=== PATIENT | female | born 1970 | race Caucasian/White ===

== ENCOUNTER 2019-10-23 18:51 | Outpatient (CLI) | payer MEDICARE, SELFPAY ==
--- NOTE | ~2019-10-23 | XR_ITS ---
XR knee LT 3V DATE: 10/23/2019 19:32 INDICATION: Generalized right leg pain TECHNIQUE: 3 views of left knee COMPARISON: None FINDINGS: There is moderate distention of the suprapatellar bursa consistent with knee joint effusion . There is periarticular spurring at all 3 compartments and moderately prominent loss of joint space at the medial compartment. No fracture, dislocation, periosteal reaction or bone destruction, radiopaque intra-articular loose b lei or chondrocalcinosis is detected. IMPRESSION: Tricompartment osteoarthritis and joint effusion Reviewed, dictated and finalized at location B.
--- NOTE | ~2019-10-23 | XR_ITS ---
EXAMINATION: XR femur RT min 2V, XR knee RT 3V DATE: 10/23/2019 INDICATION: Disorder of bone. Right leg pain. TECHNIQUE: 1. Anteroposterior, oblique and crosstable lateral views of the right knee were obtained 2. Frontal and lateral views of the right femur were obtained on overlapping proximal and distal imag es. COMPARISON: 05/25/2018 FINDINGS: Alignment is normal. No fracture. Right hip and knee joint spaces appear normal. No right knee joint effusion. No appreciable interval change in sclerotic lesions at the distal right femoral metaphysis measuring approximately 3.3 x 2.8 x 2.1 cm and at the proximal fibular metaphyseal region with less well-defined margins measuring approximately 2.1 x 1.2 x 1.3 cm. Both demonstrate stippled, ring and arc-like pattern of chondroid matrix. No evident overlying periosteal reaction, endosteal scalloping or interval osteolysis of the calcific matrix to suggest malignant transformation. Small focus of lik kamaljit gluteus medius calcific tendinitis at the tip of the greater trochanter. Soft tissues are unremar kable. IMPRESSION: 1. Stable appearance of sclerotic lesions at the distal femur and proximal fibula consistent with enc hondromas. 2. Small focus of likely calcific tendinitis at the greater trochanteric insertion of the distal righ t gluteus medias tendon. Reviewed, dictated and finalized at location A. IMPRESSION: 1. Stable appearance of sclerotic lesions at the distal femur and proximal fibu la consistent with enchondromas. 2. Small focus of likely calcific tendinitis at the greater trochanteric insert ion of the distal right gluteus medias tendon.
--- NOTE | ~2019-10-23 | XR_ITS ---
EXAMINATION: XR shoulder RT min 2V DATE: 10/23/2019 19:32 INDICATION: Right shoulder pain TECHNIQUE: AP internally and externally rotated, AP oblique externally rotated and axillary views of the right shoulder were obtained. COMPARISON: Right shoulder radiographs dated 12/15/2018 and 07/20/2018 chest radiograph dated FINDINGS: Normal alignment. No acute fracture. Again seen are small loose bodies at the axillary recess of the right glenohumeral joint. Chronic irregular contour to the anteroinferior glenoid which appears to man ve been present at the time of chest radiograph dated 07/20/2018 suggesting a chronic sequela of chrome plater maggi osseous Bankart injury. Again seen is right glenohumeral osteoarthritis with moderate nonuniform joint space narrowing and small marginal osteophytes along the inferior humeral head. Minimal acromio clavicular osteoarthritis. Visualized portions of the lungs are clear. Peripherally calcified bilater al breast implants. Moderate to severe cervical spondylosis. IMPRESSION: Moderate right glenohumeral osteoarthritis which is likely secondary to a chronic Bankart injury with depression of a portion of the anteroinferior rim of the glenoid and chronic loose osteochondral bod ies at the axillary recess. Reviewed, dictated and finalized at location A. IMPRESSION: Moderate right glenohumeral osteoarthritis which is likely secondary to a chron ic Bankart injury with depression of a portion of the anteroinferior rim of the glenoid and chronic loose osteochondral bodies at the axillary recess.
== END 2019-10-23 18:52 | disposition home or self-care (01) ==
PROVIDERS: PCP Family Medicine; Visit Provider Family Medicine
DX: M79.604 Pain in right leg (principal); M89.9 Disorder of bone, unspecified; M19.011 Primary osteoarthritis, right shoulder; M17.12 Unilateral primary osteoarthritis, left knee; M25.462 Effusion, left knee
CPT/HCPCS: 73030; 73552; 73562

== ENCOUNTER 2020-02-19 20:51 | Inpatient (IN) | payer MEDICARE, SELFPAY ==
--- NOTE | ~2020-02-19 | XR_ITS ---
EXAMINATION: XR chest 1V portable DATE: 02/25/2020 17:42 INDICATION: COVID-19 pneumonia. TECHNIQUE: A single frontal view of the chest was obtained. COMPARISON: Chest single view 02/22/2020, chest CT 02/20/2020 FINDINGS: There are mild airspace opacities in right lower lung zone and right upper lung zone. No pl eural effusion or pneumothorax. The heart size is normal. Breast implants are noted. IMPRESSION: 1. Mild airspace opacities in right lower lung zone and right upper lung zone, consistent with pneumo kortney. Reviewed, dictated and finalized at location A. IMPRESSION: 1. Mild airspace opacities in right lower lung zone and right upper lung zone, consistent with pneumonia.
--- NOTE | ~2020-02-19 | XR_ITS ---
EXAMINATION: XR chest 2V DATE: 02/19/2020 22:36 INDICATION: Shortness of breath. Cough. Fever. TECHNIQUE: Frontal and lateral views of the chest were obtained. COMPARISON: Chest 2 views 08/22/2019, 06/28/06, CT abdomen and pelvis 07/16/2011 FINDINGS: A calcified right lung nodule is consistent with old granulomatous disease. No pleural effu neda or pneumothorax. The heart size is normal. There are bilateral breast implants. IMPRESSION: 1. No acute cardiopulmonary disease. Reviewed, dictated and finalized at location A.
--- NOTE | ~2020-02-19 | XR_ITS ---
EXAMINATION: XR chest 1V portable DATE: 02/22/2020 06:15 INDICATION: Chest heart failure. Pneumonia. TECHNIQUE: frontal view of the chest was obtained. COMPARISON: Chest radiograph dated 02/19/[address] dated 02/20/2020 FINDINGS: Subtle opacities at the bilateral lower lung zones consistent with pneumonia. No pleural effusion or pneumothorax. The cardiomediastinal silhouette is normal. Lower thoracic levoscoliosis with mild spon dylosis. Peripheral calcification at bilateral breast implants. IMPRESSION: 1. Subtle opacities at the lower lung zones consistent with pneumonia. Reviewed, dictated and finalized at location A.
--- NOTE | ~2020-02-19 | CT_ITS ---
EXAMINATION: CTA chest PE protocol DATE: 02/20/2020 02:00 INDICATION: Shortness of breath. Chest pain. TECHNIQUE: Computed tomography (CT) pulmonary angiogram of the chest was performed with 100 mL Omnipa que-350 intravenous contrast. Additional 3D reconstructions utilizing coronal maximum intensity proje ction (MIP) were performed. Automated exposure control and iterative reconstruction technique were em ployed. The dose-length product was 224.17 mGy-cm. COMPARISON: None FINDINGS: Could contrast opacification of the pulmonary arteries. There is mild streak artifact from dense cont rast in the superior vena cava and right atrium. Minimal scattered respiratory motion artifact which does not limit evaluation. No pulmonary embolism. Patchy airspace opacities scattered throughout both lungs primarily in the right upper and bilateral lower lobes. Consistent with multifocal pneumonia. No pleural effusion or pneumothorax heart size is normal. No pericardial effusion. Mildly prominent m ediastinal and bilateral hilar lymph nodes which are likely reactive. Thoracic aorta is normal in zelda iber with no dissection. Peripheral calcification at bilateral breast implants. There are a few small low-attenuation cyst in the liver. Mild thoracic spondylosis. IMPRESSION: 1. No pulmonary embolism. 2. A few scattered bilateral patchy airspace opacities consistent with multifocal pneumonia. Reviewed, dictated and finalized at location A. IMPRESSION: 1. No pulmonary embolism. 2. A few scattered bilateral patchy airspace opacities consistent with multifoc al pneumonia.
[2020-02-19 21:00] VITALS: BP 120/81; PULSE 91; RESP 22; TEMP 36.6; O2SAT 97
--- NOTE | 2020-02-19 21:22 | ECG_ITS ---
Measurements Intervals [place] Rate: 89 P: 60 VA: 149 QRS: 50 QRSD: 88 T: 43 QT: 346 QTc: 422 Interpretive Statements SINUS RHYTHM POSSIBLE LEFT ATRIAL ENLARGEMENT BORDERLINE ECG Electronically Signed On 02-20-2020 7:01:22 CDT by Lars Hollingsworth D.O.
[2020-02-19 21:33] LABS: Basophils Percent Auto 0.5 % (0.2-1.2); Hematocrit 43.2 % (37.0-47.0); Hemoglobin 14.4 g/dL (12.0-15.0); Immature Granulocyte Absolute 0.03 K/mm3 (0.00-0.031); Immature Granulocyte Percent A 0.7 % (0-0.5); Lymphocytes Absolute Auto 1.82 K/mm3 (0.9-3.2); Lymphocytes Percent Auto 43.2 % (18.3-44.2); Mean Corpuscular HGB Conc 33.3 g/dl (32-36); Mean Corpuscular Hemoglobin 31.8 pg (26-34); Mean Corpuscular Volume 95.4 fl (80-100); Monocytes Absolute Auto 0.7 K/mm3 (0.1-0.6); Monocytes Percent Auto 16.9 % (2.6-8.5); Neutrophils Absolute Auto 1.6 K/mm3 (1.3-6.7); Neutrophils Percent Auto 38.7 % (45.5-73.1); Platelet Count Result 213 k/mm3 (150-375); Red Blood Count 4.53 M/mm3 (4.2-5.4); White Blood Count 4.2 K/mm3 (4.5-10.0)
[2020-02-19 21:43] LABS: Blood Urea Nitrogen 17 mg/dL (7-17); Carbon Dioxide 27 mmol/L (22-30); Chloride 104 mmol/L (98-107); Estimated CRCL calculation 88 ml/min; Estimated Glomerular Filt Rate > 60; Glucose 108 mg/dL (65-105); Potassium 3.8 mmol/L (3.4-5.0); Sodium 139 mmol/L (137-145)
[2020-02-19 23:10] VITALS: BP 129/83; PULSE 87; RESP 17; O2SAT 98
[2020-02-20] VITALS (16 sets, daily range): BP systolic 100–125; BP diastolic 68–86; PULSE 83–102; RESP 15–20; TEMP 36.8–38.8; O2SAT 93–98; BMI 26.5
[2020-02-20] MEDS: ALBUTEROL SULFATE (*SP) AEROSOL 1 PUFF 4 PUFF INHALATION (00:19)
--- NOTE | 2020-02-20 00:25 | ED.SOB ---
HPI - SOB/Dyspnea General Chief Complaint: Shortness of Breath/Dyspnea Stated Complaint: sob/cough possible sick exposure Time Seen by Provider: 02/19/20 23:48 Source: patient Mode of arrival: ambulatory Limitations: no limitations History of Present Illness HPI Narrative: This patient is 49 year old female with history of Rheumatoid arthritis, Melissa Danlos who presents for evaluation of cough and fever. She reports she has been running low grade fever for past 10 days. She states she had a fever before arrival. She also reports cough and shortness of breath. Earlier today she states used her inhaler 10 times because she has having trouble breathing. Her was a DJ at a green party 2 weeks ago and he is having similar symptoms as well. She is concerned that she may need antibiotics since she is on immunosuppression. She also states her cough has become productive with yellow sputum. MD elicited complaint: shortness of breath and cough Onset (ago): day(s) Related Data Home Medications Medication Instructions Recorded Confirmed albuterol sulfate 90 mcg/actuation 1 puff INHALATION Q4H PRN 07/24/19 02/20/20 aerosol inhaler fluticasone propionate 50 2 spray NASAL DAILY 07/24/19 02/20/20 mcg/actuation nasal spray,suspension omeprazole 20 mg capsule,delayed 40 mg PO HS 07/24/19 02/20/20 release ethacrynic acid 25 mg tablet 50 mg PO BID tablet 09/18/19 02/20/20 bupropion HCl [Wellbutrin SR] 150 mg PO QAM 02/20/20 02/20/20 bupropion HCl [Wellbutrin SR] 300 mg PO QAM 02/20/20 02/20/20 cholecalciferol (vitamin D3) 50,000 unit PO WEEKLY 02/20/20 02/20/20 [Dialyvite Vitamin D3 Max] folic acid 0.16 mg PO DAILY 02/20/20 02/20/20 hydromorphone 16 mg PO TID 02/20/20 02/20/20 montelukast [Singulair] 10 mg PO HS 02/20/20 02/20/20 pseudoephedrine HCl [Nasal 120 mg PO Q12H 02/20/20 02/20/20 Decongestant (pseudoeph)] Allergies Allergy/AdvReac Type Severity Reaction Status Date / Time doxycycline Allergy Severe Anaphylaxis Verified 01/23/20 13:17 aspirin Allergy Unknown Unknown Verified 01/23/20 13:17 azithromycin Allergy Unknown Unknown Verified 01/23/20 13:17 codeine Allergy Unknown Unknown Verified 01/23/20 13:17 hydrocodone Allergy Unknown Unknown Verified 01/23/20 13:17 latex Allergy Unknown Unknown Verified 01/23/20 13:17 meloxicam Allergy Unknown gives me Verified 01/23/20 13:17 blisters and my skins fall off meperidine Allergy Unknown Unknown Verified 01/23/20 13:17 methylprednisolone Allergy Unknown Unknown Verified 01/23/20 13:17 morphine Allergy Unknown Unknown Verified 01/23/20 13:17 NSAIDS (Non-Steroidal Allergy Unknown gives me Verified 01/23/20 13:17 Anti-Inflamma blisters and my skin falls off oxycodone Allergy Unknown Unknown Verified 01/23/20 13:17 Penicillins Allergy Unknown Unknown Verified 01/23/20 13:17 Sulfa (Sulfonamide Allergy Unknown Unknown Verified 01/23/20 13:17 Antibiotics) sulfite Allergy Unknown Unknown Verified 01/23/20 13:17 yellow dye Allergy Unknown Unknown Verified 01/23/20 13:17 Review of Systems Review of Systems: All systems reviewed & are unremarkable except as noted in HPI and below ENT: Reports nasal congestion and Reports post nasal drip Cardiovascular: Cardiovascular: Denies chest pain Respiratory: Respiratory: Reports cough, Reports dyspnea and Reports wheezing Gastrointestinal: Gastrointestinal: Denies abdominal pain, Denies diarrhea, Denies nausea and Denies vomiting PMFSH Past Medical History Medical History (Updated 02/20/20 @ 05:58 by Rubi Moreira MD) Bone lesion Chronic pain Depression, psychotic Melissa-Danlos disease Leg pain, bilateral Rheumatoid arthritis Wheezy bronchitis Surgical History Surgical History (Updated 02/20/20 @ 05:54 by Rubi Moreira MD) H/O tubal ligation Family History Family History (Updated 02/20/20 @ 05:37 by Ranya Ye RN) Other Unknown fami
[2020-02-20 04:00] LABS: Lactate Dehydrogenase 478 U/L (313-618)
[2020-02-20 04:05] LABS: CRP 1.9 mg/dL (<1.0)
--- NOTE | 2020-02-20 05:11 | ADMGEN ---
This patient, Mariah Adrianleonard Jonathan, was admitted to 3 Med Surg Room 331-01. Patient/family oriented to hospital policies and general routines including ID bracelet, bed and alarms, visiting hours, pain management, procedures, bathroom and other care routines, personal items, smoking policy, room service/diet, and visiting hours. Valuables list has been completed. Information on how to activate the Rapid Response Team has been discussed. Patient/Family are encouraged to report perceived risks to care and to ask questions if they do not understand what they are told or what they should do.
[2020-02-20] MEDS: ALBUTEROL SULFATE (*SP) AEROSOL 1 PUFF 6 PUFF INHALATION ×4 (09:19→21:36)
--- NOTE | 2020-02-20 13:56 | PM.IMHP ---
H&P: HPI History of Present Illness Chief complaint: Suspected CVA, pneumonia Narrative: Mariah Castillo is a 49 year old female who presented to the hospital with cough with sputum production, fever , diarrhea and body aches. She denies chest pain, reports SOB , no urinary symptoms, denies seeing blood in her diarrhea. Apparently her that is DJ has been exposed to COVID 19 but never tested for it. She has a history of RA and is on prednisone and methotrexate. She also states that she had to use her inhaler several times due to SOB but currently she feels better. Review of Systems Review of Systems: All systems reviewed & are unremarkable except as noted in HPI and below PMFSH Past Medical History Medical History Bone lesion Chronic pain Depression, psychotic Melissa-Danlos disease Leg pain, bilateral Rheumatoid arthritis Wheezy bronchitis Surgical History Surgical History H/O tubal ligation Family History Family History Other Unknown family medical history Social History Social History Smoking status: Former smoker Alcohol intake: former Substance use: never Gender identity (if verbalized by the patient): Female Spiritual care concerns: No Meds Home Medications and Allergies Home Medications Medication Instructions Recorded Confirmed Type albuterol sulfate 90 mcg/actuation 1 puff INHALATION Q4H PRN 07/24/19 02/20/20 History aerosol inhaler fluticasone propionate 50 2 spray NASAL DAILY 07/24/19 02/20/20 History mcg/actuation nasal spray,suspension omeprazole 20 mg capsule,delayed 40 mg PO HS 07/24/19 02/20/20 History release ethacrynic acid 25 mg tablet 50 mg PO BID tablet 09/18/19 02/20/20 History baclofen 20 mg tablet 20 mg PO Q6H PRN #120 tablet 01/11/20 02/20/20 Rx diazepam 10 mg tablet 10 mg PO BID PRN #60 tablet 01/11/20 02/20/20 Rx nystatin-triamcinolone 100,000 1 applic TOPICAL BID #30 gm 01/23/20 02/20/20 Rx unit/gram-0.1 % topical ointment amlodipine 10 mg tablet 10 mg PO DAILY #90 tablet 01/29/20 02/20/20 Rx thyroid (pork) 300 mg tablet 300 mg PO DAILY #90 tablet 01/29/20 02/20/20 Rx fentanyl 75 mcg/hr transdermal 1 patch TRANSDERM Q72H #10 patch 02/07/20 02/20/20 Rx patch atenolol 25 mg tablet 25 mg PO BID #180 tablet 02/13/20 02/20/20 Rx clonidine HCl 0.2 mg tablet 0.2 mg PO BID #60 tablet 02/19/20 02/20/20 Rx bupropion HCl [Wellbutrin SR] 150 mg PO QAM 02/20/20 02/20/20 History bupropion HCl [Wellbutrin SR] 300 mg PO QAM 02/20/20 02/20/20 History cholecalciferol (vitamin D3) 50,000 unit PO WEEKLY 02/20/20 02/20/20 History [Dialyvite Vitamin D3 Max] folic acid 0.16 mg PO DAILY 02/20/20 02/20/20 History hydromorphone 16 mg PO TID 02/20/20 02/20/20 History montelukast [Singulair] 10 mg PO HS 02/20/20 02/20/20 History pseudoephedrine HCl [Nasal 120 mg PO Q12H 02/20/20 02/20/20 History Decongestant (pseudoeph)] Allergies Allergy/AdvReac Type Severity Reaction Status Date / Time doxycycline Allergy Severe Anaphylaxis Verified 01/23/20 13:17 aspirin Allergy Unknown Unknown Verified 01/23/20 13:17 azithromycin Allergy Unknown Unknown Verified 01/23/20 13:17 codeine Allergy Unknown Unknown Verified 01/23/20 13:17 hydrocodone Allergy Unknown Unknown Verified 01/23/20 13:17 latex Allergy Unknown Unknown Verified 01/23/20 13:17 meloxicam Allergy Unknown gives me Verified 01/23/20 13:17 blisters and my skins fall off meperidine Allergy Unknown Unknown Verified 01/23/20 13:17 methylprednisolone Allergy Unknown Unknown Verified 01/23/20 13:17 morphine Allergy Unknown Unknown Verified 01/23/20 13:17 NSAIDS (Non-Steroidal Allergy Unknown gives me Verified 01/23/20 13:17 Anti-Inflamma blisters
[2020-02-20 15:01] LABS: SARS-CoV-2 RNA PCR Positive
[2020-02-20] MEDS: ACETAMINOPHEN 325 MG TABLET 650 MG PO ×2 (16:45→21:45)
--- NOTE | 2020-02-20 17:12 | PC.NURSE ---
When I first assessed pt, she was A/O x 4, but she was very confused. She had slurred speech, commented about wanting clothes on when she already had them on. Pt had her purse in bed with her along with a jug labeled V8 vladimir splash, but it was a clear liquid she stated was water. When I told her we had water for her already in her pitcher, she refused me taking it stating she needed more water than that. When her family brought her bag up here, we verified its contents. All medicines were recorded on the back of the belongings list and put into home meds with the controlled meds being locked in the safe. Given the amount of medications she takes and the weight of her purse, we did pull it out to verify its contents. When I went to pull the purse, she sat up in bed, swaying back and forth, slurring her words and talking about needing to get into bed, even though she was already there. Medicines, including controls, a variety of DLs, IDs, checkbooks, torches, lighters, were found. These items were also put in the safe/med room. Pt aware of this. Pt continues to slur speech, have poor eye control, and be confused, despite A/Ox4.
[2020-02-20] MEDS: cloNIDine HCL 0.2 MG TABLET PO (17:49)
[2020-02-20] MEDS: predniSONE 5 MG TABLET 15 MG PO (17:51)
[2020-02-20] MEDS: atenoloL 25 MG TABLET PO (18:39)
[2020-02-20] MEDS: MONTELUKAST SODIUM 10 MG TABLET PO (21:06)
[2020-02-20] MEDS: ONDANSETRON INJ 4 MG/2 ML VIAL IV PUSH (21:21)
[2020-02-21] VITALS (15 sets, daily range): BP systolic 91–122; BP diastolic 57–79; PULSE 76–95; RESP 16–20; TEMP 36.3–37.4; O2SAT 93–96
[2020-02-21] MEDS: THYROID 60 MG TABLET 300 MG PO (06:10)
[2020-02-21 06:37] LABS: Basophils Percent Auto 0.9 % (0.2-1.2); Eosinophils Percent Auto 0.3 % (0-4.4); Hematocrit 44.1 % (37.0-47.0); Hemoglobin 14.5 g/dL (12.0-15.0); Immature Granulocyte Absolute 0.03 K/mm3 (0.00-0.031); Immature Granulocyte Percent A 0.9 % (0-0.5); Lymphocytes Absolute Auto 2.14 K/mm3 (0.9-3.2); Lymphocytes Percent Auto 60.8 % (18.3-44.2); Mean Corpuscular HGB Conc 32.9 g/dl (32-36); Mean Corpuscular Hemoglobin 31.5 pg (26-34); Mean Corpuscular Volume 95.9 fl (80-100); Mean Platelet Volume 9.8 fl (7.4-10.4); Monocytes Absolute Auto 0.7 K/mm3 (0.1-0.6); Monocytes Percent Auto 18.5 % (2.6-8.5); Neutrophils Absolute Auto 0.7 K/mm3 (1.3-6.7); Neutrophils Percent Auto 18.6 % (45.5-73.1); Platelet Count Result 174 k/mm3 (150-375); Red Cell Distribution Width 14.3 % (11.5-14.5); White Blood Count 3.5 K/mm3 (4.5-10.0)
[2020-02-21 07:06] LABS: Alanine Aminotransferase 26 U/L (4-35); Albumin Level 3.8 g/dL (3.5-5.1); Alkaline Phosphatase 91 U/L (38-126); Aspartate Amino Transferase 38 U/L (14-36); Bilirubin,Total 0.2 mg/dL (0.2-1.3); Blood Urea Nitrogen 9 mg/dL (7-17); Calcium 8.5 mg/dL (8.4-10.2); Carbon Dioxide 26 mmol/L (22-30); Chloride 100 mmol/L (98-107); Estimated CRCL calculation 112 ml/min; Estimated Glomerular Filt Rate > 60; Glucose 88 mg/dL (65-105); Potassium 3.7 mmol/L (3.4-5.0); Sodium 134 mmol/L (137-145)
[2020-02-21 08:41] LABS: Amphetamine Screen Urine Negative (Negative); Barbiturate Screen Urine Negative (Negative); Benzodiazepines Screen Urine Positive (Negative); Cannabinoid Screen Urine Negative (Negative); Cocaine Screen Urine Negative (Negative); Methadone Screen Urine Negative (Negative); Opiate Screen Urine Positive (Negative); Phencyclidine Screen Urine Negative (Negative)
--- NOTE | 2020-02-21 09:16 | PM.IMPN ---
Progress Note: A&P Assessment and Plan (1) Person under investigation for COVID-19: Code(s): Z20.828 - Contact with and (suspected) exposure to other viral communicable diseases Status: Acute Assessment and Plan: She came back positive but remains stable at this time. She is a high risk patient given her comorbidities (RA) and immunosuppression but at this time she looks very stable. Repeat cxr tomorrow morning, if no change in clinical status she might be discharged home to self isolate. She is not requiring supplemental oxygen. (2) Pneumonia: Code(s): J18.9 - Pneumonia, unspecified organism Status: Acute Assessment and Plan: Likely viral due to COVID. No need for additional antibiotic coverage for now. (3) Chronic pain: Qualifiers: Chronic pain type: chronic pain syndrome Qualified Code(s): G89.4 - Chronic pain syndrome Code(s): G89.29 - Other chronic pain Status: Chronic Assessment and Plan: She is on a very high doses of narcotics for chronic pain. I explained to her that given her respiratory condition it might not be a good idea to resume all of her pain meds, she agreed and states she is not in pain right now. Continue with the fentanyl patch she has on. (4) Rheumatoid arthritis: Qualifiers: Rheumatoid arthritis location: multiple sites Rheumatoid factor presence: with rheumatoid factor Qualified Code(s): M05.79 - Rheumatoid arthritis with rheumatoid factor of multiple sites without organ or systems involvement Code(s): M06.9 - Rheumatoid arthritis, unspecified Status: Chronic Assessment and Plan: Resume her prednisone. 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 She remains on room air above 90%. 02/21/20 09:16 Review of Systems Review of Systems: All systems reviewed & are unremarkable except as noted in HPI and below Exam Const: General: no acute distress Neck: Neck: supple and no JVD Resp: Effort & Inspection: normal respiratory effort Auscultation: clear to auscultation bilaterally Cardio: Rate: regular rate Rhythm: regular rhythm GI: Auscultation: normal bowel sounds Other: Soft, non tender, non distended. Skin: General skin exam: normal color and no rashes or lesions noted Neuro: Speech: normal speech Motor exam (neuro): 5/5 motor strength present throughout and Normal motor muscle tone present throughout Extrem: General: normal to inspection Objective Data Vital Signs Vital Signs: Vital Signs - 24 hr 02/20/20 10:00 02/20/20 14:00 02/20/20 16:45 Temperature 99.2 F 101.4 F H 101.4 F H Pulse Rate 94 97 Respiratory Rate 20 18 Blood Pressure 117/72 125/68 Pulse Oximetry 94 98 02/20/20 17:53 02/20/20 18:00 02/20/20 18:39 Temperature 100.3 F H 100.3 F H Pulse Rate 99 88 Respiratory Rate 18 Blood Pressure 105/71 Pulse Oximetry 93 02/20/20 20:45 02/20/20 22:00 02/21/20 00:00 Temperature 98.2 F Pulse Rate 83 83 80 Respiratory Rate 18 18 Blood Pressure 103/68 Pulse Oximetry 98 98 02/21/20 02:00 02/21/20 04:00 02/21/20 06:00 Temperature 97.6 F 98.5 F Pulse Rate 78 76 77 Respiratory Rate 16 16 Blood Pressure 97/60 L 91/57 L Pulse Oximetry 94 94 Intake/Output Intake/Output: Intake & Output 02/18/20 02/19/20 02/20/20 02/21/20 23:59 23:59 23:59 23:59 Intake Total 1470 930 Output Total 900 Balance 1470 30 Meds/Results Medications: Active Medications Generic Name Dose Route Start Last Admin Trade Name Freq PRN Reason Stop Dose Admin Acetaminophen 650 mg 02/20/20 13:53 02/20/20 21:45 Tylenol Tablet PO 650 mg Q6H PRN Administration Moderate Pain (4-6) Al Hydrox/Mg Hydrox/Simethicone 30 ml 02/21/20 07:37 Mylanta PO Q6H PRN
[2020-02-21] MEDS: ALBUTEROL SULFATE (*SP) AEROSOL 1 PUFF 6 PUFF INHALATION ×2 (09:24→13:40)
[2020-02-21] MEDS: FLUTICASONE PROPIONATE 0.05% NA SPR 16 GM BTL (*BKC) 2 SPRAY NASAL (10:36)
[2020-02-21] MEDS: FAMOTIDINE 20 MG/2 ML VIAL IV PUSH ×2 (10:37→20:26)
[2020-02-21] MEDS: MAG HYDROX/AL HYDROX/SIMETH 30 ML UDC PO (10:37)
[2020-02-21] MEDS: ENOXAPARIN 40 MG/0.4 ML SYRINGE SUB-Q (10:37)
[2020-02-21] MEDS: buPROPion HCL XL (24 HR) 150 MG TABCR 300 MG PO (10:37)
[2020-02-21] MEDS: atenoloL 25 MG TABLET PO (10:37)
[2020-02-21] MEDS: cloNIDine HCL 0.2 MG TABLET PO ×2 (10:37→17:42)
[2020-02-21] MEDS: predniSONE 5 MG TABLET 15 MG PO (10:37)
[2020-02-21] MEDS: ACETAMINOPHEN 325 MG TABLET 650 MG PO ×2 (10:38→17:44)
[2020-02-21] MEDS: MONTELUKAST SODIUM 10 MG TABLET PO (20:26)
--- NOTE | 2020-02-21 20:37 | PC.NURSE ---
Pt refused lovenox injection stating she has bleeding tendencies due to her Melissa-danlos. I educated her on clotting tendencies with COVID 19 patients. She said she would rather take her chances not receiving the injection because of her disease. Will continue to monitor.
[2020-02-21] MEDS: diazePAM 10 MG TABLET PO (21:03)
[2020-02-22] VITALS (13 sets, daily range): BP systolic 100–137; BP diastolic 63–92; PULSE 66–91; RESP 18–20; TEMP 36.4–36.7; O2SAT 91–97
[2020-02-22] MEDS: ACETAMINOPHEN 325 MG TABLET 650 MG PO (03:18)
[2020-02-22] MEDS: THYROID 60 MG TABLET 300 MG PO (06:20)
[2020-02-22 07:03] LABS: Basophils Percent Auto 0.4 % (0.2-1.2); Eosinophils Percent Auto 0.6 % (0-4.4); Hematocrit 43.5 % (37.0-47.0); Hemoglobin 14.1 g/dL (12.0-15.0); Immature Granulocyte Absolute 0.03 K/mm3 (0.00-0.031); Immature Granulocyte Percent A 0.6 % (0-0.5); Lymphocytes Absolute Auto 3.36 K/mm3 (0.9-3.2); Lymphocytes Percent Auto 71.9 % (18.3-44.2); Mean Corpuscular HGB Conc 32.4 g/dl (32-36); Mean Corpuscular Hemoglobin 31.2 pg (26-34); Mean Corpuscular Volume 96.2 fl (80-100); Mean Platelet Volume 10.2 fl (7.4-10.4); Monocytes Absolute Auto 0.6 K/mm3 (0.1-0.6); Monocytes Percent Auto 13.7 % (2.6-8.5); Neutrophils Absolute Auto 0.6 K/mm3 (1.3-6.7); Neutrophils Percent Auto 12.8 % (45.5-73.1); Platelet Count Result 204 k/mm3 (150-375); Red Blood Count 4.52 M/mm3 (4.2-5.4); Red Cell Distribution Width 14.3 % (11.5-14.5); White Blood Count 4.7 K/mm3 (4.5-10.0)
[2020-02-22 07:05] LABS: Blood Urea Nitrogen 7 mg/dL (7-17); Calcium 8.8 mg/dL (8.4-10.2); Carbon Dioxide 33 mmol/L (22-30); Chloride 99 mmol/L (98-107); Estimated CRCL calculation 95 ml/min; Estimated Glomerular Filt Rate > 60; Glucose 114 mg/dL (65-105); Sodium 137 mmol/L (137-145)
[2020-02-22 08:33] LABS: Large Platelets Present; Platelet Estimate Adequate (Adequate)
[2020-02-22] MEDS: ALBUTEROL SULFATE (*SP) AEROSOL 1 PUFF 6 PUFF INHALATION ×4 (08:40→21:38)
[2020-02-22] MEDS: predniSONE 5 MG TABLET 15 MG PO (09:09)
[2020-02-22] MEDS: FLUTICASONE PROPIONATE 0.05% NA SPR 16 GM BTL (*BKC) 2 SPRAY NASAL (09:11)
[2020-02-22] MEDS: cloNIDine HCL 0.2 MG TABLET PO ×2 (09:11→17:07)
[2020-02-22] MEDS: ENOXAPARIN 40 MG/0.4 ML SYRINGE SUB-Q (09:11)
[2020-02-22] MEDS: FAMOTIDINE 20 MG/2 ML VIAL IV PUSH ×2 (09:11→22:00)
--- NOTE | 2020-02-22 13:40 | WPDINFPN2 ---
Progress Note: A&P Assessment and Plan (1) Pneumonia due to COVID-19 virus: Code(s): U07.1 - COVID-19; J12.89 - Other viral pneumonia Status: Acute Assessment and Plan: 1. Fever with mild hypoxia due to CoVid 19 infection and viral pneumonia 2. CNSS bacteremia, contaminant 3. Immunosuppressed 4. RA and/or psoriatic arthritis 5. Resolved toxoplasmosis REC Dexamethasone # 1 / 10 days. Use IV as she has tolerated this in past, as opposed to oral which caused prolonged insomnia. Remdesivir # 1 / 5 days. Hold oral prednisone until dexamethasone completed. Hold Humira and Mtx until fully recovered. Stop vancomycin. Subjective Date/time seen: 02/22/20 13:40 Objective Data Vital Signs Vital Signs: Vital Signs - 24 hr 02/21/20 14:00 02/21/20 16:00 02/21/20 18:00 Temperature 37.3 C 37.2 C Pulse Rate 91 95 90 Respiratory Rate 20 20 Blood Pressure 95/61 L 109/62 Pulse Oximetry 96 96 02/21/20 20:00 02/21/20 22:00 02/22/20 00:00 Temperature 36.3 C L Pulse Rate 84 76 80 Respiratory Rate 20 Blood Pressure 122/79 Pulse Oximetry 93 02/22/20 02:00 02/22/20 04:00 02/22/20 06:00 Temperature 36.7 C 36.6 C Pulse Rate 66 72 72 Respiratory Rate 20 18 Blood Pressure 120/73 100/68 Pulse Oximetry 94 93 02/22/20 08:00 Temperature Pulse Rate 90 Respiratory Rate Blood Pressure Pulse Oximetry Intake/Output Intake/Output: Intake & Output 02/19/20 02/20/20 02/21/20 02/22/20 23:59 23:59 23:59 23:59 Intake Total 1470 3440 650 Output Total 1800 600 Balance 1470 1640 50 Meds/Results Medications: Active Medications Generic Name Dose Route Start Last Admin Trade Name Freq PRN Reason Stop Dose Admin Acetaminophen 650 mg 02/20/20 13:53 02/22/20 03:18 Tylenol Tablet PO 650 mg Q6H PRN Administration Moderate Pain (4-6) Al Hydrox/Mg Hydrox/Simethicone 30 ml 02/21/20 07:37 02/21/20 10:37 Mylanta PO 30 ml Q6H PRN Administration Indigestion Albuterol 6 puff 02/20/20 08:00 02/22/20 08:40 Proventil Hfa INHALATION 6 puff QIDRT [facility] Administration Atenolol 25 mg 02/20/20 17:00 02/22/20 09:10 Tenormin PO Not Given BID [facility] Bupropion HCl 150 mg 02/23/20 09:00 Wellbutrin-Sr (12 Hr) PO QAM [facility] Clonidine HCl 0.2 mg 02/20/20 17:00 02/22/20 09:11 Catapres PO 0.2 mg BID [facility] Administration Dexamethasone Sodium Phosphate 6 mg 02/22/20 13:40 Decadron 4 Mg/Ml Inj IV PUSH 03/02/20 23:59 DAILY [facility] Diazepam 10 mg 02/20/20 13:51 02/21/20 21:03 Valium Po PO 10 mg BID PRN Administration muscle spasm Enoxaparin Sodium 40 mg 02/21/20 09:00 02/22/20 09:11 Lovenox SUB-Q 40 mg DAILY [facility] Administration Famotidine 20 mg 02/21/20 09:00 02/22/20 09:11 Pepcid Iv IV PUSH 20 mg Q12HR [facility] Administration Fentanyl 75 mcg 02/21/20 09:00 02/21/20 10:38 Duragesic 75 Mcg Patch TRANSDERM 75 mcg Q72H [facility] Administration Fluticasone Propionate 2 spray 02/21/20 09:00 02/22/20 09:11 Flonase 0.05% Nasal [place] NASAL 2 spray DAILY [facility] Administration Hydromorphone HCl 8 mg 02/22/20 11:50 Dilaudid Tablet PO Q4H PRN Pain Rated 7-10 Remdesivir 200 mg in 250 mls @ 250 mls/hr 02/22/20 13:32 IVPB 02/22/20 14:31 ONCE ONE Remdesivir 100 mg in 250 mls @ 250 mls/hr 02/23/20 13:35 IVPB 02/27/20 13:36 Q24H [facility] Montelukast Sodium 10 mg 02/20/20 21:00 02/21/20 20:26 Singulair PO 10 mg HS [place] Administration Non-Formulary Medication 20 mg 02/22/20 11:34 Baclofen PO Q6H PRN muscle spasm Non-Formulary Medication 120 mg 02/22/20 11:45 Pseudoephedrine Hcl [Nasal Decongestant (Pseudoeph)] PO 03/23/20 11:46 Q12H [facility] Ondansetron HCl 4 mg 02/20/20 03:16 02/20/20 21:21 Zofran Inj IV PUSH 4 mg Q4H PRN Administration Nausea Prednisone 15 mg 02/20/20 13:55 02/22/20 09:09 Prednisone PO 15 mg
--- NOTE | 2020-02-22 14:56 | PHAR ---
PSEUDOEPHEDRINE 120MG EVERY 12 HOURS HOME MED VERIFIED
[2020-02-22] MEDS: REMDESIVIR 200 MG/NS 250 ML 200 MG/250 ML BAG 250 MG IVPB (15:45)
[2020-02-22] MEDS: DEXAMETHASONE SOD PHOS INJ 4 MG/ML VIAL 6 MG IV PUSH (15:46)
[2020-02-22 17:12] LABS: Alanine Aminotransferase 23 U/L (4-35)
--- NOTE | 2020-02-22 17:45 | PM.IMPN ---
Progress Note: A&P Assessment and Plan (1) Pneumonia due to COVID-19 virus: Code(s): U07.1 - COVID-19; J12.89 - Other viral pneumonia Status: Acute Assessment and Plan: Pt seen by ID today, started on remdesivir and steroids, oxygen prn if needed, cough syrup freeman for sinus type headache, recommends transfer to [facility] Pt is COVID positive. 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, unspecified Status: Chronic Assessment and Plan: pt is awaiting transfer to [facility] for RA input (3) Rheumatoid arthritis: Qualifiers: Rheumatoid arthritis location: multiple sites Rheumatoid factor presence: with rheumatoid factor Qualified Code(s): M05.79 - Rheumatoid arthritis with rheumatoid factor of multiple sites without organ or systems involvement Code(s): M06.9 - Rheumatoid arthritis, unspecified Status: Chronic Assessment and Plan: hold humira and methrotrexate injection (4) Chronic pain: Qualifiers: Chronic pain type: chronic pain syndrome Qualified Code(s): G89.4 - Chronic pain syndrome Code(s): G89.29 - Other chronic pain Status: Chronic Assessment and Plan: pt is on fentanyl and hydromorphone prn (5) Hypothyroid: Code(s): E03.9 - Hypothyroidism, unspecified Status: Acute Assessment and Plan: pt is on levothyroxine Subjective Date/time seen: 02/22/20 17:45 Long discussion with patient regarding her RA medications, over the phone, pt feels like she has a bad headache today requesting more pain medications for headache, and mild chest pain, otherwise fever is better, still has a cough, pt is not needing any oxygen , pt seen by ID doctor already who has started pt on steroids and remdesivir. 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 I have called [facility] when bed is available, pt is accepted to medical service DR Kelley for covid with history of RA. Pts bc appeared positive but were not a true positive so vancomycin has been stopped by ID Review of Systems Review of Systems: All systems reviewed & are unremarkable except as noted in HPI and below Respiratory: Respiratory: Reports chest congestion and Reports cough Comments: fever improving, body aches improving, headache ongoing, mild chest pain Exam Narrative: Exam Narrative: Temp Pulse Resp BP Pulse Ox 36.7 C 84 20 123/80 97 02/22/20 08:00 02/22/20 16:00 02/22/20 08:00 02/22/20 08:00 02/22/20 08:00 Objective Data Vital Signs Vital Signs: Vital Signs - 24 hr 02/21/20 18:00 02/21/20 20:00 02/21/20 22:00 Temperature 37.2 C 36.3 C L Pulse Rate 90 84 76 Respiratory Rate 20 20 Blood Pressure 109/62 122/79 Pulse Oximetry 96 93 02/22/20 00:00 02/22/20 02:00 02/22/20 04:00 Temperature 36.7 C Pulse Rate 80 66 72 Respiratory Rate 20 Blood Pressure 120/73 Pulse Oximetry 94 02/22/20 06:00 02/22/20 08:00 02/22/20 12:00 Temperature 36.6 C 36.7 C Pulse Rate 72 71 69 Respiratory Rate 18 20 Blood Pressure 100/68 123/80 Pulse Oximetry 93 97 02/22/20 16:00 Temperature Pulse Rate 84 Respiratory Rate Blood Pressure Pulse Oximetry Intake/Output Intake/Output: Intake & Output 02/19/20 02/20/20 02/21/20 02/22/20 23:59 23:59 23:59 23:59 Intake Total 1470 3440 1800 Output Total 1800 600 Balance 1470 1640 1200 Meds/Results Medications: Active Medications Generic Name Dose Route Start Last Admin Trade Name Freq PRN Reason Stop Dose Admin Acetaminophen 650 mg
[2020-02-22] MEDS: MONTELUKAST SODIUM 10 MG TABLET PO (22:00)
[2020-02-23] VITALS (14 sets, daily range): BP systolic 119–126; BP diastolic 70–79; PULSE 78–88; RESP 16–18; TEMP 36.3–36.8; O2SAT 91–99
[2020-02-23] MEDS: THYROID 60 MG TABLET 300 MG PO (06:21)
[2020-02-23 08:56] LABS: Glucose Point of Care 110 (65-105)
[2020-02-23] MEDS: ALBUTEROL SULFATE (*SP) AEROSOL 1 PUFF 6 PUFF INHALATION ×4 (09:00→20:50)
[2020-02-23] MEDS: cloNIDine HCL 0.2 MG TABLET PO ×2 (09:08→18:31)
[2020-02-23] MEDS: ENOXAPARIN 40 MG/0.4 ML SYRINGE SUB-Q (09:09)
[2020-02-23] MEDS: DEXAMETHASONE SOD PHOS INJ 4 MG/ML VIAL 6 MG IV PUSH (09:09)
[2020-02-23] MEDS: atenoloL 25 MG TABLET PO ×2 (09:09→18:31)
[2020-02-23] MEDS: FAMOTIDINE 20 MG/2 ML VIAL IV PUSH ×2 (09:11→20:31)
[2020-02-23] MEDS: ACETAMINOPHEN 325 MG TABLET 650 MG PO ×2 (09:12→20:49)
[2020-02-23] MEDS: FLUTICASONE PROPIONATE 0.05% NA SPR 16 GM BTL (*BKC) 2 SPRAY NASAL (09:18)
[2020-02-23] MEDS: REMDESIVIR 100 MG/NS 250 ML 100 MG/250 ML BAG 250 MG IVPB (12:26)
[2020-02-23 13:58] LABS: Alanine Aminotransferase 23 U/L (4-35)
--- NOTE | 2020-02-23 14:07 | WPDINFPN2 ---
Progress Note: A&P Assessment and Plan (1) Pneumonia due to COVID-19 virus: Code(s): U07.1 - COVID-19; J12.89 - Other viral pneumonia Status: Acute Assessment and Plan: 1. Fever with mild hypoxia due to CoVid 19 infection and viral pneumonia, at times more hypoxemic than prior day 2. CNSS bacteremia, contaminant 3. Immunosuppressed 4. RA and/or psoriatic arthritis 5. Resolved toxoplasmosis REC Dexamethasone # 2 / 10 days. Use IV as she has tolerated this in past, as opposed to oral which caused prolonged insomnia. Remdesivir # 2 / 5 days, tolerating. Hold oral prednisone until dexamethasone completed. Hold Humira and Mtx until fully recovered. Off vancomycin. Subjective Date/time seen: 02/23/20 14:07 Interval history: slept well + cough + dyspnea at times Exam Narrative: Exam Narrative: afebrile. Sats reviewed, all on RA Const: General: no acute distress Eyes: General: appearance normal, both eyes and all related structures Resp: Effort & Inspection: normal respiratory effort Auscultation: clear to auscultation bilaterally Cardio: Rate: regular rate Rhythm: regular rhythm Heart sounds: no murmurs and no rubs GI: Inspection: non-distended GI Palp: Yes Soft to palpation and No Tenderness to palpation present (GI) Skin: General skin exam: normal color and no rashes or lesions noted Objective Data Vital Signs Vital Signs: Vital Signs - 24 hr 02/22/20 16:00 02/22/20 18:00 02/22/20 20:00 Temperature 36.7 C Pulse Rate 84 91 80 Respiratory Rate 18 Blood Pressure 137/92 H Pulse Oximetry 91 02/22/20 21:38 02/22/20 22:00 02/23/20 00:00 Temperature 36.4 C L Pulse Rate 88 85 Respiratory Rate 20 Blood Pressure 123/78 Pulse Oximetry 91 95 02/23/20 02:00 02/23/20 04:00 02/23/20 06:00 Temperature 36.7 C 36.7 C Pulse Rate 84 85 84 Respiratory Rate 18 18 Blood Pressure 121/78 121/78 Pulse Oximetry 91 91 02/23/20 08:00 02/23/20 09:01 02/23/20 10:05 Temperature 36.8 C Pulse Rate 87 88 Respiratory Rate 18 Blood Pressure 125/75 Pulse Oximetry 94 91 93 Intake/Output Intake/Output: Intake & Output 02/20/20 02/21/20 02/22/20 02/23/20 23:59 23:59 23:59 23:59 Intake Total 1470 3440 2400 780 Output Total 1800 1000 1000 Balance 1470 1640 1400 -220 Meds/Results Medications: Active Medications Generic Name Dose Route Start Last Admin Trade Name Freq PRN Reason Stop Dose Admin Acetaminophen 650 mg 02/20/20 13:53 02/23/20 09:12 Tylenol Tablet PO 650 mg Q6H PRN Administration Moderate Pain (4-6) Al Hydrox/Mg Hydrox/Simethicone 30 ml 02/21/20 07:37 02/21/20 10:37 Mylanta PO 30 ml Q6H PRN Administration Indigestion Albuterol 6 puff 02/20/20 08:00 02/23/20 11:43 Proventil Hfa INHALATION 6 puff QIDRT [facility] Administration Atenolol 25 mg 02/20/20 17:00 02/23/20 09:09 Tenormin PO 25 mg BID [place] Administration Baclofen 20 mg 02/22/20 11:34 Lioresal Po PO Q6H PRN muscle spasm Bupropion HCl 150 mg 02/23/20 09:00 02/23/20 09:11 Wellbutrin-Sr (12 Hr) PO 150 mg QAM [facility] Administration Clonidine HCl 0.2 mg 02/20/20 17:00 02/23/20 09:08 Catapres PO 0.2 mg BID [place] Administration Dexamethasone Sodium Phosphate 6 mg 02/22/20 13:40 02/23/20 09:09 Decadron 4 Mg/Ml Inj IV PUSH 03/02/20 23:59 6 mg DAILY [facility] Administration Diazepam 10 mg 02/20/20 13:51 02/21/20 21:03 Valium Po PO 10 mg BID PRN Administration muscle spasm Enoxaparin Sodium 40 mg 02/21/20 09:00 02/23/20 09:09 Lovenox SUB-Q 40 mg DAILY [facility] Administration Famotidine 20 mg 02/21/20 09:00 02/23/20 09:11 Pepcid Iv IV PUSH 20 mg Q12HR [facility] Administration Fentanyl 75 mcg 02/21/20 09:00 02/21/20 10:38 Duragesic 75 Mcg Patch TRANSDERM 75 mcg Q72H [facility] Administration Fluticasone Propionate 2 spray 02/21/20 09:00 02/23/20 09:18 Flonase 0.05% Nasal
--- NOTE | 2020-02-23 15:42 | PM.IMPN ---
Progress Note: A&P Assessment and Plan (1) Pneumonia due to COVID-19 virus: Code(s): U07.1 - COVID-19; J12.89 - Other viral pneumonia Status: Acute Assessment and Plan: Pt seen by ID doctor, pt already on remdesivir and steroids, oxygen prn if needed, cough syrup freeman for sinus type headache, recommending transfer to [facility] for better pain control management and RA input Pt is COVID positive with mutifocal PNEUMONIA.being treated here actively. 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, unspecified Status: Chronic Assessment and Plan: pt is awaiting transfer to [facility] for RA input (3) Rheumatoid arthritis: Qualifiers: Rheumatoid arthritis location: multiple sites Rheumatoid factor presence: with rheumatoid factor Qualified Code(s): M05.79 - Rheumatoid arthritis with rheumatoid factor of multiple sites without organ or systems involvement Code(s): M06.9 - Rheumatoid arthritis, unspecified Status: Chronic Assessment and Plan: hold humira and methrotrexate injection (4) Chronic pain: Qualifiers: Chronic pain type: chronic pain syndrome Qualified Code(s): G89.4 - Chronic pain syndrome Code(s): G89.29 - Other chronic pain Status: Chronic Assessment and Plan: pt is on fentanyl and hydromorphone prn (5) Hypothyroid: Code(s): E03.9 - Hypothyroidism, unspecified Status: Acute Assessment and Plan: pt is on levothyroxine Subjective Date/time seen: 02/23/20 15:42 Interval history: Long discussion with patient regarding her RA medications, over the phone,pt complains of abdominal pains, today and mild chest pains, not taken any baclofen or hydromorphone since yesterday. Mild cough, fever is better. Pt is not needing any oxygen , pt seen by ID doctor yesterday who has started pt on steroids and remdesivir. 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 I have called [facility] hospital[facility] team when bed is available, pt is accepted to medical service DR Kelley for covid with history of RA. Pts bc appeared positive but were not a true positive so vancomycin has been stopped by ID. Explained to patient pneumonia is likely a viral pneumonia not bacterial. [facility]Waiting bed to [facility]. long discussion about pain medications in the room and pt considering hospice, i told her to think about this later if she wants to not [facility] now Review of Systems Review of Systems: Narrative: cough fever headaches All systems reviewed & are unremarkable except as noted in HPI and below Exam Narrative: Exam Narrative: Vitals stable. not on oxygen Objective Data Vital Signs Vital Signs: Vital Signs - 24 hr 02/22/20 16:00 02/22/20 18:00 02/22/20 20:00 Temperature 36.7 C Pulse Rate 84 91 80 Respiratory Rate 18 Blood Pressure 137/92 H Pulse Oximetry 91 02/22/20 21:38 02/22/20 22:00 02/23/20 00:00 Temperature 36.4 C L Pulse Rate 88 85 Respiratory Rate 20 Blood Pressure 123/78 Pulse Oximetry 91 95 02/23/20 02:00 02/23/20 04:00 02/23/20 06:00 Temperature 36.7 C 36.7 C Pulse Rate 84 85 84 Respiratory Rate 18 18 Blood Pressure 121/78 121/78 Pulse Oximetry 91 91 02/23/20 08:00 02/23/20 09:01 02/23/20 10:05 Temperature 36.8 C Pulse Rate 87 88 Respiratory Rate 18 Blood Pressure 125/75 Pulse Oximetry 94 91 93 Intake/Output Intake/Output: Intake & Output 02/20/20 02/21/20 02/22/20 02/23/20 23:59 23:59 23:59 23:59 Intake Total 1470 3440 2400 1020 Output Total 1800 1000 1000 Balance 1470 1640 1400 20 Meds/Results Medications: Active Medications Generic Name Dose Route Start Last Admin Trade Name Freq PRN Reason Stop Dose Admin Acetaminophen 650 mg 02/20/20 13:53 02/23/20 09:12 Tylenol Tablet PO 650 mg Q6H PRN Adm
[2020-02-23] MEDS: BACLOFEN 10 MG TABLET 20 MG PO (16:18)
[2020-02-23] MEDS: diazePAM 10 MG TABLET PO (16:19)
[2020-02-23] MEDS: MONTELUKAST SODIUM 10 MG TABLET PO (20:31)
[2020-02-24] VITALS (13 sets, daily range): BP systolic 118–149; BP diastolic 74–92; PULSE 57–84; RESP 16–20; TEMP 36.3–36.9; O2SAT 94–99
[2020-02-24] MEDS: THYROID 60 MG TABLET 300 MG PO (05:30)
[2020-02-24] MEDS: atenoloL 25 MG TABLET PO ×2 (08:38→17:23)
[2020-02-24] MEDS: cloNIDine HCL 0.2 MG TABLET PO ×2 (08:38→17:23)
[2020-02-24] MEDS: DEXAMETHASONE SOD PHOS INJ 4 MG/ML VIAL 6 MG IV PUSH (08:38)
[2020-02-24] MEDS: FAMOTIDINE 20 MG/2 ML VIAL IV PUSH ×2 (08:38→20:20)
[2020-02-24] MEDS: ENOXAPARIN 40 MG/0.4 ML SYRINGE SUB-Q (08:38)
[2020-02-24] MEDS: FLUTICASONE PROPIONATE 0.05% NA SPR 16 GM BTL (*BKC) 2 SPRAY NASAL (08:39)
[2020-02-24] MEDS: ALBUTEROL SULFATE (*SP) AEROSOL 1 PUFF 6 PUFF INHALATION ×4 (08:59→22:09)
[2020-02-24] MEDS: ACETAMINOPHEN 325 MG TABLET 650 MG PO (11:40)
[2020-02-24] MEDS: BACLOFEN 10 MG TABLET 20 MG PO (13:24)
[2020-02-24] MEDS: REMDESIVIR 100 MG/NS 250 ML 100 MG/250 ML BAG 250 MG IVPB (13:24)
[2020-02-24] MEDS: diazePAM 10 MG TABLET PO (13:24)
[2020-02-24 14:19] LABS: Alanine Aminotransferase 25 U/L (4-35)
--- NOTE | 2020-02-24 18:06 | PM.IMPN ---
Progress Note: A&P Assessment and Plan (1) Pneumonia due to COVID-19 virus: Code(s): U07.1 - COVID-19; J12.89 - Other viral pneumonia Status: Acute Assessment and Plan: Pt seen, pt already on remdesivir and steroids, oxygen prn if needed, cough syrup freeman for sinus type headache, recommending transfer to [facility] for better pain control management and RA input Pt is COVID positive with mutifocal PNEUMONIA.being treated here actively. 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, unspecified Status: Chronic Assessment and Plan: pt is awaiting transfer to [facility] for RA input (3) Rheumatoid arthritis: Qualifiers: Rheumatoid arthritis location: multiple sites Rheumatoid factor presence: with rheumatoid factor Qualified Code(s): M05.79 - Rheumatoid arthritis with rheumatoid factor of multiple sites without organ or systems involvement Code(s): M06.9 - Rheumatoid arthritis, unspecified Status: Chronic Assessment and Plan: hold humira and methrotrexate injection (4) Chronic pain: Qualifiers: Chronic pain type: chronic pain syndrome Qualified Code(s): G89.4 - Chronic pain syndrome Code(s): G89.29 - Other chronic pain Status: Chronic Assessment and Plan: pt is on fentanyl and hydromorphone prn (5) Hypothyroid: Code(s): E03.9 - Hypothyroidism, unspecified Status: Acute Assessment and Plan: pt is on levothyroxine Subjective Date/time seen: 02/24/20 18:06 Interval history: Long discussion with patient regarding her RA and pain medications. 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 I have called [facility] team when bed is available, pt is accepted to medical service DR Kelley for covid with history of RA. Pts bc appeared positive but were not a true positive so vancomycin has been stopped by ID. Explained to patient pneumonia is likely a viral pneumonia not bacterial. AWaiting bed to [facility]. long discussion about pain medications, pt talks about back pain, weakness, headaches, sweaty sensations stated i could not increase any more pain medications and maybe she is anxious in the covid room. Pt states she has alot of anxiety at home from her and daughter I adviced her to ask for her diazepam as she sounds anxious. Pt stated she was unhappy with the care here, explained to her that I cannot do more for her pain or anxiety control, [facility] and [facility] input. Explained that her alessandra and mtx are on hold maybe that is why she is in pain. Pt talked about hospice yesterday i did not think this was appropriate until her acute illness resolves. Requesting cxr i said we can wait until she completes 5 days of remdesivir and iv steroids Review of Systems Review of Systems: All systems reviewed & are unremarkable except as noted in HPI and below ROS unobtainable: Yes other (back pain, weakness, headaches, sweaty sensations ) Respiratory: Respiratory: Denies chest congestion, Denies cough, Reports dyspnea (mild ) and Denies wheezing Exam Narrative: Exam Narrative: Appears fatigued and frail, chronically ill, thin appearing kyphosis of back, weak on standing Otherwise not in any acute respiratory distress talking alot without cough no fever not needing oxygen Objective Data Vital Signs Vital Signs: Vital Signs - 24 hr 02/23/20 18:15 02/23/20 20:00 02/23/20 20:50 Temperature 36.6 C Pulse Rate 84 78 Respiratory Rate 18 18 Blood Pressure 126/70 Pulse Oximetry 93 92 92 02/23/20 22:00 02/24/20 00:00 02/24/20 04:00 Temperature 36.3 C L 36.9 C 36.3 C L Pulse Rate 82 84 79 Respiratory Rate 16 18 1
[2020-02-24] MEDS: MONTELUKAST SODIUM 10 MG TABLET PO (20:20)
[2020-02-25] VITALS (11 sets, daily range): BP systolic 121–150; BP diastolic 61–96; PULSE 54–101; RESP 16–18; TEMP 36.6–36.9; O2SAT 94–96
[2020-02-25] MEDS: diazePAM 10 MG TABLET PO ×2 (02:42→15:04)
[2020-02-25] MEDS: BACLOFEN 10 MG TABLET 20 MG PO ×2 (02:42→15:04)
[2020-02-25] MEDS: THYROID 60 MG TABLET 300 MG PO (05:34)
[2020-02-25] MEDS: ALBUTEROL SULFATE (*SP) AEROSOL 1 PUFF 6 PUFF INHALATION ×3 (08:50→16:25)
[2020-02-25] MEDS: cloNIDine HCL 0.2 MG TABLET PO ×2 (09:03→17:54)
[2020-02-25] MEDS: ENOXAPARIN 40 MG/0.4 ML SYRINGE SUB-Q (09:03)
[2020-02-25] MEDS: atenoloL 25 MG TABLET PO ×2 (09:03→17:55)
[2020-02-25] MEDS: FAMOTIDINE 20 MG/2 ML VIAL IV PUSH (09:04)
[2020-02-25] MEDS: DEXAMETHASONE SOD PHOS INJ 4 MG/ML VIAL 6 MG IV PUSH (09:04)
[2020-02-25] MEDS: FLUTICASONE PROPIONATE 0.05% NA SPR 16 GM BTL (*BKC) 2 SPRAY NASAL (09:08)
[2020-02-25] MEDS: REMDESIVIR 100 MG/NS 250 ML 100 MG/250 ML BAG 250 MG IVPB (11:30)
[2020-02-25 14:02] LABS: Alanine Aminotransferase 21 U/L (4-35)
--- NOTE | 2020-02-25 16:30 | PM.IMPN ---
Progress Note: A&P Assessment and Plan (1) Pneumonia due to COVID-19 virus: Code(s): U07.1 - COVID-19; J12.89 - Other viral pneumonia Status: Acute Assessment and Plan: Pt seen, pt already on remdesivir and steroids, oxygen prn if needed, cough syrup freeman for sinus type headache, recommending transfer to [facility] for better pain control management and RA input Pt is COVID positive with mutifocal PNEUMONIA.being treated here actively. Not needing oxygen appears stable Can have CXR ater completing 5 days of remdesivir and iv steroids, tomorrow is day 5. 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, unspecified Status: Chronic Assessment and Plan: pt is awaiting transfer to [facility] for RA input (3) Rheumatoid arthritis: Qualifiers: Rheumatoid arthritis location: multiple sites Rheumatoid factor presence: with rheumatoid factor Qualified Code(s): M05.79 - Rheumatoid arthritis with rheumatoid factor of multiple sites without organ or systems involvement Code(s): M06.9 - Rheumatoid arthritis, unspecified Status: Chronic Assessment and Plan: hold humira and methrotrexate injection (4) Chronic pain: Qualifiers: Chronic pain type: chronic pain syndrome Qualified Code(s): G89.4 - Chronic pain syndrome Code(s): G89.29 - Other chronic pain Status: Chronic Assessment and Plan: pt is on fentanyl and hydromorphone prn (5) Hypothyroid: Code(s): E03.9 - Hypothyroidism, unspecified Status: Acute Assessment and Plan: pt is on levothyroxine Subjective Date/time seen: 02/25/20 16:30 Interval history: Long discussion with patient regarding her RA and pain medications. 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 I have called [facility] team when bed is available, pt is accepted to medical service DR Kelley for covid with history of RA. Pts bc appeared positive but were not a true positive so vancomycin has been stopped by ID. Explained to patient pneumonia is likely a viral pneumonia not bacterial. Awaiting bed to [facility]. presently pt is getting little yellow thick mucus, pt wants to try mucinex to help her cough it up Requesting cxr i said we can wait until she completes 5 days of remdesivir and iv steroids. pt to have cxr tomorrow afternoon. 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 More discussion about stress at home with her and daughter Review of Systems Review of Systems: All systems reviewed & are unremarkable except as noted in HPI and below Respiratory: Respiratory: Reports chest congestion, Reports cough and Reports dyspnea Comments: wet cough no fever Exam Narrative: Exam Narrative: Pt having a wet cough no fever not needing oxygen Objective Data Vital Signs Vital Signs: Vital Signs - 24 hr 02/24/20 18:00 02/24/20 20:00 02/24/20 22:00 Temperature 36.9 C 36.9 C Pulse Rate 58 L 71 81 Respiratory Rate 18 18 Blood Pressure 135/77 124/76 Pulse Oximetry 99 95 02/24/20 22:09 02/25/20 00:00 02/25/20 02:00 Temperature 36.8 C Pulse Rate 81 75 60 Respiratory Rate 18 Blood Pressure 150/96 H Pulse Oximetry 97 96 02/25/20 04:00 02/25/20 06:00 02/25/20 08:00 Temperature 36.6 C Pulse Rate 67 65 68 Respiratory Rate 18 Blood Pressure 121/61 Pulse Oximetry 96 94 02/25/20 10:00 02/25/20 12:00 02/25/20 14:00 Temperature 36.9 C 36.7 C Pulse Rate 79 80 72 Respiratory Rate 16 16 Blood Pressure 129/89
--- NOTE | 2020-03-06 11:32 | PM.TDS ---
Transfer Discharge Sum: Prov Provider Date of admission: 02/20/20 12:08 date of service and transfer 02/25/20 Primary care physician: Alok Newell MD Admitting clinician: Ananya Roger DO Consults: 02/21/20 Consult to Physician Routine Comment: 02/20 DR. WILEY NOTIFIED @ [phone] (,) Consulting Provider: Finn Wiley inside channel account manager/MD group to consult: Reason for consultation: Gram positive bacteremia Has provider been notified: Yes DS: Admitting Diagnosis Admitting Diagnosis Admitting Diagnosis: Pneumonia, unspecified organism DS: Discharge Diagnosis Discharge Diagnosis (1) Pneumonia due to COVID-19 virus: Code(s): U07.1 - COVID-19; J12.89 - Other viral pneumonia Status: Acute Assessment and Plan: Pt seen, pt already on remdesivir and steroids, oxygen prn if needed, cough syrup freeman for sinus type headache, recommending transfer to [facility] for better pain control management and RA input Pt is COVID positive with mutifocal PNEUMONIA.being treated here actively. Not needing oxygen appears stable Can have CXR ater completing 5 days of remdesivir and iv steroids, tomorrow is day 5. 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, unspecified Status: Chronic Assessment and Plan: pt is awaiting transfer to [facility] for RA input (3) Rheumatoid arthritis: Qualifiers: Rheumatoid arthritis location: multiple sites Rheumatoid factor presence: with rheumatoid factor Qualified Code(s): M05.79 - Rheumatoid arthritis with rheumatoid factor of multiple sites without organ or systems involvement Code(s): M06.9 - Rheumatoid arthritis, unspecified Status: Chronic Assessment and Plan: hold humira and methrotrexate injection (4) Chronic pain: Qualifiers: Chronic pain type: chronic pain syndrome Qualified Code(s): G89.4 - Chronic pain syndrome Code(s): G89.29 - Other chronic pain Status: Chronic Assessment and Plan: pt is on fentanyl and hydromorphone prn (5) Hypothyroid: Code(s): E03.9 - Hypothyroidism, unspecified Status: Acute Assessment and Plan: pt is on levothyroxine Transfer Discharge Sum: Med Medications Active and Home Medications: Home Medications fluticasone propionate 50 mcg/actuation nasal spray,suspension 2 spray NASAL DAILY 07/24/19 [History Confirmed 02/29/20] omeprazole 20 mg capsule,delayed release 40 mg PO HS 07/24/19 [History Confirmed 02/29/20] ethacrynic acid 25 mg tablet 50 mg PO BID tablet 09/18/19 [History Confirmed 02/29/20] baclofen 20 mg tablet 20 mg PO Q6H PRN #120 tablet 01/11/20 [Rx Confirmed 02/29/20] diazepam 10 mg tablet 10 mg PO BID PRN #60 tablet 01/11/20 [Rx Confirmed 02/29/20] nystatin-triamcinolone 100,000 unit/gram-0.1 % topical ointment 1 applic TOPICAL BID #30 gm 01/23/20 [Rx Confirmed 02/29/20] amlodipine 10 mg tablet 10 mg PO DAILY #90 tablet 01/29/20 [Rx Confirmed 02/29/20] thyroid (pork) 300 mg tablet 300 mg PO DAILY #90 tablet 01/29/20 [Rx Confirmed 02/29/20] fentanyl 75 mcg/hr transdermal patch 1 patch TRANSDERM Q72H #10 patch 02/07/20 [Rx Confirmed 02/29/20] atenolol 25 mg tablet 25 mg PO BID #180 tablet 02/13/20 [Rx Confirmed 02/29/20] clonidine HCl 0.2 mg tablet 0.2 mg PO BID #60 tablet 02/19/20 [Rx Confirmed 02/29/20] bupropion HCl [Wellbutrin SR] 150 mg PO QAM 02/20/20 [History Confirmed 02/29/20] bupropion HCl [Wellbutrin SR] 300 mg PO QAM 02/20/20 [History Confirmed 02/29/20] cholecalciferol (vitamin D3) [Dialyvite Vitamin D3 Max] 50,000 unit PO WEEKLY 02/20/20 [History Confirmed 02/29/20] folic acid 0.16 mg PO DAILY 02/20/20 [History Confirmed 02/29/20] hydromorphone 16 mg PO TID 02/20/20 [History Confirmed 02/29/20] montelukast
== END 2020-02-25 19:10 | disposition short-term general hospital (02) | DRG 177 ==
LOC: ANHED 02-20 03:23 → ANH3MEDSUR 02-20 04:01
PROVIDERS: Internal Medicine Infectious Disease; Admitting Provider Internal Medicine; Emergency Provider General Practice; PCP Family Medicine; Visit Provider Hospitalist
DX: U07.1 COVID-19; J12.89 Other viral pneumonia; Q79.60 Ehlers-Danlos syndrome, unspecified; M05.79 Rheumatoid arthritis with rheumatoid factor of multiple sites without organ or systems involvement; G89.4 Chronic pain syndrome; E03.9 Hypothyroidism, unspecified; Z79.899 Other long term (current) drug therapy; Z87.891 Personal history of nicotine dependence
CPT/HCPCS: 36415; 71045; 71046; 71275; 80048; 80053; 80307; 82728; 83615; 84460; 85025; 86140; 87040; 87077; 87186; 87635; 93005; 94640; 96365; 96375; 99285; A9270; C9803; G0378; J0131; J0696; J1100; J1650; J2405; J3370; J7512; Q9967; U0003

== ENCOUNTER 2020-05-21 17:48 | Outpatient (CLI) | payer MEDICARE, SELFPAY ==
--- NOTE | ~2020-05-21 | XR_ITS ---
EXAMINATION: XR shoulder RT min 2V EXAM DATE: 05/21/2020 18:52 INDICATION: Fell 2 weeks ago, right shoulder pain. TECHNIQUE: The following right shoulder projections obtained: frontal projection with internal rotati on, frontal projection with external rotation, Grashey, and scapular Y view (4+ views). Comparison is made to prior examination from 10/23/2019. FINDINGS: There is moderate right shoulder osteoarthritis, could be primary or secondary to an old glenoid labrum fracture. Probable sizable right shoulder joint bodies, ossifications, glenoid could have been the donor site. There are no acute fractures or dislocations identified. IMPRESSION: 1. Moderate right shoulder osteoarthritis, evidence of old glenoid fracture and resultant joint bodi es. 2. No acute findings. Reviewed, dictated and finalized at location A. IMPRESSION: 1. Moderate right shoulder osteoarthritis, evidence of old glenoid fracture an d resultant joint bodies. 2. No acute findings.
--- NOTE | ~2020-05-21 | XR_ITS ---
EXAMINATION: XR knee RT min 4V EXAM DATE: 05/21/2020 18:54 INDICATION: Right knee pain. TECHNIQUE: Right knee lateral, frontal AP, frontal PA tunnel, sunrise projections. There is no prior study for comparison. FINDINGS: No evidence osteochondral defect or joint body in the right knee joint. There is a lesion in the right femoral distal metaphysis consistent with an enchondroma. Likely smaller enchondroma in the proximal fibular metaphysis. The joint spaces are maintained, no bony productive changes. No join t effusion. There are no acute fractures identified. IMPRESSION: Incidental distal femoral benign bone lesions. Reviewed, dictated and finalized at location A.
--- NOTE | ~2020-05-21 | XR_ITS ---
EXAMINATION: XR knee LT min 4V EXAM DATE: 05/21/2020 18:53 INDICATION: Left knee pain, states injury a week ago. TECHNIQUE: Left knee frontal, crosstable lateral, orthogonal oblique projections for interpretation. Comparison is made to prior examination from 10/23/2019. FINDINGS: There is moderate medial tibiofemoral compartment osteoarthritis. This appears to have pro gressed compared to October. Mild osteoarthritis of the other compartments. There is a moderate-sized j oint effusion. There are no acute fractures identified. IMPRESSION: 1. Moderate left medial tibiofemoral compartment osteoarthritis. 2. Moderate joint effusion. Reviewed, dictated and finalized at location A.
== END 2020-05-21 17:49 | disposition home or self-care (01) ==
PROVIDERS: PCP Family Medicine; Visit Provider Physical Medicine & Rehabilitation Pain Medicine
DX: M23.52 Chronic instability of knee, left knee (principal); M23.51 Chronic instability of knee, right knee; M17.12 Unilateral primary osteoarthritis, left knee; M75.101 Unspecified rotator cuff tear or rupture of right shoulder, not specified as traumatic; M19.011 Primary osteoarthritis, right shoulder
CPT/HCPCS: 73030; 73564

== ENCOUNTER 2020-07-02 18:05 | Outpatient (CLI) | payer MEDICARE, SELFPAY ==
[2020-07-02 18:32] LABS: Basophils Absolute Auto 0.1 K/mm3 (0.0-0.1); Basophils Percent Auto 0.6 % (0.2-1.2); Eosinophils Absolute Auto 0.1 K/mm3 (0-0.3); Eosinophils Percent Auto 1.4 % (0-4.4); Hematocrit 40.6 % (37.0-47.0); Hemoglobin 13.4 g/dL (12.0-15.0); Immature Granulocyte Absolute 0.07 K/mm3 (0.00-0.031); Immature Granulocyte Percent A 0.7 % (0-0.5); Lymphocytes Absolute Auto 1.63 K/mm3 (0.9-3.2); Lymphocytes Percent Auto 16.3 % (18.3-44.2); Mean Corpuscular Hemoglobin 31.6 pg (26-34); Mean Corpuscular Volume 95.8 fl (80-100); Monocytes Absolute Auto 0.4 K/mm3 (0.1-0.6); Monocytes Percent Auto 4.2 % (2.6-8.5); Neutrophils Absolute Auto 7.7 K/mm3 (1.3-6.7); Neutrophils Percent Auto 76.8 % (45.5-73.1); Platelet Count Result 290 k/mm3 (150-375); Red Blood Count 4.24 M/mm3 (4.2-5.4)
[2020-07-02 18:55] LABS: Anion Gap 8 mmol/L (8-16); Blood Urea Nitrogen 29 mg/dL (7-17); Calcium 9.2 mg/dL (8.4-10.2); Carbon Dioxide 31 mmol/L (22-30); Chloride 102 mmol/L (98-107); Estimated Glomerular Filt Rate > 60; Glucose 141 mg/dL (65-105); Potassium 4.4 mmol/L (3.4-5.0); Sodium 141 mmol/L (137-145)
[2020-07-02 19:12] LABS: Free T4 Free Thyroxine 0.63 ng/mL (0.78-2.19)
[2020-07-02 19:26] LABS: Thyroid Stimulating Hormone < 0.015 uIU/mL (0.465-4.680)
[2020-07-07 06:47] LABS: FSH 19.3 mIU/mL (***); LH 2.1 mIU/mL (***); Prolactin 47.5 ng/mL (***)
[2020-07-09 05:44] LABS: Adrenocorticotropic Hormone <5 pg/mL (6-50)
== END 2020-07-02 18:06 | disposition home or self-care (01) ==
LOC: ANHLAB 18:07
PROVIDERS: PCP Family Medicine; Visit Provider Family Medicine
DX: D35.2 Benign neoplasm of pituitary gland (principal); E03.8 Other specified hypothyroidism; E06.3 Autoimmune thyroiditis; M05.79 Rheumatoid arthritis with rheumatoid factor of multiple sites without organ or systems involvement; D72.829 Elevated white blood cell count, unspecified
CPT/HCPCS: 36415; 80048; 82024; 83001; 83002; 84146; 84439; 84443; 85025

== ENCOUNTER 2020-07-02 18:19 | Outpatient (CLI) | payer MEDICARE, SELFPAY ==
--- NOTE | ~2020-07-02 | XR_ITS ---
EXAMINATION: XR chest 2V DATE: 07/02/2020 18:52 INDICATION: Toxoplasmosis TECHNIQUE: PA and lateral views of the chest were obtained. COMPARISON: Chest radiograph dated 02/25/2020 FINDINGS: The lungs are clear with no focal airspace opacities, pulmonary edema, pleural effusion or pneumothor ax. The cardiomediastinal silhouette is normal. Bilateral breast implants with capsular calcification . Thoracic levoscoliosis with moderate spondylosis. IMPRESSION: 1. Clear lungs. No acute cardiopulmonary disease. Reviewed, dictated and finalized at location H. EL GRINDER
== END 2020-07-02 18:20 | disposition home or self-care (01) ==
PROVIDERS: PCP Family Medicine; Visit Provider Internal Medicine Infectious Disease
DX: B58.9 Toxoplasmosis, unspecified (principal)
CPT/HCPCS: 36415; 71046; 80048; 82024; 83001; 83002; 84146; 84439; 84443; 85025

== ENCOUNTER 2020-08-07 10:40 | Outpatient (CLI) | payer MEDICARE, SELFPAY ==
--- NOTE | ~2020-08-07 | MR_ITS ---
EXAMINATION: MR pituitary wo/w con EXAM DATE: 08/07/2020 12:15 INDICATION: D35.2 - Benign neoplasm of pituitary gland. TECHNIQUE: Magnetic resonance imaging (MRI) of the brain/brain stem obtained without contrast. Sagit edwin T1, axial diffusion, gradient echo (T2*), T1, T2, FLAIR sequences obtained. Patient was then inj ected with 14 cc intravenous Multihance contrast. Axial and coronal postcontrast T1 weighted sequence s obtained. A pituitary protocol was utilized including dynamic imaging through the pituitary gland d uring intravenous injection of contrast. Compare Comparison is made to prior examination from 2005. FINDINGS: In 2006 the pituitary gland is confined to the sella turcica. It is similar in size and sha pe on this examination. Suprasellar region normal in appearance. The optic chiasm normal. Infundib ulum is midline. No definite pituitary microadenoma identified. Please note small microadenomas can cause endocrine abnormalities but are not always identified by imaging even using dedicated pituitar y protocol. This does exclude macroadenoma or need for surgical management. There are no areas of restricted diffusion to suggest acute infarction. There is no acute hemorrhage seen on the T2*, a hemosiderin sensitive sequence. No intraparenchymal brain mass. The ventricles a re normal in size. There are no extra-axial collections. Flow voids are seen in the cerebral arteri es on the T2-weighted sequences consistent with their expected patency. The orbits are unremarkable. Soft tissue is unremarkable. There are no areas of abnormal enhancement on the post contrast imag es. IMPRESSION: Unremarkable pituitary, brain MRI exam. Reviewed, dictated and finalized at location B. CH STORE MANAGER
[2020-08-07 11:48] LABS: Estimated Glomerular Filt Rate 52
== END 2020-08-07 10:41 | disposition home or self-care (01) ==
PROVIDERS: PCP Family Medicine; Visit Provider Family Medicine
DX: D35.2 Benign neoplasm of pituitary gland (principal)
CPT/HCPCS: 70553; A9577

== ENCOUNTER → 2020-12-03 08:04 | Outpatient (CLI) | payer MEDICARE, SELFPAY ==
[2020-12-03 20:46] LABS: SARS-CoV-2 RNA PCR Negative
== END ==
PROVIDERS: PCP Family Medicine; Visit Provider Nurse Practitioner Family
DX: Z20.822 Contact with and (suspected) exposure to COVID-19 (principal)
CPT/HCPCS: C9803; U0003; U0005

== ENCOUNTER 2020-12-25 16:32 | Emergency (ER) | payer MEDICARE, SELFPAY ==
--- NOTE | ~2020-12-25 | XR_ITS ---
EXAMINATION: XR chest 2V DATE: 12/25/2020 17:48 INDICATION: Shortness of breath and fever TECHNIQUE: Frontal and lateral views of the chest are obtained COMPARISON: 07/02/2020 FINDINGS: The lungs are free of acute opacities. There is no pleural effusion or pneumothorax. The ca rdiomediastinal silhouette is normal. There is levoscoliosis of the thoracic spine. Bilateral breast implants are noted. IMPRESSION: 1. No acute cardiopulmonary abnormality. Reviewed, dictated and finalized at location A.
[2020-12-25 16:35] VITALS: BP 110/89; PULSE 85; RESP 16; TEMP 36.3; O2SAT 98
--- NOTE | 2020-12-25 17:31 | ED.URI ---
HPI - URI/Sore Throat General Chief Complaint: Upper Respiratory Infection Stated Complaint: fever/cough Time Seen by Provider: 12/25/20 17:35 Source: patient, RN notes reviewed and old records reviewed Mode of arrival: ambulatory Limitations: no limitations History of Present Illness HPI Narrative: 50 year old female ambulatory with complaints of having fever,cough, some shortness of breath presents to express care with symptoms starting she reports on December. She reports that she has had to use her inhaler more frequently, has taken her temperature at home with highest noted of 100F. Patient states that she is immunosuppressed due to history of rheumatoid arthritis and is concerned also that she may have toxoplasmosis again, states treated for this in the past saw Dr Wiley. Patient is on jail steroid use and she has chronic pain for which she takes daily doses of Dilaudid, reports had been on Fentanyl patches in past that helped her more but was weaned off of them. Patient states that she took 2 weeks of Augmentin which she started on the 03 of December but she usually needs 3 weeks of antibiotics to clear up her sinus infections which states are chronic. 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 It is difficult to follow conversation at times with patient rambling on about various history and ailments, states she doesn't think she will be able to stay home much longer will probably have to go to [facility]. Reports she had COVID last year. Reports she can take Cefuroxime though reported allergy to Penicillin. MD elicited complaint: cough and other (reports dyspnea) Pertinent past history: sinusitis and immunosuppression Onset (ago): day(s) (6) Consistency: progressively worsening Able to tolerate fluids by mouth: Yes Exacerbating factors: exertion Treatments prior to arrival: acetaminophen and other (Pao, sudafed, flonase) Related Data Home Medications Medication Instructions Recorded Confirmed ethacrynic acid 25 mg tablet 50 mg PO BID tablet 09/18/19 12/25/20 folic acid 0.16 mg PO DAILY 02/20/20 12/25/20 acetaminophen 650 mg 1,300 mg PO Q8H tablet 02/29/20 12/25/20 tablet,extended release biotin 10,000 mcg capsule 10,000 mcg PO .QD cap 02/29/20 12/25/20 fexofenadine 180 mg tablet 180 mg PO DAILY 02/29/20 12/25/20 melatonin 10 mg capsule 40 mg PO .QHS cap 02/29/20 12/25/20 multivitamin 1 tablet PO DAILY 02/29/20 12/25/20 chlorpheniramine maleate 4 mg 4 mg PO Q6H PRN tablet 04/11/20 12/25/20 tablet methotrexate sodium (PF) 25 mg/mL 50 mg IM WEEKLY ml 04/11/20 12/25/20 injection solution prednisone 5 mg tablet 15 mg PO DAILY tablet 04/11/20 12/25/20 adalimumab 40 mg/0.8 mL See Rx Instructions SUBCUT .COMPLEX 08/12/20 12/25/20 subcutaneous syringe kit bupropion HCl 150 mg PO Q12H 12/25/20 12/25/20 mometasone 1 applic TOPICAL .RX DIRECTIONS 12/25/20 12/25/20 omeprazole 20 mg PO BID 12/25/20 12/25/20 Allergies Allergy/AdvReac Type Severity Reaction Status Date / Time doxycycline Allergy Severe Anaphylaxis Verified 12/25/20 17:13 yellow dye Allergy Severe Unknown Verified 12/25/20 17:13 aspirin Allergy Unknown Unknown Verified 12/25/20 17:13 azithromycin Allergy Unknown Unknown Verified 12/25/20 17:13 clarithromycin Allergy Unknown Unknown Verified 12/25/20 17:13 codeine Allergy Unknown Unknown Verified 12/25/20 17:13 hydrocodone Allergy Unknown Unknown Verified 12/25/20 17:13 ibuprofen Allergy Unknown Unknown Verified 12/25/20 17:13 latex Allergy Unknown Unknown Verified 12/25/20 17:13 leflunomide Allergy Unknown Unknown Verified 12/25/20 17:13 meloxicam Allergy Unknown Unknown Verified 12/25/20 17:13 meperidine Allergy Unknown Unknown Verified 12/25/20 17:13 methylprednisolone Allergy Unknown Unknown Verified 12/25/20 17:13 ravii
== END 2020-12-25 18:26 | disposition home or self-care (01) ==
PROVIDERS: Emergency Provider Registered Nurse
DX: F17.210 Nicotine dependence, cigarettes, uncomplicated (principal); J32.9 Chronic sinusitis, unspecified; M50.30 Other cervical disc degeneration, unspecified cervical region; M51.36 Other intervertebral disc degeneration, lumbar region; F32.9 Major depressive disorder, single episode, unspecified; Q79.60 Ehlers-Danlos syndrome, unspecified; M41.9 Scoliosis, unspecified; M06.9 Rheumatoid arthritis, unspecified
CPT/HCPCS: 71046; 99213; G0463

== ENCOUNTER 2021-01-10 17:57 | Outpatient (CLI) | payer MEDICARE, SELFPAY ==
--- NOTE | ~2021-01-10 | XR_ITS ---
XR chest 2V DATE: 01/10/2021 18:15 INDICATION: Cough, shortness of breath. Hypertension. TECHNIQUE: PA and lateral views COMPARISON: 12/25/2020 2 view chest FINDINGS: Normal heart size. No hilar or mediastinal enlargement. Moderate hyperinflation. No pulmona ry infiltrate or consolidation, pleural effusion or pulmonary vascular congestion or pneumothorax. Bilateral breast implants are incidentally noted. There is prominent levoscoliosis of the thoracic spine. Diffuse osteopenia. IMPRESSION: Moderate hyperinflation. No active cardiopulmonary disease Reviewed, dictated and finalized at location A.
== END 2021-01-10 17:58 | disposition home or self-care (01) ==
PROVIDERS: PCP Nurse Practitioner Family; Visit Provider Nurse Practitioner Family
DX: R05 Cough (principal)
CPT/HCPCS: 71046

== ENCOUNTER → 2021-06-05 13:22 | Outpatient (CLI) | payer MEDICARE, SELFPAY ==
--- NOTE | ~2021-06-05 | XR_ITS ---
EXAMINATION: XR chest 2V DATE: 06/05/2021 13:42 INDICATION: Toxoplasmosis, unspecified. Cough and shortness of breath. TECHNIQUE: Frontal and lateral views of the chest were obtained. COMPARISON: Chest 2 views 01/10/2021, chest CT 02/20/2020 FINDINGS: There is no pneumonia, pleural effusion, or pneumothorax. The heart size is normal. There a re breast implants. IMPRESSION: 1. No acute cardiopulmonary disease. Reviewed, dictated and finalized at location A.
== END ==
PROVIDERS: PCP Family Medicine; Visit Provider Internal Medicine Infectious Disease
DX: B58.9 Toxoplasmosis, unspecified (principal)
CPT/HCPCS: 71046

== ENCOUNTER 2022-04-02 15:17 | Outpatient (CLI) | payer MEDICARE, SELFPAY ==
--- NOTE | ~2022-04-02 | MR_ITS ---
EXAMINATION: MR lumbar spine wo con DATE: 04/02/2022 16:37 INDICATION: Lumbar spondylosis with radiculopathy and scoliosis TECHNIQUE: Magnetic resonance imaging (MRI) of the lumbar spine was performed without intravenous con trast. Sequences included sagittal T2-weighted FSE, sagittal T2-weighted FS FSE, sagittal T1-weighted FSE, and axial T2-weighted FSE. COMPARISON: None FINDINGS: 45 degrees lumbar dextroscoliosis measured between L1 and L4. 2 mm retrolisthesis L2 on L3. There is severe left-sided predominant disc height loss with prominent degenerative endplate remodeling at L2- L3 and L3-L4. This results in approximately one third left-sided vertebral body height loss at L3 and T10-20% left-sided vertebral body height loss at L2 and L4. Additional severe right-sided and mild l eft-sided disc height loss at L4-L5 and L5-S1. There are associated fibrofatty and fibrovascular dege nerative endplate changes at each of these levels. Marrow signal is otherwise unremarkable. Mild disc height loss at L1-L2. The conus medullaris terminates at L1-L2. There is normal signal in the caudal spinal cord. Paravertebral soft tissues are unremarkable. The following disc levels are specifically discussed: T12-L1: Minimal right foraminal zone disc protrusion. There is moderate bilateral facet joint osteoar thritis. There is mild left neural foraminal stenosis. There is no central canal stenosis. L1-L2: Disc is mildly bulging. There is mild left and mild to moderate right facet joint osteoarthrit is. There is mild right and mild to moderate left neural foraminal stenosis. There is mild central ca nal stenosis. L2-L3: Disc is mildly bulging, eccentric to the left. There is mild right and moderate left facet anjel nt osteoarthritis. There is mild right and moderate left neural foraminal stenosis. There is mild geraldine tral canal stenosis. L3-L4: Disc is mildly bulging. There is moderate right and severe left facet joint osteoarthritis. Th ere is mild right and moderate to severe left neural foraminal stenosis. There is moderate central ca nal stenosis. L4-L5: Disc is moderately bulging. There is severe bilateral facet joint osteoarthritis. There is mil d left and moderate right neural foraminal stenosis. There is mild central canal stenosis with more p rominent narrowing of the right lateral recess. L5-S1: Disc is bulging. There is moderate left and severe right facet joint osteoarthritis. There is moderate right and mild left neural foraminal stenosis. There is no central canal stenosis. IMPRESSION: 1. 45 degrees lumbar dextroscoliosis with severe spondylosis. Reviewed, dictated and finalized at location A.
--- NOTE | ~2022-04-02 | XR_ITS ---
EXAMINATION: XR chest 2V 04/02/2022 15:56 INDICATION: Dyspnea PROCEDURE: 2 view chest COMPARISON: Comparison to multiple prior studies sequentially, with oldest reviewed study dated 06/10. FINDINGS: The lungs are clear. The cardiomediastinal silhouette is within normal limits. There are no pleural effusions. There is no pneumothorax suspected. There are breast implants. There is levos coliosis of the thoracic spine. There are degenerative changes of the right shoulder. IMPRESSION: 1: NO ACUTE CARDIOPULMONARY DISEASE. Reviewed, dictated and finalized at location A.
--- NOTE | ~2022-04-02 | MR_ITS ---
EXAMINATION: MR thoracic spine wo con DATE: 04/02/2022 16:33 INDICATION: Back pain TECHNIQUE: Magnetic resonance imaging (MRI) of the thoracic spine was performed without intravenous c ontrast. Sagittal localizer T1-weighted FSE of the cervicothoracic spine was obtained. Thoracic spine sequences included sagittal T2-weighted FSE, sagittal T1-weighted SE, Sagittal T2-weighted FS FSE, a nd axial T2-weighted FSE. COMPARISON: None FINDINGS: 32 degree levoscoliosis measured between T5 and L1.Sagittal alignment is normal. Vertebral body heigh ts are normal. Diffuse moderate to severe disc height loss with fibrovascular degenerative endplate c hanges at T3-T4. Additional right-sided predominant moderate to severe disc height loss at T7-T8 thro ugh T9-T10 with mild fibrovascular degenerative endplate changes on the right at T7-T8. Mild to moder ate right-sided predominant disc height loss at T4-T5, T5-T6 and T10-T11. Mild disc height loss at T2 -T3 and T11-T12. Marrow signal is otherwise unremarkable. There is normal spinal cord signal. Paraver tebral soft tissues are unremarkable. The following disc levels are specifically discussed: T1-T2: Disc is minimally bulging. There is mild bilateral facet osteoarthritis. There is no neural fo raminal stenosis. There is no central canal stenosis. T2-T3: Disc does not extend beyond the endplate margins. There is mild bilateral facet osteoarthritis . There is no neural foraminal stenosis. There is no central canal stenosis. T3-T4: Moderate diffuse disc bulge. There is mild bilateral facet osteoarthritis. There is mild bilat eral, left greater than right neural foraminal stenosis. There is mild central canal stenosis. T4-T5: Small left paracentral disc protrusion. There is mild bilateral facet osteoarthritis. There is no neural foraminal stenosis. There is minimal central canal stenosis. T5-T6: Disc does not extend beyond the endplate margin There is mild left and moderate right facet os teoarthritis. There is no neural foraminal stenosis. There is no central canal stenosis. T6-T7: Disc does not extend beyond the endplate margin. There is mild bilateral facet osteoarthritis. There is mild right neural foraminal stenosis. There is no central canal stenosis. T7-T8: Moderate diffuse disc bulge. There is mild bilateral facet osteoarthritis. There is moderate r ight neural foraminal stenosis. There is mild central canal stenosis. T8-T9: Disc does not extend beyond the endplate margins. There is mild right and minimal left facet o steoarthritis. There is mild left and moderate right neural foraminal stenosis. There is no central c anal stenosis. T9-T10: Small right foraminal zone disc protrusion. There is mild left and moderate right facet osteo arthritis. There is mild left and moderate right neural foraminal stenosis. There is no central canal stenosis. T10-T11: Small right paracentral to foraminal zone disc protrusion. There is moderate bilateral facet osteoarthritis. There is mild left and moderate right neural foraminal stenosis. There is mild centr al canal stenosis. T11-T12: Annular fissure and small right paracentral disc extrusion with disc material extending a co uple millimeters cephalad and caudal to the level of the endplates. There is mild left and moderate r ight facet osteoarthritis. There is mild bilateral neural foraminal stenosis. There is mild central c anal stenosis. IMPRESSION: 1. 32 degrees thoracic levoscoliosis with moderate spondylosis. Reviewed, dictated and finalized at location A.
== END 2022-04-02 15:18 | disposition home or self-care (01) ==
PROVIDERS: PCP Family Medicine; Visit Provider Family Medicine
DX: M47.24 Other spondylosis with radiculopathy, thoracic region (principal); R09.89 Other specified symptoms and signs involving the circulatory and respiratory systems; M47.816 Spondylosis without myelopathy or radiculopathy, lumbar region; M41.86 Other forms of scoliosis, lumbar region; M47.814 Spondylosis without myelopathy or radiculopathy, thoracic region; M41.84 Other forms of scoliosis, thoracic region
CPT/HCPCS: 71046; 72146; 72148

== ENCOUNTER 2022-05-04 11:51 | Outpatient (CLI) | payer MEDICARE, SELFPAY ==
--- NOTE | ~2022-05-04 | MM_ITS ---
EXAMINATION: MM diag carmen implant BI w js HISTORY: Right implant encapsulation, left implant deflation TECHNIQUE: Bilateral implant ML, MLO and CC views.. ML, MLO and CC implant displaced 3-D tomosynthesi s images of the left breast were performed and synthetic 2-D images were generated. CAD analysis was submitted and interpreted. COMPARISON: None BREAST PARENCHYMAL COMPOSITION: There are scattered areas of fibroglandular density. FINDINGS: There is extensive calcification in the right breast implant. As result, implant displaced views were not possible. There is a collapsed left breast implant with calcifications. No suspicious mass, architectural distortion, malignant calcification, skin thickening or retraction of either breast is evident. IMPRESSION: 1. Benign findings; no mammographic evidence of malignancy 2. Very prominently calcified right breast implant and deflated calcified left breast implant 3. Routine mammographic screening is recommended BI-RADS Category 2: Benign finding(s). Reviewed, dictated and finalized at location A.
== END 2022-05-04 11:52 | disposition home or self-care (01) ==
LOC: ANHIMG 11:56
PROVIDERS: PCP Family Medicine
DX: R92.8 Other abnormal and inconclusive findings on diagnostic imaging of breast (principal); T85.49XA Other mechanical complication of breast prosthesis and implant, initial encounter; R92.1 Mammographic calcification found on diagnostic imaging of breast
CPT/HCPCS: 77062; 77066; G0279

== ENCOUNTER 2022-07-07 17:19 | Outpatient (CLI) | payer MEDICARE, SELFPAY ==
--- NOTE | ~2022-07-07 | XR_ITS ---
XR cervical spine 4-5V 07/07/2022 18:12 Indication: Cervical spondylosis with myelopathy Procedure: 7 views of the cervical spine Comparison: CT cervical spine dated 12/15/2018 Findings: Stable degenerative anterolisthesis at C2-3 measuring 2.3 mm. Stable degenerative anterolis thesis at C3-4 measuring 2.4 mm. There is disc narrowing at all cervical spine levels most severe at C5-6. No acute fracture or traumatic malalignment. Odontoid process within normal limits. There is ad vanced multilevel uncinate and facet hypertrophy. Lung apices are normal. Odontoid process is normal. Impression: 1: Severe cervical spondylosis. Reviewed, dictated and finalized at location A. UCTION LINE TECHNICIAN Impression: 1: Severe cervical spondylosis.
--- NOTE | ~2022-07-07 | XR_ITS ---
EXAM: XR lumbar spine 6V w bending DATE: 07/07/2022 18:13 HISTORY: M47.812 - Spondylosis without myelopathy or radiculopathy... . COMPARISON: MR lumbar spine 04/02/2022, CT lumbar spine 12/15/2018. FINDINGS: Exam limited by distortion of normal anatomy and overlying bowel gas. 5 nonrib-bearing lum bar-type vertebral bodies. Severe lumbar scoliosis. Reversed cervical lordosis centered at L2-3. Mult ilevel severe disc space narrowing including vacuum disc phenomenon at L2-3. Multilevel facet hypertr ophy and sclerosis. No definite dynamic listhesis. No definite pars defect. IMPRESSION: Limited exam as detailed above. Severe lumbar scoliosis. Severe multilevel degenerative d isc disease and facet arthropathy. Reviewed, dictated and finalized at location K. ET LINER IMPRESSION: Limited exam as detailed above. Severe lumbar scoliosis. Severe mul tilevel degenerative disc disease and facet arthropathy.
== END 2022-07-07 17:20 | disposition home or self-care (01) ==
PROVIDERS: PCP Family Medicine; Visit Provider Neurological Surgery
DX: M47.816 Spondylosis without myelopathy or radiculopathy, lumbar region (principal); M47.812 Spondylosis without myelopathy or radiculopathy, cervical region; M41.86 Other forms of scoliosis, lumbar region; M51.36 Other intervertebral disc degeneration, lumbar region
CPT/HCPCS: 72050; 72114

== ENCOUNTER 2023-08-26 16:56 | Outpatient (RCR) | payer MEDICARE, SELFPAY ==
[2023-07-28 17:00] LABS: INR 2.5; Prothrombin Time 28.5 Seconds (11.1-14.7)
[2023-08-26 17:29] LABS: INR 3.2
== END 2023-10-26 23:59 | disposition home or self-care (01) ==
LOC: ANHLAB 16:56
PROVIDERS: PCP Family Medicine
DX: I48.0 Paroxysmal atrial fibrillation (principal)
CPT/HCPCS: 36415; 85610

== ENCOUNTER 2023-09-03 18:51 | Inpatient (IN) | payer MEDICARE, SELFPAY ==
--- NOTE | ~2023-09-03 | CT_ITS ---
EXAMINATION: CT abdomen pelvis w con DATE: 09/03/2023 22:48 INDICATION: Right upper quadrant abdominal pain. Left lower quadrant abdominal pain. Blood in stool. TECHNIQUE: Computed tomography (CT) of the abdomen and pelvis was performed with 100 mL Omnipaque 350 intravenous contrast. Automated exposure control and iterative reconstruction technique were employe d. The dose-length product was 466.69 mGy-cm. COMPARISON: CT abdomen and pelvis 07/16/2011, chest CT 02/20/2020 FINDINGS: The visualized portions of the lung bases demonstrate mild atelectasis. No pleural effusion . The heart size is normal. No pericardial effusion. Partially visualized are ruptured breast implant s. There are cysts in the liver measuring up to 7 mm. Periportal edema is noted. The gallbladder is n ormal in size. The common duct is dilated to 10 mm. The spleen, pancreas, adrenal glands, and kidneys are normal. There are no dilated loops of bowel. The appendix is normal. Aortic atherosclerosis is n oted. There are no pathologically enlarged lymph nodes. There is no free intraperitoneal fluid. There is lumbar dextroscoliosis and severe spondylosis. IMPRESSION: 1. Mildly dilated common duct. Reviewed, dictated and finalized at location E. R TREATMENT PLANT REPAIRER
--- NOTE | ~2023-09-03 | MR_ITS ---
MRI of the abdomen: Clinical indication: Abdominal pain. Technique: Coronal SSFSE ARC, WATER:coronal LAVA-FLEX, Coronal 2D FIESTA FatSat, Axial SSFSE BH ARC, Axial 3D DualEcho BH, Axial SSFSE-IR, Axial DWI b=500, Axial 2D FIESTA FatSat, pre and dynamic postco ntrast Axial LAVA ARC, postcontrast Coronal In and Opposed phase LAVA FLEX . Following intravenous ad ministration of 14 cc MultiHance gadolinium, T1-weighted fat-sat imaging was performed in the axial a nd coronal planes. Findings: Gallbladder unremarkable. The common bile duct is diffusely dilated to 11-12 mm. No filling defects are seen within the CBD. No evidence of intrahepatic biliary ductal dilatation. The pancreat ic duct is normal in size. Liver, spleen, pancreas, adrenals, kidneys appear normal. The aorta and the paraaortic regions appear normal. No abnormal postcontrast enhancement evident. Incidental note is made of bilateral breast implant rupture, with deflated left breast implant, and i ntracapsular rupture of the right breast implant. Impression: Dilated common bile duct, uncertain clinical significance/etiology. No evidence for cholelithiasis, c holedocholithiasis, or intrahepatic biliary dilatation. No pancreatic ductal dilatation. Reviewed, dictated and finalized at location M. ICAL ABSTRACTOR Impression: Dilated common bile duct, uncertain clinical significance/etiology. No evidence for cholelithiasis, choledocholithiasis, or intrahepatic biliary dilatation. N o pancreatic ductal dilatation.
--- NOTE | ~2023-09-03 | XR_ITS ---
EXAMINATION: XR chest 1V portable DATE: 09/07/2023 14:41 INDICATION: Shortness of breath. TECHNIQUE: A single frontal view of the chest was obtained. COMPARISON: Chest 2 views 04/02/2022, chest CT 09/04/2023 FINDINGS: There is no pneumonia, pleural effusion, or pneumothorax. Cardiomegaly is noted. Breast imp lants are noted. IMPRESSION: 1. Cardiomegaly. Reviewed, dictated and finalized at location A. ET SEWER IMPRESSION: 1. Cardiomegaly.
--- NOTE | ~2023-09-03 | CT_ITS ---
EXAMINATION: CT chest abdomen pelvis w con DATE: 09/04/2023 13:45 INDICATION: abd pain . TECHNIQUE: Computed tomography (CT) of the chest, abdomen, and pelvis was performed with 100 mL Omnip aque-350 intravenous contrast. Automated exposure control and iterative reconstruction technique were employed. The dose-length product was 1067.07 mGy-cm. COMPARISON: CT abdomen pelvis 09/03/2023. CTPA 02/20/2020. FINDINGS: CHEST: Thoracic aorta: No significant dilation or calcification. Lung parenchyma and airways: Mild atelectasis and edema. Thoracic inlet, axillae and chest wall: No thyroid or soft tissue mass. No axillary lymphadenopathy. Bilateral breast implant ruptures. Mediastinum: No mass or lymphadenopathy. Central and segmental pulmonary arteries are well opacified, without embolus. Heart and pericardium: Mild cardiomegaly. No pericardial effusion. Coronary artery calcifications: Mild. Pleura: No effusion or mass. Thoracic bones: No acute osseous finding in the chest. Moderate right shoulder arthritis with loose b odies. ABDOMEN/PELVIS: Liver: Left lobe simple cyst. Scattered subcentimeter hypodensities likely represent simple cysts or hemangiomas. Heterogeneous enhancement. Mild periportal edema. Biliary/Gallbladder: Spurious contrast excretion, otherwise normal. Stable extrahepatic duct dilation to 12 mm in the danielito hepatis. Pancreas: No mass or duct dilation. Spleen: Normal. Adrenals:No mass. Kidneys: No suspicious mass, obstructing stone, or hydronephrosis. GI tract: Mild distal esophageal and gastric wall edema. No small or large bowel dilation. Normal courtney endix. Diverticulosis without diverticulitis. Mesentery/Peritoneum: No ascites, mass, or free air. Retroperitoneum: No mass.Atherosclerotic abdominal aortic and/or arterial calcifications. Pelvis: Absent uterus. Pelvic organs are otherwise within normal limits. Soft Tissues: Soft tissues and body wall unremarkable. Abdominopelvic bones: No acute osseous finding in the abdomen/pelvis. Severe lumbar scoliosis and mu ltilevel lumbar degenerative disc disease. IMPRESSION: Bilateral breast implant ruptures. Cardiomegaly with mild interstitial edema. Hepatic findings may reflect hepatitis or cirrhosis, correlate with hepatic labs. Stable extrahepatic bile duct dilation. Mild esophagitis/gastritis. Reviewed, dictated and finalized at location K. P PROJECT MANAGER IMPRESSION: Bilateral breast implant ruptures. Cardiomegaly with mild interstitial edema. Hepatic findings may reflect hepatitis or cirrhosis, correlate with hepatic lab s. Stable extrahepatic bile duct dilation. Mild esophagitis/gastritis.
--- NOTE | ~2023-09-03 | US_ITS ---
US abdomen limited INDICATION: Elevated liver function tests PROCEDURE: Realtime right upper abdominal ultrasound. COMPARISON: No prior studies for comparison. FINDINGS: The pancreas is normal without focal mass or pancreatic ductal dilation. Liver echotexture is normal without focal mass or intrahepatic biliary dilatation. There is normal directional flow i n the portal vein. The gallbladder is normal without stones, gallbladder wall thickening or pericholecystic fluid. Comm on bile duct measures 4.5 mm. No sonographic Alfred's sign. Right renal echotexture is normal. No hy dronephrosis. IMPRESSION: 1: Normal limited abdominal ultrasound. Reviewed, dictated and finalized at location A. ITY ASSURANCE SUPERVISOR
[2023-09-03 19:32] VITALS: BP 142/112; PULSE 90; RESP 16; O2SAT 94
[2023-09-03 21:24] VITALS: BP 146/99; PULSE 80; RESP 16; TEMP 36.4; O2SAT 99
[2023-09-03 21:52] LABS: Appearance Urine Clear (Clear); Bacteria Urine None Seen /hpf; Bilirubin Urine Negative (Negative); Blood Urine Negative (Negative); Color Urine Yellow (Yellow); Glucose Urine UA Trace mg/dL (Negative); Ketones Urine Negative (Negative); Leukocyte Esterase Ur Negative LEU/UL (Negative); Nitrate Urine Negative (Negative); Non Pathogenic Casts 0-2; Protein Urine Trace mg/dL (Negative); RBC Urine 0-2 /hpf (0-2); Specific Grav Ur 1.012 (1.001-1.035); Squamous Epithelial Cell Urine None seen /hpf (Few); Urobilinogen Urine 0.2 mg/dL (<2.0); WBC Urine 0-5 /hpf; pH Urine >=9.0 (5.0-9.0)
[2023-09-03 21:53] LABS: Add Urine Microscopic? YES
[2023-09-03 22:05] LABS: Basophils Absolute Auto 0.1 K/mm3 (0.0-0.1); Basophils Percent Auto 0.7 % (0.2-1.2); Eosinophils Absolute Auto 0.4 K/mm3 (0-0.3); Eosinophils Percent Auto 2.4 % (0-4.4); Hematocrit 49.2 % (37.0-47.0); Hemoglobin 15.6 g/dL (12.0-15.0); Immature Granulocyte Absolute 0.31 K/mm3 (0.00-0.031); Immature Granulocyte Percent A 2.1 % (0-0.5); Lymphocytes Absolute Auto 2.25 K/mm3 (0.9-3.2); Mean Corpuscular HGB Conc 31.7 g/dl (32-36); Mean Corpuscular Hemoglobin 30.5 pg (26-34); Mean Corpuscular Volume 96.3 fl (80-100); Mean Platelet Volume 9.4 fl (7.4-10.4); Monocytes Absolute Auto 1.7 K/mm3 (0.1-0.6); Neutrophils Absolute Auto 10.3 K/mm3 (1.3-6.7); Neutrophils Percent Auto 68.8 % (45.5-73.1); Platelet Count Result 201 k/mm3 (150-375); Red Blood Count 5.11 M/mm3 (4.2-5.4); Red Cell Distribution Width 13.6 % (11.5-14.5)
[2023-09-03 22:16] LABS: Partial Thromboplastin Time 27.1 SECONDS (22.3-36.8)
[2023-09-03 22:17] LABS: INR 2.1; Prothrombin Time 24.9 Seconds (11.1-14.7)
[2023-09-03 22:18] LABS: Alanine Aminotransferase 151 U/L (6-35); Albumin Level 4.6 g/dL (3.5-5.1); Alkaline Phosphatase 87 U/L (38-126); Anion Gap 4 mmol/L (8-16); Aspartate Amino Transferase 147 U/L (14-36); Bilirubin,Total 0.9 mg/dL (0.2-1.3); Blood Urea Nitrogen 10 mg/dL (7-17); Calcium 8.3 mg/dL (8.4-10.2); Carbon Dioxide 35 mmol/L (22-30); Chloride 93 mmol/L (98-107); Estimated CRCL calculation 107 ml/min; Estimated Glomerular Filt Rate > 60; Glucose 96 mg/dL (65-110); Potassium 3.5 mmol/L (3.4-5.0); Sodium 132 mmol/L (137-145)
[2023-09-03 22:19] LABS: Lipase 245 U/L (23-300)
[2023-09-03] MEDS: HYDROmorphone HCL INJ (*CRX) 1 MG/ML SYR IV PUSH (22:37)
[2023-09-03] MEDS: ONDANSETRON INJ 4 MG/2 ML VIAL IV PUSH (22:37)
--- NOTE | 2023-09-03 23:07 | ED.GENADULT ---
HPI - General Adult General Chief complaint: GI Bleed Stated complaint: blood in stool Time Seen by Provider: 09/03/23 21:16 Source: patient Mode of arrival: ambulatory Limitations: no limitations History of Present Illness HPI narrative: this is a 53-year-old female who presents to the ED with chief complaint of right upper quadrant pain beginning yesterday evening and worsening today. Reports that the pain stays in the right upper quadrant and epigastrium area. she feels nauseous but has not vomited. Denies abdominal surgical history. Denies fevers, chills, diarrhea, chest pain shortness of breath, cough. Triage note mentions GI bleeding. patient reports that she has history of hemorrhoids and had some bleeding a couple weeks ago but that has since resolved. Related Data Home Medications Medication Instructions Recorded Confirmed acetaminophen 650 mg 1,300 mg PO Q12H 06/18/22 09/04/23 tablet,extended release (Tylenol 8 Hour) quetiapine 50 mg tablet (Seroquel) 100 mg PO QHS 08/18/22 09/04/23 hydroxychloroquine 200 mg tablet 400 mg PO QHS 04/26/23 09/04/23 (Plaquenil) metoprolol tartrate 25 mg tablet 12.5 mg PO BID 04/26/23 09/04/23 warfarin 5 mg tablet 5 mg PO DAILY 06/21/23 09/04/23 omeprazole 20 mg capsule,delayed 20 mg PO BID 09/04/23 09/04/23 release thyroid (pork) 240 mg tablet 240 mg PO DAILY 09/04/23 09/04/23 ([place] Thyroid) Allergies Allergy/AdvReac Type Severity Reaction Status Date / Time doxycycline Allergy Severe Anaphylaxis Verified 06/21/23 15:09 yellow dye Allergy Severe Unknown Verified 06/21/23 15:09 apixaban [From Eliquis] Allergy Mild Hives Verified 06/21/23 15:09 rivaroxaban [From Xarelto] Allergy Mild Rash Verified 06/21/23 15:09 aspirin Allergy Unknown Unknown Verified 06/21/23 15:09 azithromycin Allergy Unknown Unknown Verified 06/21/23 15:09 clarithromycin Allergy Unknown Unknown Verified 06/21/23 15:09 codeine Allergy Unknown Unknown Verified 06/21/23 15:09 hydrocodone Allergy Unknown Unknown Verified 06/21/23 15:09 ibuprofen Allergy Unknown Unknown Verified 06/21/23 15:09 latex Allergy Unknown Unknown Verified 06/21/23 15:09 leflunomide Allergy Unknown Unknown Verified 06/21/23 15:09 meloxicam Allergy Unknown Unknown Verified 06/21/23 15:09 meperidine Allergy Unknown Unknown Verified 06/21/23 15:09 methylprednisolone Allergy Unknown Unknown Verified 06/21/23 15:09 morphine Allergy Unknown Unknown Verified 06/21/23 15:09 nitrofurantoin Allergy Unknown Unknown Verified 06/21/23 15:09 NSAIDS (Non-Steroidal Allergy Unknown gives me Verified 06/21/23 15:09 Anti-Inflamma blisters and my skin falls off oxycodone Allergy Unknown Unknown Verified 06/21/23 15:09 Penicillins Allergy Unknown Unknown Verified 06/21/23 15:09 spironolactone Allergy Unknown Unknown Verified 06/21/23 15:09 Sulfa (Sulfonamide Allergy Unknown Unknown Verified 06/21/23 15:09 Antibiotics) sulfanilamide Allergy Unknown Unknown Verified 06/21/23 15:09 sulfite Allergy Unknown Unknown Verified 06/21/23 15:09 topiramate Allergy Unknown Unknown Verified 06/21/23 15:09 vortioxetine Allergy Unknown Unknown Verified 06/21/23 15:09 Review of Systems Review of Systems: All systems as dictated in [facility] Past Medical History Medical History (Updated 09/04/23 @ 01:34 by Becca Sheppard MD) Abnormal lung sounds Ataxia Bilateral knee pain Bilateral leg numbness Bilateral shoulder pain Bipolar 1 disorder BMI 24.0-24.9, adult BMI 26.0-26.9,adult Body mass index (BMI) 21 to less than 23 Bone lesion Bronchitis Cataract Chronic pain Chronic pain disorder Chronic steroid use Chronic, continuous use of opioids CVA (cerebral vascular accident) Degenerative joint disease of cervical and lumbar spine Depression, psychotic Dermatitis Diarrhea DVT (deep venous thrombosis) Melissa-Danlos disease Enchondroma Essential (primary) hypertension Hypothyroid Leg pain, bilateral MCFP
[2023-09-03 23:14] VITALS: BP 142/101; PULSE 81; RESP 19; O2SAT 95
[2023-09-04] VITALS (23 sets, daily range): BP systolic 119–161; BP diastolic 86–122; PULSE 50–157; RESP 13–20; TEMP 36.6–38.7; O2SAT 91–99; BMI 23.9
[2023-09-04] MEDS: SODIUM CHLORIDE 0.9% IV 1,000 ML 999 ML IV CONT (00:17)
[2023-09-04] MEDS: HYDROmorphone HCL INJ (*CRX) 1 MG/ML SYR IV PUSH ×4 (00:18→11:29)
[2023-09-04] MEDS: fentaNYL CITRATE INJ (*CRX) 100 MCG/2 ML VIAL 50 MCG IV PUSH (00:53)
[2023-09-04] MEDS: metroNIDAZOLE 500 MG/ISO 100ML 500 MG/100 ML BAG 100 MG IVPB ×3 (00:59→16:44)
[2023-09-04] MEDS: SODIUM CHLORIDE 0.9% IV 1,000 ML 125 ML IV CONT (00:59)
--- NOTE | 2023-09-04 01:20 | PM.IMHP ---
H&P: HPI History of Present Illness Date/Time: 09/04/23 01:20 Chief Complaint: Abdominal pain Narrative: Patient presents to the ED for evaluation of abdominal pain while on the upper abdomen, involving the right upper epigastric and left upper quadrant, she stated pain started yesterday, has persisted, sharp continuous radiates to her back rated about 8 to 9/10 in severity, associated nausea, no fever chills, no diarrhea. Evaluation in the ER where the patient has dilated CBD with mildly elevated liver enzymes but normal bilirubin. General surgeon was consulted and he is okay with admitting patient to medical floor here and get an ultrasound of the right upper quadrant in the morning. Patient has been provided with pain control and IV fluid. She still complains of pain requesting for something stronger, denied nausea. Review of Systems Review of Systems: All systems reviewed & are unremarkable except as noted in HPI and below PMFSH Past Medical History Medical History (Updated 09/04/23 @ 01:34 by Becca Sheppard MD) Abnormal lung sounds Ataxia Bilateral knee pain Bilateral leg numbness Bilateral shoulder pain Bipolar 1 disorder BMI 24.0-24.9, adult BMI 26.0-26.9,adult Body mass index (BMI) 21 to less than 23 Bone lesion Bronchitis Cataract Chronic pain Chronic pain disorder Chronic steroid use Chronic, continuous use of opioids CVA (cerebral vascular accident) Degenerative joint disease of cervical and lumbar spine Depression, psychotic Dermatitis Diarrhea DVT (deep venous thrombosis) Melissa-Danlos disease Enchondroma Essential (primary) hypertension Hypothyroid Leg pain, bilateral ferry terminal supervisor systemic steroid user Lumbar spine scoliosis MDD (major depressive disorder) Migraine Neck pain Osteoarthritis of left knee Osteoporosis Pituitary adenoma Rheumatoid arthritis Right bicipital tenosynovitis Rupture of implant of left breast Scoliosis Severe scoliosis Spondylosis of cervical spine Spondylosis of lumbar spine Urticaria Visual loss Wheezy bronchitis Surgical History Surgical History H/O tubal ligation Family History Family History Grandparent Family history of premature coronary heart disease Hypertension Cerebrovascular accident Family history of malignant neoplasm of breast Family history of coronary artery disease Diabetes mellitus Mother Family history of malignant neoplasm of uterus AAA (abdominal aortic aneurysm) COPD (chronic obstructive pulmonary disease) A-fib Diabetes mellitus Hypertension Father Cerebrovascular accident Sibling , basal cell sarcoma Cancer Other Acute myocardial infarction Depression Family history of arthritis Family history of heart disease in male family member before age 55 Unknown family medical history Social History Social History Smoking status: Former smoker Tobacco type: cigarettes Second hand tobacco smoke exposure: No Alcohol intake: former Substance use: current Substance use type: opiates Other substance usage details: chronic pain presently on Dilaudid daily Lack of Transportation: No Lack of Food: Never True Current Housing: I Have Housing Concerned About Future Housing: No Difficulty Paying Gas/Electric Bills: No Difficulty Paying for Meds: No Currently Unemployed: No Education: Bachelor's Degree Difficulty w/ Childcare or Family Care: No Living arrangements: with family Additional living arrangements comments: and kids Occupation/Education: unemployed 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
--- NOTE | 2023-09-04 01:30 | ADMGEN ---
This patient, Mariah Castillo, was admitted to 2 Medical Room 244-01. Patient/family oriented to hospital policies and general routines including ID bracelet, bed and alarms, visiting hours, pain management, procedures, bathroom and other care routines, personal items, smoking policy, room service/diet, and visiting hours. Information on how to activate the Rapid Response Team has been discussed. Patient/Family are encouraged to report perceived risks to care and to ask questions if they do not understand what they are told or what they should do.
[2023-09-04] MEDS: ONDANSETRON INJ 4 MG/2 ML VIAL IV PUSH (02:03)
[2023-09-04 05:16] LABS: Basophils Percent Auto 0.2 % (0.2-1.2); Eosinophils Absolute Auto 0.1 K/mm3 (0-0.3); Hematocrit 54.9 % (37.0-47.0); Hemoglobin 16.7 g/dL (12.0-15.0); Immature Granulocyte Absolute 0.31 K/mm3 (0.00-0.031); Immature Granulocyte Percent A 2.1 % (0-0.5); Lymphocytes Absolute Auto 2.32 K/mm3 (0.9-3.2); Lymphocytes Percent Auto 15.8 % (18.3-44.2); Mean Corpuscular HGB Conc 30.4 g/dl (32-36); Mean Corpuscular Hemoglobin 29.9 pg (26-34); Mean Corpuscular Volume 98.4 fl (80-100); Mean Platelet Volume 9.3 fl (7.4-10.4); Monocytes Absolute Auto 1.7 K/mm3 (0.1-0.6); Monocytes Percent Auto 11.4 % (2.6-8.5); Neutrophils Absolute Auto 10.2 K/mm3 (1.3-6.7); Neutrophils Percent Auto 69.5 % (45.5-73.1); Platelet Count Result 150 k/mm3 (150-375); Red Blood Count 5.58 M/mm3 (4.2-5.4); Red Cell Distribution Width 13.8 % (11.5-14.5); White Blood Count 14.7 K/mm3 (4.5-10.0)
[2023-09-04 05:30] LABS: Anion Gap 6 mmol/L (8-16); Blood Urea Nitrogen 8 mg/dL (7-17); Calcium 7.4 mg/dL (8.4-10.2); Carbon Dioxide 26 mmol/L (22-30); Chloride 95 mmol/L (98-107); Estimated CRCL calculation 107 ml/min; Estimated Glomerular Filt Rate > 60; Glucose 54 mg/dL (65-110); Potassium 4.4 mmol/L (3.4-5.0); Sodium 127 mmol/L (137-145)
[2023-09-04 05:35] LABS: Glucose Point of Care 61 mg/dl (65-105)
[2023-09-04] MEDS: DEXTROSE 50% 25 GM/50 ML SYRINGE IV PUSH (05:46)
[2023-09-04 06:17] LABS: Glucose Point of Care 137 mg/dl (65-105)
[2023-09-04 10:36] LABS: Glucose Point of Care 76 mg/dl (65-105)
[2023-09-04] MEDS: ACETAMINOPHEN 325 MG TABLET 650 MG PO (10:37)
--- NOTE | 2023-09-04 10:48 | ECG_ITS ---
Measurements Intervals [place] Rate: 163 P: HI: 0 QRS: 43 QRSD: 85 T: -7 QT: 272 QTc: 448 Interpretive Statements ATRIAL FIBRILLATION WITH RAPID VENTRICULAR RESPONSE NONSPECIFIC ST & T-WAVE ABNORMALITY- DIFFUSE LEADS BASELINE ARTIFACT- II, III, AVL, AVF ABNORMAL ECG COMPARED TO ECG 02/19/2020 20:56:23 ATRIAL FIBRILLATION NOW PRESENT ST-T WAVE ABNORMALITY NOW PRESENT Electronically Signed On 09-04-2023 11:11:38 RESIDENTIAL INSTALLER by Lars Hollingsworth D.O.
--- NOTE | 2023-09-04 11:05 | PM.CNGS ---
Assessment and Plan Assessment and plan (1) Abdominal pain: Code(s): R10.9 - Unspecified abdominal pain Status: Acute Assessment and Plan: patient continues to complain of severe pain in the upper abdomen, will get ultrasound and MRCP for further evaluation, also GI consultation (2) Elevated transaminase level: Code(s): R74.01 - Elevation of levels of liver transaminase levels Status: Acute Assessment and Plan: unknown etiology, will get MRCP and GI consultation (3) DVT (deep venous thrombosis): Code(s): I82.409 - Acute embolism and thrombosis of unspecified deep veins of unspecified lower extremity Status: Acute Assessment and Plan: hold anticoagulation for now History of Present Illness Consult details Consult date: 09/04/23 Reason for consult: abdominal pain Requesting physician: Becca Sheppard MD Narrative: The patient is a 53-year-old female with multiple medical issues presenting to the emergency department complaining of severe upper abdominal pain. Patient reports the pain is mainly in the left upper quadrant and radiates to her epigastrium. The patient reports associated nausea and anorexia, however no episodes of emesis. The patient denies previous similar symptomatology. Of note, the patient with multiple medical problems including Melissa-Danlos, rheumatoid arthritis and does have issues with chronic pain. Workup in the emergency department, including imaging, was significant for mildly elevated transaminases and dilated common bile duct on CT. Review of Systems Review of Systems: All systems reviewed & are unremarkable except as noted in HPI and below PMFSH Past Medical History Medical History Abnormal lung sounds Ataxia Bilateral knee pain Bilateral leg numbness Bilateral shoulder pain Bipolar 1 disorder BMI 24.0-24.9, adult BMI 26.0-26.9,adult Body mass index (BMI) 21 to less than 23 Bone lesion Bronchitis Cataract Chronic pain Chronic pain disorder Chronic steroid use Chronic, continuous use of opioids CVA (cerebral vascular accident) Degenerative joint disease of cervical and lumbar spine Depression, psychotic Dermatitis Diarrhea DVT (deep venous thrombosis) Melissa-Danlos disease Enchondroma Essential (primary) hypertension Hypothyroid Leg pain, bilateral 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 Lumbar spine scoliosis MDD (major depressive disorder) Migraine Neck pain Osteoarthritis of left knee Osteoporosis Pituitary adenoma Rheumatoid arthritis Right bicipital tenosynovitis Rupture of implant of left breast Scoliosis Severe scoliosis Spondylosis of cervical spine Spondylosis of lumbar spine Urticaria Visual loss Wheezy bronchitis Surgical History Surgical History H/O tubal ligation Family History Family History Grandparent Family history of premature coronary heart disease Hypertension Cerebrovascular accident Family history of malignant neoplasm of breast Family history of coronary artery disease Diabetes mellitus Mother Family history of malignant neoplasm of uterus AAA (abdominal aortic aneurysm) COPD (chronic obstructive pulmonary disease) A-fib Diabetes mellitus Hypertension Father Cerebrovascular accident Sibling , basal cell sarcoma Cancer Other Acute myocardial infarction Depression Family history of arthritis Family history of heart disease in male family member before age 55 Unknown family medical history Social History Social History Smoking packs per day: 0 Smoking cigarettes per day: 0.0 Years smoked: 30 Smoking pack-years: 0.00 Smoking status: Current some day smoker Tobacco type: cigarettes Second hand tobacco smoke exposure: No [place]
[2023-09-04 11:09] LABS: Lactic Acid Reflex 1.6 mmol/L (0.7-2.0)
[2023-09-04] MEDS: DEXTROSE 5%/0.9% SOD CHL 1,000 ML 125 ML IV CONT ×2 (11:17→22:47)
--- NOTE | 2023-09-04 11:31 | PC.NURSE ---
Rapid Response, provider would like another dose of 1 mg dilaudid given now IVP
[2023-09-04] MEDS: AMIODARONE 150 MG/D5W 100 ML 150 MG/100 ML BAG 600 MG IV CONT (11:34)
[2023-09-04 11:39] LABS: Glucose Point of Care 76 mg/dl (65-105)
--- NOTE | 2023-09-04 12:00 | PC.NURSE ---
Addendum entered by Dahlia Mabry RN 09/04/23 14:40: Did notify nurse receiving report that patient has fentanyl patch on back from home. Unsure of when it was placed, had not had a chance to ask patient. Original Note: This patient, Mariah Castillo, was transferred to ICU-1 as an IMU overflow patient on 09/04/23 at 1433. Personal belongings sent with patient. Report given to GIFTY Membreno. Appropriate documentation sent with patient.
[2023-09-04 12:14] LABS: Glucose Point of Care 78 mg/dl (65-105)
[2023-09-04 12:19] LABS: Troponin I 0.099 ng/mL (0.000-0.034)
[2023-09-04] MEDS: AMIODARONE 360 MG/D5W 200 ML 360 MG/200 ML BAG 33.33 MG IV CONT (12:36)
[2023-09-04] MEDS: LABETALOL HCL INJ 100 MG/20 ML VIAL 20 MG IV PUSH (12:44)
--- NOTE | 2023-09-04 13:59 | PM.IMPN ---
Progress Note: A&P Assessment and Plan (1) Dilated cbd, acquired: Code(s): K83.8 - Other specified diseases of biliary tract Status: Acute (2) Abdominal pain: Code(s): R10.9 - Unspecified abdominal pain Status: Acute (3) Elevated transaminase level: Code(s): R74.01 - Elevation of levels of liver transaminase levels Status: Acute (4) Leukocytosis: Code(s): D72.829 - Elevated white blood cell count, unspecified Status: Acute Subjective Date/time seen: 09/04/23 13:59 Interval history: This is a 53 year old female who presented Review of Systems Review of Systems: All systems reviewed & are unremarkable except as noted in HPI and below Objective Data Vital Signs Vital Signs: Vital Signs - 24 hr 09/03/23 19:32 09/03/23 21:24 09/03/23 23:14 Temperature 97.6 F Pulse Rate 90 80 81 Respiratory Rate 16 16 19 Blood Pressure 142/112 H 146/99 H 142/101 H Pulse Oximetry 94 99 95 Oxygen Delivery 09/04/23 00:05 09/04/23 00:05 09/04/23 00:07 Temperature Pulse Rate 83 97 95 Respiratory Rate Blood Pressure 156/102 H 156/109 H 144/122 H Pulse Oximetry Oxygen Delivery 09/04/23 00:22 09/04/23 01:41 09/04/23 01:50 Temperature 98.4 F Pulse Rate 123 H 51 L Respiratory Rate 18 18 Blood Pressure 161/116 H 156/91 H Pulse Oximetry 91 97 Oxygen Delivery Room Air 09/04/23 06:00 09/04/23 10:16 09/04/23 10:37 Temperature 97.8 F 101.6 F H 101.6 F H Pulse Rate 64 50 L Respiratory Rate 18 16 Blood Pressure 140/90 Pulse Oximetry 97 99 Oxygen Delivery 09/04/23 10:35 09/04/23 11:24 09/04/23 11:29 Temperature 99.1 F 99.1 F Pulse Rate Respiratory Rate 20 Blood Pressure 150/110 H 143/93 H Pulse Oximetry 96 Oxygen Delivery 09/04/23 11:02 09/04/23 11:58 09/04/23 12:14 Temperature 99.1 F 101 F H Pulse Rate 157 H 147 H Respiratory Rate 20 Blood Pressure 142/93 H Pulse Oximetry 96 Oxygen Delivery Room Air 09/04/23 11:34 09/04/23 12:36 09/04/23 12:44 Temperature Pulse Rate 147 H 147 H 139 H Respiratory Rate Blood Pressure Pulse Oximetry Oxygen Delivery 09/04/23 12:45 09/04/23 11:02 Temperature 101.2 F H Pulse Rate 140 H 157 H Respiratory Rate 18 Blood Pressure 141/90 H Pulse Oximetry 94 Oxygen Delivery Intake/Output Intake/Output: Intake & Output 09/01/23 09/02/23 09/03/23 09/04/23 23:59 23:59 23:59 23:59 Intake Total 1150 Output Total 1900 Balance -750 Meds/Results Medications: Active Medications Generic Name Dose Route Start Last Admin Trade Name Freq PRN Reason Stop Dose Admin Acetaminophen 650 mg 09/04/23 10:23 09/04/23 10:37 Acetaminophen 325 Mg Tablet PO 650 mg Q6H PRN Administration Mild Pain (1-3) or Fever Albuterol 2 puff 09/04/23 10:33 Albuterol Sulfate (*Sp) Aerosol 1 Puff INHALATION Q4H PRN wheezing Baclofen 20 mg 09/04/23 10:33 Baclofen 10 Mg Tablet PO Q6H PRN muscle spasm Bupropion HCl 300 mg 09/04/23 12:00 09/04/23 12:39 Bupropion Hcl Sr (12 Hr) 150 Mg Tab PO Not Given DAILY SYDNEY Bupropion HCl 150 mg 09/04/23 21:00 Bupropion Hcl Sr (12 Hr) 150 Mg Tab PO HS SYDNEY Dextrose 12.5 gm 09/04/23 05:33 09/04/23 05:46 Dextrose 50% 25 Gm/50 Ml Syringe IV PUSH 12.5 gm PRN PRN Administration Hypoglycemia Protocol Glucagon 1 mg 09/04/23 05:33 Glucagon For Inj 1 Mg Vial IM PRN PRN Hypoglycemia Protocol Glucose 15 gm 09/04/23 05:33 Glucose Oral Gel 15 Gm Of Glucse In 37.5 Gm Tube PO PRN PRN Hypoglycemia Protocol Hydromorphone HCl 8 mg 09/04/23 13:00 Hydromorphone Hcl (*Crx) 4 Mg Tablet PO TID PRN pain Hydroxychloroquine Sulfate 400 mg 09/04/23 21:00 Hydroxychloroquine Sulfate 200 Mg Tablet PO QHS SYDNEY Ceftriaxone Sodium 1 gm in 50 mls @ 100 mls/hr 09/04/23 22:00 Roce
[2023-09-04 14:18] LABS: Hepatitis B Surface Antigen Negative (Negative)
[2023-09-04 14:23] LABS: HAV RESULT Negative (Negative); Hepatitis B Core IgM Result Negative (Negative)
--- NOTE | 2023-09-04 14:30 | ADMIMU ---
This patient, Mariah Castillo, was admitted to IMU status, and placed in Intensive Care Unit-1. Patient/family oriented to hospital policies and general routines including ID bracelet, bed and alarms, visiting hours, pain management, procedures, bathroom and other care routines, personal items, smoking policy, room service/diet, and visiting hours. Valuables list has been completed. Information on how to activate the Rapid Response Team has been discussed. Patient/Family are encouraged to report perceived risks to care and to ask questions if they do not understand what they are told or what they should do.
[2023-09-04] MEDS: HYDROmorphone HCL INJ (*CRX) 1 MG/ML SYR 2 MG IV PUSH ×4 (14:32→21:43)
[2023-09-04 14:35] LABS: Hepatitis C Virus Antibody Negative (Negative)
[2023-09-04 15:52] LABS: Troponin I 0.101 ng/mL (0.000-0.034)
--- NOTE | 2023-09-04 15:52 | PC.NURSE ---
Per Bess Sierra- mike to hold PO meds due to patients MRCP test
--- NOTE | 2023-09-04 16:31 | PM.EVENT ---
Event Note Event Note Event Note: Was called by bedside nurse around 1030 this morning and was told that patient is in excruciating pain, temperature was elevated to 101.2, hypoglycemic with a blood glucose of 54 on morning labs-now 76, and diaphoretic. I put in an order for blood cultures as she is now meeting sepsis criteria with WBC 13.5, temp 101.2, and tachycardia . Her blood pressure is hypertensive and she does not look like she needs fluid resuscitation at this time as she already received IVF bolus in the ER. She is currently on flagyl and Rocephin for antibiotic coverage. She had a CT scan which was done yesterday showing mildly dilated common duct which is dilated to 10 mm, there were also cyst in the liver measuring up to 7 mm. She is awaiting MRCP. I went to patient's room and assessed her. She is ill-appearing and diaphoretic. Her shirt was soaked. She denied any vomiting, diarrhea, chest pain, or shortness of breath. She endorsed abdominal pain mainly on the left upper quadrant, nausea, fever, and chills. When auscultating heart sounds I found her to be irregular and rapid. I had the nurse put continuous telemetry on her, get a STAT EKG, troponin, hepatic panel, and lactic acid. She was found to be in A-fib RVR with a rate of 140-180. She was given Tylenol for her fever, a bolus of amiodarone, and started on amiodarone infusion. She was sent to the IMU for closer monitoring. Patient does have a history of A-fib and is currently on anticoagulation with coumadin. She normally is on Metoprolol for rate control as well, however this has been on hold. Lactic acid 1.6, troponin 0.099>0.101- likely demand ischemia, and hepatitis panel is negative. We also sent her for another CT scan of chest, abdomen, pelvis considering her septic picture which shown bilateral breast implant ruptures, cardiomegaly with mild interstitial edema, hepatic findings reflecting hepatitis or cirrhosis, stable extrahepatic bile duct dilatation, mild esophagitis/gastritis. General surgery is following and GI was consulted today. Will repeat a set of labs this afternoon and continue to monitor her closely.
[2023-09-04 16:39] LABS: Hematocrit 53.9 % (37.0-47.0); Hemoglobin 16.9 g/dL (12.0-15.0); Mean Corpuscular HGB Conc 31.4 g/dl (32-36); Mean Corpuscular Hemoglobin 30.5 pg (26-34); Mean Corpuscular Volume 97.3 fl (80-100); Mean Platelet Volume 9.5 fl (7.4-10.4); Platelet Count Result 147 k/mm3 (150-375); Red Blood Count 5.54 M/mm3 (4.2-5.4); Red Cell Distribution Width 13.9 % (11.5-14.5); White Blood Count 13.5 K/mm3 (4.5-10.0)
--- NOTE | 2023-09-04 16:40 | PC.NURSE ---
RN noticed patient looking through her bag. RN witnessed patient opening a pill bottle. RN to bedside and asked what patient was doing, patient responded that she was just getting a piece of gum. RN noticed the pill bottle was open and asked patient what kind of pills she was trying to take. Patient stated she was hurting so bad. RN place a bottle of hydromorphone (19 whole tablets/ 4 Partials) in the safe along with 2 bottles of Baclofen.
[2023-09-04] MEDS: AMIODARONE 360 MG/D5W 200 ML 360 MG/200 ML BAG 16.67 MG IV CONT (17:42)
[2023-09-04 17:51] LABS: INR 1.3; Prothrombin Time 16.8 Seconds (11.1-14.7)
[2023-09-04 17:53] LABS: Alanine Aminotransferase 138 U/L (6-35); Albumin Level 3.8 g/dL (3.5-5.1); Alkaline Phosphatase 95 U/L (38-126); Anion Gap 7 mmol/L (8-16); Aspartate Amino Transferase 100 U/L (14-36); Bilirubin,Total 0.8 mg/dL (0.2-1.3); Blood Urea Nitrogen 10 mg/dL (7-17); Calcium 7.8 mg/dL (8.4-10.2); Carbon Dioxide 28 mmol/L (22-30); Chloride 95 mmol/L (98-107); Estimated CRCL calculation 107 ml/min; Estimated Glomerular Filt Rate > 60; Glucose 119 mg/dL (65-110); Potassium 3.2 mmol/L (3.4-5.0); Sodium 130 mmol/L (137-145)
[2023-09-04 18:10] LABS: Procalcitonin 0.4 ng/mL
[2023-09-04 19:04] LABS: Glucose Point of Care 138 mg/dl (65-105)
--- NOTE | 2023-09-04 19:19 | PC.NURSE ---
Per Bess Sierra ok to hold all PO meds except Dilaudid for MRCP prodcedure.
[2023-09-04] MEDS: METOPROLOL TARTRATE INJ 5 MG/5 ML VIAL IV PUSH (19:32)
[2023-09-05] VITALS (14 sets, daily range): BP systolic 112–143; BP diastolic 84–115; PULSE 71–116; RESP 11–19; TEMP 36.9–37.5; O2SAT 96–99
[2023-09-05] MEDS: buPROPion HCL SR (12 HR) 150 MG TAB PO ×2 (01:20→19:47)
[2023-09-05] MEDS: MONTELUKAST SODIUM 10 MG TABLET PO ×2 (01:20→19:47)
[2023-09-05] MEDS: HYDROXYCHLOROQUINE SULFATE 200 MG TABLET 400 MG PO ×2 (01:20→19:47)
[2023-09-05] MEDS: QUEtiapine FUMARATE 100 MG TABLET PO ×2 (01:21→19:47)
[2023-09-05] MEDS: metroNIDAZOLE 500 MG/ISO 100ML 500 MG/100 ML BAG 100 MG IVPB ×3 (01:28→16:34)
[2023-09-05] MEDS: HYDROmorphone HCL INJ (*CRX) 1 MG/ML SYR 2 MG IV PUSH (01:35)
[2023-09-05] MEDS: METOPROLOL TARTRATE 12.5 MG TABLET PO ×3 (01:47→16:33)
[2023-09-05 05:32] LABS: INR 1.2; Prothrombin Time 16.1 Seconds (11.1-14.7)
[2023-09-05 06:21] LABS: Glucose Point of Care 149 mg/dl (65-105)
[2023-09-05] MEDS: AMIODARONE 360 MG/D5W 200 ML 360 MG/200 ML BAG 16.67 MG IV CONT (06:23)
[2023-09-05] MEDS: DEXTROSE 5%/0.9% SOD CHL 1,000 ML 125 ML IV CONT ×2 (07:23→16:33)
[2023-09-05 08:08] LABS: Basophils Absolute Auto 0.1 K/mm3 (0.0-0.1); Basophils Percent Auto 0.8 % (0.2-1.2); Eosinophils Absolute Auto 0.2 K/mm3 (0-0.3); Eosinophils Percent Auto 1.7 % (0-4.4); Hematocrit 47.4 % (37.0-47.0); Hemoglobin 15.3 g/dL (12.0-15.0); Immature Granulocyte Absolute 0.14 K/mm3 (0.00-0.031); Immature Granulocyte Percent A 1.4 % (0-0.5); Lymphocytes Percent Auto 24.1 % (18.3-44.2); Mean Corpuscular HGB Conc 32.3 g/dl (32-36); Mean Corpuscular Hemoglobin 30.3 pg (26-34); Mean Corpuscular Volume 93.9 fl (80-100); Mean Platelet Volume 9.8 fl (7.4-10.4); Monocytes Absolute Auto 0.9 K/mm3 (0.1-0.6); Neutrophils Absolute Auto 6.3 K/mm3 (1.3-6.7); Platelet Count Result 152 k/mm3 (150-375); Red Blood Count 5.05 M/mm3 (4.2-5.4); Red Cell Distribution Width 13.9 % (11.5-14.5)
[2023-09-05 08:34] LABS: Alanine Aminotransferase 110 U/L (6-35); Alkaline Phosphatase 72 U/L (38-126); Anion Gap 3 mmol/L (8-16); Aspartate Amino Transferase 117 U/L (14-36); Bilirubin,Total 0.6 mg/dL (0.2-1.3); Blood Urea Nitrogen 10 mg/dL (7-17); Calcium 6.8 mg/dL (8.4-10.2); Carbon Dioxide 26 mmol/L (22-30); Chloride 98 mmol/L (98-107); Estimated CRCL calculation 130 ml/min; Estimated Glomerular Filt Rate > 60; Glucose 127 mg/dL (65-110); Magnesium 2.2 mg/dL (1.6-2.3); Sodium 127 mmol/L (137-145)
[2023-09-05] MEDS: buPROPion HCL SR (12 HR) 150 MG TAB 300 MG PO ×2 (08:35→19:46)
[2023-09-05] MEDS: HYDROmorphone HCL (*CRX) 2 MG TABLET 8 MG PO (08:36)
--- NOTE | 2023-09-05 09:13 | PC.NURSE ---
Patient to MRI via
--- NOTE | 2023-09-05 11:12 | PM.PNGS ---
Progress Note: A&P Assessment and Plan (1) Abdominal pain: Code(s): R10.9 - Unspecified abdominal pain Status: Acute Assessment and Plan: unknown etiology, CT x 2 reviewed and largely unremarkable, await MRCP and U/S results, cont serial exams and abx for now Subjective Subjective Date/Time Seen: 09/05/23 11:12 Interval history: still c/o upper abd pain L>R, getting bedside U/S this am, events yesterday noted Review of Systems Review of Systems: All systems reviewed & are unremarkable except as noted in HPI and below Exam Const: General: cooperative, acute distress mild, ill appearing and uncomfortable Resp: Auscultation: clear to auscultation bilaterally Cardio: Rate: regular rate Rhythm: regular rhythm GI: Inspection: normal to inspection and distended GI Palp: Yes abdominal tenderness, Yes Soft to palpation, Yes Tenderness to palpation present (GI), No Guarding due to palpation present (GI) and No Rigid due to palpation Objective Data Vital Signs Vital Signs: Vital Signs - 24 hr 09/04/23 11:24 09/04/23 11:29 09/04/23 11:58 Temperature 37.3 C 37.3 C 37.3 C Pulse Rate 147 H Respiratory Rate 20 20 Blood Pressure 143/93 H 142/93 H Pulse Oximetry 96 96 Oxygen Delivery Room Air 09/04/23 12:14 09/04/23 11:34 09/04/23 12:36 Temperature 38.3 C H Pulse Rate 147 H 147 H Respiratory Rate Blood Pressure Pulse Oximetry Oxygen Delivery 09/04/23 12:44 09/04/23 12:45 09/04/23 14:00 Temperature 38.4 C H 37.7 C H Pulse Rate 139 H 140 H 92 Respiratory Rate 18 20 Blood Pressure 141/90 H 122/86 Pulse Oximetry 94 92 Oxygen Delivery 09/04/23 16:00 09/04/23 12:00 09/04/23 16:00 Temperature 37.0 C Pulse Rate 108 H 124 H 104 H Respiratory Rate 20 Blood Pressure 125/87 Pulse Oximetry 99 Oxygen Delivery 09/04/23 17:42 09/04/23 19:32 09/04/23 20:00 Temperature 37.2 C Pulse Rate 96 107 H 96 Respiratory Rate 13 Blood Pressure 119/91 H 127/99 H Pulse Oximetry 96 Oxygen Delivery 09/04/23 20:00 09/05/23 01:47 09/04/23 20:00 Temperature Pulse Rate 110 H 116 H Respiratory Rate Blood Pressure Pulse Oximetry Oxygen Delivery Room Air 09/05/23 00:00 09/05/23 00:00 09/05/23 00:00 Temperature 36.9 C Pulse Rate 115 H 111 H Respiratory Rate 11 L Blood Pressure 143/101 H Pulse Oximetry 99 Oxygen Delivery Room Air 09/05/23 04:00 09/05/23 04:00 09/05/23 05:42 Temperature 37.3 C Pulse Rate 113 H 111 H 106 H Respiratory Rate 11 L Blood Pressure 112/95 H 132/97 H Pulse Oximetry 97 Oxygen Delivery 09/05/23 06:23 09/05/23 04:00 09/05/23 08:00 Temperature Pulse Rate 106 H 111 H Respiratory Rate Blood Pressure 132/97 H Pulse Oximetry Oxygen Delivery Room Air 09/05/23 08:00 09/05/23 08:00 09/05/23 08:36 Temperature 37.5 C Pulse Rate 111 H 111 H 103 H Respiratory Rate 16 16 Blood Pressure 130/115 H Pulse Oximetry 97 97 Oxygen Delivery Room Air 09/05/23 10:00 Temperature Pulse Rate 71 Respiratory Rate Blood Pressure Pulse Oximetry Oxygen Delivery Intake/Output Intake/Output: Intake & Output 09/02/23 09/03/23 09/04/23 09/05/23 23:59 23:59 23:59 23:59 Intake Total 2300 1300 Output Total 1900 1400 Balance 400 -100 Meds/Results Medications: Active Medications Generic Name Dose Route Start Last Admin Trade Name Freq PRN Reason Stop Dose Admin Acetaminophen 650 mg 09/04/23 10:23 09/04/23 10:37 Acetaminophen 325 Mg Tablet PO 650 mg Q6H PRN Administration Mild Pain (1-3) or Fever Albuterol 2 puff 09/04/23 10:33 Albuterol Sulfate (*Sp) Aerosol 1 Puff INHALATION Q4H PRN wheezing Baclofen 20 mg 09/04/23 10:33 Baclofen 10 Mg Tablet PO Q6H PRN muscle spasm Bupropion HCl 300 mg 09/04/23 12:00 09/05/23 08:35 Bupropion Hcl Sr (12 Hr) 150 Mg Tab PO 300 mg DAILY SYDNEY Ad
--- NOTE | 2023-09-05 11:20 | PM.IMPN ---
Progress Note: A&P Assessment and Plan (1) Dilated cbd, acquired: Code(s): K83.8 - Other specified diseases of biliary tract Status: Acute Assessment and Plan: CT abdomen/pelvis showing mildly dilated common duct GI consulted MRCP completed today, awaiting results US of abdomen today showing common bile duct measuring 4.5mm, was a normal read General surgery following as well. Can advance diet as tolerated to a regular diet for today considering GI won't be able to see her officially until tomorrow. (2) Abdominal pain: Code(s): R10.9 - Unspecified abdominal pain Status: Acute Assessment and Plan: Pain well controlled today. She was placed back on her home dose of medications. IV pain medication discontinued (3) Elevated transaminase level: Code(s): R74.01 - Elevation of levels of liver transaminase levels Status: Acute Assessment and Plan: Liver enzymes today show AST 117, ALT 110, total bilirubin 0.6, alk phos 72 Continue to trend labs (4) Leukocytosis: Code(s): D72.829 - Elevated white blood cell count, unspecified Status: Acute Assessment and Plan: WBC today 10.0 from 13.5 likely due to inflammatory response and meeting SIRS criteria yesterday (5) Atrial fibrillation with rapid ventricular response: Code(s): I48.91 - Unspecified atrial fibrillation Status: Acute Assessment and Plan: Patient has history of A fib Went into A fib RVR yesterday requiring Amiodarone infusion. Now back in NSR in the 70's now that her pain is well controlled. She was placed back on home medications Metoprolol and Coumadin. She is stable to move out of IMU today. Time Spent With Patient Time with patient: Greater than 35 minutes Subjective Date/time seen: 09/05/23 11:20 Interval history: 09/04/23: This is a 53 year old female who came to the hospital with upper abdominal pain with associated nausea. Was called by bedside nurse around 1030 this morning and was told that patient is in excruciating pain, temperature was elevated to 101.2, hypoglycemic with a blood glucose of 54 on morning labs-now 76, and? diaphoretic. I put in an order for blood cultures as she is now meeting sepsis criteria with WBC 13.5, temp 101.2, and tachycardia . Her blood pressure is hypertensive and she does not look like she needs fluid resuscitation at this time as she already received IVF bolus in the ER. She is currently on flagyl and Rocephin for antibiotic coverage.? She had a CT scan which was done yesterday showing mildly dilated common duct which is dilated to 10 mm, there were also cyst in the liver measuring up to 7 mm. She is awaiting MRCP. ?I went to patient's room and assessed her. She is ill-appearing and diaphoretic. Her shirt was soaked. She denied any vomiting, diarrhea, chest pain, or shortness of breath. She endorsed abdominal pain mainly on the left upper quadrant, nausea, fever, and chills. When auscultating heart sounds I found her to be irregular and rapid. I had the nurse put continuous telemetry on her, get a STAT EKG, troponin, hepatic panel, and lactic acid. She was found to be in A-fib RVR with a rate of 140-180. She was given Tylenol for her fever, a bolus of amiodarone, and started on amiodarone infusion. She was sent to the IMU for closer monitoring. Patient does have a history of A-fib and is currently on anticoagulation with coumadin. She normally is on Metoprolol for rate control as well, however this has been on hold. Lactic acid 1.6, troponin 0.099>0.101- likely demand ischemia, and hepatitis panel is negative. We also sent her for another CT scan of chest, abdomen, pelvis considering her septic picture which shown bilateral breast implant ruptures, cardiomegaly with mild interstitial edema, hepatic findings reflecting hepatitis or cirrhosis, stable extrahepatic bile duct dilatation, mild esophagitis/gastritis.? General surgery is following
[2023-09-05 11:42] LABS: Glucose Point of Care 113 mg/dl (65-105)
[2023-09-05] MEDS: POTASSIUM CHLORIDE 20 MEQ ER TABLET 40 MEQ PO (15:20)
[2023-09-05] MEDS: fentaNYL (*CRX) 75 MCG PATCH TRANSDERM (15:50)
[2023-09-05] MEDS: predniSONE 5 MG TABLET 15 MG PO (16:33)
[2023-09-05] MEDS: WARFARIN (*PBKC) 5 MG TABLET PO (16:37)
[2023-09-05] MEDS: BACLOFEN 10 MG TABLET 20 MG PO (17:38)
[2023-09-05 18:13] LABS: Glucose Point of Care 122 mg/dl (65-105)
--- NOTE | 2023-09-05 20:00 | PC.NURSE ---
pt transfered to [facility] in floor bed report given to Stacey. Pt calm and verb no complaints
[2023-09-06] VITALS: BP 104/68; PULSE 78; RESP 18; TEMP 36.8; O2SAT 99
[2023-09-06 01:10] LABS: Glucose Point of Care 146 mg/dl (65-105)
[2023-09-06] MEDS: metroNIDAZOLE 500 MG/ISO 100ML 500 MG/100 ML BAG 100 MG IVPB ×2 (01:39→09:50)
[2023-09-06] MEDS: DEXTROSE 5%/0.9% SOD CHL 1,000 ML 125 ML IV CONT (01:45)
[2023-09-06 04:00] VITALS: BP 105/75; PULSE 72; RESP 17; TEMP 36.6; O2SAT 99
[2023-09-06] MEDS: predniSONE 5 MG TABLET 15 MG PO ×2 (05:54→17:41)
[2023-09-06 06:06] LABS: Basophils Absolute Auto 0.1 K/mm3 (0.0-0.1); Eosinophils Absolute Auto 0.1 K/mm3 (0-0.3); Eosinophils Percent Auto 1.6 % (0-4.4); Hematocrit 47.8 % (37.0-47.0); Hemoglobin 14.5 g/dL (12.0-15.0); Immature Granulocyte Absolute 0.14 K/mm3 (0.00-0.031); Lymphocytes Absolute Auto 2.02 K/mm3 (0.9-3.2); Lymphocytes Percent Auto 28.5 % (18.3-44.2); Mean Corpuscular HGB Conc 30.3 g/dl (32-36); Mean Corpuscular Hemoglobin 30.1 pg (26-34); Mean Corpuscular Volume 99.4 fl (80-100); Mean Platelet Volume 9.5 fl (7.4-10.4); Monocytes Absolute Auto 0.7 K/mm3 (0.1-0.6); Neutrophils Percent Auto 56.9 % (45.5-73.1); Platelet Count Result 154 k/mm3 (150-375); Red Blood Count 4.81 M/mm3 (4.2-5.4); White Blood Count 7.1 K/mm3 (4.5-10.0)
[2023-09-06 06:14] LABS: INR 1.2; Prothrombin Time 15.6 Seconds (11.1-14.7)
[2023-09-06 06:27] LABS: Alanine Aminotransferase 76 U/L (6-35); Albumin Level 2.7 g/dL (3.5-5.1); Alkaline Phosphatase 62 U/L (38-126); Anion Gap 1 mmol/L (8-16); Aspartate Amino Transferase 45 U/L (14-36); Bilirubin,Total 0.4 mg/dL (0.2-1.3); Blood Urea Nitrogen 9 mg/dL (7-17); Calcium 7.2 mg/dL (8.4-10.2); Carbon Dioxide 25 mmol/L (22-30); Chloride 109 mmol/L (98-107); Estimated CRCL calculation 107 ml/min; Estimated Glomerular Filt Rate > 60; Glucose 108 mg/dL (65-110); Sodium 135 mmol/L (137-145)
[2023-09-06 08:51] LABS: Glucose Point of Care 120 mg/dl (65-105)
[2023-09-06 09:53] VITALS: BP 109/68; PULSE 79; RESP 16; O2SAT 97
[2023-09-06 10:06] VITALS: PULSE 79
[2023-09-06] MEDS: METOPROLOL TARTRATE 12.5 MG TABLET PO (10:06)
[2023-09-06 12:37] LABS: Glucose Point of Care 140 mg/dl (65-105)
--- NOTE | 2023-09-06 14:20 | PM.PNGS ---
Progress Note: A&P Assessment and Plan (1) Abdominal pain: Code(s): R10.9 - Unspecified abdominal pain Status: Acute Assessment and Plan: ? etiology, now largely resolved, imaging all unremarkable, no acute surgical issues, will s/o, call c?s, issues (2) Dilated cbd, acquired: Code(s): K83.8 - Other specified diseases of biliary tract Status: Acute Assessment and Plan: see above, LFTs largely normal, imaging unremarkable Subjective Subjective Date/Time Seen: 09/06/23 14:20 Interval history: feels much better, abd pain nearly resolved Review of Systems Review of Systems: All systems reviewed & are unremarkable except as noted in HPI and below Exam Const: General: cooperative, comfortable and no acute distress Resp: Auscultation: clear to auscultation bilaterally Cardio: Rate: regular rate Rhythm: regular rhythm GI: Inspection: normal to inspection and non-distended GI Palp: Yes abdominal tenderness, Yes Soft to palpation, Yes Tenderness to palpation present (GI), No Guarding due to palpation present (GI) and No Rigid due to palpation Objective Data Vital Signs Vital Signs: Vital Signs - 24 hr 09/05/23 16:33 09/05/23 16:00 09/05/23 20:03 Temperature Pulse Rate 74 73 Respiratory Rate 19 Blood Pressure 120/84 122/84 Pulse Oximetry 96 Oxygen Delivery 09/05/23 20:00 09/06/23 00:35 09/06/23 00:00 Temperature 36.8 C Pulse Rate 74 78 Respiratory Rate 19 18 Blood Pressure 104/68 Pulse Oximetry 96 99 Oxygen Delivery Room Air Room Air 09/06/23 04:00 09/06/23 09:53 09/06/23 10:06 Temperature 36.6 C Pulse Rate 72 79 79 Respiratory Rate 17 16 Blood Pressure 105/75 109/68 Pulse Oximetry 99 97 Oxygen Delivery 09/06/23 10:06 Temperature Pulse Rate Respiratory Rate Blood Pressure Pulse Oximetry Oxygen Delivery Room Air Intake/Output Intake/Output: Intake & Output 09/03/23 09/04/23 09/05/23 09/06/23 23:59 23:59 23:59 23:59 Intake Total 2300 3055 2680 Output Total 1900 3450 Balance 400 -395 2680 Meds/Results Medications: Active Medications Generic Name Dose Route Start Last Admin Trade Name Freq PRN Reason Stop Dose Admin Acetaminophen 650 mg 09/04/23 10:23 09/04/23 10:37 Acetaminophen 325 Mg Tablet PO 650 mg Q6H PRN Administration Mild Pain (1-3) or Fever Albuterol 2 puff 09/04/23 10:33 Albuterol Sulfate (*Sp) Aerosol 1 Puff INHALATION Q4H PRN wheezing Baclofen 20 mg 09/04/23 10:33 09/05/23 17:38 Baclofen 10 Mg Tablet PO 20 mg Q6H PRN Administration muscle spasm Bupropion HCl 300 mg 09/04/23 12:00 09/05/23 19:46 Bupropion Hcl Sr (12 Hr) 150 Mg Tab PO 300 mg DAILY SYDNEY Administration Bupropion HCl 150 mg 09/04/23 21:00 09/05/23 19:47 Bupropion Hcl Sr (12 Hr) 150 Mg Tab PO 150 mg HS SYDNEY Administration Dextrose 12.5 gm 09/04/23 05:33 09/04/23 05:46 Dextrose 50% 25 Gm/50 Ml Syringe IV PUSH 12.5 gm PRN PRN Administration Hypoglycemia Protocol Fentanyl 75 mcg 09/05/23 15:14 09/05/23 15:50 Fentanyl (*Crx) 75 Mcg Patch TRANSDERM 75 mcg Q72HR SYDNEY Administration Glucagon 1 mg 09/04/23 05:33 Glucagon For Inj 1 Mg Vial IM PRN PRN Hypoglycemia Protocol Glucose 15 gm 09/04/23 05:33 Glucose Oral Gel 15 Gm Of Glucse In 37.5 Gm Tube PO PRN PRN Hypoglycemia Protocol Hydromorphone HCl 8 mg 09/04/23 20:18 09/05/23 08:36 Hydromorphone Hcl (*Crx) 2 Mg Tablet PO 8 mg TID PRN Administration PAIN RATED 7-10 Hydroxychloroquine Sulfate 400 mg 09/04/23 21:00 09/05/23 19:47 Hydroxychloroquine Sulfate 200 Mg Tablet PO 400 mg QHS SYDNEY Administration Dextrose 1,000 mls @ 100 mls/hr 09/04/23 05:33 Dextrose 5% 1,000 Ml IVPB PRN PRN Hypoglycemia Protocol Metoprolol Tartrate 12.5 mg 09/04/23 17:00 09/06/23 10:06 Metoprolol Tartra
--- NOTE | 2023-09-06 14:21 | PM.IMPN ---
Progress Note: A&P Assessment and Plan (1) Dilated cbd, acquired: Code(s): K83.8 - Other specified diseases of biliary tract Status: Acute Assessment and Plan: 09/05/23: CT abdomen/pelvis showing mildly dilated common duct GI consulted MRCP completed today, awaiting results US of abdomen today showing common bile duct measuring 4.5mm, was a normal read General surgery following as well. Can advance diet as tolerated to a regular diet for today considering GI won't be able to see her officially until tomorrow. 09/06/23: MRCP noted with a dilated common bile duct otherwise was negative Last ultrasound was normal General surgery signed off GI consulted and will do EGD and colonoscopy tomorrow. Patient can advance diet as tolerated to regular diet Continue with pain control Discontinued Flagyl and Rocephin today (2) Abdominal pain: Code(s): R10.9 - Unspecified abdominal pain Status: Acute Assessment and Plan: 09/05/23: Pain well controlled today. She was placed back on her home dose of medications. IV pain medication discontinued 09/06/23: No change to current treatment plan (3) Elevated transaminase level: Code(s): R74.01 - Elevation of levels of liver transaminase levels Status: Acute Assessment and Plan: 09/05/23: Liver enzymes today show AST 117, ALT 110, total bilirubin 0.6, alk phos 72 Continue to trend labs 09/06/23: AST 45, ALT 76, total bili 0.4, alk-phos 62 Continue to trend labs (4) Leukocytosis: Code(s): D72.829 - Elevated white blood cell count, unspecified Status: Acute Assessment and Plan: 09/05/23: WBC today 10.0 from 13.5 likely due to inflammatory response and meeting SIRS criteria yesterday 09/06/23: White blood cell count 7.1 (5) Atrial fibrillation with rapid ventricular response: Code(s): I48.91 - Unspecified atrial fibrillation Status: Acute Assessment and Plan: 09/05/23: Patient has history of A fib Went into A fib RVR yesterday requiring Amiodarone infusion. Now back in NSR in the 70's now that her pain is well controlled. She was placed back on home medications Metoprolol and Coumadin. She is stable to move out of IMU today. 09/06/23: Patient currently in normal sinus rhythm with a rate in the 70s No change to current treatment plan Time Spent With Patient Time with patient: 25 - 35 minutes Subjective Date/time seen: 09/06/23 14:21 Interval history: 09/04/23: This is a 53 year old female who came to the hospital with upper abdominal pain with associated nausea. Was called by bedside nurse around 1030 this morning and was told that patient is in excruciating pain, temperature was elevated to 101.2, hypoglycemic with a blood glucose of 54 on morning labs-now 76, and? diaphoretic. I put in an order for blood cultures as she is now meeting sepsis criteria with WBC 13.5, temp 101.2, and tachycardia . Her blood pressure is hypertensive and she does not look like she needs fluid resuscitation at this time as she already received IVF bolus in the ER. She is currently on Flagyl and Rocephin for antibiotic coverage.? She had a CT scan which was done yesterday showing mildly dilated common duct which is dilated to 10 mm, there were also cyst in the liver measuring up to 7 mm. She is awaiting MRCP. ?I went to patient's room and assessed her. She is ill-appearing and diaphoretic. Her shirt was soaked. She denied any vomiting, diarrhea, chest pain, or shortness of breath. She endorsed abdominal pain mainly on the left upper quadrant, nausea, fever, and chills. When auscultating heart sounds I found her to be irregular and rapid. I had the nurse put continuous telemetry on her, get a STAT EKG, troponin, hepatic panel, and lactic acid. She was found to be in A-fib RVR with a rate of 140-180. She was given Tylenol for her fever, a bolus of amiodarone, and started on amiodarone infusion. She wa
--- NOTE | 2023-09-06 14:21 | P.PNIM_ITS ---
Progress Note: A&P Assessment and Plan (1) Dilated cbd, acquired: Code(s): K83.8 - Other specified diseases of biliary tract Status: Acute Assessment and Plan: 09/05/23: * CT abdomen/pelvis showing mildly dilated common duct * GI consulted * MRCP completed today, awaiting results * US of abdomen today showing common bile duct measuring 4.5mm, was a normal read * General surgery following as well. * Can advance diet as tolerated to a regular diet for today considering GI won't be able to see her officially until tomorrow. 09/06/23: * MRCP noted with a dilated common bile duct otherwise was negative * Last ultrasound was normal * General surgery signed off * GI consulted and will do EGD and colonoscopy tomorrow. * Patient can advance diet as tolerated to regular diet * Continue with pain control * Discontinued Flagyl and Rocephin today (2) Abdominal pain: Code(s): R10.9 - Unspecified abdominal pain Status: Acute Assessment and Plan: 09/05/23: * Pain well controlled today. She was placed back on her home dose of medications. * IV pain medication discontinued 09/06/23: * No change to current treatment plan (3) Elevated transaminase level: Code(s): R74.01 - Elevation of levels of liver transaminase levels Status: Acute Assessment and Plan: 09/05/23: * Liver enzymes today show AST 117, ALT 110, total bilirubin 0.6, alk phos 72 * Continue to trend labs 09/06/23: * AST 45, ALT 76, total bili 0.4, alk-phos 62 * Continue to trend labs (4) Leukocytosis: Code(s): D72.829 - Elevated white blood cell count, unspecified Status: Acute Assessment and Plan: 09/05/23: * WBC today 10.0 from 13.5 likely due to inflammatory response and meeting SIRS criteria yesterday 09/06/23: * White blood cell count 7.1 (5) Atrial fibrillation with rapid ventricular response: Code(s): I48.91 - Unspecified atrial fibrillation Status: Acute Assessment and Plan: 09/05/23: * Patient has history of A fib * Went into A fib RVR yesterday requiring Amiodarone infusion. * Now back in NSR in the 's now that her pain is well controlled. * She was placed back on home medications Metoprolol and Coumadin. * She is stable to move out of IMU today. 09/06/23: * Patient currently in normal sinus rhythm with a rate in the 70s * No change to current treatment plan Time Spent With Patient Time with patient: 25 - 35 minutes Subjective Date/time seen: 09/06/23 14:21 Interval history: 09/04/23: This is a 53 year old female who came to the hospital with upper abdominal pain with associated nausea. Was called by bedside nurse around 1030 this morning and was told that patient is in excruciating pain, temperature was elevated to 101.2, hypoglycemic with a blood glucose of 54 on morning labs-now 76, and? diaphoretic. I put in an order for blood cultures as she is now meeting sepsis criteria with WBC 13.5, temp 101.2, and tachycardia . Her blood pressure is hypertensive and she does not look like she needs fluid resuscitation at this time as she already received IVF bolus in the ER. She is currently on Flagyl and Rocephin for antibiotic coverage.? She had a CT scan which was done yesterday showing mildly dilated common duct which is dilated to 10 mm, there were also cyst in the liver measur ing up to 7 mm. She is awaiting MRCP. ?I went to patient's room and assessed her. She is ill-appearing and diaphoretic. Her shirt was soaked. She denied any vomiting, diarrhea, chest pain, or shortness of breath.
--- NOTE | 2023-09-06 14:34 | WPDGICN ---
Assessment and Plan Assessment and plan (1) Dilated cbd, acquired: Code(s): K83.8 - Other specified diseases of biliary tract Status: Acute Assessment and Plan: mrcp reviewed, mild dilation transaminases coming down and she overall is feeling better ? SOD but clinically better will do EGD in am (also with more gerd symptoms) (2) Elevated transaminase level: Code(s): R74.01 - Elevation of levels of liver transaminase levels Status: Acute Assessment and Plan: trending down hepatitis negative (3) Chronic, continuous use of opioids: Code(s): F11.90 - Opioid use, unspecified, uncomplicated Status: Acute (4) Abdominal pain: Code(s): R10.9 - Unspecified abdominal pain Status: Acute Assessment and Plan: improved also chronic intermittent rectal bleeding she says that is due for colonoscopy, will do tomorrow (5) Psoriatic arthritis: Code(s): L40.50 - Arthropathic psoriasis, unspecified Status: Acute Assessment and Plan: on infliximab infusions at home (6) Rectal bleeding: Code(s): K62.5 - Hemorrhage of anus and rectum Status: Resolved GI Consult Note Consult date/time: 09/06/23 14:34 Reason for consult: abdominal pain, rectal bleeding HPI: Mariah Adrianleonard Jonathan is a 53 year old female with history of psoriasis on infliximab infusion every 4 weeks, use of steroids, chronic use of narcotics. She came here with new onset of severe pain in luq, CT scan showed possible esophagitis, also consideration of hepatitis and mild dilated bile duct. Abdominal ultrasound was normal, MRCP reviewed that showed gallbladder unremarkable. The common bile duct is diffusely dilated to 11-12 mm. No filling defects are seen within the CBD. No evidence of intrahepatic biliary ductal dilatation. The pancreatic duct is normal in size. On admission had transaminases 120-140's now down to 40-60, normal bili, hepatitis negative. She had EGD but years ago, she says that lately more GERD symptoms since using higher dose of prednisone for her psoriatic arthritis, also intermittent rectal bleeding probably from hemorrhoids, she is due to have colonoscopy.. Review of Systems Constitutional: Constitutional: Denies lethargy Eyes: Eyes: Denies blurry vision ENT: Reports Normal hearing present Cardiovascular: Cardiovascular: Denies pedal edema Respiratory: Respiratory: Denies cough Gastrointestinal: Gastrointestinal: Reports abdominal pain and Denies vomiting Genitourinary: Genitourinary: Denies urinary urgency Musculoskeletal: Musculoskeletal: Reports arthralgias Integumentary/Breasts: Skin/Breast: Denies rash Neurologic: Denies Abnormal speech present Psychiatric: Psychiatric: Denies behavioral changes [facility] Past Medical History Medical History Abnormal lung sounds Ataxia Bilateral knee pain Bilateral leg numbness Bilateral shoulder pain Bipolar 1 disorder BMI 24.0-24.9, adult BMI 26.0-26.9,adult Body mass index (BMI) 21 to less than 23 Bone lesion Bronchitis Cataract Chronic pain Chronic pain disorder Chronic steroid use Chronic, continuous use of opioids CVA (cerebral vascular accident) Degenerative joint disease of cervical and lumbar spine Depression, psychotic Dermatitis Diarrhea DVT (deep venous thrombosis) Melissa-Danlos disease Enchondroma Essential (primary) hypertension Hypothyroid Leg pain, 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
[2023-09-06 14:56] VITALS: BP 107/51; PULSE 85; RESP 16; TEMP 36.1; O2SAT 98
[2023-09-06] MEDS: HYDROmorphone HCL (*CRX) 2 MG TABLET 8 MG PO (16:36)
[2023-09-06] MEDS: WARFARIN (*PBKC) 5 MG TABLET PO (17:41)
[2023-09-06] MEDS: BISACODYL 5 MG TABLET EC 20 MG PO (17:41)
[2023-09-06] MEDS: polyethylene glycoL 3350 238 GM BOTTLE PO (18:00)
[2023-09-06] MEDS: MONTELUKAST SODIUM 10 MG TABLET PO (20:38)
[2023-09-06] MEDS: buPROPion HCL SR (12 HR) 150 MG TAB PO (20:38)
[2023-09-06] MEDS: HYDROXYCHLOROQUINE SULFATE 200 MG TABLET 400 MG PO (20:38)
[2023-09-06] MEDS: QUEtiapine FUMARATE 100 MG TABLET PO (20:38)
[2023-09-06 21:29] VITALS: BP 124/89; PULSE 90; RESP 18; TEMP 37.7; O2SAT 97
[2023-09-07] VITALS (15 sets, daily range): BP systolic 111–142; BP diastolic 65–100; PULSE 77–147; RESP 16–30; TEMP 36.1–37.2; O2SAT 98–100
[2023-09-07] MEDS: THYROID 30 MG TABLET 240 MG PO (05:06)
[2023-09-07] MEDS: predniSONE 5 MG TABLET 15 MG PO ×2 (05:06→17:12)
[2023-09-07] MEDS: ACETAMINOPHEN 325 MG TABLET 650 MG PO (05:38)
[2023-09-07 06:20] LABS: Basophils Percent Auto 0.4 % (0.2-1.2); Eosinophils Absolute Auto 0.1 K/mm3 (0-0.3); Hematocrit 43.4 % (37.0-47.0); Hemoglobin 13.8 g/dL (12.0-15.0); Immature Granulocyte Absolute 0.06 K/mm3 (0.00-0.031); Immature Granulocyte Percent A 0.7 % (0-0.5); Lymphocytes Percent Auto 29.7 % (18.3-44.2); Mean Corpuscular HGB Conc 31.8 g/dl (32-36); Mean Corpuscular Hemoglobin 30.1 pg (26-34); Mean Corpuscular Volume 94.6 fl (80-100); Mean Platelet Volume 9.6 fl (7.4-10.4); Monocytes Absolute Auto 0.7 K/mm3 (0.1-0.6); Monocytes Percent Auto 8.9 % (2.6-8.5); Neutrophils Absolute Auto 4.8 K/mm3 (1.3-6.7); Neutrophils Percent Auto 59.3 % (45.5-73.1); Platelet Count Result 173 k/mm3 (150-375); Red Blood Count 4.59 M/mm3 (4.2-5.4); Red Cell Distribution Width 13.7 % (11.5-14.5); White Blood Count 8.1 K/mm3 (4.5-10.0)
[2023-09-07 06:32] LABS: Alanine Aminotransferase 73 U/L (6-35); Albumin Level 3.2 g/dL (3.5-5.1); Alkaline Phosphatase 65 U/L (38-126); Anion Gap 4 mmol/L (8-16); Aspartate Amino Transferase 45 U/L (14-36); Bilirubin,Total 0.7 mg/dL (0.2-1.3); Blood Urea Nitrogen 8 mg/dL (7-17); Carbon Dioxide 26 mmol/L (22-30); Chloride 105 mmol/L (98-107); Estimated CRCL calculation 107 ml/min; Estimated Glomerular Filt Rate > 60; Glucose 76 mg/dL (65-110); Potassium 3.6 mmol/L (3.4-5.0); Sodium 135 mmol/L (137-145)
[2023-09-07 06:37] LABS: INR 1.4; Prothrombin Time 17.5 Seconds (11.1-14.7)
--- NOTE | 2023-09-07 07:44 | PC.NURSE ---
Patient off of unit at GI lab
--- NOTE | 2023-09-07 08:06 | WPDANESEPPF ---
Anes - Initial Pre Proc Eval Procedure: Operation Date: 09/07/23 16:00 Proposed Procedures p Esophagogastroduodenoscopy & Colonoscopy - Winston Duarte MD Date/Time: 09/07/23 08:06 Surgeon: Becca Sheppard MD Pre Op Diagnosis: dilated common bile duct, elevated lfts Patient Data Age: 53 Gender: F Height: 1.73 m Weight: 71.4 kg Last Vital Signs Temp 98.1 F 09/07/23 04:38 Pulse 86 09/07/23 04:38 Resp 16 09/07/23 04:38 BP 142/76 H 09/07/23 04:38 Pulse Ox 98 09/07/23 04:38 O2 Del Method Room Air 09/06/23 20:00 Allergies Allergy/AdvReac Type Severity Reaction Status Date / Time doxycycline Allergy Severe Anaphylaxis Verified 06/21/23 15:09 yellow dye Allergy Severe Unknown Verified 06/21/23 15:09 apixaban [From Eliquis] Allergy Mild Hives Verified 06/21/23 15:09 rivaroxaban [From Xarelto] Allergy Mild Rash Verified 06/21/23 15:09 aspirin Allergy Unknown Unknown Verified 06/21/23 15:09 azithromycin Allergy Unknown Unknown Verified 06/21/23 15:09 clarithromycin Allergy Unknown Unknown Verified 06/21/23 15:09 codeine Allergy Unknown Unknown Verified 06/21/23 15:09 hydrocodone Allergy Unknown Unknown Verified 06/21/23 15:09 ibuprofen Allergy Unknown Unknown Verified 06/21/23 15:09 latex Allergy Unknown Unknown Verified 06/21/23 15:09 leflunomide Allergy Unknown Unknown Verified 06/21/23 15:09 meloxicam Allergy Unknown Unknown Verified 06/21/23 15:09 meperidine Allergy Unknown Unknown Verified 06/21/23 15:09 methylprednisolone Allergy Unknown Unknown Verified 06/21/23 15:09 morphine Allergy Unknown Unknown Verified 06/21/23 15:09 nitrofurantoin Allergy Unknown Unknown Verified 06/21/23 15:09 NSAIDS (Non-Steroidal Allergy Unknown gives me Verified 06/21/23 15:09 Anti-Inflamma blisters and my skin falls off oxycodone Allergy Unknown Unknown Verified 06/21/23 15:09 Penicillins Allergy Unknown Unknown Verified 09/06/23 13:30 spironolactone Allergy Unknown Unknown Verified 06/21/23 15:09 Sulfa (Sulfonamide Allergy Unknown Unknown Verified 06/21/23 15:09 Antibiotics) sulfanilamide Allergy Unknown Unknown Verified 06/21/23 15:09 sulfite Allergy Unknown Unknown Verified 06/21/23 15:09 topiramate Allergy Unknown Unknown Verified 06/21/23 15:09 vortioxetine Allergy Unknown Unknown Verified 06/21/23 15:09 Home Medications Medication Instructions Recorded Confirmed Type acetaminophen 650 mg 1,300 mg PO Q12H 06/18/22 09/04/23 History tablet,extended release (Tylenol 8 Hour) quetiapine 50 mg tablet (Seroquel) 100 mg PO QHS 08/18/22 09/04/23 History baclofen 20 mg tablet 20 mg PO Q6H PRN muscle spasm #360 03/19/23 09/04/23 Rx tabs hydroxychloroquine 200 mg tablet 400 mg PO QHS 04/26/23 09/04/23 History (Plaquenil) metoprolol tartrate 25 mg tablet 12.5 mg PO BID 04/26/23 09/04/23 History naloxone 4 mg/actuation nasal 4 mg intranasal Q2M PRN opioid 06/21/23 09/04/23 Rx spray (Narcan) overdose #2 ea warfarin 5 mg tablet 5 mg PO DAILY 06/21/23 09/04/23 History bupropion HCl 150 mg tablet,12 hr 150 mg PO TID #270 tabs 07/23/23 09/04/23 Rx sustained-release montelukast 10 mg tablet 10 mg PO HS #90 tabs 07/25/23 09/04/23 Rx (Singulair) dicyclomine 20 mg tablet 20 mg PO TID PRN abdominal 08/10/23 09/04/23 Rx discomfort #270 tabs albuterol sulfate 90 mcg/actuation 2 puff inhalation Q4H PRN wheezing 08/16/23 09/04/23 Rx aerosol inhaler (ProAir HFA) #18 grams fentanyl 75 mcg/hr transdermal 1 patch transdermal Q72H #10 ea 08/23/23 09/04/23 Rx patch hydromorphone 8 mg tablet 8 mg PO TID PRN pain #90 tabs 08/23/23 09/04/23 Rx omeprazole 20 mg capsule,delayed 20 mg PO BID 09/04/23 09/04/23 History release thyroid (pork) 240 mg tablet 240 mg PO DAILY 09/04/23 09/04/23 History ([place] Thyroid) prednisone 10 mg tablet 15 mg PO Q12H 09/05/23 09/05/23 History Laboratory Tests 09/06/23 09/06/23 09/07/23 08:42 12:28 06:04 WBC 8.1
[2023-09-07] MEDS: LACTATED RINGERS 1,000 ML 150 ML IV CONT (08:14)
--- NOTE | 2023-09-07 08:37 | SUR.OPER ---
egd ended at 08 and colon started at 0837.
--- NOTE | 2023-09-07 09:03 | ECG_ITS ---
Measurements Intervals [place] Rate: 74 P: 32 AK: 149 QRS: 47 QRSD: 88 T: 31 QT: 404 QTc: 449 Interpretive Statements SINUS RHYTHM CONSIDER ANTEROSEPTAL INFARCT, AGE INDETERMINATE BASELINE ARTIFACT- I, II, III, AVR, AVL, AVF, V1-V6 ABNORMAL ECG COMPARED TO ECG 09/04/2023 10:56:05 SINUS RHYTHM NOW PRESENT Electronically Signed On 09-07-2023 9:22:49 [employer] by Lars Hollingsworth D.O.
[2023-09-07] MEDS: buPROPion HCL SR (12 HR) 150 MG TAB 300 MG PO (12:13)
--- NOTE | 2023-09-07 13:14 | P.PNIM_ITS ---
Progress Note: A&P Assessment and Plan (1) Dilated cbd, acquired: Code(s): K83.8 - Other specified diseases of biliary tract Status: Acute Assessment and Plan: 09/05/23: * CT abdomen/pelvis showing mildly dilated common duct * GI consulted * MRCP completed today, awaiting results * US of abdomen today showing common bile duct measuring 4.5mm, was a normal read * General surgery following as well. * Can advance diet as tolerated to a regular diet for today considering GI won't be able to see her officially until tomorrow. 09/06/23: * MRCP noted with a dilated common bile duct otherwise was negative * Last ultrasound was normal * General surgery signed off * GI consulted and will do EGD and colonoscopy tomorrow. * Patient can advance diet as tolerated to regular diet * Continue with pain control * Discontinued Flagyl and Rocephin today 09/07/23: * Colonoscopy and EGD normal. Polyps removed and sent to cytology * GI recommending follow up in 2 years * Continue pain control. * Ordered simethicone for gas pain (2) Abdominal pain: Code(s): R10.9 - Unspecified abdominal pain Status: Acute Assessment and Plan: 09/05/23: * Pain well controlled today. She was placed back on her home dose of medications. * IV pain medication discontinued 09/06/23: * No change to current treatment plan (3) Elevated transaminase level: Code(s): R74.01 - Elevation of levels of liver transaminase levels Status: Acute Assessment and Plan: 09/05/23: * Liver enzymes today show AST 117, ALT 110, total bilirubin 0.6, alk phos 72 * Continue to trend labs 09/06/23: * AST 45, ALT 76, total bili 0.4, alk-phos 62 * Continue to trend labs 09/07/23: * AST 45, ALT 73 * Continue to trend (4) Leukocytosis: Code(s): D72.829 - Elevated white blood cell count, unspecified Status: Acute Assessment and Plan: 09/05/23: * WBC today 10.0 from 13.5 likely due to inflammatory response and meeting SIRS criteria yesterday 09/06/23: * White blood cell count 7.1 09/07/23: * WBC 8.1 (5) Atrial fibrillation with rapid ventricular response: Code(s): I48.91 - Unspecified atrial fibrillation Status: Acute Assessment and Plan: 09/05/23: * Patient has history of A fib * Went into A fib RVR yesterday requiring Amiodarone infusion. * Now back in NSR in the 70's now that her pain is well controlled. * She was placed back on home medications Metoprolol and Coumadin. * She is stable to move out of IMU today. 09/06/23: * Patient currently in normal sinus rhythm with a rate in the 70s * No change to current treatment plan 09/07/23: * No change to current treatment plan Time Spent With Patient Time with patient: 25 - 35 minutes Subjective Date/time seen: 09/07/23 13:14 Interval history: 09/04/23: This is a 53 year old female who came to the hospital with upper abdominal pain with associated nausea. Was called by bedside nurse around 1030 this morning and was told that patient is in excruciating pain, temperature was elevated to 101.2, hypoglycemic with a blood glucose of 54 on morning labs-now 76, and? diaphoretic. I put in an order for blood cultures as she is now meeting sepsis criteria with WBC 13.5, temp 101.2, and tachycardia . Her blood pressure is hypertensive and she does not look like she needs fluid resuscitation at this time as she already received IVF bolus in the ER. She is currently on Flagyl and Rocephin for antibiotic coverage.? She had a CT
--- NOTE | 2023-09-07 13:14 | PM.IMPN ---
Progress Note: A&P Assessment and Plan (1) Dilated cbd, acquired: Code(s): K83.8 - Other specified diseases of biliary tract Status: Acute Assessment and Plan: 09/05/23: CT abdomen/pelvis showing mildly dilated common duct GI consulted MRCP completed today, awaiting results US of abdomen today showing common bile duct measuring 4.5mm, was a normal read General surgery following as well. Can advance diet as tolerated to a regular diet for today considering GI won't be able to see her officially until tomorrow. 09/06/23: MRCP noted with a dilated common bile duct otherwise was negative Last ultrasound was normal General surgery signed off GI consulted and will do EGD and colonoscopy tomorrow. Patient can advance diet as tolerated to regular diet Continue with pain control Discontinued Flagyl and Rocephin today 09/07/23: Colonoscopy and EGD normal. Polyps removed and sent to cytology GI recommending follow up in 2 years Continue pain control. Ordered simethicone for gas pain (2) Abdominal pain: Code(s): R10.9 - Unspecified abdominal pain Status: Acute Assessment and Plan: 09/05/23: Pain well controlled today. She was placed back on her home dose of medications. IV pain medication discontinued 09/06/23: No change to current treatment plan (3) Elevated transaminase level: Code(s): R74.01 - Elevation of levels of liver transaminase levels Status: Acute Assessment and Plan: 09/05/23: Liver enzymes today show AST 117, ALT 110, total bilirubin 0.6, alk phos 72 Continue to trend labs 09/06/23: AST 45, ALT 76, total bili 0.4, alk-phos 62 Continue to trend labs 09/07/23: AST 45, ALT 73 Continue to trend (4) Leukocytosis: Code(s): D72.829 - Elevated white blood cell count, unspecified Status: Acute Assessment and Plan: 09/05/23: WBC today 10.0 from 13.5 likely due to inflammatory response and meeting SIRS criteria yesterday 09/06/23: White blood cell count 7.1 09/07/23: WBC 8.1 (5) Atrial fibrillation with rapid ventricular response: Code(s): I48.91 - Unspecified atrial fibrillation Status: Acute Assessment and Plan: 09/05/23: Patient has history of A fib Went into A fib RVR yesterday requiring Amiodarone infusion. Now back in NSR in the 70's now that her pain is well controlled. She was placed back on home medications Metoprolol and Coumadin. She is stable to move out of IMU today. 09/06/23: Patient currently in normal sinus rhythm with a rate in the 70s No change to current treatment plan 09/07/23: No change to current treatment plan Time Spent With Patient Time with patient: 25 - 35 minutes Subjective Date/time seen: 09/07/23 13:14 Interval history: 09/04/23: This is a 53 year old female who came to the hospital with upper abdominal pain with associated nausea. Was called by bedside nurse around 1030 this morning and was told that patient is in excruciating pain, temperature was elevated to 101.2, hypoglycemic with a blood glucose of 54 on morning labs-now 76, and? diaphoretic. I put in an order for blood cultures as she is now meeting sepsis criteria with WBC 13.5, temp 101.2, and tachycardia . Her blood pressure is hypertensive and she does not look like she needs fluid resuscitation at this time as she already received IVF bolus in the ER. She is currently on Flagyl and Rocephin for antibiotic coverage.? She had a CT scan which was done yesterday showing mildly dilated common duct which is dilated to 10 mm, there were also cyst in the liver measuring up to 7 mm. She is awaiting MRCP. ?I went to patient's room and assessed her. She is ill-appearing and diaphoretic. Her shirt was soaked. She denied any vomiting, diarrhea, chest pain, or shortness of breath. She endorsed abdominal pain mainly on the left upper quadrant, nausea, fever, and chills. When auscultating heart sounds I found
[2023-09-07 13:31] LABS: Magnesium 1.8 mg/dL (1.6-2.3)
[2023-09-07] MEDS: METOPROLOL TARTRATE INJ 5 MG/5 ML VIAL IV PUSH ×2 (14:22→18:36)
[2023-09-07] MEDS: SIMETHICONE 80 MG TAB.CHEW PO ×2 (14:22→20:12)
[2023-09-07] MEDS: HYDROmorphone HCL (*CRX) 2 MG TABLET 8 MG PO (14:31)
[2023-09-07] MEDS: METOPROLOL TARTRATE 12.5 MG TABLET PO ×2 (17:13→20:12)
[2023-09-07] MEDS: buPROPion HCL SR (12 HR) 150 MG TAB PO (20:10)
[2023-09-07] MEDS: HYDROXYCHLOROQUINE SULFATE 200 MG TABLET 400 MG PO (20:10)
[2023-09-07] MEDS: MONTELUKAST SODIUM 10 MG TABLET PO (20:10)
[2023-09-07] MEDS: QUEtiapine FUMARATE 100 MG TABLET PO (20:10)
[2023-09-08] VITALS (7 sets, daily range): BP systolic 120–142; BP diastolic 77–83; PULSE 56–91; RESP 18; TEMP 36.6–37.2; O2SAT 97
[2023-09-08] MEDS: predniSONE 5 MG TABLET 15 MG PO (05:33)
[2023-09-08] MEDS: THYROID 30 MG TABLET 240 MG PO (05:33)
[2023-09-08] MEDS: HYDROmorphone HCL (*CRX) 2 MG TABLET 8 MG PO (05:43)
[2023-09-08 05:59] LABS: Basophils Percent Auto 0.4 % (0.2-1.2); Eosinophils Absolute Auto 0.1 K/mm3 (0-0.3); Eosinophils Percent Auto 1.5 % (0-4.4); Hematocrit 46.1 % (37.0-47.0); Hemoglobin 14.4 g/dL (12.0-15.0); Immature Granulocyte Absolute 0.07 K/mm3 (0.00-0.031); Immature Granulocyte Percent A 0.9 % (0-0.5); Lymphocytes Absolute Auto 2.42 K/mm3 (0.9-3.2); Lymphocytes Percent Auto 29.5 % (18.3-44.2); Mean Corpuscular HGB Conc 31.2 g/dl (32-36); Mean Corpuscular Hemoglobin 30.3 pg (26-34); Mean Corpuscular Volume 96.8 fl (80-100); Monocytes Absolute Auto 0.9 K/mm3 (0.1-0.6); Monocytes Percent Auto 10.6 % (2.6-8.5); Neutrophils Absolute Auto 4.7 K/mm3 (1.3-6.7); Neutrophils Percent Auto 57.1 % (45.5-73.1); Platelet Count Result 197 k/mm3 (150-375); Red Blood Count 4.76 M/mm3 (4.2-5.4); Red Cell Distribution Width 13.7 % (11.5-14.5); White Blood Count 8.2 K/mm3 (4.5-10.0)
[2023-09-08 06:11] LABS: INR 1.4; Prothrombin Time 17.9 Seconds (11.1-14.7)
[2023-09-08 06:22] LABS: Alanine Aminotransferase 104 U/L (6-35); Albumin Level 3.3 g/dL (3.5-5.1); Alkaline Phosphatase 68 U/L (38-126); Anion Gap 4 mmol/L (8-16); Aspartate Amino Transferase 89 U/L (14-36); Bilirubin,Total 0.6 mg/dL (0.2-1.3); Blood Urea Nitrogen 10 mg/dL (7-17); Calcium 8.3 mg/dL (8.4-10.2); Carbon Dioxide 28 mmol/L (22-30); Chloride 103 mmol/L (98-107); Estimated CRCL calculation 91 ml/min; Estimated Glomerular Filt Rate > 60; Glucose 82 mg/dL (65-110); Potassium 3.8 mmol/L (3.4-5.0); Sodium 135 mmol/L (137-145)
[2023-09-08] MEDS: METOPROLOL TARTRATE 12.5 MG TABLET PO (09:42)
[2023-09-08] MEDS: fentaNYL (*CRX) 75 MCG PATCH TRANSDERM (09:42)
[2023-09-08] MEDS: SIMETHICONE 80 MG TAB.CHEW PO ×2 (09:42→13:04)
[2023-09-08] MEDS: buPROPion HCL SR (12 HR) 150 MG TAB 300 MG PO (09:42)
--- NOTE | 2023-09-08 12:52 | PM.DS ---
DS: Admitting Diagnosis Discharge Date 09/08/23 Admitting Diagnosis Acute abdominal pain DS: Discharge Diagnosis Discharge Diagnosis (1) Dilated cbd, acquired: Code(s): K83.8 - Other specified diseases of biliary tract Status: Acute (2) Abdominal pain: Code(s): R10.9 - Unspecified abdominal pain Status: Acute (3) Elevated transaminase level: Code(s): R74.01 - Elevation of levels of liver transaminase levels Status: Acute (4) Leukocytosis: Code(s): D72.829 - Elevated white blood cell count, unspecified Status: Acute (5) Atrial fibrillation with rapid ventricular response: Code(s): I48.91 - Unspecified atrial fibrillation Status: Acute DS: Summary Hospital Course Hospital Course: This is a 53-year-old female with a past medical history of AFib, bipolar 1, Melissa-Danlos disease, RA, psoriatic arthritis, scoliosis, hypothyroidism, osteoporosis, history of CVA, DVT, pituitary adenoma and long-term systemic steroid use that presents to the ED on 09/04/2023 due to abdominal pain that radiates to her back. On a side note patient states that she has had rectal bleeding for approximately 1 year. She has not yet had colonoscopy performed. She was found to have a dilated common bile duct and mildly elevated LFTs with a normal bilirubin. General surgery was consulted. MRCP performed that noted 8 elevated common bile duct but was otherwise negative. General surgery did not believe patient needed surgery at this time. LFTs trended down. GI was consulted and patient underwent an EGD and colonoscopy. Colonoscopy revealed multiple colon polyps which were biopsied. Patient's pain well managed and symptoms are improved. Advised patient to follow-up with GI for biopsy results. Her labs and vital signs are stable and she is medically for discharge at this time. Time Spent with Patient Time attestation: Total time spent providing and/or coordinating discharge services: Exam Narrative: GENERAL: Comfortable, no acute distress HENMT: moist mucous membranes EYES: EOM intact b/l NECK: no lymphadenopathy RESPIRATORY: clear to auscultation CARDIO: RRR GI: soft, mild tenderness in left lower quadrant, bowel sounds present SKIN: no rashes EXTREMITIES: no edema, redness or tenderness DS: Data Data Completed and Pending Completed studies during hospitalization: Pending at discharge 09/07/23 08:31 Surgical [PTH] Routine Surgical [PTH] Routine Labs on day of discharge: Labs from last 24 hours 09/08/23 09/07/23 05:39 06:01 WBC 8.2 RBC 4.76 Hgb 14.4 Hct 46.1 MCV 96.8 MCH 30.3 MCHC 31.2 L RDW 13.7 Plt Count 197 MPV 10.0 Immature Gran % (Auto) 0.9 H Neut % (Auto) 57.1 Lymph % (Auto) 29.5 [place] % (Auto) 10.6 H Eos % (Auto) 1.5 Baso % (Auto) 0.4 Lymph # (Auto) 2.42 [place] # (Auto) 0.9 H Eos # (Auto) 0.1 Baso # (Auto) 0.0 Abs Immat Gran (auto) 0.07 H Absolute Neuts (auto) 4.7 Absolute Nucleated RBC 0.0 Nucleated RBC % 0.0 PT 17.9 H INR 1.4 Sodium 135 L Potassium 3.8 Chloride 103 Carbon Dioxide 28 Anion Gap 4 L BUN 10 Creatinine 0.60 L Estim Creat Clear Calc 91 Estimated GFR > 60 Glucose 82 Calcium 8.3 L Magnesium 1.8 Total Bilirubin 0.6 AST 89 H ALT 104 H Alkaline Phosphatase 68 Total Protein 6.0 L Albumin 3.3 L Preliminary micro results at discharge 09/04/23 15:13 Blood Culture - Preliminary Blood 09/04/23 10:53 Blood Culture - Preliminary Blood Discharge Plan Discharge Attending physician on discharge: Sammy Berg Consulting providers: Anil Quinn; Flaca Álvarez; Winston Duarte Discharging Clinician: Lu Boothe Patient Disposition: Home, Self-Care Activity: as tolerated Diet: regular Discharge Instructions: Follow-up with GI as an outpatient. They will call you with biopsy results. D
--- NOTE | 2023-09-08 13:44 | P.PNAN_ITS ---
Anes - Prog Note Post-Op Date/Time: 09/08/23 13:44 Cardiovascular status: normal Respiratory status: normal Airway patency: baseline Mental status: baseline Post-Op hydration status: normal Vital Signs: Last Vital Signs Temp 97.8 F 09/08/23 04:18 Pulse 91 09/08/23 09:42 Resp 18 09/08/23 04:18 BP 142/77 H 09/08/23 04:18 Pulse Ox 97 09/08/23 04:18 O2 Del Method Room Air 09/07/23 20:00 Pain Score (VAS): 0/10 I/O: Intake & Output 09/07/23 09/08/23 09/08/23 23:59 07:59 15:59 Intake Total 855 200 480 Balance 855 200 480 Laboratory Tests 09/08/23 05:39 09/08/23 05:39 09/08/23 05:39 WBC 8.2 RBC 4.76 Hgb 14.4 Hct 46.1 MCV 96.8 MCH 30.3 MCHC 31.2 L RDW 13.7 Plt Count 197 MPV 10.0 Immature Gran % (Auto) 0.9 H Neut % (Auto) 57.1 Lymph % (Auto) 29.5 [place] % (Auto) 10.6 H Eos % (Auto) 1.5 Baso % (Auto) 0.4 Lymph # (Auto) 2.42 [place] # (Auto) 0.9 H Eos # (Auto) 0.1 Baso # (Auto) 0.0 Abs Immat Gran (auto) 0.07 H Absolute Neuts (auto) 4.7 Absolute Nucleated RBC 0.0 Nucleated RBC % 0.0 PT 17.9 H INR 1.4 Sodium 135 L Potassium 3.8 Chloride 103 Carbon Dioxide 28 Anion Gap 4 L BUN 10 Creatinine 0.60 L Estim Creat Clear Calc 91 Estimated GFR > 60 Glucose 82 Calcium 8.3 L Total Bilirubin 0.6 AST 89 H ALT 104 H Alkaline Phosphatase 68 Total Protein 6.0 L Albumin 3.3 L Post-procedural complaints: none Patient Feedback: Patient satisfied with anesthetic care.
--- NOTE | 2023-10-01 15:36 | WPDANESEPPF ---
Anes - Initial Pre Proc Eval Procedure: Operation Date: 09/07/23 16:00 Proposed Procedures p Esophagogastroduodenoscopy & Colonoscopy - Winston Duarte MD Date/Time: 10/01/23 15:36 Surgeon: Lu Boothe PA-C Pre Op Diagnosis: dilated common bile duct, elevated lfts Patient Data Age: 53 Gender: F Height: 1.73 m Weight: 71.4 kg Last Vital Signs Temp 98.9 F 09/08/23 14:00 Pulse 86 09/08/23 14:00 Resp 18 09/08/23 14:00 BP 120/83 09/08/23 14:00 Pulse Ox 97 09/08/23 14:00 O2 Del Method Room Air 09/07/23 20:00 Allergies Allergy/AdvReac Type Severity Reaction Status Date / Time doxycycline Allergy Severe Anaphylaxis Verified 09/23/23 13:38 yellow dye Allergy Severe Unknown Verified 09/23/23 13:38 apixaban [From Eliquis] Allergy Mild Hives Verified 09/23/23 13:38 rivaroxaban [From Xarelto] Allergy Mild Rash Verified 09/23/23 13:38 aspirin Allergy Unknown Unknown Verified 09/23/23 13:38 azithromycin Allergy Unknown Unknown Verified 09/23/23 13:38 clarithromycin Allergy Unknown Unknown Verified 09/23/23 13:38 codeine Allergy Unknown Unknown Verified 09/23/23 13:38 hydrocodone Allergy Unknown Unknown Verified 09/23/23 13:38 ibuprofen Allergy Unknown Unknown Verified 09/23/23 13:38 latex Allergy Unknown Unknown Verified 09/23/23 13:38 leflunomide Allergy Unknown Unknown Verified 09/23/23 13:38 meloxicam Allergy Unknown Unknown Verified 09/23/23 13:38 meperidine Allergy Unknown Unknown Verified 09/23/23 13:38 methylprednisolone Allergy Unknown Unknown Verified 09/23/23 13:38 morphine Allergy Unknown Unknown Verified 09/23/23 13:38 nitrofurantoin Allergy Unknown Unknown Verified 09/23/23 13:38 NSAIDS (Non-Steroidal Allergy Unknown gives me Verified 09/23/23 13:38 Anti-Inflamma blisters and my skin falls off oxycodone Allergy Unknown Unknown Verified 09/23/23 13:38 Penicillins Allergy Unknown Unknown Verified 09/23/23 13:38 spironolactone Allergy Unknown Unknown Verified 09/23/23 13:38 Sulfa (Sulfonamide Allergy Unknown Unknown Verified 09/23/23 13:38 Antibiotics) sulfanilamide Allergy Unknown Unknown Verified 09/23/23 13:38 sulfite Allergy Unknown Unknown Verified 09/23/23 13:38 topiramate Allergy Unknown Unknown Verified 09/23/23 13:38 vortioxetine Allergy Unknown Unknown Verified 09/23/23 13:38 Home Medications Medication Instructions Recorded Confirmed Type acetaminophen 650 mg 1,300 mg PO Q12H 06/18/22 09/23/23 History tablet,extended release (Tylenol 8 Hour) quetiapine 50 mg tablet (Seroquel) 100 mg PO QHS 08/18/22 09/23/23 History baclofen 20 mg tablet 20 mg PO Q6H PRN muscle spasm #360 03/19/23 09/23/23 Rx tabs hydroxychloroquine 200 mg tablet 400 mg PO QHS 04/26/23 09/23/23 History (Plaquenil) metoprolol tartrate 25 mg tablet 12.5 mg PO BID 04/26/23 09/23/23 History naloxone 4 mg/actuation nasal 4 mg intranasal Q2M PRN opioid 06/21/23 09/23/23 Rx spray (Narcan) overdose #2 ea warfarin 5 mg tablet 5 mg PO DAILY 06/21/23 09/23/23 History bupropion HCl 150 mg tablet,12 hr 150 mg PO TID #270 tabs 07/23/23 09/23/23 Rx sustained-release montelukast 10 mg tablet 10 mg PO HS #90 tabs 07/25/23 09/23/23 Rx (Singulair) dicyclomine 20 mg tablet 20 mg PO TID PRN abdominal 08/10/23 09/23/23 Rx discomfort #270 tabs albuterol sulfate 90 mcg/actuation 2 puff inhalation Q4H PRN wheezing 08/16/23 09/23/23 Rx aerosol inhaler (ProAir HFA) #18 grams omeprazole 20 mg capsule,delayed 20 mg PO BID 09/04/23 09/23/23 History release thyroid (pork) 240 mg tablet 240 mg PO DAILY 09/04/23 09/23/23 History ([place] Thyroid) prednisone 10 mg tablet 15 mg PO Q12H 09/05/23 09/23/23 History fentanyl 75 mcg/hr transdermal 1 patch transdermal Q72H #10 ea 09/20/23 09/23/23 Rx patch hydromorphone 8 mg tablet 8 mg PO TID PRN pain #90 tabs 09/20/23 09/23/23 Rx levofloxacin 750 mg tablet 750 mg PO DAILY #7 tabs 09/22/23 09/23/23 Rx Patient hx a
== END 2023-09-08 15:00 | disposition home or self-care (01) | DRG 445 ==
LOC: ANHED 09-04 00:35 → ANH2MED 09-04 01:06 → ANHICU 09-04 12:12 → ANH3MED 09-05 20:21
PROVIDERS: Emergency Medicine; Internal Medicine Gastroenterology; Nurse Practitioner Acute Care; Admitting Provider Student in an Organized Health Care Education/Training Program; Emergency Provider Physician Assistant; PCP Family Medicine; Visit Provider Internal Medicine Critical Care Medicine
PROC: 0DJ08ZZ Inspection of Upper Intestinal Tract, Via Natural or Artificial Opening Endoscopic (ICD-10-PCS; CPT 43235; principal; 2023-09-07 16:00)
DX: K83.8 Other specified diseases of biliary tract (principal); K92.1 Melena; K63.5 Polyp of colon; K62.1 Rectal polyp; K29.70 Gastritis, unspecified, without bleeding; K76.89 Other specified diseases of liver; K21.9 Gastro-esophageal reflux disease without esophagitis; K63.89 Other specified diseases of intestine; D72.829 Elevated white blood cell count, unspecified; E03.9 Hypothyroidism, unspecified; F31.9 Bipolar disorder, unspecified; F17.210 Nicotine dependence, cigarettes, uncomplicated; I48.91 Unspecified atrial fibrillation; I10 Essential (primary) hypertension; L40.50 Arthropathic psoriasis, unspecified; M06.9 Rheumatoid arthritis, unspecified; M41.9 Scoliosis, unspecified; M81.0 Age-related osteoporosis without current pathological fracture; R74.01 Elevation of levels of liver transaminase levels; Z86.73 Personal history of transient ischemic attack (TIA), and cerebral infarction without residual deficits; Z86.718 Personal history of other venous thrombosis and embolism; Z79.52 Long term (current) use of systemic steroids; Z79.01 Long term (current) use of anticoagulants
CPT/HCPCS: 36415; 71045; 71260; 74177; 74183; 76376; 76705; 80048; 80053; 80074; 81001; 81025; 82948; 83605; 83690; 83735; 84145; 84484; 85025; 85027; 85610; 85730; 86850; 86900; 86901; 87040; 88305; 93005; 96365; 96366; 96367; 96375; 96376; 99285; A9270; A9577; G0378; J0282; J0696; J1170; J1836; J2371; J2405; J2704; J3010; J7030; J7042; J7120; J7512; Q9967

== ENCOUNTER 2023-10-01 10:13 | Emergency (ER) | payer MEDICARE, SELFPAY ==
--- NOTE | ~2023-10-01 | CT_ITS ---
EXAMINATION: CT abdomen pelvis w con INDICATION: GI bleeding and abdominal pain TECHNIQUE: Computed tomographic images of the abdomen and pelvis were obtained after the administrati on of 100 cc of Omnipaque 350 intravenous contrast. The dose-length product (DLP) was 384.69 mGy-cm. Automated exposure control and iterative reconstruction technique were employed. COMPARISON: 09/04/2023 FINDINGS: There is a collapsed left breast implant. Minimal dependent atelectasis is present in the l irwin bases. The heart size is normal. Cysts of the liver measure up to 7 mm in the left hepatic lobe. The spleen, pancreas, gallbladder, and adrenal glands are normal. There is stable enlargement of the common bile duct, recently evaluated by MRCP. No pathologically enlarged abdominal or pelvic lymph no alejandra are identified. No free intraperitoneal gas or evidence of bowel obstruction. There is calcified atherosclerosis of the aorta and many of the other arteries. There is lumbar dextroscoliosis and janel re spondylosis. IMPRESSION: 1. No CT correlate for the patient's symptoms. Reviewed, dictated and finalized at location B. TS SIFTER
[2023-10-01 10:45] VITALS: BP 117/84; PULSE 116; RESP 18; TEMP 36.3; O2SAT 100
[2023-10-01 11:05] LABS: Basophils Absolute Auto 0.1 K/mm3 (0.0-0.1); Basophils Percent Auto 0.5 % (0.2-1.2); Hematocrit 38.2 % (37.0-47.0); Hemoglobin 12.3 g/dL (12.0-15.0); Immature Granulocyte Absolute 0.18 K/mm3 (0.00-0.031); Immature Granulocyte Percent A 1.9 % (0-0.5); Lymphocytes Absolute Auto 1.06 K/mm3 (0.9-3.2); Lymphocytes Percent Auto 11.3 % (18.3-44.2); Mean Corpuscular HGB Conc 32.2 g/dl (32-36); Mean Corpuscular Volume 93.2 fl (80-100); Mean Platelet Volume 9.6 fl (7.4-10.4); Monocytes Absolute Auto 0.5 K/mm3 (0.1-0.6); Monocytes Percent Auto 5.6 % (2.6-8.5); Neutrophils Absolute Auto 7.5 K/mm3 (1.3-6.7); Neutrophils Percent Auto 80.7 % (45.5-73.1); Platelet Count Result 289 k/mm3 (150-375); Red Cell Distribution Width 13.5 % (11.5-14.5); White Blood Count 9.3 K/mm3 (4.5-10.0)
[2023-10-01 11:20] LABS: Alanine Aminotransferase 31 U/L (6-35); Albumin Level 3.8 g/dL (3.5-5.1); Alkaline Phosphatase 60 U/L (38-126); Anion Gap 7 mmol/L (8-16); Aspartate Amino Transferase 41 U/L (14-36); Bilirubin,Total 0.5 mg/dL (0.2-1.3); Blood Urea Nitrogen 22 mg/dL (7-17); Calcium 8.6 mg/dL (8.4-10.2); Carbon Dioxide 24 mmol/L (22-30); Chloride 100 mmol/L (98-107); Estimated CRCL calculation 63 ml/min; Estimated Glomerular Filt Rate > 60; Glucose 134 mg/dL (65-110); Potassium 4.7 mmol/L (3.4-5.0); Sodium 131 mmol/L (137-145)
[2023-10-01 11:22] LABS: INR 1.2; Partial Thromboplastin Time 23.9 SECONDS (22.3-36.8); Prothrombin Time 15.8 Seconds (11.1-14.7)
--- NOTE | 2023-10-01 14:18 | ED.GIBLEED ---
HPI - GI Bleed General Chief complaint: GI Bleed <Chris Melendez APRN - Last Filed: 10/01/23 16:55> Stated complaint: RECTAL BLEEDING X3D <Chris Melendez APRN - Last Filed: 10/01/23 16:55> Time Seen by Provider: 10/01/23 14:11 <Chris Melendez APRN - Last Filed: 10/01/23 16:55> Source: patient <Chris Melendez APRN - Last Filed: 10/01/23 16:55> Mode of arrival: ambulatory <Chris Melendez APRN - Last Filed: 10/01/23 16:55> Limitations: no limitations <Chris Melendez APRN - Last Filed: 10/01/23 16:55> History of Present Illness HPI Narrative: Mariah is a 53-year-old female patient presenting to the clinic today with complaints of rectal bleeding for the past 3 days. She reports that the blood is bright and jorge luis appearing times. States she is noticing blood when she is wiping and passing stool. Was just seen by her GI specialist back at the end of August and had a endoscopy and colonoscopy done at that time. Colonoscopy shows polyps that were removed but no colitis. Endoscopy was done and shows some gastritis. Patient was placed on omeprazole. Reports the past 3 days she has had some bloody stools and some abdominal discomfort in the left upper and left lower quadrant of the abdomen. She denies any fever or chills. Did have an episode of feeling dizzy. <Chris Melendez APRN - Last Filed: 10/01/23 16:55> Related Data Home medications: Home Medications Medication Instructions Recorded Confirmed acetaminophen 650 mg 1,300 mg PO Q12H 06/18/22 09/23/23 tablet,extended release (Tylenol 8 Hour) quetiapine 50 mg tablet (Seroquel) 100 mg PO QHS 08/18/22 09/23/23 hydroxychloroquine 200 mg tablet 400 mg PO QHS 04/26/23 09/23/23 (Plaquenil) metoprolol tartrate 25 mg tablet 12.5 mg PO BID 04/26/23 09/23/23 warfarin 5 mg tablet 5 mg PO DAILY 06/21/23 09/23/23 omeprazole 20 mg capsule,delayed 20 mg PO BID 09/04/23 09/23/23 release thyroid (pork) 240 mg tablet 240 mg PO DAILY 09/04/23 09/23/23 ([place] Thyroid) prednisone 10 mg tablet 15 mg PO Q12H 09/05/23 09/23/23 <Chris Melendez, STATISTICS MANAGER - Last Filed: 10/01/23 16:55> Allergies/Adverse reactions: Allergies Allergy/AdvReac Type Severity Reaction Status Date / Time doxycycline Allergy Severe Anaphylaxis Verified 09/23/23 13:38 yellow dye Allergy Severe Unknown Verified 09/23/23 13:38 apixaban [From Eliquis] Allergy Mild Hives Verified 09/23/23 13:38 rivaroxaban [From Xarelto] Allergy Mild Rash Verified 09/23/23 13:38 aspirin Allergy Unknown Unknown Verified 09/23/23 13:38 azithromycin Allergy Unknown Unknown Verified 09/23/23 13:38 clarithromycin Allergy Unknown Unknown Verified 09/23/23 13:38 codeine Allergy Unknown Unknown Verified 09/23/23 13:38 hydrocodone Allergy Unknown Unknown Verified 09/23/23 13:38 ibuprofen Allergy Unknown Unknown Verified 09/23/23 13:38 latex Allergy Unknown Unknown Verified 09/23/23 13:38 leflunomide Allergy Unknown Unknown Verified 09/23/23 13:38 meloxicam Allergy Unknown Unknown Verified 09/23/23 13:38 meperidine Allergy Unknown Unknown Verified 09/23/23 13:38 methylprednisolone Allergy Unknown Unknown Verified 09/23/23 13:38 morphine Allergy Unknown Unknown Verified 09/23/23 13:38 nitrofurantoin Allergy Unknown Unknown Verified 09/23/23 13:38 NSAIDS (Non-Steroidal Allergy Unknown gives me Verified 09/23/23 13:38 Anti-Inflamma blisters and my skin falls off oxycodone Allergy Unknown Unknown Verified 09/23/23 13:38 Penicillins Allergy Unknown Unknown Verified 09/23/23 13:38 spironolactone Allergy Unknown Unknown Verified 09/23/23 13:38 Sulfa (Sulfonamide Allergy Unknown Unknown Verified 09/23/23 13:38 Antibiotics) sulfanilamide Allergy Unknown Unknown Verified 09/23/23 13:38 sulfite Allergy Unknown Unknown Verified 09/23/23 13:38 topiramate Allergy Unknown Unknown Verified 09/23/23 13:38 vortioxetine Allergy Unknown Unknown Verified
[2023-10-01 15:30] VITALS: BP 137/85; PULSE 91; RESP 16; O2SAT 100
[2023-10-01] MEDS: SODIUM CHLORIDE 0.9% IV 1,000 ML 999 ML IV CONT (15:34)
[2023-10-01] MEDS: PANTOPRAZOLE SODIUM IV 40 MG VIAL IV PUSH (15:35)
[2023-10-01 15:41] VITALS: BP 128/95; PULSE 102
== END 2023-10-01 16:50 | disposition home or self-care (01) ==
PROVIDERS: Emergency Medicine; Emergency Provider Nurse Practitioner Family; PCP Family Medicine
DX: K92.2 Gastrointestinal hemorrhage, unspecified (principal); I10 Essential (primary) hypertension; E03.9 Hypothyroidism, unspecified; G89.4 Chronic pain syndrome; M06.9 Rheumatoid arthritis, unspecified; M47.812 Spondylosis without myelopathy or radiculopathy, cervical region; M47.816 Spondylosis without myelopathy or radiculopathy, lumbar region; M17.9 Osteoarthritis of knee, unspecified; M81.0 Age-related osteoporosis without current pathological fracture; Q79.60 Ehlers-Danlos syndrome, unspecified; F31.9 Bipolar disorder, unspecified; F17.210 Nicotine dependence, cigarettes, uncomplicated; Z86.718 Personal history of other venous thrombosis and embolism; Z86.73 Personal history of transient ischemic attack (TIA), and cerebral infarction without residual deficits; Z86.010 Personal history of colon polyps; Z79.01 Long term (current) use of anticoagulants
CPT/HCPCS: 36415; 74177; 80053; 85025; 85610; 85730; 86850; 86900; 86901; 96361; 96374; 99284; C9113; J7030; Q9967

== ENCOUNTER 2023-12-13 15:41 | Outpatient (CLI) | payer MEDICARE, SELFPAY ==
[2023-12-13 17:13] LABS: Alanine Aminotransferase 26 U/L (6-35); Albumin Level 4.3 g/dL (3.5-5.1); Alkaline Phosphatase 58 U/L (38-126); Aspartate Amino Transferase 36 U/L (14-36); Bilirubin,Total 0.3 mg/dL (0.2-1.3)
[2023-12-13 18:16] LABS: Iron 32 ug/dL (37-170)
[2023-12-13 18:27] LABS: Percent Iron Saturation 8 % (20-50)
[2023-12-14 10:03] LABS: Alpha-1-Antitrypsin, QN 168 mg/dL (83-199); Ceruloplasmin 27 mg/dL (18-53)
[2023-12-16 13:12] LABS: LKM 1 Antibody <=20.0 U (<=20.0)
[2023-12-17 11:33] LABS: Actin Antibody (IgG) <20 U (<20)
[2023-12-27 18:48] LABS: Mitochondrial (M2) Ab (IgG) <20.0 U
== END 2023-12-13 15:42 | disposition home or self-care (01) ==
PROVIDERS: PCP Family Medicine; Visit Provider Nurse Practitioner
DX: R74.01 Elevation of levels of liver transaminase levels (principal)
CPT/HCPCS: 36415; 80076; 82103; 82390; 82728; 83520; 83540; 83550; 85610; 86038; 86364; 86376

== ENCOUNTER 2024-01-27 16:51 | Outpatient (RCR) | payer MEDICARE, SELFPAY ==
[2023-12-13 17:12] LABS: Prothrombin Time 23.8 Seconds (11.1-14.7)
[2024-01-27 17:29] LABS: INR 4.8; Prothrombin Time 45.8 Seconds (11.1-14.7)
== END 2024-03-12 23:59 | disposition home or self-care (01) ==
LOC: ANHLAB 16:51
PROVIDERS: PCP Family Medicine
DX: I48.91 Unspecified atrial fibrillation (principal)
CPT/HCPCS: 36415; 85610

== ENCOUNTER 2024-09-21 18:57 | Emergency (ER) | payer MEDICARE, SELFPAY ==
--- NOTE | ~2024-09-21 | XR_ITS ---
HISTORY: large lac 2 days ago, pain COMPARISON: None TECHNIQUE: 2 views of the right tibia and fibula FINDINGS: No acute or subacute fracture. Joint spaces are preserved and alignment is maintained. Soft tissues are unremarkable without foreign body or significant calcification. Focal lucency with an irregular serpentine sclerotic border is identified within the proximal fibula and the visualized portion of the distal femur, consistent with bony infarcts. Otherwise, age appropriate mineralization. IMPRESSION: No acute fracture or dislocation. Reviewed, dictated and finalized at location A. IFIED REGISTERED DENTAL ASSISTANT
--- OUTSIDE RECORDS SUMMARY | 2024-09-21 19:00 | XMS_ITS | Encounter Summary ---
Author Organization [facility] Address [address] [place] [address] Care Team Providers Care Dba Manager Name Role Phone Unavailable Primary Care Provider Unavailabl e Encounter Details Date Type Department Care Team (Late st Contact Info) Description 06/29/[address] 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
--- OUTSIDE RECORDS SUMMARY | 2024-09-21 19:00 | XMS_ITS | Encounter Summary ---
Author Organization [facility] Address [address] [place] [address] Phone Care Team Providers Care Loop Machine Operator Name Role Phone Taylor Scott Primary Care Provider [phone] Alok Newell MD Primary Care Provider [phone] Encounter Details Date Type Department Care Team (Late st Contact Info) Description 05/31/2018 Ophth Exam [facility] [address] [place] [address] [address] [place] [address] Lakisha Apple MD PhD [address] [facility] [address] [place] [address] Social History Tobacco Use Types Packs/Day Years Used Date Smoking Tobacco: Former Comments Unknown Sex and Gender Information Value Date Recorded Sex Assigned at Not on file 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 Gender Identity Not on file Sexual Orientation Not on file documented as of this encounter Plan of Treatment Not on file documented as of this encounter Visit Diagnoses Not on filedocumented in this encounter Eye Exam Visual Acuity (Near card) Right eye Left eye Near sc 20/20 20/30 -> 20/20 P H Tonometry (Tonopen, 10:39 PM) Right eye Left eye Pressure 11 12 Pupils Pupils Dark Light Shape React APD Right eye PERRL 3 2 Round Brisk None Left eye PERRL 3 2 Round Brisk None Visual Lerma Right eye Left eye Full Full Extraocular Movement Right eye Left eye Full, Ortho Full, Ortho Neuro/Psych Oriented x3: Yes Mood/Affect: Normal Dilation Both eyes: 1.0% Mydriacyl, 2 .5% Phenylephrine @ 10:49 PM Color Right eye Left eye Ishihara External Exam Right eye Left eye External Normal. no proptosis Normal. no proptosis Slit Lamp Exam Right eye Left eye Lids/Lashes Normal Normal Conjunctiva/Sclera White and quiet. No follicles or papillae White and quiet. No follicles or papillae Cornea Pinpoint corneal epi defects stained with fluorescein in central area Pinpoint corneal epi defects stained with fluorescein in inferior area Anterior Chamber Deep and quiet Deep and quiet Iris Round and reactive Round and chay ctive Lens Clear Clear Vitreous Normal Normal Fundus Exam Right eye Left eye Disc Normal Normal C/D Ratio 0.4 0.4 Macula Normal Normal Vessels Normal Normal Periphery Normal Normal Care Teams Loop Machine Operator Relationship Specialty Start Date End Date Taylor Scott [address] [place] [address] PCP - General 03/24/17 05/31/18 Alok Newell MD [address] [place] [address] PCP - General 06/01/18 documented as of this encounter
--- OUTSIDE RECORDS SUMMARY | 2024-09-21 19:00 | XMS_ITS | Patient Health Record ---
Author Organization [facility] Address [address] [facility] [address] [place], [place] [id number] Care Team Providers Care House Calls Nurse Name Role Phone Stewart Bazzi Unavailable [phone] ALLERGIES Allergen (clinical drug ingredient) Drug/Non Drug Allergy documented on EMR Reaction Allergy Type Onset Date Status morphine morphine Unknown Drug Allergy Active codeine codeine Unknown Drug Allergy Active hydrocodone (uncoded) Unknown Allergy Active NSAIDS (uncoded) Unknown Allergy Act candy tramadol tramadol Unknown Drug Allergy Active REASON FOR REFERRAL No Information MEDICATIONS Medication SIG (Take, Route, Fr equency, Duration) Notes Start Date End Date Status atenolol 25 mg 1 tab(s) orally once a day for 30 day(s) Active torsemide 20 mg 1 tab(s) orally once a day for 30 day(s) Active cloNIDine 0.2 mg 1 tab(s) orally 2 ti mes a day for 30 day(s) Active fentaNYL 75 mcg/hr 1 PATCH applied topi rosalio every 72 hours for 30 day(s) Active predniSONE 20 mg 1 tab(s) orally once a day for 7 day(s) Active SOCIAL HISTORY Sex Assigned At : Social History Observation Description Sex Assigned At Unknown PROBLEMS Problem Type ICD Code Onset Dates Problem Status W/U Status Risk SNOMED Code Notes Problem Myalgia (729.1) Active confirmed Myalgi a (86018399) Problem Polyarthralgia (719.49) Active confirmed Polyarthralgia (29262114) PLAN OF TREATMENT Pending Test Test Name Order Date CBC (IH) 04/11/2014 Insurance Providers Payer Name Payer Address Payer Phone Subscriber Number Group Number Insured Name Patient Relationship to Insured Coverage Start Date Coverage End Date [facility] [address] [address] [place] [address] [phone] [id number] Jean-Paul avitiaHaresha Self - patient is the insured 3 MEDICAL (GENERAL) HISTORY Medical History History ICD Code bruises easily change in moles migraine headache tension headaches loss of hearing sinus problems swollen glands in neck lumps thyroid disease high blood pressure swelling of ankles/feet varicose veins asthma bronchitis bloating constipation gas irritable bowel syndrome indigestion stomach pain/cramps weight gain Hot Flashes anxiety depression chicken pox pneumonia
--- OUTSIDE RECORDS SUMMARY | 2024-09-21 19:00 | XMS_ITS | Clinical Summary ---
Author Organization [facility] Address [address] [place] [address] Care Team Providers Care Trading Analyst Name Role Phone Alok Newell MD Primary Care Provider [phone] Source Comments [facility],non-owned Affiliates and Associated Physician Practices is amultiple site organization consisting of ambulatory clinics and hospital sitesin [place], [place], [place] and [place]. This disclosure is being madepursuant to the Care Everywhere program and may not contain all information available regarding this patient. Last updated 18.[facility] Allergies Active Allergy Reactions Criticality Noted Date Comments Aspirin Other 02/26/2020 unknown Hydroxyzine Other 02/26/2020 unknown Azithromycin Other 02/26/2020 Unknown/ER Clarithromycin Other 02/26/2020 unknown Codeine Other 02/26/2020 unknown Doxycycline Anaphylaxis High 02/26/2020 Hydrocodone Other 02/26/2020 Unknown/ER Ibuprofen Other 02/26/2020 unknown Latex Anaphylaxis High 02/26/2020 Leflunomide Other 02/26/2020 unknown Meloxicam Other 02/26/2020 unknown Methylprednisolone Other 02/26/2020 unknown Morphine Other 02/26/2020 Unknown/ER Nitrofurantoin Other 02/26/2020 Macrobid/unknown Nsaids Other 02/26/2020 Skin blisters and falls off Oxycodone Other 02/26/2020 unknown Penicillins Other 02/26/2020 unknown Spironolactone Other 02/26/2020 unknown Sulfa Drugs Other 02/26/2020 unknown Sulfanilamide Other 02/26/2020 unknown Sulfites Other 02/26/2020 unknown Topiramate Other 02/26/2020 topamax/unknown Vortioxetine Other 02/26/2020 unknown 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 Alwaysverify current medications with the patient. Medication Sig Dispensed Refills Start Date End Date Status thyroid (ARMOUR THYROID) 300 MG tablet Take 300 mg by mouth once daily Active atenolol (TENORMIN) 25 MG tablet Take 25 mg by mouth 2 times daily Active amLODIPine (NORVASC) 10 MG tablet Take 10 mg by mouth once daily Active pseudoephedrine CR 12hr (SUDAFED) 120 MG tablet Take 120 mg by mouth every 12 hours Active cloNIDine (CATAPRES) 0.2 MG tablet Take 0.2 mg by mouth 2 times daily Active diazePAM (VALIUM) 10 MG tablet Take 10 mg by mouth 2 times daily as needed Active buPROPion SR 12hr (ZYBAN) 150 MG tablet Take 150 mg by mouth 2 times daily Active baclofen (LIORESAL) 20 MG tablet Take 20 mg by mouth every 6 hours as needed Active HYDROmorphone (DILAUDID) 8 MG tablet Take 8 mg by mouth Active montelukast (SINGULAIR) 10 MG tablet Take 10 mg by mouth once daily Active fexofenadine (GUILLE) 180 MG tablet Take 180 mg by mouth once daily Active Methotrexate Sodium 250 MG/10ML SOLN Active adalimumab (HUMIRA) 40 MG/0.8ML injection Act candy predniSONE (DELTASONE) 10 MG tablet Take 10 mg by mouth once 05/04/2019 Active predniSONE (DELTASONE) 5 MG tablet Take by mouth once Active clindamycin (CLEOCIN) 1 % gel Active lidocaine (XYLOCAINE) 5 % ointment Active folic acid (FOLVITE) 1 MG tablet Take 1 mg by mouth once daily Active dicyclomine (BENTYL) 20 MG tablet Take 20 mg by mouth 3 times daily 06/06/2020 Active omeprazole (PRILOSEC) 20 MG capsule Take 20 mg by mouth daily before breakfast Active vitamin D, ergocalciferol, (DRISDOL) 1.25 MG (72710 UT) capsule Take 50,000 Units by mouth every 7 days 12/07/2019 Active Active Problems Problem Noted Date Diagnosed Date COVID-19 02/22/2020 Social History Tobacco Use Types Packs/Day Years Used Date Smoking Tobacco: Former Smokeless Tobacco: Current Comments:pt does chew nicoti ne gum Alcohol Use Standard Drinks/Week Comments Yes 0 (1 standard drink = 0.6 oz pur e alcohol) AUDIT-C Answer Date Recorded Q1: How often do you have a drink containing alc ohol? Monthly or less 02/25/2020 Q2: How many drinks containi ng alcohol do you have on a typical day when you are drinking? 1 or 2 02/25/2020 Q3: How often do you have si x or more drinks on one occasion? Never 02/25/2020 Sex and Gender Information Value Date Recorded Sex Assigned at Not on file Gender Identity Not on file Sexual Orientation Not on file Last Filed Vital Signs Vital Sign Reading Time Taken Comments Blood Pressure 96/66 11/25/2020 2:28 PM CDT Pulse 87 02/26/2020 3:24 PM CDT Temperature 36.2 C (97.2 F) 11/25/2020 2:28 PM CDT Respiratory Rate 16 02/27/2020 1:20 AM CDT Oxygen Saturation 100% 02/27/2020 1:20 AM CDT Inhaled Oxygen Concentration - - Weight 70.3 kg (155 lb) 11/25/2020 2:28 PM CDT Height 167.6 cm (5' 6 ) 11/25/2020 2:28 PM CDT Body Mass Index 25.02 11/25/2020 2:28 PM CDT Plan of Treatment Health Maintenance Due Date Last Done Comments COLOGUARD (AGES 45-75) - COL ON CA SCREENING 1968 COLON MONITORING 1968 COLONOSCOPY - COLON CA SCREENING 1968 CT COLONOGRAPHY - COLON CA SCREENING 1968 Colorectal Cancer Screening 1968 FIT - COLON CA SCREENING 1968 FLEX SIG - COLON CA SCREENING 1968 LIPID TESTING 1968 MAMMOGRAM 1968 MEDICARE AWV 12 MONTHS 1968 PAP SMEAR 1968 HIV SCREENING 1983 HEPATITIS C SCREENING 03/28/1986 DTAP/TDAP/TD VACCINES (1 - Tdap) 1987 HEPATITIS B VACCINE (1 of 3 - 19+ 3-dose series) 1987 PNEUMOCOCCAL VACCINE 50+ (1 of 1 - PCV) 2018 ZOSTER VACCINE (1 of 2) 2018 COVID-19 VACCINE (2023-2 5 season) 2024 INFLUENZA VACCINE (#1) 2024 08/26/2018 DEPRESSION SCREENING 08/09/2024 HIB VACCINE Aged Out No longer eligi ble based on patient's age to complete this topic HPV VACCINE Aged Out No longer eligi ble based on patient's age to complete this topic MENINGOCOCCAL (Group B) VACCINE Aged Out No longer eligible based on patient's age to complete this topic MENINGOCOCCAL VACCINE Aged Out No ranjith lizette eligible based on patient's age to complete this topic PNEUMOCOCCAL VACCINE Aged Out No long er eligible based on patient's age to complete this topic Advance Directives * Full Code (Latest Code Status on File) Date Activated Date Inactivated Comments 02/25/2020 9:10 PM 02/27/2020 6:12 AM Care Teams Trading Analyst Relationship Specialty Start Date End Date Alok Newell MD PCP - General Family Medicine 10/29/15
--- OUTSIDE RECORDS SUMMARY | 2024-09-21 19:00 | XMS_ITS | Patient Health Summary ---
Author Organization [facility] Address [address] [place] [address] Care Team Providers Care Substation Mechanic Name Role Phone Alok Newell MD Primary Care Provider [phone] Note from [facility],non-owned Affiliates and Associated Physician Practices is amultiple site organization consisting of ambulatory clinics and hospital sitesin [place], [place], [place] and [place]. This disclosure is being madepursuant to the Care Everywhere program and may not contain all information available regarding this patient. Last updated 18.[facility] Allergies * Aspirin(Other) * Hydroxyzine(Other) * Azithromycin(Other) * Clarithromycin(Other) * Codeine(Other) * Doxycycline(Anaphylaxis) -High Criticality * Hydrocodone(Other) * Ibuprofen(Other) * Latex(Anaphylaxis) -High Criticality * Leflunomide(Other) * Meloxicam(Other) * Methylprednisolone(Other) * Morphine(Other) * Nitrofurantoin(Other) * Nsaids(Other) * Oxycodone(Other) * Penicillins(Other) * Spironolactone(Other) * Sulfa Drugs(Other) * Sulfanilamide(Other) * Sulfites(Other) * Topiramate(Other) * Vortioxetine(Other) * Yellow Dye(Padilla Neo Syndrome (SJS)) -High Criticality * Caffeine(Other),Inactive Medications * Be aware that medications may not be up to date on this document. Alwaysverify current medications with the patient. * thyroid (ARMOUR THYROID) 300 MG tablet Take 300 mg by mouth once daily * atenolol (TENORMIN) 25 MG tablet Take 25 mg by mouth 2 times daily * amLODIPine (NORVASC) 10 MG tablet Take 10 mg by mouth once daily * pseudoephedrine CR 12hr (SUDAFED) 120 MG tablet Take 120 mg by mouth every 12 hours * cloNIDine (CATAPRES) 0.2 MG tablet Take 0.2 mg by mouth 2 times daily * diazePAM (VALIUM) 10 MG tablet Take 10 mg by mouth 2 times daily as needed * buPROPion SR 12hr (ZYBAN) 150 MG tablet Take 150 mg by mouth 2 times daily * baclofen (LIORESAL) 20 MG tablet Take 20 mg by mouth every 6 hours as needed * HYDROmorphone (DILAUDID) 8 MG tablet Take 8 mg by mouth * montelukast (SINGULAIR) 10 MG tablet Take 10 mg by mouth once daily * fexofenadine (GUILLE) 180 MG tablet Take 180 mg by mouth once daily * Methotrexate Sodium 250 MG/10ML SOLN * adalimumab (HUMIRA) 40 MG/0.8ML injection * predniSONE (DELTASONE) 10 MG tablet(Started 05/04/2019) Take 10 mg by mouth once * predniSONE (DELTASONE) 5 MG tablet Take by mouth once * clindamycin (CLEOCIN) 1 % gel * lidocaine (XYLOCAINE) 5 % ointment * folic acid (FOLVITE) 1 MG tablet Take 1 mg by mouth once daily * dicyclomine (BENTYL) 20 MG tablet(Started 06/06/2020) Take 20 mg by mouth 3 times daily * omeprazole (PRILOSEC) 20 MG capsule Take 20 mg by mouth daily before breakfast * vitamin D, ergocalciferol, (DRISDOL) 1.25 MG (12012 UT) capsule(Started 12/07/2019) Take 50,000 Units by mouth every 7 days Active Problems Problem Noted Date Diagnosed Date [...] Mass Index 25.02 11/25/2020 2:28 PM CDT Procedures * DEXA BONE DENSITY AXIAL SKELETON(Performed 01/20/2024) Performed for Senile osteoporosis * XR FOOT RIGHT 3VW OR MORE(Performed 07/11/2020) Performed for Psoriatic arthritis ([facility]), Therapeutic drug monitoring * XR FOOT LEFT 3VW OR MORE(Performed 07/11/2020) Performed for Psoriatic arthritis ([facility]), Therapeutic drug monitoring * XR HAND RIGHT 3VW OR MORE(Performed 07/11/2020) Performed for Psoriatic arthritis ([facility]), Therapeutic drug monitoring * XR HAND LEFT 3VW OR MORE(Performed 07/11/2020) Performed for Psoriatic arthritis ([facility]), Therapeutic drug monitoring * URINALYSIS W/MICROSCOPIC NO CULTURE(Performed 07/11/2020) Performed for Psoriatic arthritis ([facility]), Therapeutic drug monitoring * QUANTIFERON-TB GOLD PLUS 4-TUBE(Performed 07/11/2020) Performed for Psoriatic arthritis ([facility]), Therapeutic drug monitoring * ERYTHROCYTE SEDIMENTATION RATE(Performed 07/11/2020) Performed for Psoriatic arthritis ([facility]), Therapeutic drug monitoring * C-REACTIVE PROTEIN(Performed 07/11/2020) Performed for Psoriatic arthritis ([facility]), Therapeutic drug monitoring * COMPREHENSIVE METABOLIC PANEL(Performed 07/11/2020) Performed for Psoriatic arthritis ([facility]), Therapeutic drug monitoring * CBC W AUTO DIFFERENTIAL(Performed 07/11/2020) Performed for Psoriatic arthritis ([facility]), Therapeutic drug monitoring * GLUCOSE - POINT OF CARE(Performed 02/26/2020) * GLUCOSE - POINT OF CARE(Performed 02/26/2020) * GLUCOSE - POINT OF CARE(Performed 02/26/2020) * GLUCOSE - POINT OF CARE(Performed 02/26/2020) * XR CHEST 1VW PORTABLE(Performed 02/26/2020) Performed for COVID-19 * RESPIRATORY PATHOGEN PANEL BY PCR(Performed 02/25/2020) * SARS-COV-2 (COVID-19) IN HOUSE(Performed 02/25/2020) * FERRITIN(Performed 02/25/2020) * D-DIMER(Performed 02/25/2020) * TROPONIN I(Performed 02/25/2020) * PROCALCITONIN LEVEL(Performed 02/25/2020) * LDH BLOOD(Performed 02/25/2020) * CK BLOOD(Performed 02/25/2020) * C-REACTIVE PROTEIN(Performed 02/25/2020) * PTT [facility](Performed 02/25/2020) * PT-INR [facility](Performed 02/25/2020) * PHOSPHORUS BLOOD(Performed 02/25/2020) * MAGNESIUM BLOOD(Performed 02/25/2020) * LACTIC ACID BLOOD(Performed 02/25/2020) * COMPREHENSIVE METABOLIC PANEL(Performed 02/25/2020) * CBC W AUTO DIFFERENTIAL(Performed 02/25/2020) * XR KNEE LEFT 3VW(Performed 08/07/2016) * XR KNEE RIGHT 3VW(Performed 08/07/2016) * DEXA BONE DENSITY AXIAL SKELETON(Performed 08/07/2016) * URINALYSIS MICROSCOPIC ONLY REFLEXED(Performed 09/23/2015) * URINALYSIS W/MICROSCOPIC REFLEX TO CULTURE(Performed 09/23/2015) * ERYTHROCYTE SEDIMENTATION RATE(Performed 09/23/2015) * C-REACTIVE PROTEIN(Performed 09/23/2015) * COMPREHENSIVE METABOLIC PANEL(Performed 09/23/2015) * CBC W AUTO DIFFERENTIAL(Performed 09/23/2015) * LAB HISTORICAL RESULTS-ONBASE(Performed 09/23/2015) * ERYTHROCYTE SEDIMENTATION RATE(Performed 08/30/2015) * CBC W AUTO DIFFERENTIAL(Performed 08/30/2015) * DIFFERENTIAL MANUAL(Performed 08/30/2015) * C-REACTIVE PROTEIN(Performed 08/30/2015) * PHOSPHORUS BLOOD(Performed 08/30/2015) * BASIC METABOLIC PANEL (CALCIUM TOTAL)(Performed 08/30/2015) * MAGNESIUM BLOOD(Performed 08/30/2015) * CBC W AUTO DIFFERENTIAL(Performed 08/30/2015) * CBC W AUTO DIFFERENTIAL(Performed 08/29/2015) * DIFFERENTIAL MANUAL(Performed 08/29/2015) * BASIC METABOLIC PANEL (CALCIUM TOTAL)(Performed 08/29/2015) * PHOSPHORUS BLOOD(Performed 08/29/2015) * MAGNESIUM BLOOD(Performed 08/29/2015) * CBC W AUTO DIFFERENTIAL(Performed 08/29/2015) * XR HAND RIGHT 3VW OR MORE(Performed 08/28/2015) * XR HAND LEFT 3VW OR MORE(Performed 08/28/2015) * XR ELBOW LEFT 3VW OR MORE(Performed 08/28/2015) * VANCOMYCIN LEVEL TROUGH(Performed 08/28/2015) * BASIC METABOLIC PANEL (CALCIUM TOTAL)(Performed 08/28/2015) * MAGNESIUM BLOOD(Performed 08/28/2015) * PHOSPHORUS BLOOD(Performed 08/28/2015) * CBC W AUTO DIFFERENTIAL(Performed 08/28/2015) * CBC W AUTO DIFFERENTIAL(Performed 08/28/2015) * ERYTHROCYTE SEDIMENTATION RATE(Performed 08/27/2015) * C-REACTIVE PROTEIN(Performed 08/27/2015) * CULTURE BLOOD(Performed 08/27/2015) * CULTURE BLOOD(Performed 08/27/2015) * LACTIC ACID BLOOD(Performed 08/26/2015) * BLOOD GASES TIFFANI(Performed 08/26/2015) * COMPREHENSIVE METABOLIC PANEL(Performed 08/26/2015) * CBC W AUTO DIFFERENTIAL(Performed 08/26/2015) * CBC W AUTO DIFFERENTIAL(Performed 08/26/2015) * QUANTIFERON TB-GOLD(Performed 05/30/2015) * URINALYSIS MICROSCOPIC ONLY REFLEXED(Performed 05/30/2015) * JOSEPH COMPREHENSIVE PLUS PROFILE(Performed 05/30/2015) * MPO + PR3 W/ REFLEX ANCA(Performed 05/30/2015) * URINALYSIS W/MICROSCOPIC REFLEX TO CULTURE(Performed 05/30/2015) * QUANTIFERON TB-GOLD(Performed 05/30/2015) * ERYTHROCYTE SEDIMENTATION RATE(Performed 05/30/2015) * CK BLOOD(Performed 05/30/2015) * C-REACTIVE PROTEIN(Performed 05/30/2015) * COMPREHENSIVE METABOLIC PANEL(Performed 05/30/2015) * CBC W AUTO DIFFERENTIAL(Performed 05/30/2015) * ALDOLASE(Performed 05/30/2015) * XR HAND RIGHT 2VW(Performed 08/21/2013) * XR HAND LEFT 2VW(Performed 08/21/2013) * XR FOOT LEFT 2VW(Performed 08/21/2013) * XR FOOT RIGHT 2VW(Performed 08/21/2013) * XR SI JOINTS 2VW OR LESS(Performed 08/21/2013) * ECHO COMPLETE(Performed 05/26/2013) * RHEUMATOID ARTHRITIS PANEL(Performed 05/04/2013) * ERYTHROCYTE SEDIMENTATION RATE(Performed 05/04/2013) * CBC W AUTO DIFFERENTIAL(Performed 05/04/2013) * LDH BLOOD(Performed 05/04/2013) * CK BLOOD(Performed 05/04/2013) * COMPREHENSIVE METABOLIC PANEL(Performed 05/04/2013) * C-REACTIVE PROTEIN(Performed 05/04/2013) * ALDOLASE(Performed 05/04/2013) * GROSS + MICRO EXAM(Performed 07/14/2007) Results * DEXA BONE DENSITY AXIAL SKELETON (01/20/2024 4:15 PM CDT) Only the most recent of2 resultswithin the time period is included. Anatomical Region Laterality Modality Mammography 01/20/2024 4:37 PM CDT Narrative 01/20/2024 4:49 PM CDT Bone density study (DEXA): HISTORY: ovarian failure COMPARISON: No available comparison LUMBAR SPINE (L1-L4): Bone mineral density (g/cm2): 1.137 Current T-score: -0.5 HIPS: Bone mineral density (g/cm2): 0.652 Current T-score: -2.8 FRAX 10-YEAR PROBABILITY OF FRACTURE: Major Osteoporotic: 13.7% Hip: 4.3% FRAX Adjusted for TBS: Major Osteoporotic: 20.3% Hip: 2.5% ASSESSMENT: Osteoporosis Please see the PACS images for additional details. World Health Organization definitions of standard deviations relative to the mean T-score: Normal bone density = -1.0 and above Mild osteopenia = -1.0 to -1.5 Moderate osteopenia = -1.5 to -2.0 Severe osteopenia = -2.0 to -2.5 Osteoporosis = -2.5 and below > Interpreting Provider: Eduar Michelle JR, MD on 01/20/2024 4:49 PM Procedure Note Eduar Michelle MD - 01/20/2024 Bone density study (DEXA): HISTORY: ovarian failure COMPARISON: No available comparison LUMBAR SPINE (L1-L4): Bone mineral density (g/cm2): 1.137 Current T-score: -0.5 HIPS: Bone mineral density (g/cm2): 0.652 Current T-score: -2.8 FRAX 10-YEAR PROBABILITY OF FRACTURE: Major Osteoporotic: 13.7% Hip: 4.3% FRAX Adjusted for TBS: Major Osteoporotic: 20.3% Hip: 2.5% ASSESSMENT: Osteoporosis Please see the PACS images for additional details. World Health Organization definitions of standard deviations relative to the mean T-score: Normal bone density = -1.0 and above Mild osteopenia = -1.0 to -1.5 Moderate osteopenia = -1.5 to -2.0 Severe osteopenia = -2.0 to -2.5 Osteoporosis = -2.5 and below > Interpreting Provider: Eduar Michelle JR, MD on 01/20/2024 4:49 PM Zoey Flores SHUTTLE FIXER-MASON APPRENTICE DEXA OR DERABLES * XR FOOT RIGHT 3VW OR MORE (07/11/2020 12:39 PM BLIND LACER) Anatomical Region Laterality Modality Ankle / Foot Radiographic Letty ging 07/11/2020 1:27 PM BLIND LACER Impressions 07/11/2020 1:47 PM BLIND LACER IMPRESSION: 1. Right hand: Moderate to severe mixed productive-erosive arthritis at the second through fifth digit proximal interphalangeal joints, intervally progressed, consistent with the provided diagnosis of psoriatic arthritis. 2. Left hand: Severe mixed productive-erosive arthritis at the second digit proximal interphalangeal joint, progressed. Moderate arthritis at the first carpometacarpal and metacarpophalangeal joints, progressed. More mild involvement at additional interphalangeal joints, also progressed. 3. Right foot: No arthritis. Soft tissue swelling is suggested in the forefoot. 4. Left foot: No arthritis. This report was electronically signed by JOSEPH PARTIDA MD on 07/11/2020 1:47 PM . Narrative 07/11/2020 1:47 PM BLIND LACER Exam: XR HAND RIGHT 3VW XR FOOT RIGHT 3VW XR FOOT LEFT 3VW XR HAND LEFT 3VW History: L40.50: Psoriatic arthritis Z51.81: Therapeutic drug monitoring Comparison: Right and left hand radiographs dated 08/28/2015 and 08/21/2013. Right and left foot radiographs dated 08/21/2013. Findings: Right hand: No acute fracture or dislocation is present. There is moderate to severe arthritis at the second through fifth digit proximal interphalangeal joints with productive and erosive features including joint space narrowing, erosions, subchondral sclerosis, and osteophytes. The joint space narrowing is severe at the second, fourth, and fifth digit proximal interphalangeal joints where there is essentially [id number] contact. There is surrounding soft tissue swelling. There are several calcifications/ossicles adjacent to the second PIP joint measuring up to 6 mm, intervally increased. One is seen adjacent to the third PIP joint, and a smaller one is seen adjacent to the fourth PIP joint. There is mild subluxation at the fourth PIP joint. Elsewhere, there is mild arthritis consistent with osteoarthritis affecting a few joints including the second and third digit distal interphalangeal joints. The metacarpophalangeal joint spaces are normal. Bone density is normal. There is soft tissue swelling around some of the arthritic joints, greatest at the second digit PIP. There is a 0.7 cm ossicle adjacent to the first carpometacarpal joint, intervally increased. Left hand: No acute fracture or dislocation is present. There is severe arthritis at the second digit proximal interphalangeal joint, mild arthritis at the third and fourth PIP joints, and moderate arthritis at the fifth PIP joint characterized by joint space narrowing with subchondral sclerosis, osteophytes, and cysts/erosions at the second PIP. There is subluxation at the second digit PIP joint. There is moderate arthritis at the first carpometacarpal and metacarpophalangeal joints with joint space narrowing, sclerosis, and osteophytes, and there is mild involvement at the second digit distal interphalangeal joint. The other metacarpophalangeal joint spaces are normal. Bone density is normal. There is soft tissue swelling around the arthritic joints, greatest around the second digit PIP joint. Right foot: No fracture or dislocation is present. The joint spaces are normal. No erosions are seen. Bone density is normal. Mild soft tissue swelling is suggested in the toes. Left foot: No fracture or dislocation is present. The joint spaces are normal. No erosions are seen. Bone density is normal. The soft tissues are normal. A bone island in the fourth metatarsal head is unchanged. Procedure Note Joseph Partida MD - 07/11/2020 Exam: XR HAND RIGHT 3VW XR FOOT RIGHT 3VW XR FOOT LEFT 3VW XR HAND LEFT 3VW History: L40.50: Psoriatic arthritis Z51.81: Therapeutic drug monitoring Comparison: Right and left hand radiographs dated 08/28/2015 and08/21/2013. Right and left foot radiographs dated 08/21/2013. Findings: Right hand: No acute fracture or dislocation is present. There is moderate to severe arthritis at the second through fifth digit proximal interphalangeal joints with productive and erosive features including joint space narrowing, erosions, subchondral sclerosis, and osteophytes. The joint space narrowing is severe at the second, fourth, and fifth digitproximal interphalangeal joints where there is essentially aclz-[id number] contact. There is surrounding soft tissue swelling. There are several calcifications/ossicles adjacent to the second PIP joint measuring up to6 mm, intervally increased. One is seen adjacent to the third PIP joint,and a smaller one is seen adjacent to the fourth PIP joint. There is mild subluxation at the fourth PIP joint. Elsewhere, there is mild arthritis consistent with osteoarthritis affecting a few joints including thesecond and third digit distal interphalangeal joints. The metacarpophalangeal joint spaces are normal. Bone density is normal. There is soft tissue swelling around some of the arthritic joints, greatest at the seconddigit PIP. There is a 0.7 cm ossicle adjacent to the first carpometacarpal joint, intervally increased. Left hand: No acute fracture or dislocation is present. There is severe arthritisat the second digit proximal interphalangeal joint, mild arthritis at the third and fourth PIP joints, and moderate arthritis at the fifth PIPjoint characterized by joint space narrowing with subchondral sclerosis, osteophytes, and cysts/erosions at the second PIP. There is subluxationat the second digit PIP joint. There is moderate arthritis at the first carpometacarpal and metacarpophalangeal joints with joint spacenarrowing, sclerosis, and osteophytes, and there is mild involvement at the second digit distal interphalangeal joint. The other metacarpophalangeal joint spaces are normal. Bone density is normal. There is soft tissue swelling around the arthritic joints, greatest around the second digit PIP joint. Right foot: No fracture or dislocation is present. The joint spaces are normal. No erosions are seen. Bone density is normal. Mild soft tissue swelling is suggested in the toes. Left foot: No fracture or dislocation is present. The joint spaces are normal. No erosions are seen. Bone density is normal. The soft tissues arenormal. A bone island in the fourth metatarsal head is unchanged. IMPRESSION: 1. Right hand: Moderate to severe mixed productive-erosive arthritis at the second through fifth digit proximal interphalangeal joints,intervally progressed, consistent with the provided diagnosis of psoriaticarthritis. 2. Left hand: Severe mixed productive-erosive arthritis at the second digit proximal interphalangeal joint, progressed. Moderate arthritis at the first carpometacarpal and metacarpophalangeal joints, progressed.More mild involvement at additional interphalangeal joints, also progressed. 3. Right foot: No arthritis. Soft tissue swelling is suggested in the forefoot. 4. Left foot: No arthritis. This report was electronically signed by JOSEPH PARTIDA MD on07/11/2020 1:47 PM . Magi Girard MD DIAGNOSTIC IMAGING O RDERABLES * XR FOOT LEFT 3VW OR MORE (07/11/2020 12:39 PM BLIND LACER) Anatomical Region Laterality Modality Ankle / Foot Radiographic Letty ging 07/11/2020 1:27 PM BLIND LACER Impressions 07/11/2020 1:47 PM BLIND LACER IMPRESSION: 1. Right hand: Moderate to severe mixed productive-erosive arthritis at the second through fifth digit proximal interphalangeal joints, intervally progressed, consistent with the provided diagnosis of psoriatic arthritis. 2. Left hand: Severe mixed productive-erosive arthritis at the second digit proximal interphalangeal joint, progressed. Moderate arthritis at the first carpometacarpal and metacarpophalangeal joints, progressed. More mild involvement at additional interphalangeal joints, also progressed. 3. Right foot: No arthritis. Soft tissue swelling is suggested in the forefoot. 4. Left foot: No arthritis. This report was electronically signed by JOSEPH PARTIDA MD on 07/11/2020 1:47 PM . Narrative 07/11/2020 1:47 PM BLIND LACER Exam: XR HAND RIGHT 3VW XR FOOT RIGHT 3VW XR FOOT LEFT 3VW XR HAND LEFT 3VW History: L40.50: Psoriatic arthritis Z51.81: Therapeutic drug monitoring Comparison: Right and left hand radiographs dated 08/28/2015 and 08/21/2013. Right and left foot radiographs dated 08/21/2013. Findings: Right hand: No acute fracture or dislocation is present. There is moderate to severe arthritis at the second through fifth digit proximal interphalangeal joints with productive and erosive features including joint space narrowing, erosions, subchondral sclerosis, and osteophytes. The joint space narrowing is severe at the second, fourth, and fifth digit proximal interphalangeal joints where there is essentially mjnh-[id number]-[id number] contact. There is surrounding soft tissue swelling. There are several calcifications/ossicles adjacent to the second PIP joint measuring up to 6 mm, intervally increased. One is seen adjacent to the third PIP joint, and a smaller one is seen adjacent to the fourth PIP joint. There is mild subluxation at the fourth PIP joint. Elsewhere, there is mild arthritis consistent with osteoarthritis affecting a few joints including the second and third digit distal interphalangeal joints. The metacarpophalangeal joint spaces are normal. Bone density is normal. There is soft tissue swelling around some of the arthritic joints, greatest at the second digit PIP. There is a 0.7 cm ossicle adjacent to the first carpometacarpal joint, intervally increased. Left hand: No acute fracture or dislocation is present. There is severe arthritis at the second digit proximal interphalangeal joint, mild arthritis at the third and fourth PIP joints, and moderate arthritis at the fifth PIP joint characterized by joint space narrowing with subchondral sclerosis, osteophytes, and cysts/erosions at the second PIP. There is subluxation at the second digit PIP joint. There is moderate arthritis at the first carpometacarpal and metacarpophalangeal joints with joint space narrowing, sclerosis, and osteophytes, and there is mild involvement at the second digit distal interphalangeal joint. The other metacarpophalangeal joint spaces are normal. Bone density is normal. There is soft tissue swelling around the arthritic joints, greatest around the second digit PIP joint. Right foot: No fracture or dislocation is present. The joint spaces are normal. No erosions are seen. Bone density is normal. Mild soft tissue swelling is suggested in the toes. Left foot: No fracture or dislocation is present. The joint spaces are normal. No erosions are seen. Bone density is normal. The soft tissues are normal. A bone island in the fourth metatarsal head is unchanged. Procedure Note Joseph Partida MD - 07/11/2020 Exam: XR HAND RIGHT 3VW XR FOOT RIGHT 3VW XR FOOT LEFT 3VW XR HAND LEFT 3VW History: L40.50: Psoriatic arthritis Z51.81: Therapeutic drug monitoring Comparison: Right and left hand radiographs dated 08/28/2015 and08/21/2013. Right and left foot radiographs dated 08/21/2013. Findings: Right hand: No acute fracture or dislocation is present. There is moderate to severe arthritis at the second through fifth digit proximal interphalangeal joints with productive and erosive features including joint space narrowing, erosions, subchondral sclerosis, and osteophytes. The joint space narrowing is severe at the second, fourth, and fifth digitproximal interphalangeal joints where there is essentially [id number]-[id number] contact. There is surrounding soft tissue swelling. There are several calcifications/ossicles adjacent to the second PIP joint measuring up to6 mm, intervally increased. One is seen adjacent to the third PIP joint,and a smaller one is seen adjacent to the fourth PIP joint. There is mild subluxation at the fourth PIP joint. Elsewhere, there is mild arthritis consistent with osteoarthritis affecting a few joints including thesecond and third digit distal interphalangeal joints. The metacarpophalangeal joint spaces are normal. Bone density is normal. There is soft tissue swelling around some of the arthritic joints, greatest at the seconddigit PIP. There is a 0.7 cm ossicle adjacent to the first carpometacarpal joint, intervally increased. Left hand: No acute fracture or dislocation is present. There is severe arthritisat the second digit proximal interphalangeal joint, mild arthritis at the third and fourth PIP joints, and moderate arthritis at the fifth PIPjoint characterized by joint space narrowing with subchondral sclerosis, osteophytes, and cysts/erosions at the second PIP. There is subluxationat the second digit PIP joint. There is moderate arthritis at the first carpometacarpal and metacarpophalangeal joints with joint spacenarrowing, sclerosis, and osteophytes, and there is mild involvement at the second digit distal interphalangeal joint. The other metacarpophalangeal joint spaces are normal. Bone density is normal. There is soft tissue swelling around the arthritic joints, greatest around the second digit PIP joint. Right foot: No fracture or dislocation is present. The joint spaces are normal. No erosions are seen. Bone density is normal. Mild soft tissue swelling is suggested in the toes. Left foot: No fracture or dislocation is present. The joint spaces are normal. No erosions are seen. Bone density is normal. The soft tissues arenormal. A bone island in the fourth metatarsal head is unchanged. IMPRESSION: 1. Right hand: Moderate to severe mixed productive-erosive arthritis at the second through fifth digit proximal interphalangeal joints,intervally progressed, consistent with the provided diagnosis of psoriaticarthritis. 2. Left hand: Severe mixed productive-erosive arthritis at the second digit proximal interphalangeal joint, progressed. Moderate arthritis at the first carpometacarpal and metacarpophalangeal joints, progressed.More mild involvement at additional interphalangeal joints, also progressed. 3. Right foot: No arthritis. Soft tissue swelling is suggested in the forefoot. 4. Left foot: No arthritis. This report was electronically signed by JOSEPH PARTIDA MD on07/11/2020 1:47 PM . Magi Girard MD DIAGNOSTIC IMAGING O RDERABLES * XR HAND RIGHT 3VW OR MORE (07/11/2020 12:39 PM [facility]) Only the most recent of2 resultswithin the time period is included. Anatomical Region Laterality Modality Wrist / Hand Radiographic Letty ging 07/11/2020 1:27 PM [facility] Impressions 07/11/2020 1:47 PM [facility] IMPRESSION: 1. Right hand: Moderate to severe mixed productive-erosive arthritis at the second through fifth digit proximal interphalangeal joints, intervally progressed, consistent with the provided diagnosis of psoriatic arthritis. 2. Left hand: Severe mixed productive-erosive arthritis at the second digit proximal interphalangeal joint, progressed. Moderate arthritis at the first carpometacarpal and metacarpophalangeal joints, progressed. More mild involvement at additional interphalangeal joints, also progressed. 3. Right foot: No arthritis. Soft tissue swelling is suggested in the forefoot. 4. Left foot: No arthritis. This report was electronically signed by JOSEPH PARTIDA MD on 07/11/2020 1:47 PM . Narrative 07/11/2020 1:47 PM [facility] Exam: XR HAND RIGHT 3VW XR FOOT RIGHT 3VW XR FOOT LEFT 3VW XR HAND LEFT 3VW History: L40.50: Psoriatic arthritis Z51.81: Therapeutic drug monitoring Comparison: Right and left hand radiographs dated 08/28/2015 and 08/21/2013. Right and left foot radiographs dated 08/21/2013. Findings: Right hand: No acute fracture or dislocation is present. There is moderate to severe arthritis at the second through fifth digit proximal interphalangeal joints with productive and erosive features including joint space narrowing, erosions, subchondral sclerosis, and osteophytes. The joint space narrowing is severe at the second, fourth, and fifth digit proximal interphalangeal joints where there is essentially jkbc-[id number] contact. There is surrounding soft tissue swelling. There are several calcifications/ossicles adjacent to the second PIP joint measuring up to 6 mm, intervally increased. One is seen adjacent to the third PIP joint, and a smaller one is seen adjacent to the fourth PIP joint. There is mild subluxation at the fourth PIP joint. Elsewhere, there is mild arthritis consistent with osteoarthritis affecting a few joints including the second and third digit distal interphalangeal joints. The metacarpophalangeal joint spaces are normal. Bone density is normal. There is soft tissue swelling around some of the arthritic joints, greatest at the second digit PIP. There is a 0.7 cm ossicle adjacent to the first carpometacarpal joint, intervally increased. Left hand: No acute fracture or dislocation is present. There is severe arthritis at the second digit proximal interphalangeal joint, mild arthritis at the third and fourth PIP joints, and moderate arthritis at the fifth PIP joint characterized by joint space narrowing with subchondral sclerosis, osteophytes, and cysts/erosions at the second PIP. There is subluxation at the second digit PIP joint. There is moderate arthritis at the first carpometacarpal and metacarpophalangeal joints with joint space narrowing, sclerosis, and osteophytes, and there is mild involvement at the second digit distal interphalangeal joint. The other metacarpophalangeal joint spaces are normal. Bone density is normal. There is soft tissue swelling around the arthritic joints, greatest around the second digit PIP joint. Right foot: No fracture or dislocation is present. The joint spaces are normal. No erosions are seen. Bone density is normal. Mild soft tissue swelling is suggested in the toes. Left foot: No fracture or dislocation is present. The joint spaces are normal. No erosions are seen. Bone density is normal. The soft tissues are normal. A bone island in the fourth metatarsal head is unchanged. Procedure Note Joseph Partida MD - 07/11/2020 Exam: XR HAND RIGHT 3VW XR FOOT RIGHT 3VW XR FOOT LEFT 3VW XR HAND LEFT 3VW History: L40.50: Psoriatic arthritis Z51.81: Therapeutic drug monitoring Comparison: Right and left hand radiographs dated 08/28/2015 and08/21/2013. Right and left foot radiographs dated 08/21/2013. Findings: Right hand: No acute fracture or dislocation is present. There is moderate to severe arthritis at the second through fifth digit proximal interphalangeal joints with productive and erosive features including joint space narrowing, erosions, subchondral sclerosis, and osteophytes. The joint space narrowing is severe at the second, fourth, and fifth digitproximal interphalangeal joints where there is essentially [id number]-wf-[id number] contact. There is surrounding soft tissue swelling. There are several calcifications/ossicles adjacent to the second PIP joint measuring up to6 mm, intervally increased. One is seen adjacent to the third PIP joint,and a smaller one is seen adjacent to the fourth PIP joint. There is mild subluxation at the fourth PIP joint. Elsewhere, there is mild arthritis consistent with osteoarthritis affecting a few joints including thesecond and third digit distal interphalangeal joints. The metacarpophalangeal joint spaces are normal. Bone density is normal. There is soft tissue swelling around some of the arthritic joints, greatest at the seconddigit PIP. There is a 0.7 cm ossicle adjacent to the first carpometacarpal joint, intervally increased. Left hand: No acute fracture or dislocation is present. There is severe arthritisat the second digit proximal interphalangeal joint, mild arthritis at the third and fourth PIP joints, and moderate arthritis at the fifth PIPjoint characterized by joint space narrowing with subchondral sclerosis, osteophytes, and cysts/erosions at the second PIP. There is subluxationat the second digit PIP joint. There is moderate arthritis at the first carpometacarpal and metacarpophalangeal joints with joint spacenarrowing, sclerosis, and osteophytes, and there is mild involvement at the second digit distal interphalangeal joint. The other metacarpophalangeal joint spaces are normal. Bone density is normal. There is soft tissue swelling around the arthritic joints, greatest around the second digit PIP joint. Right foot: No fracture or dislocation is present. The joint spaces are normal. No erosions are seen. Bone density is normal. Mild soft tissue swelling is suggested in the toes. Left foot: No fracture or dislocation is present. The joint spaces are normal. No erosions are seen. Bone density is normal. The soft tissues arenormal. A bone island in the fourth metatarsal head is unchanged. IMPRESSION: 1. Right hand: Moderate to severe mixed productive-erosive arthritis at the second through fifth digit proximal interphalangeal joints,intervally progressed, consistent with the provided diagnosis of psoriaticarthritis. 2. Left hand: Severe mixed productive-erosive arthritis at the second digit proximal interphalangeal joint, progressed. Moderate arthritis at the first carpometacarpal and metacarpophalangeal joints, progressed.More mild involvement at additional interphalangeal joints, also progressed. 3. Right foot: No arthritis. Soft tissue swelling is suggested in the forefoot. 4. Left foot: No arthritis. This report was electronically signed by JOSEPH PARTIDA MD on07/11/2020 1:47 PM . Magi Girard MD DIAGNOSTIC IMAGING O RDERABLES * XR HAND LEFT 3VW OR MORE (07/11/2020 12:39 PM [facility]) Only the most recent of2 resultswithin the time period is included. Anatomical Region Laterality Modality Wrist / Hand Radiographic Letty ging 07/11/2020 1:27 PM [facility] Impressions 07/11/2020 1:47 PM [facility] IMPRESSION: 1. Right hand: Moderate to severe mixed productive-erosive arthritis at the second through fifth digit proximal interphalangeal joints, intervally progressed, consistent with the provided diagnosis of psoriatic arthritis. 2. Left hand: Severe mixed productive-erosive arthritis at the second digit proximal interphalangeal joint, progressed. Moderate arthritis at the first carpometacarpal and metacarpophalangeal joints, progressed. More mild involvement at additional interphalangeal joints, also progressed. 3. Right foot: No arthritis. Soft tissue swelling is suggested in the forefoot. 4. Left foot: No arthritis. This report was electronically signed by JOSEPH PARTIDA MD on 07/11/2020 1:47 PM . Narrative 07/11/2020 1:47 PM [facility] Exam: XR HAND RIGHT 3VW XR FOOT RIGHT 3VW XR FOOT LEFT 3VW XR HAND LEFT 3VW History: L40.50: Psoriatic arthritis Z51.81: Therapeutic drug monitoring Comparison: Right and left hand radiographs dated 08/28/2015 and 08/21/2013. Right and left foot radiographs dated 08/21/2013. Findings: Right hand: No acute fracture or dislocation is present. There is moderate to severe arthritis at the second through fifth digit proximal interphalangeal joints with productive and erosive features including joint space narrowing, erosions, subchondral sclerosis, and osteophytes. The joint space narrowing is severe at the second, fourth, and fifth digit proximal interphalangeal joints where there is essentially auks-ho-oqrd contact. There is surrounding soft tissue swelling. There are several calcifications/ossicles adjacent to the second PIP joint measuring up to 6 mm, intervally increased. One is seen adjacent to the third PIP joint, and a smaller one is seen adjacent to the fourth PIP joint. There is mild subluxation at the fourth PIP joint. Elsewhere, there is mild arthritis consistent with osteoarthritis affecting a few joints including the second and third digit distal interphalangeal joints. The metacarpophalangeal joint spaces are normal. Bone density is normal. There is soft tissue swelling around some of the arthritic joints, greatest at the second digit PIP. There is a 0.7 cm ossicle adjacent to the first carpometacarpal joint, intervally increased. Left hand: No acute fracture or dislocation is present. There is severe arthritis at the second digit proximal interphalangeal joint, mild arthritis at the third and fourth PIP joints, and moderate arthritis at the fifth PIP joint characterized by joint space narrowing with subchondral sclerosis, osteophytes, and cysts/erosions at the second PIP. There is subluxation at the second digit PIP joint. There is moderate arthritis at the first carpometacarpal and metacarpophalangeal joints with joint space narrowing, sclerosis, and osteophytes, and there is mild involvement at the second digit distal interphalangeal joint. The other metacarpophalangeal joint spaces are normal. Bone density is normal. There is soft tissue swelling around the arthritic joints, greatest around the second digit PIP joint. Right foot: No fracture or dislocation is present. The joint spaces are normal. No erosions are seen. Bone density is normal. Mild soft tissue swelling is suggested in the toes. Left foot: No fracture or dislocation is present. The joint spaces are normal. No erosions are seen. Bone density is normal. The soft tissues are normal. A bone island in the fourth metatarsal head is unchanged. Procedure Note Joseph Partida MD - 07/11/2020 Exam: XR HAND RIGHT 3VW XR FOOT RIGHT 3VW XR FOOT LEFT 3VW XR HAND LEFT 3VW History: L40.50: Psoriatic arthritis Z51.81: Therapeutic drug monitoring Comparison: Right and left hand radiographs dated 08/28/2015 and08/21/2013. Right and left foot radiographs dated 08/21/2013. Findings: Right hand: No acute fracture or dislocation is present. There is moderate to severe arthritis at the second through fifth digit proximal interphalangeal joints with productive and erosive features including joint space narrowing, erosions, subchondral sclerosis, and osteophytes. The joint space narrowing is severe at the second, fourth, and fifth digitproximal interphalangeal joints where there is essentially jupb-vo-xbdj contact. There is surrounding soft tissue swelling. There are several calcifications/ossicles adjacent to the second PIP joint measuring up to6 mm, intervally increased. One is seen adjacent to the third PIP joint,and a smaller one is seen adjacent to the fourth PIP joint. There is mild subluxation at the fourth PIP joint. Elsewhere, there is mild arthritis consistent with osteoarthritis affecting a few joints including thesecond and third digit distal interphalangeal joints. The metacarpophalangeal joint spaces are normal. Bone density is normal. There is soft tissue swelling around some of the arthritic joints, greatest at the seconddigit PIP. There is a 0.7 cm ossicle adjacent to the first carpometacarpal joint, intervally increased. Left hand: No acute fracture or dislocation is present. There is severe arthritisat the second digit proximal interphalangeal joint, mild arthritis at the third and fourth PIP joints, and moderate arthritis at the fifth PIPjoint characterized by joint space narrowing with subchondral sclerosis, osteophytes, and cysts/erosions at the second PIP. There is subluxationat the second digit PIP joint. There is moderate arthritis at the first carpometacarpal and metacarpophalangeal joints with joint spacenarrowing, sclerosis, and osteophytes, and there is mild involvement at the second digit distal interphalangeal joint. The other metacarpophalangeal joint spaces are normal. Bone density is normal. There is soft tissue swelling around the arthritic joints, greatest around the second digit PIP joint. Right foot: No fracture or dislocation is present. The joint spaces are normal. No erosions are seen. Bone density is normal. Mild soft tissue swelling is suggested in the toes. Left foot: No fracture or dislocation is present. The joint spaces are normal. No erosions are seen. Bone density is normal. The soft tissues arenormal. A bone island in the fourth metatarsal head is unchanged. IMPRESSION: 1. Right hand: Moderate to severe mixed productive-erosive arthritis at the second through fifth digit proximal interphalangeal joints,intervally progressed, consistent with the provided diagnosis of psoriaticarthritis. 2. Left hand: Severe mixed productive-erosive arthritis at the second digit proximal interphalangeal joint, progressed. Moderate arthritis at the first carpometacarpal and metacarpophalangeal joints, progressed.More mild involvement at additional interphalangeal joints, also progressed. 3. Right foot: No arthritis. Soft tissue swelling is suggested in the forefoot. 4. Left foot: No arthritis. This report was electronically signed by JOSEPH PARTIDA MD on07/11/2020 1:47 PM . Magi Girard MD DIAGNOSTIC IMAGING O RDERABLES * (ABNORMAL) URINALYSIS W/MICROSCOPIC NO CULTURE (07/11/2020 12:08 PM [facility]) Color UA Straw Straw, Yellow, Colorless 07/11/2020 12:44 PM [facility] Clarity UA Clear Clear, Slt Cloudy 07/11/2020 12:44 PM [facility] Specific Leupp UA 1.006 1.005 - 1.030 07/11/2020 12:44 PM [facility] pH UA 6.0 5.0 - 8.0 pH 07/11/2020 12:44 PM [facility] Protein UA Negative Negative mg/dL 07/11/2020 12:44 PM [facility] Glucose UA Negative Negative mg/dL 07/11/2020 12:44 PM [facility] Ketone UA Negative Negative mg/dL 07/11/2020 12:44 PM [facility] Bilirubin UA Negative Negative mg/dL 07/11/2020 12:44 PM [facility] Blood UA Negative Negative 07/11/2020 12:44 PM [facility] Nitrite UA Negative Negative 07/11/2020 12:44 PM [facility] Leukocyte Esterase Trace(A) Negative 07/11/2020 12:44 PM [facility] Urobilinogen UA Negative Negative mg/dL 07/11/2020 12:44 PM [facility] RBC UA 6-10(A) None Seen, 0-2, 3-5 /HPF 07/11/2020 12:44 PM [facility] WBC UA 0-5 None Seen, 0-5 /HPF 07/11/2020 12:44 PM [facility] Squamous Epithelial Cells UA 0-2 None Seen, 0-2 /HPF 07/11/2020 12:44 PM [facility] Mucus UA 1+ None, 1+ /LPF 07/11/2020 12:44 PM [facility] Urine URINE SPECIMEN OBTAINED BY CLEAN CATCH PROCEDURE / Unknown Collection / Unknown 07/11/2020 12:08 PM [facility] 07/11/2020 12:32 PM [facility] Narrative [facility] - 07/11/2020 12:44 PM [facility] Magi Girard MD LAB - URINALYSIS ORD ERABLES [address] [address], [facility] [phone] * QUANTIFERON-TB GOLD PLUS 4-TUBE (07/11/2020 12:02 PM [facility]) QuantiFERON NIL 0.05 IU/mL 0 7:47 PM [facility] [employer] ([facility]) Comment: Performed By: [employer] [address] [place] [id number] Vice President Client Services: Anastacia Mckay MD QuantiFERON TB Gold Plus Negative Negative 07/14/2020 7:47 PM [facility] [employer] ([facility]) Comment: Interpretive Data: Quantiferon TB Gold Plus Interferon gamma release is measured for specimens from each of the four collection tubes. A qualitative result (Negative, Positive, or Indeterminate) is based on interpretation of the four values, NIL, MITOGEN minus NIL (MITOGEN-NIL), TB1 minus NIL (TB1-NIL), and TB2 minus NIL (TB2-NIL). The NIL value represents nonspecific reactivity produced by the patient specimen. The MITOGEN-NIL value serves as the positive control for the patient specimen, demonstrating successful lymphocyte activity. The TB1-NIL tube specifically detects CD4+ lymphocyte reactivity, specifically stimulated by the TB1 antigens. The TB2-NIL tube detects both CD4+ and CD8+ lymphocyte reactivity, stimulated by TB2 antigens. An overall Negative result does not completely rule out TB infection. A false-positive result in the absence of other clinical evidence of TB infection is not uncommon. Refer to: Updated Guidelines for Using Interferon Gamma Release Assays to Detect Mycobacterium tuberculosis Infection --- [place], 2010 (http://www.cdc.gov/mmwr/preview/mmwrhtml/hs0179i2.htm), for more information concerning test performance in low-prevalence populations and use in occupational screening. QuantiFERON Plus TB1 Minus NIL 0.00 0.00 - 0.34 IU/mL 07/14/2020 7:47 PM [facility] ([facility]) QuantiFERON Plus TB2 Minus NIL 0.00 0.00 - 0.34 IU/mL 07/14/2020 7:47 PM [facility] ([facility]) QuantiFERON Mitogen Minus NIL >10.00 IU/mL 07/14/2020 7:47 PM [facility]) Blood BLOOD SPECIMEN / Unknown Lab Venipuncture / Unknown 07/11/2020 12:02 PM [facility] 07/11/2020 1:02 PM [facility] Magi Girard MD LAB - CHEMISTRY DEISI TALLEY [facility]) [address] * C-REACTIVE PROTEIN (07/11/2020 12:02 PM [facility]) Only the most recent of7 resultswithin the time period is included. Pathologist [facility] [place] C-Reactive Protein <0.5 <=0.5 mg/dL 07/11/2020 1:01 PM [facility] Blood BLOOD SPECIMEN / Unknown Lab Venipuncture / Unknown 07/11/2020 12:02 PM [facility] 07/11/2020 12:49 PM [facility] Magi Girard MD LAB - CHEMISTRY DEISI TALLEY [facility] [address] [place] [address], [facility] [phone] * ERYTHROCYTE SEDIMENTATION RATE (07/11/2020 12:02 PM [facility]) Only the most recent of6 resultswithin the time period is included. Pathologist [facility] [place] Erythrocyte Sedimentation Rate Westergren 5 0 - 30 MM/HR 07/11/2020 12:49 PM [facility] Blood BLOOD SPECIMEN / Unknown Lab Venipuncture / Unknown 07/11/2020 12:02 PM [facility] 07/11/2020 12:32 PM [facility] Magi Girard MD LAB - HEMATOLOGY ORD ERABLES [facility] [address] [place] [id number], [facility] [phone] * (ABNORMAL) CBC WITH DIFFERENTIAL (07/11/2020 12:02 PM [facility]) Only the most recent of13 resultswithin the time period is included. WBC 7.5 3.5 - 10.5 10 3/uL 07/11/2020 12:39 PM [facility] RBC 4.06 3.90 - 5.00 10 6/uL 07/11/2020 12:39 PM [facility] Hemoglobin 12.5 12.0 - 15.5 g/dL 07/11/2020 12:39 PM [facility] Hematocrit 39.9 35.0 - 45.0 % 07/11/2020 12:39 PM [facility] MCV 98.3(H) 81.0 - 97.0 fL 07/11/2020 12:39 PM [facility] MCH 30.8 28.0 - 34.0 pg 07/11/2020 12:39 PM [facility] MCHC 31.3(L) 32.0 - 36.0 g/dL 07/11/2020 12:39 PM [facility] Platelet Count 298 150 - 400 10 3/uL 07/11/2020 12:39 PM [facility] RDW-SD 51.1(H) 36.0 - 50.0 fL 07/11/2020 12:39 PM [facility] RDW-CV 14.3 11.2 - 14.8 % 07/11/2020 12:39 PM [facility] MPV 9.1(L) 9.3 - 12.8 fL 07/11/2020 12:39 PM [facility] nRBC Absolute 0.00 0 10 3/uL 07/11/2020 12:39 PM [facility] nRBC Auto 0.0 0 /100 WBC 07/11/2020 12:39 PM [facility] Neutrophils % 73.6(H) 35.0 - 70.0 % 07/11/2020 12:39 PM [facility] Lymphocytes % 18.3(L) 19.7 - 55.1 % 07/11/2020 12:39 PM [facility] Monocytes % 5.8 3.0 - 15.0 % 07/11/2020 12:39 PM [facility] Eosinophils % 0.5 0.0 - 6.0 % 07/11/2020 12:39 PM [facility] Basophil % 0.5 0.0 - 1.5 % 07/11/2020 12:39 PM [facility] Neutrophils Absolute 5.5 1.6 - 7.0 10 3/uL 07/11/2020 12:39 PM [facility] Lymphocyte Absolute 1.4 0.8 - 2.9 10 3/uL 07/11/2020 12:39 PM [facility] Monocytes Absolute 0.43 0.14 - 0.66 10 3/uL 07/11/2020 12:39 PM [facility] Eosinophils Absolute 0.04 0.00 - 0.45 10 3/uL 07/11/2020 12:39 PM [facility] Basophils Absolute 0.04 0.00 - 0.06 10 3/uL 07/11/2020 12:39 PM [facility] Immature Granulocytes % 1.3(H) 0.0 - 1.0 % 07/11/2020 12:39 PM [facility] Blood BLOOD SPECIMEN / Unknown Lab Venipuncture / Unknown 07/11/2020 12:02 PM [facility] 07/11/2020 12:32 PM [facility] Magi Girard MD LAB - HEMATOLOGY ORD ERABLES [address] [address], [facility] [phone] * (ABNORMAL) COMPREHENSIVE METABOLIC PANEL (07/11/2020 12:02 PM [facility]) Only the most recent of6 resultswithin the time period is included. BUN 19 7 - 26 mg/dL 07/11/2020 1:05 PM [facility] Creatinine 0.7 0.6 - 1.2 mg/dL 07/11/2020 1:05 PM [facility] Sodium 135(L) 136 - 145 mmol/L 07/11/2020 1:05 PM [facility] Potassium 3.6 3.5 - 4.5 mmol/L 07/11/2020 1:05 PM [facility] Chloride 101 98 - 107 mmol/L 07/11/2020 1:05 PM [facility] CO2 25 22 - 29 mmol/L 07/11/2020 1:05 PM [facility] Glucose 106 70 - 115 mg/dL 07/11/2020 1:05 PM [facility] Calcium 8.8 8.4 - 10.2 mg/dL 07/11/2020 1:05 PM [facility] Protein Total 6.6 6.0 - 8.3 g/dL 07/11/2020 1:05 PM [facility] Albumin 4.1 3.4 - 5.0 g/dL 07/11/2020 1:05 PM [facility] Bilirubin Total 0.4 0.2 - 1.2 mg/dL 07/11/2020 1:05 PM [facility] Alkaline Phosphatase 68 40 - 150 Units/L 07/11/2020 1:05 PM [facility] ALT 26 0 - 55 Units/L 07/11/2020 1:05 PM [facility] AST 25 5 - 34 Units/L 07/11/2020 1:05 PM [facility] Anion Gap 13 8 - 18 07/11/2020 1:05 PM [facility] BUN/Creatinine Ratio 27(H) 7 - 23 07/11/2020 1:05 PM [facility] Osmolality Calculated 283 270 - 300 mOsm/kg 07/11/2020 1:05 PM [facility] Albumin/Globulin Ratio 1.6 1.1 - 2.3 07/11/2020 1:05 PM [facility] eGFR >60 >60 mL/min/1.7 3 m2 07/11/2020 1:05 PM [facility] Blood BLOOD SPECIMEN / Unknown Lab Venipuncture / Unknown 07/11/2020 12:02 PM [facility] 07/11/2020 12:32 PM [facility] Magi Girard MD LAB - CHEMISTRY DEISI TALLEY Performing Organization Address [facility]/ZIP Co de Phone Number [address] [address], [facility] [phone] * GLUCOSE - POINT OF CARE (02/26/2020 9:20 PM CDT) Only the most recent of4 resultswithin the time period is included. Glucose WB/POC 88 70 - 115 mg/dL 02/26/2020 9:24 PM CDT [facility] Specimen Type Arterial/C apillary 02/26/2020 9:24 PM CDT [facility] Blood BLOOD SPECIMEN / Unknown 02/26/2020 9:20 PM CDT 02/26/2020 9:24 PM CDT Taras Kelley MD LAB - POINT OF CARE ORDERABLES Performing Organization Address [facility] Co de Phone Number [address] [phone], [facility] [phone] * XR CHEST 1VW PORTABLE (02/26/2020 7:37 AM CDT) Anatomical Region Laterality Modality Chest Radiographic Letty ging 02/26/2020 1:24 PM CDT Impressions 02/26/2020 2:47 PM CDT FINDINGS/IMPRESSION: Bilateral breast implants are noted. Minimal interstitial opacities are seen in the periphery of the right midlung field. Minimal bibasilar opacities may represent atelectasis and/or airspace disease, right greater than left. There is no pleural effusion or pneumothorax. The cardiomediastinal silhouette is normal. Scoliotic curvature of the spine is noted. Dictated by Shaggy Davies MD (chief radiology). I, Dr. REINA LAWTON M.D. have personally reviewed and interpreted this examination/study. This report was electronically signed by REINA LAWTNO M.D. on 02/26/2020 2:47 PM . Narrative 02/26/2020 2:47 PM CDT EXAMINATION: XR CHEST 1VW PORTABLE HISTORY: U07.1: COVID-19 COMPARISON: No prior study is available for comparison. Procedure Note Reina Lawton MD - 02/26/2020 EXAMINATION: XR CHEST 1VW PORTABLE HISTORY: U07.1: COVID-19 COMPARISON: No prior study is available for comparison. FINDINGS/IMPRESSION: Bilateral breast implants are noted. Minimal interstitial opacities are seen in the periphery of the right midlung field. Minimal bibasilar opacities may represent atelectasis and/or airspace disease, right greater than left. There is no pleural effusion or pneumothorax. The cardiomediastinal silhouette is normal. Scoliotic curvature of the spine is noted. Dictated by Shaggy Davies MD (chief radiology). I, Dr. REINA LAWTON M.D. have personally reviewed and interpreted this examination/study. This report was electronically signed by REINA LAWTON M.D. on 02/26/2020 2:47 PM . Stan Alberto MD DIAGNOSTIC IMAGING O RDERABLES * (ABNORMAL) SARS-COV-2 (COVID-19) IN HOUSE (02/25/2020 10:54 PM CDT) COVID-19 PCR Detected( AA) Not detected, Invalid 02/26/2020 2:08 PM CDT [facility] Microbiology SPECIMEN FROM NASOPHARYNGEAL STRUCTURE / Unknown Collection / Unknown 02/25/2020 10:54 PM CDT 02/26/2020 2:30 AM CDT Narrative [facility] - 02/26/2020 2:08 PM CDT This nucleic acid amplification assay performance was validated by [facility]. This test has been authorized by the Food and Drug administration (FDA)under an Emergency Use Authorization (EUA). This test has been validated in accordance with the FDA's guidance document Policy for Diagnostic Testing in Laboratories Certified to perform High Complexity Testing under CLIA prior to Emergency Use Authorization for Coronavirus Disease-2019 during the Public Health Emergency issued on October 07, 2019. FDA independent review of this validation is pending. This test is only authorized for the duration of time the declaration that circumstances exist justifying the authorization of emergency use of in vitro diagnostic tests for detection of SARS-CoV-2 virus and/or diagnosis of COVID-19 infection under section 564(b)(1) of the Act, 21 U.S.C 360bbb-3 (b)(1), unless the authorization is terminated or revoked sooner. Caron Miller DO LAB - MICROBIOLOGY O RDERABLES [facility] [address] [place] [address], [facility] [phone] * RESPIRATORY PATHOGEN PANEL BY PCR (02/25/2020 10:54 PM CDT) Adenovirus PCR Not detected Not detected, Invalid, Indeterminate 02/26/2020 7:53 AM CDT [facility] Coronavirus PCR Not detected Not detected, Invalid, Indeterminate 02/26/2020 7:53 AM CDT [facility] Human Metapneumovirus PCR Not detected Not detected, Invalid, Indeterminate 02/26/2020 7:53 AM CDT [facility] Human Rhinovirus/Entero virus PCR Not detected Not detected, Invalid, Indeterminate 02/26/2020 7:53 AM CDT [facility] Influenza A PCR Not detected Not detected, Equivocal, Invalid, Indeterminate 02/26/2020 7:53 AM CDT [facility] Influenza B PCR Not detected Not detected, Invalid, Indeterminate 02/26/2020 7:53 AM CDT [facility] Parainfluenza Virus 1 PCR Not detected Not detected, Invalid, Indeterminate 02/26/2020 7:53 AM CDT [facility] Parainfluenza Virus 2 PCR Not detected Not detected, Invalid, Indeterminate 02/26/2020 7:53 AM CDT [facility] Parainfluenza Virus 3 PCR Not detected Not detected, Invalid, Indeterminate 02/26/2020 7:53 AM CDT [facility] Parainfluenza Virus 4 PCR Not detected Not detected, Invalid, Indeterminate 02/26/2020 7:53 AM CDT [facility] Respiratory Syncytial Virus PCR Not detected Not detected, Invalid, Indeterminate 02/26/2020 7:53 AM CDT [facility] Bordetella pertussis PCR Not detected Not detected, Invalid 02/26/2020 7:53 AM CDT [facility] Chlamydia pneumoniae PCR Not detected Not detected, Invalid, Indeterminate 02/26/2020 7:53 AM CDT [facility] Mycoplasma pneumoniae PCR Not detected Not detected, Invalid, Indeterminate 02/26/2020 7:53 AM CDT [facility] Microbiology SPECIMEN FROM NASOPHARYNGEAL STRUCTURE / Unknown Collection / Unknown 02/25/2020 10:54 PM CDT 02/26/2020 2:30 AM CDT Narrative [facility] - 02/26/2020 7:53 AM CDT This test is able to detect the following human coronaviruses: HKU1, NL63, 229E, and OC43. It will NOT detect 2019 Novel Coronavirus (2019-nCoV). If 2019-nCoV is suspected contact Infection Prevention for isolation and testing guidance. Caron Miller DO LAB - MICROBIOLOGY O RDERABLES Performing Organization Address City/[facility]/ZIP Co de Phone Number [facility] [address] [place] [address], [facility] [phone] * PTT [facility] (02/25/2020 9:40 PM CDT) APTT 23.7 23.0 - 38.4 Seconds 02/25/2020 9:51 PM CDT [facility] Comment:Suggested therapeuti c range for full dose I.V. unfractionated heparin therapy for venous thromboembolism is 71 to 109 seconds. Blood BLOOD SPECIMEN / Unknown Lab Venipuncture / Unknown 02/25/2020 9:40 PM CDT 02/25/2020 9:40 PM CDT Stan Alberto MD LAB - COAGULATION OR DERABLES Performing Organization Address City/[facility]/ZIP Co de Phone Number [facility] [address] [place] [phone], [facility] [phone] * PT-INR [facility] (02/25/2020 9:40 PM CDT) PT 13.9 12.1 - 14.8 Seconds 02/25/2020 9:51 PM CDT [facility] INR 1.1 See Comment 02/25/2020 9:51 PM CDT [facility] Comment:The suggested therap eutic range for standard coumadin (warfarin) therapy is an INR of 2.0-3.0. For high-risk patients (Mechanical Mitral Valve Prosthesis, etc.), the suggested prophylactic therapeutic range is an INR of 2.5-3.5. Blood BLOOD SPECIMEN / Unknown Lab Venipuncture / Unknown 02/25/2020 9:40 PM CDT 02/25/2020 9:40 PM CDT Stan Alberto MD LAB - COAGULATION OR DERABLES [address] [address], [facility] [phone] * PROCALCITONIN LEVEL (02/25/2020 9:40 PM CDT) PROCALCITONIN <0.02 <=0.10 ng/mL 02/25/2020 10:23 PM CDT [facility] Blood BLOOD SPECIMEN / Unknown Lab Venipuncture / Unknown 02/25/2020 9:40 PM CDT 02/25/2020 9:40 PM CDT Narrative [facility] - 02/25/2020 10:23 PM CDT The change in procalcitonin (PCT) concentration over time provides support in decision making on antibiotic discontinuation for suspected or confirmed septic patients. Follow-up samples should be tested once every 1-2 days based upon physician discretion taking into account the patient s evolution and progress. Consider discontinuation of antibiotic therapy if the PCT current is <= 0.5 ng/mL or if the delta PCT is > 80%. Duration of antibiotics should not be determined solely on PCT; established guidelines for the indication should be followed. PCT peak: Highest observed PCT concentration PCT current: Most recent PCT concentration Calculate delta PCT using the following equation: Delta PCT = PCT Peak PCT current X 100% PCT Peak The Change in Procalcitonin Calculator is available at [email or web address] If clinical picture has not improved and PCT remains high, reevaluate and consider treatment failure or other causes. Stan Alberto MD LAB - CHEMISTRY ORDE RABLES [address] [address], [facility] [phone] * TROPONIN I (02/25/2020 9:40 PM CDT) [facility] Troponin I <0.010 <0.032 ng/mL 02/25/2020 10:04 PM CDT [facility] Blood BLOOD SPECIMEN / Unknown Lab Venipuncture / Unknown 02/25/2020 9:40 PM CDT 02/25/2020 9:40 PM CDT Stan Alberto MD LAB - CHEMISTRY DEISI TALLEY Performing Organization Address [facility]/ZIP Co de Phone Number [address] [phone], [facility] [phone] * D-DIMER (02/25/2020 9:40 PM CDT) [facility] D-Dimer Quantitative 0.38 <=0.50 mcg/mL FEU 02/25/2020 9:53 PM CDT [facility] Comment: In the absence of clinical symptoms, a value less than or equal to 0.5 mcg/mL FEU significantly decreases the probability of PE/DVT (negative predictive value >95%). 1 mcg/mL FEU = 1 Fibrinogen Equivalent Unit (approximates 0.5 mcg/ml of D- Dimer). ISTH DIAGNOSTIC SCORING SYSTEM FOR DIC Score 0 1 2 3 Platelet Count(x10^3/uL) > 100 < 100 < 50 N/A PT Prolongation above upper limit of normal 0-3 3-6 > 6 N/A range (seconds) Fibrinogen (mg/dL) > 100 < 100 N/A N/A D-Dimer (mcg/mL FEU) < 0.50 N/A 0.50-5.0 > 5 Calculate Cumulative Score: > or = 5 :compatible with overt DIC < 5 :suggestive for non-overt DIC N/A = Non applicable Reference: Br. J. Haematol. 145:24-33,2009. Blood BLOOD SPECIMEN / Unknown Lab Venipuncture / Unknown 02/25/2020 9:40 PM CDT 02/25/2020 9:40 PM CDT Stan Alberto MD LAB - COAGULATION OR DERABLES [address] [address], [facility] [phone] * (ABNORMAL) PHOSPHORUS BLOOD (02/25/2020 9:40 PM CDT) Only the most recent of4 resultswithin the time period is included. Phosphorus 5.0(H) 2.3 - 4.7 mg/dL 02/25/2020 10:03 PM CDT [facility] Blood BLOOD SPECIMEN / Unknown Lab Venipuncture / Unknown 02/25/2020 9:40 PM CDT 02/25/2020 9:40 PM CDT Stan Alberto MD LAB - CHEMISTRY DEISI TALLEY [address] [address], [facility] [phone] * MAGNESIUM BLOOD (02/25/2020 9:40 PM CDT) Only the most recent of4 resultswithin the time period is included. [facility] Magnesium 2.1 1.6 - 2.6 mg/dL 02/25/2020 10:03 PM CDT [facility] Blood BLOOD SPECIMEN / Unknown Lab Venipuncture / Unknown 02/25/2020 9:40 PM CDT 02/25/2020 9:40 PM CDT Stan Alberto MD LAB - CHEMISTRY DEISI TALLEY Performing Organization Address [facility]/ZIP Co de Phone Number [address] [address], [facility] [phone] * LDH BLOOD (02/25/2020 9:40 PM CDT) Only the most recent of2 resultswithin the time period is included. [facility] LDH Total 170 125 - 243 Units/L 02/25/2020 10:03 PM CDT [facility] Blood BLOOD SPECIMEN / Unknown Lab Venipuncture / Unknown 02/25/2020 9:40 PM CDT 02/25/2020 9:40 PM CDT Stan Alberto MD LAB - CHEMISTRY DEISI TALLEY [address] [address], [facility] [phone] * LACTIC ACID BLOOD (02/25/2020 9:40 PM CDT) Only the most recent of2 resultswithin the time period is included. [facility] Lactic Acid-Stat 1.3 0.5 - 2.2 mmol/L 02/25/2020 9:57 PM CDT [facility] Blood BLOOD SPECIMEN / Unknown Lab Venipuncture / Unknown 02/25/2020 9:40 PM CDT 02/25/2020 9:40 PM CDT Stan Alberto MD LAB - CHEMISTRY DEISI TALLEY [address] [address], [facility] [phone] * (ABNORMAL) CK BLOOD (02/25/2020 9:40 PM CDT) Only the most recent of3 resultswithin the time period is included. [facility] CK Total 25(L) 30 - 200 Units/L 02/25/2020 10:03 PM CDT [facility] Blood BLOOD SPECIMEN / Unknown Lab Venipuncture / Unknown 02/25/2020 9:40 PM CDT 02/25/2020 9:40 PM CDT Stan Alberto MD LAB - CHEMISTRY DEISI TALLEY Performing Organization Address [facility]/ZIP Co de Phone Number [address] [address], [facility] [phone] * FERRITIN (02/25/2020 9:40 PM CDT) [facility] Ferritin 112 13 - 204 ng/mL 02/25/2020 10:19 PM CDT [facility] Blood BLOOD SPECIMEN / Unknown Lab Venipuncture / Unknown 02/25/2020 9:40 PM CDT 02/25/2020 9:40 PM CDT Stan Alberto MD LAB - CHEMISTRY DEISI TALLEY [address] [address], [facility] [phone] * XR KNEE LEFT 3VW (08/07/2016 8:40 AM BLIND LACER) Anatomical Region Laterality Modality Lower Extremity Other Impressions 08/07/2016 10:47 AM BLIND LACER Impression: 1. No evidence of right knee osteoarthritis on this nonweightbearing examination. 2. 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 Continued follow-up is recommended. 3. Minimal left knee osteoarthritis on this nonweightbearing examination. This report has been dictated by Sandra Meyer M.D. (Resident). I, Dr. LUIS RODRIGUEZ M.D. have personally reviewed and interpreted this examination/study. This report was electronically signed by LUIS RODRIGUEZ M.D. on 08/07/2016 10:47 AM . Narrative 08/07/2016 10:47 AM BLIND LACER Exam: 1. Right knee, 4 views 2. Left knee, 4 views Date: 08/07/2016 History: 46-year-old female with knee osteoarthritis. Comparison: No prior studies are available for comparison. Findings: Right knee: There is no acute fracture or dislocation. The joint spaces are preserved on this nonweightbearing examination. There is no focal soft tissue swelling or knee joint effusion. A 3.2 x 2.2 x 1.9 cm sclerotic lesion in the distal femoral diaphysis and a slightly less well-defined 1.4 x 0.8 x 0.9 cm lesion in the fibular neck demonstrate chondroid matrix. There is no cortical destruction, periosteal reaction, or soft tissue mass associated with the lesions. Left knee: There is no acute fracture or dislocation. The medial joint space is narrowed on this nonweightbearing examination with minimal associated osteophyte formation. Tiny osteophytes are visible in the patellofemoral compartment on the lateral view radiograph. There is no focal soft tissue swelling . There is a small knee joint effusion. Procedure Note Luis Rodriguez MD - 11/05/2017 Exam: 1. Right knee, 4 views 2. Left knee, 4 views Date: 08/07/2016 History: 46-year-old female with knee osteoarthritis. Comparison: No prior studies are available for comparison. Findings: Right knee: There is no acute fracture or dislocation. The joint spaces are preservedon this nonweightbearing examination. There is no focal soft tissueswelling or knee joint effusion. A 3.2 x 2.2 x 1.9 cm sclerotic lesion in the distal femoral diaphysis finesse slightly less well-defined 1.4 x 0.8 x 0.9 cm lesion in the fibular neckdemonstrate chondroid matrix. There is no cortical destruction, periostealreaction, or soft tissue mass associated with the lesions. Left knee: There is no acute fracture or dislocation. The medial joint space isnarrowed on this nonweightbearing examination with minimal associatedosteophyte formation. Tiny osteophytes are visible in the patellofemoralcompartment on the lateral view radiograph. There is no focal soft tissue swelling . There is a smallknee joint effusion. IMPRESSION Impression: 1. No evidence of right knee osteoarthritis on this nonweightbearingexamination. 2. 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 Continued follow-up is recommended. 3. Minimal left knee osteoarthritis on this nonweightbearingexamination. This report has been dictated by Sandra Meyer M.D. (Resident). I, Dr. LUIS RODRIGUEZ M.D. have personally reviewed and interpreted thisexamination/study. This report was electronically signed by LUIS RODRIGUEZ M.D. on08/07/2016 10:47 AM . Chris Serrano MD DIAGNOSTIC IMAGING O RDERABLES * XR KNEE RIGHT 3VW (08/07/2016 8:39 AM BLIND LACER) Anatomical Region Laterality Modality Lower Extremity Other Impressions 08/07/2016 10:47 AM BLIND LACER Impression: 1. No evidence of right knee osteoarthritis on this nonweightbearing examination. 2. 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 Continued follow-up is recommended. 3. Minimal left knee osteoarthritis on this nonweightbearing examination. This report has been dictated by Sandra Meyer M.D. (Resident). I, Dr. LUIS RODRIGUEZ M.D. have personally reviewed and interpreted this examination/study. This report was electronically signed by LUIS RODRIGUEZ M.D. on 08/07/2016 10:47 AM . Narrative 08/07/2016 10:47 AM BLIND LACER Exam: 1. Right knee, 4 views 2. Left knee, 4 views Date: 08/07/2016 History: 46-year-old female with knee osteoarthritis. Comparison: No prior studies are available for comparison. Findings: Right knee: There is no acute fracture or dislocation. The joint spaces are preserved on this nonweightbearing examination. There is no focal soft tissue swelling or knee joint effusion. A 3.2 x 2.2 x 1.9 cm sclerotic lesion in the distal femoral diaphysis and a slightly less well-defined 1.4 x 0.8 x 0.9 cm lesion in the fibular neck demonstrate chondroid matrix. There is no cortical destruction, periosteal reaction, or soft tissue mass associated with the lesions. Left knee: There is no acute fracture or dislocation. The medial joint space is narrowed on this nonweightbearing examination with minimal associated osteophyte formation. Tiny osteophytes are visible in the patellofemoral compartment on the lateral view radiograph. There is no focal soft tissue swelling . There is a small knee joint effusion. Procedure Note Lusi Rodriguez MD - 11/05/2017 Exam: 1. Right knee, 4 views 2. Left knee, 4 views Date: 08/07/2016 History: 46-year-old female with knee osteoarthritis. Comparison: No prior studies are available for comparison. Findings: Right knee: There is no acute fracture or dislocation. The joint spaces are preservedon this nonweightbearing examination. There is no focal soft tissueswelling or knee joint effusion. A 3.2 x 2.2 x 1.9 cm sclerotic lesion in the distal femoral diaphysis finesse slightly less well-defined 1.4 x 0.8 x 0.9 cm lesion in the fibular neckdemonstrate chondroid matrix. There is no cortical destruction, periostealreaction, or soft tissue mass associated with the lesions. Left knee: There is no acute fracture or dislocation. The medial joint space isnarrowed on this nonweightbearing examination with minimal associatedosteophyte formation. Tiny osteophytes are visible in the patellofemoralcompartment on the lateral view radiograph. There is no focal soft tissue swelling . There is a smallknee joint effusion. IMPRESSION Impression: 1. No evidence of right knee osteoarthritis on this nonweightbearingexamination. 2. 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 Continued follow-up is recommended. 3. Minimal left knee osteoarthritis on this nonweightbearingexamination. This report has been dictated by Sandra Meyer M.D. (Resident). I, Dr. LUIS RODRIGUEZ M.D. have personally reviewed and interpreted thisexamination/study. This report was electronically signed by LUIS RODRIGUEZ M.D. on08/07/2016 10:47 AM . Chris Serrano MD DIAGNOSTIC IMAGING O RDERABLES * URINALYSIS MICROSCOPIC ONLY REFLEXED (09/23/2015 3:30 PM BLIND LACER) Only the most recent of2 resultswithin the time period is included. WBC, UA 0-5 0 - 5 /hpf [facility] (BEAKER) RBC UA None seen 0 - 2 /hpf [facility] (BEAKER) Epithelial Cells (non renal) 0-10 0 - 10 /hpf [facility] (BEAKER) Mucus UA Present Not Estab. [facility] (BEAKER) Bacteria UA None seen None seen/Few [facility] (BEAKER) 09/23/2015 3:30 PM BLIND LACER 09/23/2015 5:52 PM BLIND LACER Narrative [facility] (BEAKER) - 09/24/2015 7:13 AM BLIND LACER Performed at: [address] [place] [id number] Casing Mixer: Gonzalez Jones PhD, Phone: [phone] Specimen Comment: A courtesy copy of this report has been sent to Specimen Comment: [facility]. Jonathan Flores MD LAB - URINALYSIS ORD ERABLES Performing Organization Address [facility]/ZIP Co de Phone Number [facility] (BEAKER) * URINALYSIS W/MICROSCOPIC REFLEX TO CULTURE (09/23/2015 3:30 PM BLIND LACER) Only the most recent of2 resultswithin the time period is included. Specific Leupp 1.014 1.005 - 1.030 [facility] (BEAKER) pH Urine 6.0 5.0 - 7.5 [facility] ([facility]) Color UA Yellow Yellow [facility] (BE[facility]) Appearance Clear Clear [facility] (BEAKER) Leukocyte Esterase Negative Negative [facility] (BEAKER) Protein UA Negative Negative/Tra ce [facility] (BEAKER) Glucose UA Negative Negative [facility] (BEAKER) Ketone UA Negative Negative [facility] (BEAKER) Occult Blood Negative Negative [facility] (BEAKER) Bilirubin Negative Negative [facility] (BEAKER) Urobilinogen Semi-Qn 0.2 0.2 - 1.0 mg/dL [facility] (BEAKER) Nitrite UA Negative Negative [facility] (BEAKER) Microscopic Examination [facility] (BEAKER) Comment:Microscopic follows if indicated. Microscopic Examination See below: [facility] (BEAKER) Comment:Microscopic was yamilet cated and was performed. Urinalysis Reflex [facility] (BEAKER) Comment:This specimen will n ot reflex to a Urine Culture. Urine specimen (specimen) 09/23/2015 3:30 PM BLIND LACER 09/23/2015 5:52 PM BLIND LACER Narrative [facility] (BEAKER) - 09/24/2015 7:13 AM BLIND LACER Specimen Type->Urine Performed at: - [facility] [address] [id number] Casing Mixer: Gonzalez Jones PhD, Phone: [phone] Specimen Comment: A courtesy copy of this report has been sent to Specimen Comment: [facility]. Jonathan Flores MD LAB - URINALYSIS ORD ERABLES [facility] ([place]) * LAB HISTORICAL RESULTS-ONBASE (09/23/2015) 09/23/2015 Narrative [facility] - 09/24/2015 8:47 AM BLIND LACER Historical Provider LAB - CHEMISTRY O RDERABLES Performing Organization Address [facility]/ZIP Co de Phone Number [facility] [address] * (ABNORMAL) DIFFERENTIAL MANUAL (08/30/2015 5:45 AM BLIND LACER) Only the most recent of2 resultswithin the time period is included. WBC (corrected for NRBC) 9.3 10 3/uL [facility] Total Cell Count 100 [facility] Neutrophils Absolute Manual 4.84 1.60 - 7.00 10 3/uL [facility] Comment:(BANDS+SEGS) x WBC = NEUT # (ANC) Lymphocyte Absolute Manual 3.16(H) 0.80 - 2.90 10 3/uL [facility] Monocytes Absolute Manual 0.56 0.14 - 0.66 10 3/uL [facility] Eosinophils Absolute Manual 0.19 0.00 - 0.22 10 3/uL [facility] Basophil Absolute Manual 0.09(H) 0.00 - 0.06 10 3/uL [facility] Band % Manual 12(H) 0 - 10 % [facility] Neutrophil % Manual 40 30 - 60 % [facility] Lymphocyte % Manual 34 20 - 45 % [facility] Monocytes % Manual 6 2 - 10 % [facility] Eosinophils % Manual 2 1 - 6 % [facility] Basophils % Manual 1 0 - 3 % [facility] Atypical Lymphocyte % Manual 2(H) 0 % [facility] Metamyelocyte % Manual 1(H) 0 % [facility] Myelocytes % Manual 2(H) 0 % [facility] Platelet Estimate Adequate Adequate [facility] RBC Morphology Normal [facility] Blood specimen (specimen) BLOOD SPECIMEN / Unknown 08/30/2015 5:45 AM BLIND LACER 08/30/2015 6:39 AM BLIND LACER Rosibel Fall MD LAB - HEMATOLOGY ORD ERABLES Performing Organization Address City/[facility]/ZIP Co de Phone Number [facility] [address] [place] [address] * BASIC METABOLIC PANEL (CALCIUM TOTAL) (08/30/2015 5:45 AM BLIND LACER) Only the most recent of3 resultswithin the time period is included. BUN 7 7 - 26 mg/dL [facility] Creatinine 0.6 0.6 - 1.2 mg/dL [facility] Sodium 141 136 - 145 mmol/L [facility] Potassium 3.5 3.5 - 4.5 mmol/L [facility] Chloride 105 98 - 107 mmol/L [facility] CO2 27 22 - 29 mmol/L [facility] Glucose 86 70 - 115 mg/dL [facility] Calcium 9.4 8.4 - 10.2 mg/dL [facility] Anion Gap 13 8 - 18 [facility] BUN/Creatinine Ratio 12 7 - 23 [facility] Osmolality Calculated 275 270 - 300 mOsm/kg [facility] eGFR >60 >60 mL/min/1.7 3 m2 [facility] Blood specimen (specimen) BLOOD SPECIMEN / Unknown 08/30/2015 5:45 AM BLIND LACER 08/30/2015 6:17 AM BLIND LACER Rosibel Fall MD LAB - CHEMISTRY DEISI TALLEY Performing Organization Address [facility]/ZIP Co de Phone Number [address] [phone] * XR ELBOW LEFT 3VW OR MORE (08/28/2015 3:01 PM BLIND LACER) Anatomical Region Laterality Modality Upper Extremity Other Impressions 08/29/2015 5:09 PM BLIND LACER IMPRESSION: No bony destruction or acute fracture. Dictated by Faraz Harris MD (chief radiology). This report was approved by Faraz Harris on 08/29/2015 3:49 PM . I, Dr. KRISH NIÑO M.D. have personally reviewed and interpreted this examination/study. This report was electronically signed by KRISH NIÑO M.D. on 08/29/2015 5:09 PM . Narrative 08/29/2015 5:09 PM BLIND LACER EXAMINATION: XR ELBOW LEFT 3+ VW, XR HAND LEFT 3+ VW, XR HAND RIGHT 3+ VW HISTORY: infection COMPARISON: Comparison is made with left and right hand radiographs dated 08/21/2013. FINDINGS: Left elbow: The osseous structures are intact and well aligned without acute fracture or dislocation. The joint spaces are preserved. No joint effusion is seen. Bone density and texture are normal. No soft tissue swelling is present. Left hand: A ring superimposes the proximal fourth digit. The osseous structures are intact and well aligned without acute fracture or dislocation. The joint spaces are preserved. Bone density and texture are normal. There is focal soft tissue swelling at the second through fifth proximal interphalangeal joints, unchanged. Right hand: The osseous structures are intact and well aligned without acute fracture or dislocation. The fourth and fifth proximal interphalangeal joints demonstrate joint space narrowing and mild periarticular irregularity reflecting mild osseous productive change, perhaps with superimposed chronic erosive change. Bone density and texture are normal. Mild focal soft tissue swelling is seen at the second through fifth proximal interphalangeal joints, unchanged. Procedure Note Reina Lawton MD - 11/06/2017 EXAMINATION: XR ELBOW LEFT 3+ VW, XR HAND LEFT 3+ VW, XR HAND RIGHT 3+VW HISTORY: infection COMPARISON: Comparison is made with left and right hand radiographs date08/21/2013. FINDINGS: Left elbow: The osseous structures are intact and well aligned without acute fractureor dislocation. The joint spaces are preserved. No joint effusion is seen.Bone density and texture are normal. No soft tissue swelling is present. Left hand: A ring superimposes the proximal fourth digit. The osseous structures areintact and well aligned without acute fracture or dislocation. The jointspaces are preserved. Bone density and texture are normal. There is focalsoft tissue swelling at the second through fifth proximal interphalangeal joints, unchanged. Right hand: The osseous structures are intact and well aligned without acute fractureor dislocation. The fourth and fifth proximal interphalangeal jointsdemonstrate joint space narrowing and mild periarticular irregularityreflecting mild osseous productive change, perhaps with superimposed chronic erosive change. Bone density andtexture are normal. Mild focal soft tissue swelling is seen at the secondthrough fifth proximal interphalangeal joints, unchanged. IMPRESSION IMPRESSION: No bony destruction or acute fracture. Dictated by Faraz Harris MD (chief radiology). This report was approved by Faraz Harris on 08/29/2015 3:49 PM . I, Dr. KRISH NIÑO M.D. have personally reviewed and interpreted thisexamination/study. This report was electronically signed by KRISH NIÑO M.D. on08/29/2015 5:09 PM . Rosibel Fall MD DIAGNOSTIC IMAGING [place] * (ABNORMAL) VANCOMYCIN LEVEL TROUGH (08/28/2015 12:16 PM BLIND LACER) Pathologist [facility] Vancomycin Trough 5.5(L) 10.0 - 20.0 mcg/mL [facility] Blood specimen (specimen) BLOOD SPECIMEN / Unknown 08/28/2015 12:16 PM BLIND LACER 08/28/2015 2:00 PM BLIND LACER Narrative [facility] - 08/28/2015 2:24 PM BLIND LACER Please draw 30 min-1hour before fourth vancomycin dose Rosibel Fall MD LAB - CHEMISTRY DEISI TALLEY Performing Organization Address City/[facility]/ZIP Co de Phone Number [address] [phone] * CULTURE BLOOD (08/27/2015 9:34 AM BLIND LACER) Only the most recent of2 resultswithin the time period is included. Pathologist [facility] Culture Blood No Growth at 5 days [facility] Blood specimen (specimen) 08/27/2015 9:34 AM BLIND LACER 08/27/2015 10:04 AM BLIND LACER Narrative [facility] - 09/01/2015 10:15 AM BLIND LACER Draw 15 minutes after Culture 1 from a different site Fran Solano MD LAB - [place] [address], [facility] [phone] * (ABNORMAL) BLOOD GASES TIFFANI (08/26/2015 11:41 PM BLIND LACER) pH Mixed Venous 7.44(H) 7.30 - 7.40 [facility] pCO2 Mixed Venous 39(L) 40 - 46 mmHg [facility] pO2 Mixed Venous 60(H) 35 - 42 mmHg [facility] HCO3 Mixed Venous 26.3(H) 22.0 - 26.0 mmol/L [facility] TCO2 Mixed Venous 27.5 25.0 - 29.0 mmol/L [facility] Base Excess Venous 2.1(H) -2.0 - 2.0 mmol/L [facility] Hemoglobin Mixed Venous 15.5 12.0 - 15.5 g/dL [facility] Oxyhemoglobin Mixed Venous 91.0(H) 66.0 - 77.0 % [facility] Carboxyhemoglobin Venous 0.9 0.0 - 3.0 % [facility] Methemoglobin 0.1 0.0 - 2.0 % [facility] FI O2 Mixed Venous 21.0 % S [facility] Blood specimen (specimen) BLOOD SPECIMEN / Unknown 08/26/2015 11:41 PM BLIND LACER 08/26/2015 11:45 PM BLIND LACER Narrative [facility] - 08/26/2015 11:49 PM BLIND LACER FI02->21 Fran Solano MD LAB - BLOOD GASES OR DERABLES Performing Organization Address City/State/[facility] Co de Phone Number [address] [phone] * ANCA SCREEN W/ REFLX MPO+PR3+TITER (05/30/2015 8:33 AM CDT) Myeloperoxidase Antibody <9.0 0.0 - 9.0 U/mL [facility] (BEAKER) Proteinase 3 <3.5 0.0 - 3.5 U/mL [facility] (BEAKER) C-ANCA Titer <1:20 Neg:<1:20 titer [facility] (BEAKER) p-ANCA <1:20 Neg:<1:20 titer [facility] (BEAKER) Comment: The presence of positive fluorescence exhibiting P-ANCA or C-ANCA patterns alone is not specific for the diagnosis of Mahamed's Granulomatosis (WG) or microscopic polyangiitis. Decisions about treatment should not be based solely on ANCA IFA results. The International ANCA Group Consensus recommends follow up testing of positive sera with both OK-3 and MPO-ANCA enzyme immunoassays. As many as 5% serum samples are positive only by EIA. Ref. AM J Clin Pathol 1999;111:507-513. Atypical p-ANCA <1:20 Neg:<1:20 titer [facility] Comment: The atypical pANCA pattern has been observed in a significant percentage of patients with ulcerative colitis, primary sclerosing cholangitis and autoimmune hepatitis. 05/30/2015 8:33 AM CDT 05/30/2015 12:02 PM CDT Narrative [facility] ([facility] - 06/03/2015 3:18 PM CDT Performed at: [address] [id number] Casing Mixer: Zackery Johnson MD, Phone: [phone] Performed at: [address] [id number] Casing Mixer: Gonzalez Jones PhD, Phone: [phone] Specimen Comment: A courtesy copy of this report has been sent to Specimen Comment: [phone]. Jonathan Flores MD LAB - CHEMISTRY DEISI TALLEY [facility]) * JOSEPH COMPREHENSIVE PLUS PROFILE (05/30/2015 8:33 AM CDT) dsDNA Antibody 1 0 - 9 IU/mL [facility] Comment: Negative <5 Equivocal 5 - 9 Positive >9 GEOTHERMAL OPERATIONS ENGINEER Antibody <0.2 0.0 - 0.9 AI [facility] Prajapati Antibody <0.2 0.0 - 0.9 AI [facility] ([facility] Prajapati/GEOTHERMAL OPERATIONS ENGINEER Antibodies <0.2 0.0 - 0.9 AI [facility] ([facility] Antiscleroderma-70 Antibody <0.2 0.0 - 0.9 AI [facility] ([facility] Sjogren's Antibodies (SSA) <0.2 0.0 - 0.9 AI H [facility] (BEAKER) Sjogren's Antibodies (SSB) <0.2 0.0 - 0.9 AI [facility] (BEAKER) Antichromatin Antibody IgG <0.2 0.0 - 0.9 AI [facility] (BEAKER) Anti-Ribosomal P Antibody <0.2 0.0 - 0.9 AI [facility] (BEAKER) Anti-Nadege-1 <0.2 0.0 - 0.9 AI [facility] (BEAKER) Anti-Centromere B Antibody <0.2 0.0 - 0.9 AI [facility] (BEAKER) See below [facility] (BEAKER) Comment: Autoantibody Disease Association Condition Frequency Antinuclear Antibody, SLE, mixed connective Direct (JOSEPH-D) tissue diseases dsDNA SLE 40 - 60% Chromatin Drug induced SLE 90% SLE 48 - 97% SSA (Ro) SLE 25 - 35% Sjogren's Syndrome 40 - 70% Lupus 100% SSB (La) SLE 10% Sjogren's Syndrome 30% Sm (anti-Prajapati) SLE 15 - 30% GEOTHERMAL OPERATIONS ENGINEER Mixed Connective Tissue Disease 95% (U1 nRNP, SLE 30 - 50% anti-ribonucleoprotein) Polymyositis and/or Dermatomyositis 20% Scl-70 (antiDNA Scleroderma (diffuse) 20 - 35% topoisomerase) Crest 13% Nadege-1 Polymyositis and/or Dermatomyositis 20 - 40% Centromere B Scleroderma - Crest variant 80% Ribosomal P SLE 10 - 20% 05/30/2015 8:33 AM CDT 05/30/2015 12:02 PM CDT Narrative [facility] ([facility] - 06/03/2015 3:18 PM CDT Performed at: [address] [place] [id number] Casing Mixer: Gonzalez Jones PhD, Phone: [phone] Specimen Comment: A courtesy copy of this report has been sent to Specimen Comment: [phone]. Jonathan Flores MD LAB - CHEMISTRY DEISI TALLEY Performing Organization Address [facility] de Phone Number [facility] ([facility] * ALDOLASE (05/30/2015 8:33 AM CDT) Only the most recent of2 resultswithin the time period is included. Pathologist [facility] Aldolase 4.7 3.3 - 10.3 U/L [facility]) Blood specimen (specimen) BLOOD SPECIMEN / Unknown 05/30/2015 8:33 AM CDT 05/30/2015 12:02 PM CDT Narrative [facility] ([facility] - 06/03/2015 3:18 PM CDT Performed at: [address] [place] [id number] Casing Mixer: Gonzalez Jones PhD, Phone: [phone] Specimen Comment: A courtesy copy of this report has been sent to Specimen Comment: [phone]. Jonathan Flores MD LAB - CHEMISTRY DEISI TALLEY Performing Organization Address [facility] de Phone Number [facility] ([facility] * QUANTIFERON TB-GOLD (05/30/2015 8:33 AM CDT) Only the most recent of2 resultswithin the time period is included. Pathologist [facility] QuantiFERON TB Gold Negative Negative [facility] ([facility] QuantiFERON Positive Criteria [facility] ([facility] Comment: To be considered positive a specimen should have a TB Ag minus Nil value greater than or equal to 0.35 IU/mL and in addition the TB Ag minus Nil value must be greater than or equal to 25% of the Nil value. There may be insufficient information in these values to differentiate between some negative and some indeterminate test values. QuantiFERON TB Antigen 0.05 IU/mL [facility] (BEAKER) QuantiFERON Nil Value 0.01 IU/mL [facility] ([facility]) QuantiFERON Mitogen Value >10.00 IU/mL [facility] (BEAKER) QuantiFERON TB Antigen minus Nil value 0.04 IU/mL [facility] (BEAKER) Interpretations [facility] (BE[facility]ER) Comment: The QuantiFERON TB Gold (in Tube) assay is intended for use as an aid in the diagnosis of TB infection. Negative results suggest that there is no TB infection. In patients with high suspicion of exposure, a negative test should be repeated. A positive test indicates infection with Mycobacterium tuberculosis. Among individuals without tuberculosis infection, a positive test may be due to exposure to M. kansasii, M. szulgai or M. marinum. On the Internet, go to cdc.gov/tb for further details. 05/30/2015 8:33 AM CDT 05/30/2015 12:02 PM CDT Narrative [facility] - 06/03/2015 3:18 PM CDT Performed at: [address] [place] [id number] Casing Mixer: Gonzalez Jones PhD, Phone: [phone] Specimen Comment: A courtesy copy of this report has been sent to Specimen Comment: [phone]. Jonathan Flores MD LAB - CHEMISTRY DEISI TALLEY [facility]) * XR FOOT RIGHT 2VW (08/21/2013 4:51 PM BLIND LACER) Anatomical Region Laterality Modality Ankle / Foot Other Impressions 08/22/2013 12:28 PM BLIND LACER IMPRESSION: 1. Joint space narrowing with focal soft tissue swelling at the right hand fourth and fifth PIP joints, and mild associated periarticular bony irregularity. 2. Focal soft tissue swelling at second through fifth PIP joints of the left hand. 3. No abnormalities of the bilateral feet or sacroiliac joints. Report dictated by Antoni Carrillo MD (resident). This report was approved by Antoni Carrillo M.D. on 08/22/2013 11:40 AM . I, Dr. JOSEPH PARTIDA MD have personally reviewed and interpreted this examination/study. This report was electronically signed by JOSEPH PARTIDA MD on 08/22/2013 12:28 PM . Narrative 08/22/2013 12:28 PM BLIND LACER EXAM: 1. LEFT HAND 3 VIEWS 2. RIGHT HAND 3 VIEWS 3. LEFT FOOT 2 VIEWS 4. RIGHT FOOT 2 VIEWS 5. SACROILIAC JOINTS 3 VIEWS HISTORY: Swelling and pain COMPARISON: None available FINDINGS: 5 examinations are submitted for interpretation. Left hand: The osseous structures are intact and well aligned. There is no cortical disruption. The joint spaces are normal. The second through fifth proximal interphalangeal joints demonstrate focal soft tissue swelling. Right hand: The osseous structures are intact and well aligned. There is no cortical disruption. The fourth and fifth proximal interphalangeal joints demonstrate joint space narrowing and mild periarticular irregularity reflecting mild osseous productive changes perhaps with superimposed chronic erosive change. Left foot: The osseous structures are intact and well aligned. There is no cortical disruption, erosion, joint space narrowing, or focal soft tissue swelling. Right foot: The osseous structures are intact and well aligned. There is no cortical disruption, erosion, joint space narrowing, or focal soft tissue swelling. Sacroiliac joints: The osseous structures are intact and well aligned. There is no fusion or widening of the sacroiliac joints. Minimal sclerotic changes are seen at the sacroiliac joints bilaterally. Procedure Note Joseph Partida MD - 11/06/2017 EXAM: 1. LEFT HAND 3 VIEWS 2. RIGHT HAND 3 VIEWS 3. LEFT FOOT 2 VIEWS 4. RIGHT FOOT 2 VIEWS 5. SACROILIAC JOINTS 3 VIEWS HISTORY: Swelling and pain COMPARISON: None available FINDINGS: 5 examinations are submitted for interpretation. Left hand: The osseous structures are intact and well aligned. There is nocortical disruption. The joint spaces are normal. The second through fifthproximal interphalangeal joints demonstrate focal soft tissue swelling. Right hand: The osseous structures are intact and well aligned. There isno cortical disruption. The fourth and fifth proximal interphalangealjoints demonstrate joint space narrowing and mild periarticularirregularity reflecting mild osseous productive changes perhaps with superimposed chronic erosive change. Left foot: The osseous structures are intact and well aligned. There is nocortical disruption, erosion, joint space narrowing, or focal soft tissueswelling. Right foot: The osseous structures are intact and well aligned. There isno cortical disruption, erosion, joint space narrowing, or focal softtissue swelling. Sacroiliac joints: The osseous structures are intact and well aligned.There is no fusion or widening of the sacroiliac joints. Minimal scleroticchanges are seen at the sacroiliac joints bilaterally. IMPRESSION IMPRESSION: 1. Joint space narrowing with focal soft tissue swelling at the right handfourth and fifth PIP joints, and mild associated periarticular bonyirregularity. 2. Focal soft tissue swelling at second through fifth PIP joints of theleft hand. 3. No abnormalities of the bilateral feet or sacroiliac joints. Report dictated by Antoni Carrillo MD (resident). This report was approved by Antoni Carrillo M.D. on 08/22/2013 11:[address] JOSEPH Holland MD have personally reviewed and interpreted thisexamination/study. This report was electronically signed by JOSEPH PARTIDA MD on 08/22/201312:28 PM . Jonathan Flores MD DIAGNOSTIC IMAGING O RDERABLES * XR FOOT LEFT 2VW (08/21/2013 4:51 PM BLIND LACER) Anatomical Region Laterality Modality Ankle / Foot Other Impressions 08/22/2013 12:28 PM BLIND LACER IMPRESSION: 1. Joint space narrowing with focal soft tissue swelling at the right hand fourth and fifth PIP joints, and mild associated periarticular bony irregularity. 2. Focal soft tissue swelling at second through fifth PIP joints of the left hand. 3. No abnormalities of the bilateral feet or sacroiliac joints. Report dictated by Antoni Carrillo MD (resident). This report was approved by Antoni Carrillo M.D. on 08/22/2013 11:[address] JOSEPH Holland MD have personally reviewed and interpreted this examination/study. This report was electronically signed by JOSEPH PARTIDA MD on 08/22/2013 12:28 PM . Narrative 08/22/2013 12:28 PM BLIND LACER EXAM: 1. LEFT HAND 3 VIEWS 2. RIGHT HAND 3 VIEWS 3. LEFT FOOT 2 VIEWS 4. RIGHT FOOT 2 VIEWS 5. SACROILIAC JOINTS 3 VIEWS HISTORY: Swelling and pain COMPARISON: None available FINDINGS: 5 examinations are submitted for interpretation. Left hand: The osseous structures are intact and well aligned. There is no cortical disruption. The joint spaces are normal. The second through fifth proximal interphalangeal joints demonstrate focal soft tissue swelling. Right hand: The osseous structures are intact and well aligned. There is no cortical disruption. The fourth and fifth proximal interphalangeal joints demonstrate joint space narrowing and mild periarticular irregularity reflecting mild osseous productive changes perhaps with superimposed chronic erosive change. Left foot: The osseous structures are intact and well aligned. There is no cortical disruption, erosion, joint space narrowing, or focal soft tissue swelling. Right foot: The osseous structures are intact and well aligned. There is no cortical disruption, erosion, joint space narrowing, or focal soft tissue swelling. Sacroiliac joints: The osseous structures are intact and well aligned. There is no fusion or widening of the sacroiliac joints. Minimal sclerotic changes are seen at the sacroiliac joints bilaterally. Procedure Note Joseph Partida MD - 11/06/2017 EXAM: 1. LEFT HAND 3 VIEWS 2. RIGHT HAND 3 VIEWS 3. LEFT FOOT 2 VIEWS 4. RIGHT FOOT 2 VIEWS 5. SACROILIAC JOINTS 3 VIEWS HISTORY: Swelling and pain COMPARISON: None available FINDINGS: 5 examinations are submitted for interpretation. Left hand: The osseous structures are intact and well aligned. There is nocortical disruption. The joint spaces are normal. The second through fifthproximal interphalangeal joints demonstrate focal soft tissue swelling. Right hand: The osseous structures are intact and well aligned. There isno cortical disruption. The fourth and fifth proximal interphalangealjoints demonstrate joint space narrowing and mild periarticularirregularity reflecting mild osseous productive changes perhaps with superimposed chronic erosive change. Left foot: The osseous structures are intact and well aligned. There is nocortical disruption, erosion, joint space narrowing, or focal soft tissueswelling. Right foot: The osseous structures are intact and well aligned. There isno cortical disruption, erosion, joint space narrowing, or focal softtissue swelling. Sacroiliac joints: The osseous structures are intact and well aligned.There is no fusion or widening of the sacroiliac joints. Minimal scleroticchanges are seen at the sacroiliac joints bilaterally. IMPRESSION IMPRESSION: 1. Joint space narrowing with focal soft tissue swelling at the right handfourth and fifth PIP joints, and mild associated periarticular bonyirregularity. 2. Focal soft tissue swelling at second through fifth PIP joints of theleft hand. 3. No abnormalities of the bilateral feet or sacroiliac joints. Report dictated by Antoni Carrillo MD (resident). This report was approved by Antoni Carrillo M.D. on 08/22/2013 11:[address] JOSEPH Holland MD have personally reviewed and interpreted thisexamination/study. This report was electronically signed by JOSEPH PARTIDA MD on 08/22/201312:28 PM . Jonathan Flores MD DIAGNOSTIC IMAGING O RDERABLES * XR HAND RIGHT 2VW (08/21/2013 4:51 PM BLIND LACER) Anatomical Region Laterality Modality Wrist / Hand Other Impressions 08/22/2013 12:28 PM BLIND LACER IMPRESSION: 1. Joint space narrowing with focal soft tissue swelling at the right hand fourth and fifth PIP joints, and mild associated periarticular bony irregularity. 2. Focal soft tissue swelling at second through fifth PIP joints of the left hand. 3. No abnormalities of the bilateral feet or sacroiliac joints. Report dictated by Antoni Carrillo MD (resident). This report was approved by Antoni Carrillo M.D. on 08/22/2013 11:[address] JOSEPH Holland MD have personally reviewed and interpreted this examination/study. This report was electronically signed by JOSEPH PARTIDA MD on 08/22/2013 12:28 PM . Narrative 08/22/2013 12:28 PM BLIND LACER EXAM: 1. LEFT HAND 3 VIEWS 2. RIGHT HAND 3 VIEWS 3. LEFT FOOT 2 VIEWS 4. RIGHT FOOT 2 VIEWS 5. SACROILIAC JOINTS 3 VIEWS HISTORY: Swelling and pain COMPARISON: None available FINDINGS: 5 examinations are submitted for interpretation. Left hand: The osseous structures are intact and well aligned. There is no cortical disruption. The joint spaces are normal. The second through fifth proximal interphalangeal joints demonstrate focal soft tissue swelling. Right hand: The osseous structures are intact and well aligned. There is no cortical disruption. The fourth and fifth proximal interphalangeal joints demonstrate joint space narrowing and mild periarticular irregularity reflecting mild osseous productive changes perhaps with superimposed chronic erosive change. Left foot: The osseous structures are intact and well aligned. There is no cortical disruption, erosion, joint space narrowing, or focal soft tissue swelling. Right foot: The osseous structures are intact and well aligned. There is no cortical disruption, erosion, joint space narrowing, or focal soft tissue swelling. Sacroiliac joints: The osseous structures are intact and well aligned. There is no fusion or widening of the sacroiliac joints. Minimal sclerotic changes are seen at the sacroiliac joints bilaterally. Procedure Note Joseph Partida MD - 11/06/2017 EXAM: 1. LEFT HAND 3 VIEWS 2. RIGHT HAND 3 VIEWS 3. LEFT FOOT 2 VIEWS 4. RIGHT FOOT 2 VIEWS 5. SACROILIAC JOINTS 3 VIEWS HISTORY: Swelling and pain COMPARISON: None available FINDINGS: 5 examinations are submitted for interpretation. Left hand: The osseous structures are intact and well aligned. There is nocortical disruption. The joint spaces are normal. The second through fifthproximal interphalangeal joints demonstrate focal soft tissue swelling. Right hand: The osseous structures are intact and well aligned. There isno cortical disruption. The fourth and fifth proximal interphalangealjoints demonstrate joint space narrowing and mild periarticularirregularity reflecting mild osseous productive changes perhaps with superimposed chronic erosive change. Left foot: The osseous structures are intact and well aligned. There is nocortical disruption, erosion, joint space narrowing, or focal soft tissueswelling. Right foot: The osseous structures are intact and well aligned. There isno cortical disruption, erosion, joint space narrowing, or focal softtissue swelling. Sacroiliac joints: The osseous structures are intact and well aligned.There is no fusion or widening of the sacroiliac joints. Minimal scleroticchanges are seen at the sacroiliac joints bilaterally. IMPRESSION IMPRESSION: 1. Joint space narrowing with focal soft tissue swelling at the right handfourth and fifth PIP joints, and mild associated periarticular bonyirregularity. 2. Focal soft tissue swelling at second through fifth PIP joints of theleft hand. 3. No abnormalities of the bilateral feet or sacroiliac joints. Report dictated by Antoni Carrillo MD (resident). This report was approved by Antoni Carrillo M.D. on 08/22/2013 11:[address] JOSEPH Holland MD have personally reviewed and interpreted thisexamination/study. This report was electronically signed by JOSEPH PARTIDA MD on 08/22/201312:28 PM . Jonathan Flores MD DIAGNOSTIC IMAGING O RDERABLES * XR HAND LEFT 2VW (08/21/2013 4:51 PM BLIND LACER) Anatomical Region Laterality Modality Wrist / Hand Other Impressions 08/22/2013 12:28 PM BLIND LACER IMPRESSION: 1. Joint space narrowing with focal soft tissue swelling at the right hand fourth and fifth PIP joints, and mild associated periarticular bony irregularity. 2. Focal soft tissue swelling at second through fifth PIP joints of the left hand. 3. No abnormalities of the bilateral feet or sacroiliac joints. Report dictated by Antoni Carrillo MD (resident). This report was approved by Antoni Carrillo M.D. on 08/22/2013 11:[address] JOSEPH Holland MD have personally reviewed and interpreted this examination/study. This report was electronically signed by JOSEPH PARTIDA MD on 08/22/2013 12:28 PM . Narrative 08/22/2013 12:28 PM BLIND LACER EXAM: 1. LEFT HAND 3 VIEWS 2. RIGHT HAND 3 VIEWS 3. LEFT FOOT 2 VIEWS 4. RIGHT FOOT 2 VIEWS 5. SACROILIAC JOINTS 3 VIEWS HISTORY: Swelling and pain COMPARISON: None available FINDINGS: 5 examinations are submitted for interpretation. Left hand: The osseous structures are intact and well aligned. There is no cortical disruption. The joint spaces are normal. The second through fifth proximal interphalangeal joints demonstrate focal soft tissue swelling. Right hand: The osseous structures are intact and well aligned. There is no cortical disruption. The fourth and fifth proximal interphalangeal joints demonstrate joint space narrowing and mild periarticular irregularity reflecting mild osseous productive changes perhaps with superimposed chronic erosive change. Left foot: The osseous structures are intact and well aligned. There is no cortical disruption, erosion, joint space narrowing, or focal soft tissue swelling. Right foot: The osseous structures are intact and well aligned. There is no cortical disruption, erosion, joint space narrowing, or focal soft tissue swelling. Sacroiliac joints: The osseous structures are intact and well aligned. There is no fusion or widening of the sacroiliac joints. Minimal sclerotic changes are seen at the sacroiliac joints bilaterally. Procedure Note Joseph Partida MD - 11/06/2017 EXAM: 1. LEFT HAND 3 VIEWS 2. RIGHT HAND 3 VIEWS 3. LEFT FOOT 2 VIEWS 4. RIGHT FOOT 2 VIEWS 5. SACROILIAC JOINTS 3 VIEWS HISTORY: Swelling and pain COMPARISON: None available FINDINGS: 5 examinations are submitted for interpretation. Left hand: The osseous structures are intact and well aligned. There is nocortical disruption. The joint spaces are normal. The second through fifthproximal interphalangeal joints demonstrate focal soft tissue swelling. Right hand: The osseous structures are intact and well aligned. There isno cortical disruption. The fourth and fifth proximal interphalangealjoints demonstrate joint space narrowing and mild periarticularirregularity reflecting mild osseous productive changes perhaps with superimposed chronic erosive change. Left foot: The osseous structures are intact and well aligned. There is nocortical disruption, erosion, joint space narrowing, or focal soft tissueswelling. Right foot: The osseous structures are intact and well aligned. There isno cortical disruption, erosion, joint space narrowing, or focal softtissue swelling. Sacroiliac joints: The osseous structures are intact and well aligned.There is no fusion or widening of the sacroiliac joints. Minimal scleroticchanges are seen at the sacroiliac joints bilaterally. IMPRESSION IMPRESSION: 1. Joint space narrowing with focal soft tissue swelling at the right handfourth and fifth PIP joints, and mild associated periarticular bonyirregularity. 2. Focal soft tissue swelling at second through fifth PIP joints of theleft hand. 3. No abnormalities of the bilateral feet or sacroiliac joints. Report dictated by Antoni Carrillo MD (resident). This report was approved by Antoni Carrillo M.D. on 08/22/2013 11:[address] JOSEPH Holland MD have personally reviewed and interpreted thisexamination/study. This report was electronically signed by JOSEPH PARTIDA MD on 08/22/201312:28 PM . Jonathan Flores MD DIAGNOSTIC IMAGING O RDERABLES * XR SI JOINTS 2VW OR LESS (08/21/2013 4:51 PM BLIND LACER) Anatomical Region Laterality Modality Pelvis, Lower Extremity Other Impressions 08/22/2013 12:28 PM BLIND LACER IMPRESSION: 1. Joint space narrowing with focal soft tissue swelling at the right hand fourth and fifth PIP joints, and mild associated periarticular bony irregularity. 2. Focal soft tissue swelling at second through fifth PIP joints of the left hand. 3. No abnormalities of the bilateral feet or sacroiliac joints. Report dictated by Antoni Carrillo MD (resident). This report was approved by Antoni Carrillo M.D. on 08/22/2013 11:[address] JOSEPH Holland MD have personally reviewed and interpreted this examination/study. This report was electronically signed by JOSEPH PARTIDA MD on 08/22/2013 12:28 PM . Narrative 08/22/2013 12:28 PM BLIND LACER EXAM: 1. LEFT HAND 3 VIEWS 2. RIGHT HAND 3 VIEWS 3. LEFT FOOT 2 VIEWS 4. RIGHT FOOT 2 VIEWS 5. SACROILIAC JOINTS 3 VIEWS HISTORY: Swelling and pain COMPARISON: None available FINDINGS: 5 examinations are submitted for interpretation. Left hand: The osseous structures are intact and well aligned. There is no cortical disruption. The joint spaces are normal. The second through fifth proximal interphalangeal joints demonstrate focal soft tissue swelling. Right hand: The osseous structures are intact and well aligned. There is no cortical disruption. The fourth and fifth proximal interphalangeal joints demonstrate joint space narrowing and mild periarticular irregularity reflecting mild osseous productive changes perhaps with superimposed chronic erosive change. Left foot: The osseous structures are intact and well aligned. There is no cortical disruption, erosion, joint space narrowing, or focal soft tissue swelling. Right foot: The osseous structures are intact and well aligned. There is no cortical disruption, erosion, joint space narrowing, or focal soft tissue swelling. Sacroiliac joints: The osseous structures are intact and well aligned. There is no fusion or widening of the sacroiliac joints. Minimal sclerotic changes are seen at the sacroiliac joints bilaterally. Procedure Note Joseph Partida MD - 11/06/2017 EXAM: 1. LEFT HAND 3 VIEWS 2. RIGHT HAND 3 VIEWS 3. LEFT FOOT 2 VIEWS 4. RIGHT FOOT 2 VIEWS 5. SACROILIAC JOINTS 3 VIEWS HISTORY: Swelling and pain COMPARISON: None available FINDINGS: 5 examinations are submitted for interpretation. Left hand: The osseous structures are intact and well aligned. There is nocortical disruption. The joint spaces are normal. The second through fifthproximal interphalangeal joints demonstrate focal soft tissue swelling. Right hand: The osseous structures are intact and well aligned. There isno cortical disruption. The fourth and fifth proximal interphalangealjoints demonstrate joint space narrowing and mild periarticularirregularity reflecting mild osseous productive changes perhaps with superimposed chronic erosive change. Left foot: The osseous structures are intact and well aligned. There is nocortical disruption, erosion, joint space narrowing, or focal soft tissueswelling. Right foot: The osseous structures are intact and well aligned. There isno cortical disruption, erosion, joint space narrowing, or focal softtissue swelling. Sacroiliac joints: The osseous structures are intact and well aligned.There is no fusion or widening of the sacroiliac joints. Minimal scleroticchanges are seen at the sacroiliac joints bilaterally. IMPRESSION IMPRESSION: 1. Joint space narrowing with focal soft tissue swelling at the right handfourth and fifth PIP joints, and mild associated periarticular bonyirregularity. 2. Focal soft tissue swelling at second through fifth PIP joints of theleft hand. 3. No abnormalities of the bilateral feet or sacroiliac joints. Report dictated by Antoni Carrillo MD (resident). This report was approved by Antoni Carrillo M.D. on 08/22/2013 11:40 AM . I, Dr. JOSEPH PARTIDA MD have personally reviewed and interpreted thisexamination/study. This report was electronically signed by JOSEPH PARTIDA MD on 08/22/201312:28 PM . Jonathan Flores MD DIAGNOSTIC IMAGING O RDERABLES * ECHO W DOPPLER AND COLOR FLOW (05/26/2013 12:00 AM CDT) Anatomical Region Laterality Modality Other 05/26/2013 Jonathan Flores MD ECHOCARDIOGRAPHY RAD IANT * RHEUMATOID ARTHRITIS PANEL (05/04/2013 1:15 PM CDT) RA latex Turbidimetry 10.7 0.0 - 13.9 IU/mL [facility] ([facility] Cyclic Citrullinated Peptide Antibody 1 0 - 19 units [facility] ([facility] Comment: Negative <20 Weak positive 20 - 39 Moderate positive 40 - 59 Strong positive >59 05/04/2013 1:15 PM CDT 05/04/2013 6:07 PM CDT Narrative [facility] ([facility]) - 05/06/2013 7:29 AM CDT Performed at: 01 - [address] [id number] Casing Mixer: Chase James PhD, Phone: [phone] Performed at: 02 - [address] [id number] Casing Mixer: Zackery Johnson MD, Phone: [phone] Jonathan Flores MD LAB - SEROLOGY ORDER [facility] ([facility] * GROSS + MICRO EXAM (07/14/2007 2:17 PM BLIND LACER) Result CASE NUMBER [id number] Comment: ORDERING PHYSICIAN ALEJANDRA TALAMANTES SPECIMEN TYPE Esophageal Biopsy-distal Date 07/14/2007 Physician Mariana Talamantes Gross Description The specimen is received in Formalin labeled with the patient's name, Mariah Carson, and distal esophagus. It consists of four irregular fragments of white and solorzano soft tissue measuring 0.2 x 0.2 x 0.2 cm in aggregate. The specimen is submitted in total in a single cassette. MK mendoza Microscopic Exam Sections of the distal esophagus reveal fragments of gastroesophageal junction with basal cell hyperplasia, and infiltration of lymphocytes into the surface epithelium. No H.Pyloric like micro-organisms are present. There is no evidence of intestinal metaplasia, dysplasia or malignancy. MM/bk Diagnosis I. Distal esophagus, biopsy -- Chronic esophagitis -- No evidence of Samaniego's esophagus MM/bk Cut Off Saw Tender Metal bk Pathologist Lucie Hansen M.D. [place]. 07/15/2007 1411 <1> CPT code 34357 MISCELLANEOUS SAMPLES / Unknown 07/14/2007 2:17 PM BLIND LACER 07/14/2007 2:17 PM BLIND LACER Historical Provider LAB - PATHOLOGY/C YTOLOGY ORDERABLES Care Teams Substation Mechanic Relationship Specialty Start Date End Date Alok Newell MD PCP - General Family Medicine 10/29/15
--- OUTSIDE RECORDS SUMMARY | 2024-09-21 19:00 | XMS_ITS | Clinical Summary ---
Author Organization [facility] Address [address] [place] [address] Dr. 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
--- OUTSIDE RECORDS SUMMARY | 2024-09-21 19:00 | XMS_ITS | Referral Summary ---
Author Organization [facility] Address [address] [place] [address] Care Team Providers Care Floor Scrubber Name Role Phone Alok Newell MD Primary Care Provider [phone] Source Comments [facility],non-owned Affiliates and Associated Physician Practices is amultiple site organization consisting of ambulatory clinics and hospital sitesin [place], [place], [place] and [place]. This disclosure is being madepursuant to the Care Everywhere program and may not contain all information available regarding this patient. Last updated 18.[facility] Allergies Active Allergy Reactions Criticality Noted Date [...] Active vitamin D, ergocalciferol, (DRISDOL) 1.25 MG (12159 UT) capsule Take 50,000 Units by mouth [...] Mass Index 25.02 11/25/2020 2:28 PM CDT Functional Status Functional Status Response Date of Assess ment Is person deaf or have serious hearing difficult y? No 02/25/2020 Is person blind or have serious difficulty seein g? Yes-night 02/25/2020 Does person have serious dif ficulty walking/climbing stairs? Yes 02/25/2020 Does person have difficulty dressing/bathing? Ye s 02/25/2020 Does person have difficulty doing errands alone? Yes 02/25/2020 Cognitive Status Response Date of Assessm ent Does person have difficulty concentrating/remembering/making decisions? Yes 02/25/2020 Plan of Treatment Not on file Advance Directives * Full Code (Latest Code Status on File) Date Activated Date Inactivated Comments 02/25/2020 9:10 PM 02/27/2020 6:12 AM Care Teams Floor Scrubber Relationship Specialty Start Date End Date Alok Newell MD PCP - General Family Medicine 10/29/15
--- OUTSIDE RECORDS SUMMARY | 2024-09-21 19:00 | XMS_ITS | Encounter Summary ---
Author Organization [facility] Address [address] [place] [address] Care Team Providers Care Insole Channeler Name Role Phone Unavailable Primary Care Provider Unavailabl e Encounter Details Date Type Department Care Team (Late st Contact Info) Description 10/30/[address] 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
--- OUTSIDE RECORDS SUMMARY | 2024-09-21 19:01 | XMS_ITS ---
Author Organization [facility] Address [address] [place] [address] [address] Care Team Providers Care Urban Forester Name Role Phone Osirsi APARICIO, Alok Primary Care Provider Paras Diaz Unavailable [phone] REASON FOR VISIT Strattera Medications Medication SIG (Take, Route, Fr equency, Duration) Notes Start Date End Date Status Atomoxetine HCl 80 MG 1 capsule in the morning Orally Once a day for 90 days stop Atomoxetine 40 mg daily 09/18/2024 12/17/2024 Act candy Social History Sex Assigned At : Social History Observation Description Sex Assigned At Female Encounters Encounter Location Date Provider Diagnosis [facility] [employer] [address] [address] 09/14/2024 Paras Guevara Plan Of Treatment Medication Medication Name Sig Start Date Stop Date Notes Atomoxetine HCl 80 MG 1 capsule in the m orning Orally Once a day for 90 days 09/18/2024 12/17/2024 Next Appt Details Provider Name:Paras Guevara , 01/15/2025 03:30:00 PM, [address] [place] [address], [facility] [address], [place], [address], Progress Notes * ALEXYS RODRIGUEZDO B:1970 (54 yo F)Acc No.[id number]:09/14/2024 Patient: Melida MORALES ALEXYS SMITH :1970 A ge:54 Y S ex:Female [address] [place] [place], [address] * Refills Start Atomoxetine HCl Capsule, 80 MG, Orally, 90 Capsule, 1 capsule in the morning, Once a day, 90 days, Refills=0 * true * Date: Generated for Kavitha pantoja/Denny/Praveenitting on: 0 09/21/2024 07:00 PM SPEECH AND HEARING DIRECTOR
--- OUTSIDE RECORDS SUMMARY | 2024-09-21 19:01 | XMS_ITS | Clinical Summary ---
Author Organization [facility] al Address [address] [place] [address] Care Team Providers Care Dishwashing Machine Operator Name Role Phone Alok Newell MD Primary Care Provider [phone] Allergies Active Allergy Reactions Criticality Noted Date Comments Abatacept Hives Medium 07/28/2022 Aspirin Unknown,Rash Medium 03/24/2017 unknown Azithromycin Rash Medium 02/26/2020 ER Celecoxib Rash Medium 07/28/2022 Clarithromycin Rash,Other (See comments) Medium 03/24/2017 Rash Codeine Rash Medium 03/24/2017 Dabigatran Etexilate Mesylate Rash,Hives High 04/28/2023 Doxycycline Anaphylaxis High 02/26/2020 Apixaban Hives,Rash Medium 04/23/2023 Ergotamine Tartrate Rash Medium 05/31/2018 Furosemide Rash Medium 07/28/2022 Hydrocodone Rash Medium 03/21/2013 Hydroxyzine Rash Medium 02/26/2020 Ibuprofen Rash Medium 05/31/2018 Latex Unknown,Anaphylaxis High 05/31/2018 Leflunomide Rash Medium 05/31/2018 Meloxicam Rash Medium 03/24/2017 Meprobamate Rash Medium 03/24/2017 Methotrexate Rash Medium 07/28/2022 Methylprednisolone Rash Medium 02/26/2020 Allergie to the sulfite in it Morphine Rash Medium 03/21/2013 Nitrofurantoin Rash Medium 03/24/2017 Macrobid Norepinephrine Bitartrate Rash Medium 07/28/2022 Nsaids (Non-Steroidal Anti-Inflammatory Drug) Rash Medium 03/21/2013 Other Unknown 03/24/2017 Oxycodone Rash Medium 02/26/2020 Penicillins Unknown 03/24/2017 unknown Dabigatran Etexilate Hives,Blisters High 04/28/2023 Spironolactone Unknown 03/24/2017 unknown Sulfa (Sulfonamide Antibiotics) Rash Medium 05/31/2018 Fever, skin peels Sulfanilamide Rash Medium 02/26/2020 Sulfasalazine Rash Medium 07/28/2022 Sulfites Rash Medium 02/26/2020 Sumatriptan Rash Medium 07/28/2022 Topiramate Unknown 03/24/2017 topamax/unknown Torsemide Unknown 03/24/2017 Tramadol Rash Medium 03/21/2013 Vortioxetine Unknown 05/31/2018 unknown Rivaroxaban Hives,Blisters High 04/28/2023 Yellow Dye Unknown High 05/31/2018 #5, #6 Blisters also Medications fexofenadine (GUILLE) 180 mg tabletIndication s:Seasonal Allergic Rhinitis Take 1 tablet (180 mg total) by mouth every morning Active mometasone (ELOCON) 0.1 % creamIndications :Skin Inflammation,ski n rash Apply 1 Application topically daily as needed Active folic acid (FOLVITE) 1 mg tabletIndication s:supplement Take 1 tablet (1 mg total) by mouth every morning Active dicyclomine (BENTYL) 20 mg tabletIndication s:Abdominal Pain with Cramps Take 1 tablet (20 mg total) by mouth every 6 (six) hours as needed Active baclofen (LIORESAL) 20 mg tablet Take 1 tablet (20 mg total) by mouth 4 (four) times a day Active montelukast (SINGULAIR) 10 mg tabletIndication s:Maintenance Therapy for Asthma,Seasonal Allergic Rhinitis Take 1 tablet (10 mg total) by mouth nightly Active chlorpheniramine (CHLOR-TRIMETON) 4 mg tabletIndication s:Rhinitis Take 1 tablet (4 mg total) by mouth every 6 (six) hours as needed for allergies or rhinitis Takes 2 at pm Active albuterol HFA (PROVENTIL HFA,VENTOLIN HFA,PROAIR HFA) 90 mcg/actuation inhalerIndicatio ns:Bronchospasm Prevention Inhale 2 puffs every 6 (six) hours as needed for wheezing or shortness of breath Active HYDROmorphone (DILAUDID) 8 mg tabletIndication s:Pain Take 1 tablet (8 mg total) by mouth every 4 (four) hours as needed for moderate pain (pain scale 5-7) Active omeprazole (PriLOSEC) 20 mg capsuleIndicatio ns:gerd Take 3 capsules (60 mg total) by mouth daily 2 in AM, 1 in PM Active albuterol (PROVENTIL,NUZHAT SULEMAN) 5 mg/mL nebulizer solution Take 0.5 mL (2.5 mg total) by nebulization every 6 (six) hours as needed for wheezing or shortness of breath Active predniSONE (DELTASONE) 10 mg tabletIndication s:Anti-inflammat ory Take 3 tablets (30 mg) by mouth daily 20 AM 10 PM Active biotin 1 mg tabletIndication s:supplement Take 1 tablet (1,000 mcg total) by mouth every morning Active cholecalciferol (VITAMIN D-3) 50,000 unit capsuleIndicatio ns:Vitamin D Deficiency Take 1 capsule (50,000 Units total) by mouth once a week Take on Wednesday Active fentaNYL (DURAGESIC) 75 mcg/hrIndication s:severe chronic pain with opioid tolerance Place 1 patch on the skin every third day Active calcium carbonate-mag hydroxid 1,000-200 mg tablet,chewableI ndications:suppl ement Take 1 tablet by mouth every morning Active herbal drugs (Colon Herbal Cleanser) capsuleIndicatio ns:constipation Take 2 tablets by mouth daily as needed (constipation) Active lysine 1,000 mg tabletIndication s:supplement Take 1 tablet by mouth every morning Active QUEtiapine (SEROquel) 50 mg tabletIndication s:ADD Take 2 tablets (100 mg total) by mouth nightly 07/22/20 22 Active buPROPion SR (WELLBUTRIN SR) 150 mg 12 hr tabletIndication s:Anxiety with Depression Take 1 tablet (150 mg total) by mouth 2 (two) times a day And 300mg at bedtime 05/21/20 22 Active inFLIXimab (REMICADE) 100 mg injectionIndicat ions:RA Infuse into a venous catheter every 6 (six) weeks Active fluticasone propionate (FLONASE) 50 mcg/actuation nasal spray Administer 2 sprays into each nostril daily Active [place] Thyroid 240 mg tabletIndication s:hypothyroidism Take 0.5 tablets (120 mg total) by mouth 2 (two) times a day Pt states she takes half tab in am and half in pm 01/20/20 23 Active hydrOXYchloroQUI NE (PLAQUENIL) 200 mg tabletIndication s:Rheumatoid Arthritis Take 2 tablets (400 mg total) by mouth nightly 03/19/20 23 Active hydrocortisone 2.5 % cream as needed 03/30/20 24 Active ketoconazole (NIZORAL) 2 % shampoo as needed 03/03/20 24 Active pseudoephedrine ER (SUDAFED) 120 mg 12 hr tablet as needed 0 04/18/20 24 Active triamcinolone (KENALOG) 0.025 % cream as needed 01/27/20 24 Active amLODIPine (NORVASC) 10 mg tablet Take 1 tablet (10 mg total) by mouth daily 90 tablet 3 06/01/20 24 025 Active metoprolol tartrate (LOPRESSOR) 50 mg immediate release tablet Take 1 tablet (50 mg total) by mouth 2 (two) times a day 180 tablet 3 06/30/20 24 025 Active warfarin (COUMADIN) 10 mg tabletIndication s:atrial fibrillation Take 0.5 tablets (5 mg total) by mouth daily 45 tablet 1 09/08/19 25 Active warfarin (COUMADIN) 10 mg tabletIndication s:atrial fibrillation 10mg daily or as directed 90 tablet 3 03/16/20 24 025 Discontin ued(Reord er) Active Problems Problem Noted Date Diagnosed Date Atrial fibrillation with RVR (CMS/HCC) 3 Assessment & Plan (04/27/2024 3:47 PM CDT): P. Afib with RVR likely driven by her thyroid disease. She was previolsy not interested in referral to endocrine and worries if we decrease her armour thyroid she will be come symptomatic (fatigue and hair loss). Unable to tolerate NOACs in the past. Continue metoprolol to 12.5 mg BID, for rate control and BP management-she did not tolerate increased dose of metoprolol positional LH. I have cautioned her on taking sudafed and extra doses of prednisone. ECHO in follow up same day as Dr Chowdary. BP and HR log in a week or two. Assessment & Plan (10/22/2023 11:33 AM CDT): P. Afib with RVR likely driven by her thyroid disease. She is not interested in referral to endocrine and worries if we decrease her armour thyroid she will be come symptomatic (fatigue and hair loss). Unable to tolerate NOACs in the past. Increase metoprolol to 25 mg BID, for rate control and BP management. Assessment & Plan (04/15/2023 11:11 AM CDT): - Hx palpitations for 1 year. Afib with RVR to 150 in PACU, improved with metoprolol. TSH high, free T4 WNL. No EtOH. Drinks 2-3 cups coffee and takes sudafed daily which may contribute. Lytes OK - Titrate metoprolol for rate control, target < 110 - Monitor on tele - TTE showed normal systolic and diastolic function, normal LA chamber size - [id number] at least 2, true risk likely higher given inflammatory conditions. Plan DOAC for AC at discharge - Outpatient Cards referral - F Chronic pain syndrome 04/14/2023 Assessment & Plan (04/14/2023 6:13 PM CDT): - Continue home fentanyl 75 mcg/hr patch, baclofen, hydromorphone PO TID PRN Psoriatic arthritis 04/14/2023 Assessment & Plan (04/14/2023 6:13 PM CDT): - Continue home HCQ and pred 20mg Hypothyroidism, unspecified 04/14/2023 Assessment & Plan (04/14/2023 6:17 PM CDT): - Takes armour thyroid, reports prior reaction to levothyroxine though not listed. Reports symptoms of hypothyroidism during prior attempts to titrate down - TSH low at 0.03 but free T4 WNL at 1.01. Would likely benefit from deescalation of thyroid supp given Afib GERD (gastroesophageal reflux disease) Assessment & Plan (04/14/2023 6:17 PM CDT): - Continue nightly PPI IBS (irritable bowel syndrome) 04/14/2023 Assessment & Plan (04/14/2023 6:17 PM CDT): - Continue dicyclomine Hypertension, essential 04/14/2023 Assessment & Plan (04/27/2024 3:48 PM CDT): Her BP is uncontrolled today in the setting of taking increased steroids and sudafed, I have advised against this and asked that she Log her BP and HR at home for 2 weeks and call with update. She did state that metoprolol 25 mg BID cause hypotension. Unclear what her BP is doing at home. Assessment & Plan (10/22/2023 11:35 AM CDT): SBP Marginal in clinic, increase metoprolol to 25 mg BID. Assessment & Plan (04/14/2023 6:17 PM CDT): - Off amlodipine, will stop atenolol if favor of metoprolol Anxiety and depression 04/14/2023 Assessment & Plan (04/14/2023 6:18 PM CDT): - Continue home buproprion SR and quetiapine Acquired breast deformity 03/08/2023 Breast implant rupture 03/08/2023 Myalgia 05/15/2022 Polyarthralgia 05/15/2022 COVID-19 02/22/2020 Cornea abrasion, right, subsequent encounter Assessment & Plan (01/23/2019 2:29 PM CDT): Improved. Mild superficial staining today after removal of BCL. Ok to D/C moxifloxican. CPM with PFATs 6x/day x 3 days. F/U if not 100% in 2 days. Assessment & Plan (01/20/2019 3:54 PM CDT): 2/2 cat scratch yesterday. Image in media folder. Bandage contact placed today. Air Optix N/D 8.4 +0.50. Rx moxifloxican QID, preservative free ATs QID. Pt reports tolerating moxi in past. Fracture of left tibial plateau 01/04/2019 Toxoplasmosis 06/06/2018 Assessment & Plan (06/06/2018 3:22 PM CDT): No e/o chorioretinal involvement Posterior subcapsular polar age-related cataract of both eyes 06/06/2018 Assessment & Plan (06/06/2018 3:22 PM CDT): NVS obs Ptosis 06/06/2018 Assessment & Plan (06/06/2018 3:23 PM CDT): ? 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 Varicose veins of lower extremity 01/18/2015 Encounters Date Type Department Care Team Description 09/15/2024 Anticoagulation Telephone Call [place] [id number] [facility] Office [facility] [address] [place] [phone] Kathy Chowdary MD Atrial fibrillation with RVR (CMS/HCC) (HCC) (Primary Dx) 09/14/2024 Orders Only [facility] Cardiology [address] [facility] Office Building [address] [place] [phone] Kathy Chowdary MD Atrial fibrillation with RVR (CMS/HCC) (HCC) (Primary Dx) 09/01/2024 Telephone [place] [address] [facility] Office [facility] [address] [place] [phone] Kathy Chowdary MD Anticoagulation 08/26/[address] [facility] CARDIOLOG[facility] Scanning, Provider 08/14/2024 Anticoagulation Telephone Call [place] [address] [facility] Office Building [address] [place] [phone] Kathy Chowdary MD Atrial fibrillation with RVR (CMS/HCC) (HCC) (Primary Dx) 08/12/2024 Telephone Cardiology Osbaldo Miller MD 08/12/2024 Documentation [facility] Cardiology [facility] Advanced Medicine 8th [place] [address] [place] [phone] Casi Graf MD 08/04/2024 Anticoagulation Telephone Call [address] [place] [phone] Kathy Chowdary MD Atrial fibrillation with RVR (CMS/HCC) (HCC) (Primary Dx) 08/04/2024 Orders Only [facility] Scanning, Provider 08/03/2024 Anticoagulation Telephone Call [address] [place] [phone] Kathy Chowdary MD Atrial fibrillation with RVR (CMS/HCC) (HCC) (Primary Dx) 08/01/2024 Orders Only [facility] Scanning, Provider 07/26/2024 Anticoagulation Telephone Call [address] [place] [phone] Kathy Chowdary MD Atrial fibrillation with RVR (CMS/HCC) (HCC) (Primary Dx) 07/14/2024 Anticoagulation Telephone Call [address] [place] [phone] Kathy Chowdary MD Atrial fibrillation with RVR (CMS/HCC) (HCC) (Primary Dx) 06/30/2024 Anticoagulation Telephone Call [address] [place] [phone] Kathy Chowdary MD Atrial fibrillation with RVR (CMS/HCC) (HCC) (Primary Dx) 06/29/2024 Orders Only [facility] Scanning, Provider 06/26/2024 Anticoagulation Telephone Call [address] [place] [phone] Kathy Chowdary MD Atrial fibrillation with RVR (CMS/HCC) (HCC) (Primary Dx) from Last 3 Months Immunizations Name Administration Dates Next Due Influenza, Quadrivalent, Rec ombinant, Egg Free, Preservative Free, Intramuscular 08/26/2018 Surgical History Surgery Date Site/Laterality Comments TUBAL LIGATION 08/09/2010 - 08/08/2011 TOTAL VAGINAL HYSTERECTOMY 08/09/2010 - 08/08/2011 OOPHORECTOMY 08/09/2010 - 08/08/2011 REFRACTIVE SURGERY 08/09/1997 - 08/08/1998 Bilateral FLUORO GUIDED INJECTION SHOU LDER RIGHT 09/08/2022 Right OTHER SURGICAL HISTORY 03/09/2023 - 04/08/2023 spinal injections NASAL SEPTUM SURGERY 08/09/1994 - 08/08/1995 COLONOSCOPY 08/09/2017 - 08/08/2018 w/ polypectomy ESOPHAGOGASTRODUODENOSCOPY 08/09/2017 - 08/08/2018 RADIOFREQUENCY ABLATION 08/09/2002 - 08/08/2003 my whole spine AUGMENTATION MAMMOPLASTY 08/09/2004 - 08/08/2005 Bilateral SKIN CANCER EXCISION [facility] Medical History Medical History Date Comments Melissa-Danlos syndrome Enchondroma of right femur Hypothyroidism Neoplasm of pituitary gland Depression Myalgia Squamous carcinoma TIA (transient ischemic attack) Cluster headache RA (rheumatoid arthritis) (HCC) Psoriatic arthritis (HCC) Sinusitis Family History Medical History Relation Name Comments prediabetes Father Diabetes Maternal Grandmother Glaucoma Maternal Grandmother Hypertension Maternal Grandmother Cataracts Mother Glaucoma Mother Hypertension Mother Sleep apnea Mother TAA Mother Diabetes Mother's Brother Hypertension Mother's Brother Rheum arthritis Sister psoriatic arthritis Sister Anesthesia problems Neg Hx Malig Hypertension Neg Hx Malig Hyperthermia Neg Hx Pseudochol deficiency Neg Hx Relation Name Status Comments Father Alive Maternal Grandmother Mother Alive Mother's Brother Sister Alive Social History Tobacco Use Types Packs/Day Years Used Date Smoking Tobacco: Some Days Cigarettes 0.2 38.1 Started: 1986 Smokeless Tobacco: Never Tobacco Cessation:Ready to Q uit: Not Asked; Counseling Given: Not Answered Alcohol Use Standard Drinks/Week Comments No 0 (1 standard drink = 0.6 oz pur e alcohol) Personal Safety Answer Date Recorded Have you ever been in or are you currently in a harmful physical or emotional relationship or is someone making you feel afraid or unsafe? Denies 04/14/2023 Comments No Sex and Gender Information Value Date Recorded Sex Assigned at Not on file Legal Sex Female 7:53 PM COLOR PRINTER OPERATOR Gender Identity Not on file Sexual Orientation Not on file Obstetrics History Last Filed Vital Signs Vital Sign Reading Time Taken Comments Blood Pressure 145/82 06/16/2024 3:03 PM COLOR PRINTER OPERATOR Pulse 100 06/16/2024 3:03 PM COLOR PRINTER OPERATOR Temperature 36.6 C (97.9 F) 04/15/2023 8:21 AM CDT Respiratory Rate 16 04/15/2023 8:21 AM CDT Oxygen Saturation 95% 06/16/2024 3:03 PM COLOR PRINTER OPERATOR Inhaled Oxygen Concentration - - Weight 73.1 kg (161 lb 3.2 oz) 06/16/2024 3:03 P M COLOR PRINTER OPERATOR Height 172.7 cm (5' 8 ) 06/16/2024 3:03 PM COLOR PRINTER OPERATOR Body Mass Index 24.51 06/16/2024 3:03 PM COLOR PRINTER OPERATOR Plan of Treatment Health Maintenance Due Date Last Done Comments Breast Cancer Screening-Mammogram 1968 Colon Cancer Screening-Colonoscopy 1968 Depression Screening 1968 Hepatitis C Screening 1968 Pneumococcal vaccine <65 (1 of 2 - PCV) 1974 DTaP/Tdap/Td Vaccine (1 - Tdap) 1979 Hepatitis B Screening 1986 Regular Well Visit/Exam 18-64 1986 Zoster Vaccine (1 of 2) 1987 Influenza Vaccine (#1) 2024 08/26/2018 Procedures Procedure Name Priority Date/Time Associated Diagnosis Comments PROTIME-INR Routine 09/14/2024 3:00 PM COLOR PRINTER OPERATOR Atrial fibrillation with RVR (CMS/HCC) (HCC) SCAN - LABS 08/26/2024 PROTIME-INR Routine 08/11/2024 3:55 PM COLOR PRINTER OPERATOR Atrial fibrillation with RVR (CMS/HCC) (HCC) PROTIME-INR Routine 08/04/2024 SCAN - LABS 08/04/2024 SCAN - LABS 08/01/2024 PROTIME-INR Routine 07/31/2024 4:25 PM COLOR PRINTER OPERATOR Atrial fibrillation with RVR (CMS/HCC) (HCC) PROTIME-INR Routine 07/25/2024 4:24 PM COLOR PRINTER OPERATOR Atrial fibrillation with RVR (CMS/HCC) (HCC) PROTIME-INR Routine 07/13/2024 3:30 PM COLOR PRINTER OPERATOR Atrial fibrillation with RVR (CMS/HCC) (HCC) PROTIME-INR Routine 06/29/2024 4:18 PM COLOR PRINTER OPERATOR Atrial fibrillation with RVR (CMS/HCC) (HCC) SCAN - LABS 06/29/2024 PROTIME-INR Routine 06/23/2024 3:48 PM COLOR PRINTER OPERATOR Atrial fibrillation with RVR (CMS/HCC) (HCC) from Last 3 Months Results * (ABNORMAL) Protime-INR (09/14/2024 3:00 PM COLOR PRINTER OPERATOR) INR 3.1(H) 0.9 - 1.2 [facility] - 01 Comment: Reference interval is for non-anticoagulated patients. Suggested INR therapeutic range for Vitamin K antagonist therapy: Standard Dose (moderate intensity therapeutic range): 2.0 - 3.0 Higher intensity therapeutic range 2.5 - 3.5 PT 30.8(H) 9.1 - 12.0 sec [facility] - 01 Blood 09/14/2024 3:00 PM COLOR PRINTER OPERATOR 09/14/2024 Narrative [facility] - 09/15/2024 6:10 AM COLOR PRINTER OPERATOR Performed at: - [facility] [id number] Legal Instructor: Gonzalez Jones PhD, Phone: [phone] us Kathy Chowdary MD LAB BLOOD ORDERABLES Final Res ult [facility] - 01 * SCAN - LABS (08/26/2024) us Provider Scanning Final Result * (ABNORMAL) Protime-INR (08/11/2024 3:55 PM COLOR PRINTER OPERATOR) INR 5.1(>) 0.9 - 1.2 [facility] - 01 Comment: Abnormal result has been verified by repeat testing. If inconsistent with clinical condition, please resubmit another specimen for verification and to rule out specimen handling problems for which this test is very sensitive. Reference interval is for non-anticoagulated patients. Suggested INR therapeutic range for Vitamin K antagonist therapy: Standard Dose (moderate intensity therapeutic range): 2.0 - 3.0 Higher intensity therapeutic range 2.5 - 3.5 PT 49.2(H) 9.1 - 12.0 sec [facility] - Blood 08/11/2024 3:55 PM COLOR PRINTER OPERATOR 08/11/2024 Narrative [facility] - 08/12/2024 11:08 AM COLOR PRINTER OPERATOR Performed at: [facility] [id number] Legal Instructor: Gonzalez Jones PhD, Phone: [phone] Specimen Comment: Called/faxed to Dr. Miller on 08/12/2024 at 10:21 ET for Specimen Comment: test INR us Kathy Chowdary MD LAB BLOOD ORDERABLES Edited Re sult - Final Performing Organization Address City/[facility]/ZIP Co de Phone Number [facility] * SCAN - LABS (08/04/2024) us Provider Scanning Final Result * (ABNORMAL) Protime-INR (08/04/2024) INR 2.40(A) 0.90 - 1.10 EXTERNAL LAB Blood 08/04/2024 us Caitlyn Vann MD LAB BLOOD ORDERABLES Paige l Result Performing Organization Address [facility]/ZIP Co de Phone Number EXTERNAL LAB * SCAN - LABS (08/01/2024) us Provider Scanning Final Result * (ABNORMAL) Protime-INR (07/31/2024 4:25 PM COLOR PRINTER OPERATOR) INR 2.6(H) 0.9 - 1.2 [facility] - 01 Comment: Reference interval is for non-anticoagulated patients. Suggested INR therapeutic range for Vitamin K antagonist therapy: Standard Dose (moderate intensity therapeutic range): 2.0 - 3.0 Higher intensity therapeutic range 2.5 - 3.5 PT 26.1(H) 9.1 - 12.0 sec [facility] - 01 Blood 07/31/2024 4:25 PM COLOR PRINTER OPERATOR 07/31/2024 Narrative [facility] - 08/01/2024 7:08 AM COLOR PRINTER OPERATOR Performed at: [address] [place] [id number] Legal Instructor: Gonzalez Jones PhD, Phone: [phone] Kathy Chowdary MD LAB BLOOD ORDERABLES Final Res ult Performing Organization Address [facility] Co de Phone Number [facility] - * (ABNORMAL) Protime-INR (07/25/2024 4:24 PM COLOR PRINTER OPERATOR) INR 2.9(H) 0.9 - 1.2 [facility] - 01 Comment: Reference interval is for non-anticoagulated patients. Suggested INR therapeutic range for Vitamin K antagonist therapy: Standard Dose (moderate intensity therapeutic range): 2.0 - 3.0 Higher intensity therapeutic range 2.5 - 3.5 PT 29.3(H) 9.1 - 12.0 sec [facility] - 01 Blood 07/25/2024 4:24 PM COLOR PRINTER OPERATOR 07/25/2024 Narrative [facility] - 07/26/2024 8:12 AM COLOR PRINTER OPERATOR Performed at: [address] [id number] Legal Instructor: Gonzalez Jones PhD, Phone: [phone] Kathy Chowdary MD LAB BLOOD ORDERABLES Final Res ult Performing Organization Address [facility]/ZIP Co de Phone Number [facility] - * (ABNORMAL) Protime-INR (07/13/2024 3:30 PM COLOR PRINTER OPERATOR) INR 1.4(H) 0.9 - 1.2 [facility] - 01 Comment: Reference interval is for non-anticoagulated patients. Suggested INR therapeutic range for Vitamin K antagonist therapy: Standard Dose (moderate intensity therapeutic range): 2.0 - 3.0 Higher intensity therapeutic range 2.5 - 3.5 PT 14.8(H) 9.1 - 12.0 sec [facility] - 01 Blood 07/13/2024 3:30 PM COLOR PRINTER OPERATOR 07/13/2024 Narrative [facility] - 07/14/2024 7:13 AM COLOR PRINTER OPERATOR Performed at: [address] [id number] Legal Instructor: Gonzalez Joens PhD, Phone: [phone] Kathy Chowdary MD LAB BLOOD ORDERABLES Final Res ult [facility] * (ABNORMAL) Protime-INR (06/29/2024 4:18 PM COLOR PRINTER OPERATOR) INR 3.2(H) 0.9 - 1.2 [facility] - Comment: Reference interval is for non-anticoagulated patients. Suggested INR therapeutic range for Vitamin K antagonist therapy: Standard Dose (moderate intensity therapeutic range): 2.0 - 3.0 Higher intensity therapeutic range 2.5 - 3.5 PT 31.9(H) 9.1 - 12.0 sec [facility] - 01 Blood 06/29/2024 4:18 PM COLOR PRINTER OPERATOR 06/29/2024 Narrative [facility] - 06/30/2024 7:13 AM COLOR PRINTER OPERATOR Performed at: [address] [id number] Legal Instructor: Gonzalez Jones PhD, Phone: [phone] us Kathy Chowdary MD LAB BLOOD ORDERABLES Final Res ult [facility] - * SCAN - LABS (06/29/2024) us Provider Scanning Final Result * (ABNORMAL) Protime-INR (06/23/2024 3:48 PM COLOR PRINTER OPERATOR) INR 2.3(H) 0.9 - 1.2 [facility] - 01 Comment: Reference interval is for non-anticoagulated patients. Suggested INR therapeutic range for Vitamin K antagonist therapy: Standard Dose (moderate intensity therapeutic range): 2.0 - 3.0 Higher intensity therapeutic range 2.5 - 3.5 PT 23.4(H) 9.1 - 12.0 sec [facility] - 01 Blood 06/23/2024 3:48 PM COLOR PRINTER OPERATOR 06/23/2024 Narrative [facility] - 06/24/2024 8:17 AM COLOR PRINTER OPERATOR Performed at: - [facility] [address] [id number] Legal Instructor: Gonzalez Jones PhD, Phone: [phone] us Kathy Chowdary MD LAB BLOOD ORDERABLES Final Res ult [facility] - 01 from Last 3 Months Insurance MEDICARE COMMERCIAL [place] [address] [place] [address] [facility] CHOICE PLUS MEDICARE COMMERCIAL GENERIC MEDICARE [facility] Advance Directives For more information, please contact: [phone] * Full Code (Latest Code Status on File) Date Activated Date Inactivated Comments 04/14/2023 3:43 PM 04/15/2023 5:41 PM Care Teams Dishwashing Machine Operator Relationship Specialty Start Date End Date Alok Newell MD PCP - General 06/01/18
--- OUTSIDE RECORDS SUMMARY | 2024-09-21 19:01 | XMS_ITS | Clinical Summary ---
Author Organization [facility] Address [address] [place] [id number] Care Team Providers Care Intake Clinician Name Role Phone Alok Newell MD Primary Care Provider [phone] Allergies Active Allergy Reactions Criticality Noted Date Comments Abatacept Hives Medium 07/28/2022 Apixaban Hives,Rash Medium 04/23/2023 Aspirin Rash,Unknown Medium 02/27/2014 unknown Azithromycin Hives,Rash Medium 02/26/2020 ER Unknown/ER Caffeine Unknown 02/27/2014 Celecoxib Rash Medium 07/28/2022 Clarithromycin Hives,Other (see comment),Rash Medium 03/25/2010 Rash unknown Codeine Hives,Rash,Unknown Medium 02/27/2014 unknown Dabigatran Contact Dermatitis,Hives High 04/28/2023 Doxycycline Anaphylaxis High 02/26/2020 Ergotamine Rash Medium 05/31/2018 Furosemide Rash Medium 07/28/2022 Hydrocodone Unknown,Hives,Rash Medium 03/21/2013 Unknown/ER Hydroxyzine Hives,Rash Medium 02/26/2020 unknown Ibuprofen Hives,Rash Medium 02/27/2014 unknown Latex Anaphylaxis,Unknown High 02/27/2014 Leflunomide Hives,Rash Medium 09/29/2013 unknown Meloxicam Other (see comment),Rash Medium 02/24/2013 unknown Meprobamate Rash Medium 02/27/2014 Methotrexate Rash Medium 07/28/2022 Methylprednisolone Hives,Rash Medium 02/26/2020 Allergie to the sulfite in it unknown Morphine Hives,Rash,Unknown Medium 03/21/2013 Unknown/ER Nitrofurantoin Hives,Rash Medium 03/25/2010 Macrobid Macrobid/unknown Norepinephrine Rash Medium 07/28/2022 Nsaids Rash,Hives Medium 03/21/2013 Skin blisters and falls off Oxycodone Hives,Rash Medium 02/26/2020 unknown Penicillins Hives,Unknown 02/27/2014 unknown Rivaroxaban Contact Dermatitis,Hives High 04/28/2023 Spironolactone Hives,Unknown 08/29/2013 unknown Sulfa Antibiotics Hives,Rash Medium 08/29/2013 Fever, skin peels unknown Sulfasalazine Rash Medium 07/28/2022 Sulfites Hives,Rash Medium 02/26/2020 unknown Sumatriptan Rash Medium 07/28/2022 Topiramate Hives,Unknown 03/25/2010 topamax/unknown Torsemide Unknown 08/29/2013 Tramadol Rash Medium 03/21/2013 Vortioxetine Hives,Unknown 01/19/2017 unknown Yellow Dye Padilla Neo Syndrome,Unknown High 05/31/2018 #5, #6 Blisters also Blisters also Medications chlorhexidine (HIBICLENS) 4 % Solution Apply topically 2 (two) times a week. Avoid using on face, genitals or open wounds 473 mL Active Social History Tobacco Use Types Packs/Day Years Used Date Smoking Tobacco: Never Smokeless Tobacco: Never Tobacco Cessation:Counseling Given: Not Answered Alcohol Use Standard Drinks/Week Comments Never 0 (1 standard drink = 0.6 oz pur e alcohol) Comments No Sex and Gender Information Value Date Recorded Sex Assigned at Not on file Legal Sex Female 9:45 AM CDT Gender Identity Not on file Sexual Orientation Not on file Last Filed Vital Signs Vital Sign Reading Time Taken Comments Blood Pressure 176/104 05/20/2024 10:50 PM CDT Pulse 89 05/20/2024 10:50 PM CDT Temperature 36.1 C (96.9 F) 05/20/2024 10:50 PM CDT Respiratory Rate 20 05/20/2024 10:50 PM CDT Oxygen Saturation 98% 05/20/2024 10:50 PM CDT Inhaled Oxygen Concentration - - Weight 70.3 kg (155 lb) 05/20/2024 10:50 PM CDT Height 172.7 cm (5' 8 ) 05/20/2024 10:50 PM CDT Body Mass Index 23.57 05/20/2024 10:50 PM CDT Plan of Treatment Health Maintenance Due Date Last Done Comments Cervical Cancer Screening Pa p Smear (Age 30 to 64) Every 3 Years 1968 Colorectal Cancer Screening Colonoscopy (10 Years) 1968 Annual Physical 1971 Hepatitis C 1986 DTaP, Tdap and Td Vaccines ( 1 - Tdap) 1987 Hepatitis B Vaccines (1 of 3 - 19+ 3-dose series) 1987 Cervical Cancer Screening Pa p with HPV Testing (Age 30 to 64) Every 5 Years 1998 Cervical Cancer Screening with HPV 1998 Mammogram Screening 2008 Zoster Vaccines (1 of 2) 2018 COVID-19 Vaccine (2023-2 5 season) 2024 Influenza Adult (#1) 2024 08/26/2018 Meningococcal B Vaccine Aged Out No l onger eligible based on patient's age to complete this topic Meningococcal Vaccine Aged Out No ranjith lizette eligible based on patient's age to complete this topic Pneumococcal Vaccine: Pediat rics (0 to 5 Years) and At-Risk Patients (6 to 64 Years) Aged Out No longer eligi ble based on patient's age to complete this topic RSV Immunizations Under 20 Months Aged Out No longer eligible based on patient's age to complete this topic Additional Health Concerns Infection Onset Date Last Indicated MRSA Comment:05/20/24 +MRSA Right leg 05/20/2024 05/20/2024 Insurance MEDICARE [facility] Care Teams Intake Clinician Relationship Specialty Start Date End Date Alok Newell MD [address] [address] PCP - General FAMILY PRACTICE 05/20/24
--- OUTSIDE RECORDS SUMMARY | 2024-09-21 19:01 | XMS_ITS | Referral Summary ---
Author Organization [facility] Address [address] [place] [address] Care Team Providers Care Cart Pusher Name Role Phone Alok Newell MD Primary Care Provider [phone] Encounters Date Type Department Care Team Description 09/15/2024 Anticoagulation Telephone Call [address] [place] [phone] Kathy Chowdary MD Atrial fibrillation with RVR (CMS/HCC) (HCC) (Primary Dx) 09/14/2024 Orders Only [address] [place] [phone] Kathy Chowdary MD Atrial fibrillation with RVR (CMS/HCC) (HCC) (Primary Dx) 09/01/2024 Telephone [place] [address] [place] [phone] Kathy Chowdary MD Anticoagulation 08/26/2024 Orders Only [facility] Scanning, Provider 08/14/2024 Anticoagulation Telephone Call [place] [address] [place] [phone] Kathy Chowdary MD Atrial fibrillation with RVR (CMS/HCC) (HCC) (Primary Dx) 08/12/2024 Telephone Cardiology Osbaldo Miller MD 08/12/2024 Documentation [facility] Cardiology [address] [place] [address] 8th [place] [address] [place] [address] Casi Graf MD 08/04/2024 Anticoagulation Telephone Call [address] [place] [phone] Kathy Chowdary MD Atrial fibrillation with RVR (CMS/HCC) (HCC) (Primary Dx) 08/04/2024 Orders Only [facility] Scanning, Provider 08/03/2024 Anticoagulation Telephone Call [address] [place] [phone] Kathy Chowdary MD Atrial fibrillation with RVR (CMS/HCC) (HCC) (Primary Dx) 08/01/2024 Orders Only [facility] Scanning, Provider 07/26/2024 Anticoagulation Telephone Call [address] [place] [address] Kathy Chowdary MD Atrial fibrillation with RVR (CMS/HCC) (HCC) (Primary Dx) 07/14/2024 Anticoagulation Telephone Call [address] [place] [address] Kathy Chowdary MD Atrial fibrillation with RVR (CMS/HCC) (HCC) (Primary Dx) 06/30/2024 Anticoagulation Telephone Call [address] [place] [address] Kathy Chowdary MD Atrial fibrillation with RVR (CMS/HCC) (HCC) (Primary Dx) 06/29/2024 Orders Only [facility] Scanning, Provider 06/26/2024 Anticoagulation Telephone Call [address] [place] [address] Kathy Chowdary MD Atrial fibrillation with RVR (CMS/HCC) (HCC) (Primary Dx) from Last 3 Months Allergies Active Allergy Reactions Criticality Noted Date [...] 2 sprays into each nostril daily Active [place] Thyroid 240 mg tabletIndication s:hypothyroidism Take 0.5 [...] diastolic function, normal LA chamber size - [id number] at least 2, true risk likely higher [...] 7 Varicose veins of lower extremity 01/18/2015 Immunizations Name Administration Dates Next Due Influenza, Quadrivalent, Rec ombinant, Egg Free, Preservative Free, Intramuscular 08/26/2018 Social History Tobacco Use Types Packs/Day Years [...] on file Legal Sex Female 7:53 PM CATERPILLAR DRIVER Gender Identity Not on file Sexual Orientation Not on file Last Filed Vital Signs Vital Sign Reading Time Taken Comments Blood Pressure 145/82 06/16/2024 3:03 PM CATERPILLAR DRIVER Pulse 100 06/16/2024 3:03 PM CATERPILLAR DRIVER Temperature 36.6 C (97.9 F) 04/15/2023 8:21 AM CDT Respiratory Rate 16 04/15/2023 8:21 AM CDT Oxygen Saturation 95% 06/16/2024 3:03 PM CATERPILLAR DRIVER Inhaled Oxygen Concentration - - Weight 73.1 kg (161 lb 3.2 oz) 06/16/2024 3:03 P M CATERPILLAR DRIVER Height 172.7 cm (5' 8 ) 06/16/2024 3:03 PM CATERPILLAR DRIVER Body Mass Index 24.51 06/16/2024 3:03 PM CATERPILLAR DRIVER Plan of Treatment Not on file Procedures Procedure Name Priority Date/Time Associated Diagnosis Comments PROTIME-INR Routine 09/14/2024 3:00 PM CATERPILLAR DRIVER Atrial fibrillation with RVR (CMS/HCC) (HCC) SCAN - LABS 08/26/2024 PROTIME-INR Routine 08/11/2024 3:55 PM CATERPILLAR DRIVER Atrial fibrillation with RVR (CMS/HCC) (HCC) PROTIME-INR Routine 08/04/2024 SCAN - LABS 08/04/2024 SCAN - LABS 08/01/2024 PROTIME-INR Routine 07/31/2024 4:25 PM CATERPILLAR DRIVER Atrial fibrillation with RVR (CMS/HCC) (HCC) PROTIME-INR Routine 07/25/2024 4:24 PM CATERPILLAR DRIVER Atrial fibrillation with RVR (CMS/HCC) (HCC) PROTIME-INR Routine 07/13/2024 3:30 PM CATERPILLAR DRIVER Atrial fibrillation with RVR (CMS/HCC) (HCC) PROTIME-INR Routine 06/29/2024 4:18 PM CATERPILLAR DRIVER Atrial fibrillation with RVR (CMS/HCC) (HCC) SCAN - LABS 06/29/2024 PROTIME-INR Routine 06/23/2024 3:48 PM CATERPILLAR DRIVER Atrial fibrillation with RVR (CMS/HCC) (HCC) from Last 3 Months Results * (ABNORMAL) Protime-INR (09/14/2024 3:00 PM CATERPILLAR DRIVER) INR 3.1(H) 0.9 - 1.2 [facility] - 01 Comment: Reference interval is for non-anticoagulated patients. Suggested INR therapeutic range for Vitamin K antagonist therapy: Standard Dose (moderate intensity therapeutic range): 2.0 - 3.0 Higher intensity therapeutic range 2.5 - 3.5 PT 30.8(H) 9.1 - 12.0 sec [facility] - 01 Blood 09/14/2024 3:00 PM CATERPILLAR DRIVER 09/14/2024 Narrative [facility] - 09/15/2024 6:10 AM CATERPILLAR DRIVER Performed at: - [address] [id number] Medical Assisting Program Director: Gonzalez Jones PhD, Phone: [phone] us Kathy Chowdary MD LAB BLOOD ORDERABLES Final Res ult [facility] - 01 * SCAN - LABS (08/26/2024) us Provider Scanning Final Result * (ABNORMAL) Protime-INR (08/11/2024 3:55 PM CATERPILLAR DRIVER) INR 5.1(>) 0.9 - 1.2 [facility] - [...] 49.2(H) 9.1 - 12.0 sec [facility] - 01 Blood 08/11/2024 3:55 PM CATERPILLAR DRIVER 08/11/2024 Narrative [facility] - 08/12/2024 11:08 AM CATERPILLAR DRIVER Performed at: [address] [id number] Medical Assisting Program Director: Gonzalez Jones PhD, Phone: [phone] Specimen Comment: Called/faxed to Dr. Miller on 08/12/2024 at 10:21 ET for Specimen Comment: test INR us Kathy Chowdary MD LAB BLOOD ORDERABLES Edited Re sult - [facility] * SCAN - LABS (08/04/2024) us Provider Scanning Final Result * (ABNORMAL) Protime-INR (08/04/2024) INR 2.40(A) 0.90 - 1.10 EXTERNAL LAB Blood 08/04/2024 Caitlyn Vann MD LAB BLOOD ORDERABLES Paige l Result EXTERNAL LAB * SCAN - LABS (08/01/2024) us Provider Scanning Final Result * (ABNORMAL) Protime-INR (07/31/2024 4:25 PM CATERPILLAR DRIVER) INR 2.6(H) 0.9 - 1.2 [facility] - 01 Comment: Reference interval is for non-anticoagulated patients. Suggested INR therapeutic range for Vitamin K antagonist therapy: Standard Dose (moderate intensity therapeutic range): 2.0 - 3.0 Higher intensity therapeutic range 2.5 - 3.5 PT 26.1(H) 9.1 - 12.0 sec [facility] - 01 Blood 07/31/2024 4:25 PM CATERPILLAR DRIVER 07/31/2024 Narrative [facility] - 08/01/2024 7:08 AM CATERPILLAR DRIVER Performed at: [address] [id number] Medical Assisting Program Director: Gonzalez Jones PhD, Phone: [phone] Kathy Chowdary MD LAB BLOOD ORDERABLES Final Res ult Performing Organization Address [facility] Co de Phone Number [facility] * (ABNORMAL) Protime-INR (07/25/2024 4:24 PM CATERPILLAR DRIVER) INR 2.9(H) 0.9 - 1.2 [facility] - 01 Comment: Reference interval is for non-anticoagulated patients. Suggested INR therapeutic range for Vitamin K antagonist therapy: Standard Dose (moderate intensity therapeutic range): 2.0 - 3.0 Higher intensity therapeutic range 2.5 - 3.5 PT 29.3(H) 9.1 - 12.0 sec [facility] - 01 Blood 07/25/2024 4:24 PM CATERPILLAR DRIVER 07/25/2024 Narrative [facility] - 07/26/2024 8:12 AM CATERPILLAR DRIVER Performed at: [address] [id number] Medical Assisting Program Director: Gonzalez Jones PhD, Phone: [phone] Kathy Chowdary MD LAB BLOOD ORDERABLES Final Res ult Performing Organization Address [facility] Co de Phone Number [facility] * (ABNORMAL) Protime-INR (07/13/2024 3:30 PM CATERPILLAR DRIVER) INR 1.4(H) 0.9 - 1.2 [facility] - 01 Comment: Reference interval is for non-anticoagulated patients. Suggested INR therapeutic range for Vitamin K antagonist therapy: Standard Dose (moderate intensity therapeutic range): 2.0 - 3.0 Higher intensity therapeutic range 2.5 - 3.5 PT 14.8(H) 9.1 - 12.0 sec [facility] - 01 Blood 07/13/2024 3:30 PM CATERPILLAR DRIVER 07/13/2024 Narrative [facility] - 07/14/2024 7:13 AM CATERPILLAR DRIVER Performed at: [address] [id number] Medical Assisting Program Director: Gonzalez Jones PhD, Phone: [phone] us Kathy Chowdary MD LAB BLOOD ORDERABLES Final Res ult Performing Organization Address [facility] Co de Phone Number [facility] * (ABNORMAL) Protime-INR (06/29/2024 4:18 PM CATERPILLAR DRIVER) Pathologist [facility] INR 3.2(H) 0.9 - 1.2 [facility] - 01 Comment: Reference interval is for non-anticoagulated patients. Suggested INR therapeutic range for Vitamin K antagonist therapy: Standard Dose (moderate intensity therapeutic range): 2.0 - 3.0 Higher intensity therapeutic range 2.5 - 3.5 PT 31.9(H) 9.1 - 12.0 sec [facility] - 01 Blood 06/29/2024 4:18 PM CATERPILLAR DRIVER 06/29/2024 Narrative [facility] - 06/30/2024 7:13 AM CATERPILLAR DRIVER Performed at: [address] [id number] Medical Assisting Program Director: Gonzalez Jones PhD, Phone: [phone] us Kathy Chowdary MD LAB BLOOD ORDERABLES Final Res ult Performing Organization Address [facility] Co de Phone Number [facility] * SCAN - LABS (06/29/2024) us Provider Scanning Final Result * (ABNORMAL) Protime-INR (06/23/2024 3:48 PM CATERPILLAR DRIVER) INR 2.3(H) 0.9 - 1.2 [facility] - 01 Comment: Reference interval is for non-anticoagulated patients. Suggested INR therapeutic range for Vitamin K antagonist therapy: Standard Dose (moderate intensity therapeutic range): 2.0 - 3.0 Higher intensity therapeutic range 2.5 - 3.5 PT 23.4(H) 9.1 - 12.0 sec [facility] - 01 Blood 06/23/2024 3:48 PM CATERPILLAR DRIVER 06/23/2024 Narrative [facility] - 06/24/2024 8:17 AM CATERPILLAR DRIVER Performed at: [address] [id number] Medical Assisting Program Director: Gonzalez Jones PhD, Phone: [phone] Kathy Chowdary MD LAB BLOOD ORDERABLES Final Res ult Performing Organization Address City/State/[facility] Co de Phone Number [facility] - 01 from Last 3 Months Insurance MEDICARE COMMERCIAL GENERIC Member Subscriber Plan / Payer (Ef fective 2018-Present) Name:Mariah Dolan Relation to Subscriber:Self Name:Mariah Dolan Payer ID:[id number] Group ID:[id number] Type:COMMERCIAL Address: [id number] [facility] CHOICE PLUS [facility] HMO/PPO Address: [address] [address] [place] [address] MEDICARE COMMERCIAL GENERIC MEDICARE [facility] Advance Directives For more information, please contact: [phone] * Full Code (Latest Code Status on File) Date Activated Date Inactivated Comments 04/14/2023 3:43 PM 04/15/2023 5:41 PM Care Teams Cart Pusher Relationship Specialty Start Date End Date Alok Newell MD PCP - General 06/01/18
--- OUTSIDE RECORDS SUMMARY | 2024-09-21 19:02 | XMS_ITS ---
Author Organization [facility] [employer] Address [address] [place] [address] Care Team Providers Care Set Up Mechanic Automatic Line Name Role Phone Osiris APARICIO, Alok Primary Care Provider Paras Diaz Unavailable [phone] REASON FOR VISIT c/o pain, anxiety,, MIPS BP exclusion due to established diagnosis of HTN Medications Medication SIG (Take, Route, Frequency, Duration) Notes Start Date End Date Status Hydroxychloroquine Sulfate 200 MG Oral 10/21/2023 Active [place] Thyroid 240 mg Oral 10/21/2023 Active fentaNYL 75 MCG/HR Transdermal 10/21/2023 Active HYDROmorphone HCl 8 MG Oral 10/21/2023 Active Mometasone Furoate 0.1 % External 10/21/2023 Active EQ SINUS 12-HOUR 120MG TAB *Reorder from [facility] for eRx and Interaction Alerts* 10/21/2023 Active Baclofen 20 MG Oral 10/21/2023 Acti ve predniSONE 10 MG Oral 10/21/2023 Ac tive Warfarin Sodium 10 MG Oral 10/21/2023 Active Pseudoephedrine HCl ER 120 MG Oral 10/21/2023 Active Metoprolol Tartrate 25 MG Oral 10/21/2023 Active Clindamycin Phosphate 1 % External 10/21/2023 Active Montelukast Sodium 10 MG Oral 10/21/2023 Active buPROPion HCl ER (SR) 150 MG Oral 10/21/2023 Active Omeprazole 20 MG Oral 10/21/2023 Ac tive ProAir HFA 108 (90 Base) MCG/ACT Inhalation 10/21/2023 Active Remicade 100 MG Intravenous 10/21/2023 A ctive predniSONE 5 MG Oral 10/21/2023 Act candy Dicyclomine HCl 20 MG Oral 10/21/2023 Active Atomoxetine HCl 40 MG 1 capsule in the morning Orally Once a day for 90 days 07/17/2024 5 Active QUEtiapine Fumarate 50 MG 2 tablet at bedtime Oral Once a day for 90 days Active Social History Sex Assigned At : Social History Observation Description Sex Assigned At Female Encounters Encounter Location Date Provider Diagnosis [facility] [employer] [facility] [address] [place] [address] 07/17/2024 Paras Paola Major depressive disorder, recurrent severe without psychotic features F33.2 ; Hypothyroidism, unspecified E03.9 and Hypertension, essential I10 Assessments Encounter Date Diagnosis (ICD Code) Assessment Notes Treatment Notes Treatment Clinical Notes Section Notes 07/17/2024 Major depressive disorder, recurrent severe without psychotic features (ICD-10 - F33.2) Rheumatoid Arthritis and Psoriatic Arthritis - Plan: - Continue monitoring arthritis symptoms. - Consider adjusting prednisone dosage if possible. - Consult with a development assistant for further evaluation and management. - Explore alternative medications or therapies for pain and inflammation management. ADHD - Plan: - Reevaluate ADHD medication regimen. - Consider adjusting dosage or trying alternative medications. - Consult with a psychiatrist for further evaluation and management. Depression - Plan: - Monitor patient's mood. - Consider initiating or adjusting antidepressant therapy if necessary. - Encourage engagement in psychotherapy or counseling. Sleep Disturbances - Plan: - Continue quetiapine at current dose of 100 mg (two 50 mg tablets) for sleep. - Reevaluate need for adjusting dosage or trying alternative sleep aids if disturbances persist. Warfarin Therapy and INR Management - Plan: - Continue monitoring INR levels closely. - Adjust warfarin dosage as needed. - Consult with a mold loft worker for further evaluation and management of anticoagulation therapy. - Continue weekly blood draws for INR monitoring. 07/17/2024 Hypothyroidism, unspecified (ICD-10 - E03.9) Rheumatoid Arthritis and Psoriatic Arthritis - Plan: - Continue monitoring arthritis symptoms. - Consider adjusting prednisone dosage if possible. - Consult with a development assistant for further evaluation and management. - Explore alternative medications or therapies for pain and inflammation management. ADHD - Plan: - Reevaluate ADHD medication regimen. - Consider adjusting dosage or trying alternative medications. - Consult with a psychiatrist for further evaluation and management. Depression - Plan: - Monitor patient's mood. - Consider initiating or adjusting antidepressant therapy if necessary. - Encourage engagement in psychotherapy or counseling. Sleep Disturbances - Plan: - Continue quetiapine at current dose of 100 mg (two 50 mg tablets) for sleep. - Reevaluate need for adjusting dosage or trying alternative sleep aids if disturbances persist. Warfarin Therapy and INR Management - Plan: - Continue monitoring INR levels closely. - Adjust warfarin dosage as needed. - Consult with a mold loft worker for further evaluation and management of anticoagulation therapy. - Continue weekly blood draws for INR monitoring. 07/17/2024 Hypertension, essential (ICD-10 - I10) Rheumatoid Arthritis and Psoriatic Arthritis - Plan: - Continue monitoring arthritis symptoms. - Consider adjusting prednisone dosage if possible. - Consult with a development assistant for further evaluation and management. - Explore alternative medications or therapies for pain and inflammation management. ADHD - Plan: - Reevaluate ADHD medication regimen. - Consider adjusting dosage or trying alternative medications. - Consult with a psychiatrist for further evaluation and management. Depression - Plan: - Monitor patient's mood. - Consider initiating or adjusting antidepressant therapy if necessary. - Encourage engagement in psychotherapy or counseling. Sleep Disturbances - Plan: - Continue quetiapine at current dose of 100 mg (two 50 mg tablets) for sleep. - Reevaluate need for adjusting dosage or trying alternative sleep aids if disturbances persist. Warfarin Therapy and INR Management - Plan: - Continue monitoring INR levels closely. - Adjust warfarin dosage as needed. - Consult with a mold loft worker for further evaluation and management of anticoagulation therapy. - Continue weekly blood draws for INR monitoring. Plan Of Treatment Medication Medication Name Sig Start Date Stop Date Notes Atomoxetine HCl 40 MG 1 capsule in the m orning Orally Once a day for 90 days 07/17/2024 01/13/2025 QUEtiapine Fumarate 50 MG 2 tablet at be dtime Oral Once a day for 90 days Next Appt Details Follow Up: 6 Months, Reason: Provider Name:Paras Snowden , 01/15/2025 03:30:00 PM, [address], [address], [place], [address], Progress Notes * ALEXYS RODRIGUEZ B:1970 (54 yo F)Acc No.[id number]:07/17/2024 Patient: ALEXYS QUIROZ Provider: Kaela SNOWDEN MD :1970 A ge:54 Y S ex:Female Date:07/17/2024 Address:[facility] [address] [facility] Pcp:Alok Newell MD Subjective: * Chief Complaints: * C /o pain, anxiety,MIPS BP exclusion due to established diagnosis of HTN * HPI: D epression Screening: The note is transcribed using speech recognition software. It is a reflection of a visit with the patient. It might have some inaccuracy, including medication names and transcribing errors, though efforts have been made to correct them. Chief Complaint: Significant arthritis pain and unmanageable ADHD The patient reports significant pain due to arthritis, leading to difficulty sleeping and a need for increased prednisone dosages (30-40 mg). She states that her ADHD is currently unmanageable and that her current medications are not providing relief. The patient has a history of chronic rheumatoid arthritis and psoriatic arthritis, affecting her knee, face, fingers, and fingernails. She mentions that her arthritis is worsening, possibly due to the winter season. Mental Health: The patient expresses feelings of depression, which she attributes to her pain and lack of sleep. She reports severe sleep disturbances due to steroids, mentioning a period where she only got 2 hours of sleep over 9 days. Medication Management: The patient is currently taking quetiapine (two 50 mg tablets) but has tried increasing the dose without success. She is on warfarin (5 mg) for anticoagulation, but her INR levels have been inconsistent, which she believes is due to the fluctuating prednisone dosages. The patient reports an allergy to a class of anticoagulant medications, including newer alternatives to warfarin. Medical Concerns: The patient mentions experiencing falls and skin issues related to her condition and medication side effects. She notes that her skin has become thin and brittle due to the steroids, causing plaques to rip open. Her blood pressure has been unstable. Additional Information: The patient reports that her previous arthritis doctor has , which seems to have affected her care. IRVIN-7 (2018 Edition) F eeling nervous, anxious, or on edge?Nearly every day, N ot being able to stop or control worrying N early every day, W orrying too much about different things N early every day, T rouble relaxing N early every day, B eing so restless that it is hard to sit still N early every day, B ecoming easily annoyed or irritable M ore than half the days, F eeling afraid as if something awful might happen N ot at all, I f you checked any problems, how difficult have they made it for you to do your work, take care of things at home, or get along with other people? V ricky difficult.? D epression screening: PHQ-9 L ittle interest or pleasure in doing things N early every day, T rouble falling or staying asleep, or sleeping too much N early every day,?Feeling tired or having little energy N early every day, P oor appetite or overeating More than half the days, F eeling bad about yourself or that you are a failure, or have let yourself or your family down N ot at all, T rouble concentrating on things, such as reading the newspaper or watching television N early every day, M oving or speaking so slowly that other people could have noticed; or the opposite, being so fidgety or restless that you have been moving around a lot more than usual M ore than half the days, T houghts that you would be better off or of hurting yourself in some way N ot at all. * ROS: P atient not eligible due to active diagnosis of hypertension: G 9737. * Medical History: * Surgical History: * Hospitalization/Major Diagno stic Procedure: * Medications: T akingProAir HFA 108 (90 Base) MCG/ACT Aerosol Solution Inhalation Remicade 100 MG Solution Reconstituted Intravenous predniSONE 5 MG Tablet Oral Dicyclomine HCl 20 MG Tablet Oral Metoprolol Tartrate 25 MG Tablet Oral Clindamycin Phosphate 1 % Solution External Montelukast Sodium 10 MG Tablet Oral buPROPion HCl ER (SR) 150 MG Tablet Extended Release 12 Hour Oral Omeprazole 20 MG Capsule Delayed Release Oral EQ SINUS 12-HOUR 120MG TAB , Notes to Pharmacist: *Reorder from [employer] for eRx and Interaction Alerts*Baclofen 20 MG Tablet Oral predniSONE 10 MG Tablet Oral Warfarin Sodium 10 MG Tablet Oral Pseudoephedrine HCl ER 120 MG Tablet Extended Release 12 Hour Oral Hydroxychloroquine Sulfate 200 MG Tablet Oral [place] Thyroid 240 mg Tablet Oral fentaNYL 75 MCG/HR Patch 72 Hour Transdermal HYDROmorphone HCl 8 MG Tablet Oral Mometasone Furoate 0.1 % Cream External QUEtiapine Fumarate 50 MG Tablet 2 tablet at bedtime Oral Once a day Medication List reviewed and reconciled with the patientTaking ProAir HFA 108 (90 Base) MCG/ACT Aerosol Solution Inhalation Taking Remicade 100 MG Solution Reconstituted Intravenous Taking predniSONE 5 MG Tablet Oral Taking Dicyclomine HCl 20 MG Tablet Oral Taking Metoprolol Tartrate 25 MG Tablet Oral Taking Clindamycin Phosphate 1 % Solution External Taking Montelukast Sodium 10 MG Tablet Oral Taking buPROPion HCl ER (SR) 150 MG Tablet Extended Release 12 Hour Oral Taking Omeprazole 20 MG Capsule Delayed Release Oral Taking EQ SINUS 12-HOUR 120MG TAB , Notes to Pharmacist: *Reorder from [employer] for eRx and Interaction Alerts*Taking Baclofen 20 MG Tablet Oral Taking predniSONE 10 MG Tablet Oral Taking Warfarin Sodium 10 MG Tablet Oral Taking Pseudoephedrine HCl ER 120 MG Tablet Extended Release 12 Hour Oral Taking Hydroxychloroquine Sulfate 200 MG Tablet Oral Taking [place] Thyroid 240 mg Tablet Oral Taking fentaNYL 75 MCG/HR Patch 72 Hour Transdermal Taking HYDROmorphone HCl 8 MG Tablet Oral Taking Mometasone Furoate 0.1 % Cream External Taking QUEtiapine Fumarate 50 MG Tablet 2 tablet at bedtime Oral Once a day Medication List reviewed and reconciled with the patient Objective: * Vitals: * Examination: G eneral Examination: M ental Status Examination: Patient reports significant depression associated with chronic pain and sleep disturbances. Patient expresses frustration with current medication management for ADHD, indicating ineffectiveness. Patient reports difficulty concentrating and getting tasks done due to ADHD symptoms. Vital Signs: Blood pressure described as stephan messed up by the patient. Musculoskeletal: Patient reports severe pain due to rheumatoid arthritis and psoriatic arthritis, affecting mobility to the extent of difficulty getting out of bed without adequate prednisone dosage. Reports pain in knee, face, and fingers. Neurological: Patient has ADHD, currently uncontrolled. Reports falling down frequently. Dermatological: History of infected plaques mentioned. Patient reports thin, brittle skin due to steroid use. Mentions psoriatic plaques that rip open . Diagnostic Test Results and Labs: Warfarin therapy mentioned with unstable INR levels, influenced by fluctuating doses of prednisone. Patient reports weekly blood draws for INR monitoring. Assessment: * Assessment: 1. M ajor depressive disorder, recurrent severe without psychotic features - F33.2 (Primary)? 2. H ypothyroidism, unspecified - E03.9 3 . H ypertension, essential - I10 Rheumatoid Arthritis and Pso riatic Arthritis - Plan: - Continue monitoring arthritis symptoms. - Consider adjusting prednisone dosage if possible. - Consult with a development assistant for further evaluation and management. - Explore alternative medications or therapies for pain and inflammation management. ADHD - Plan: - Reevaluate ADHD medication regimen. - Consider adjusting dosage or trying alternative medications. - Consult with a psychiatrist for further evaluation and management. Depression - Plan: - Monitor patient's mood. - Consider initiating or adjusting antidepressant therapy if necessary. - Encourage engagement in psychotherapy or counseling. Sleep Disturbances - Plan: - Continue quetiapine at current dose of 100 mg (two 50 mg tablets) for sleep. - Reevaluate need for adjusting dosage or trying alternative sleep aids if disturbances persist. Warfarin Therapy and INR Management - Plan: - Continue monitoring INR levels closely. - Adjust warfarin dosage as needed. - Consult with a mold loft worker for further evaluation and management of anticoagulation therapy. - Continue weekly blood draws for INR monitoring. Plan: * Treatment: * Procedure Codes: G 9744 Pt not juan diego d/t act dig htn * Follow Up: 6 Months * Billing Information: * Visit Code: 66902 OFFICE OUTPATIENT VISIT 25 MINUTES DETAILED HISTORY AND EXAM/MODERATE MEDICAL DECISION MAKING. * Procedure Codes: G9744 Pt not juan diego d/t act dig htn. * [employer] Sign off status: Completed true * Provider: Kaela SNOWDEN MD Date: 09/17/2023 Generated for Kavitha pantoja/Denny/eTransmitting on: 0 09/21/2024 07:01 PM [employer] History and Physical Notes * HPI (History of Present Illness) Category Sub-Category Detail Notes Category Not es Depression screening PHQ-9 Little inte rest or pleasure in doing things: Nearly every day Trouble falling or staying asleep, or sl eeping too much: Nearly every day Feeling tired or having little energy: N early every day Poor appetite or overeating: More than h jose the days Feeling bad about yourself o r that you are a failure, or have let yourself or your family down: Not at all Trouble concentrating on thi ngs, such as reading the newspaper or watching television: Nearly every day Moving or speaking so slowly that other people could have noticed; or the opposite, being so fidgety or restless that you have been moving around a lot more than usual: More than half the days Thoughts that you would be b albaro off or of hurting yourself in some way: Not at all Depression Screening IRVIN-7 (2018 Edition) Feelin g nervous, anxious, or on edge: Nearly every day Not being able to stop or control worryi ng: Nearly every day Worrying too much about different things : Nearly every day Trouble relaxing: Nearly every day Being so restless that it is hard to sit still: Nearly every day Becoming easily annoyed or irritable: Mo re than half the days Feeling afraid as if something awful nicolasa ht happen: Not at all If you checked any problems, how difficult have they made it for you to do your work, take care of things at home, or get along with other people?: Very difficult Examination Category Sub-Category Detail Notes Category Not es General Examination Mental Status Examination: Patient reports significant depression associated with chronic pain and sleep disturbances. Patient expresses frustration with current medication management for ADHD, indicating ineffectiveness. Patient reports difficulty concentrating and getting tasks done due to ADHD symptoms. Vital Signs: Blood pressure described as stephan messed up by the patient. Musculoskeletal: Patient reports severe pain due to rheumatoid arthritis and psoriatic arthritis, affecting mobility to the extent of difficulty getting out of bed without adequate prednisone dosage. Reports pain in knee, face, and fingers. Neurological: Patient has ADHD, currently uncontrolled. Reports falling down frequently. Dermatological: History of infected plaques mentioned. Patient reports thin, brittle skin due to steroid use. Mentions psoriatic plaques that rip open . Diagnostic Test Results and Labs: Warfarin therapy mentioned with unstable INR levels, influenced by fluctuating doses of prednisone. Patient reports weekly blood draws for INR monitoring.
[2024-09-21 19:16] VITALS: BP 104/81; PULSE 97; RESP 19; TEMP 36.7; O2SAT 97
--- OUTSIDE RECORDS SUMMARY | 2024-09-21 22:01 | XMS_ITS | Clinical Summary ---
Author Organization [facility] [employer] Address [address] [place] [address] Care Team Providers Care Web Methods Developer Name Role Phone Alok Newell MD Primary Care Provider [phone] Source Comments [facility],non-owned Affiliates and Associated Physician Practices is amultiple site organization consisting of ambulatory clinics and hospital sitesin [place], [place], [place] and [place]. This disclosure is being madepursuant to the Care Everywhere program and may not contain all information available regarding this patient. Last updated 18.[facility] [employer] Allergies Active Allergy Reactions Criticality Noted Date [...] Active vitamin D, ergocalciferol, (DRISDOL) 1.25 MG (91123 UT) capsule Take 50,000 Units by mouth [...] 9:10 PM 02/27/2020 6:12 AM Care Teams Web Methods Developer Relationship Specialty Start Date End Date Alok Newell MD PCP - General Family Medicine 10/29/15
--- OUTSIDE RECORDS SUMMARY | 2024-09-21 22:02 | XMS_ITS | Patient Health Summary ---
Author Organization [facility] Address [address] [place] [address] Care Team Providers Care Traffic Ii Manager Name Role Phone Alok Newell MD Primary Care Provider [phone] Note from [facility],non-owned Affiliates and Associated Physician Practices is amultiple site organization consisting of ambulatory clinics and hospital sitesin [place], [place], [place] and [place]. This disclosure is being madepursuant to the Care Everywhere program and may not contain all information available regarding this patient. Last updated 18.[facility] Allergies * Aspirin(Other) * Hydroxyzine(Other) * Azithromycin(Other) [...] * vitamin D, ergocalciferol, (DRISDOL) 1.25 MG (36267 UT) capsule(Started 12/07/2019) Take 50,000 Units by [...] OR MORE(Performed 07/11/2020) Performed for Psoriatic arthritis ([facility]LY [facility]), Therapeutic drug monitoring * XR FOOT LEFT 3VW OR MORE(Performed 07/11/2020) Performed for Psoriatic arthritis ([facility]), Therapeutic drug monitoring * XR HAND RIGHT 3VW OR MORE(Performed 07/11/2020) Performed for Psoriatic arthritis ([facility]), Therapeutic drug monitoring * XR HAND LEFT 3VW OR MORE(Performed 07/11/2020) Performed for Psoriatic arthritis ([facility]), Therapeutic drug monitoring * URINALYSIS W/MICROSCOPIC NO CULTURE(Performed 07/11/2020) Performed for Psoriatic arthritis ([facility]), Therapeutic drug monitoring * QUANTIFERON-TB GOLD PLUS 4-TUBE(Performed 07/11/2020) Performed for Psoriatic arthritis ([facility]), Therapeutic drug monitoring * ERYTHROCYTE SEDIMENTATION RATE(Performed 07/11/2020) Performed for Psoriatic arthritis ([facility]), Therapeutic drug monitoring * C-REACTIVE PROTEIN(Performed 07/11/2020) Performed for Psoriatic arthritis ([facility]), Therapeutic drug monitoring * COMPREHENSIVE METABOLIC PANEL(Performed 07/11/2020) Performed for Psoriatic arthritis ([facility]), Therapeutic drug monitoring * CBC W [...] MD on 01/20/2024 4:49 PM Zoey Flores CREMATORY OPERATOR-PROFESSIONAL BENEFITS SALES CONSULTANT DEXA OR DERABLES * XR FOOT RIGHT 3VW OR MORE (07/11/2020 12:39 PM WASH OIL PUMP OPERATOR HELPER) Anatomical Region Laterality Modality Ankle / Foot Radiographic Letty ging 07/11/2020 1:27 PM WASH OIL PUMP OPERATOR HELPER Impressions 07/11/2020 1:47 PM WASH OIL PUMP OPERATOR HELPER IMPRESSION: 1. Right hand: Moderate to severe [...] 1:47 PM . Narrative 07/11/2020 1:47 PM WASH OIL PUMP OPERATOR HELPER Exam: XR HAND RIGHT 3VW XR FOOT [...] proximal interphalangeal joints where there is essentially upkr-hy-mcac contact. There is surrounding soft tissue swelling. [...] digitproximal interphalangeal joints where there is essentially izdj-up-xcfh contact. There is surrounding soft tissue swelling. [...] LEFT 3VW OR MORE (07/11/2020 12:39 PM WASH OIL PUMP OPERATOR HELPER) Anatomical Region Laterality Modality Ankle / Foot Radiographic Letty ging 07/11/2020 1:27 PM WASH OIL PUMP OPERATOR HELPER Impressions 07/11/2020 1:47 PM WASH OIL PUMP OPERATOR HELPER IMPRESSION: 1. Right hand: Moderate to severe [...] 1:47 PM . Narrative 07/11/2020 1:47 PM WASH OIL PUMP OPERATOR HELPER Exam: XR HAND RIGHT 3VW XR FOOT [...] proximal interphalangeal joints where there is essentially kujw-wt-tmgm contact. There is surrounding soft tissue swelling. [...] digitproximal interphalangeal joints where there is essentially hakx-kh-ynyi contact. There is surrounding soft tissue swelling. [...] RIGHT 3VW OR MORE (07/11/2020 12:39 PM WASH OIL PUMP OPERATOR HELPER) Only the most recent of2 resultswithin the time period is included. Anatomical Region Laterality Modality Wrist / Hand Radiographic Letty ging 07/11/2020 1:27 PM WASH OIL PUMP OPERATOR HELPER Impressions 07/11/2020 1:47 PM WASH OIL PUMP OPERATOR HELPER IMPRESSION: 1. Right hand: Moderate to severe [...] 1:47 PM . Narrative 07/11/2020 1:47 PM WASH OIL PUMP OPERATOR HELPER Exam: XR HAND RIGHT 3VW XR FOOT [...] proximal interphalangeal joints where there is essentially vyyh-dz-dmud contact. There is surrounding soft tissue swelling. [...] digitproximal interphalangeal joints where there is essentially puev-mv-jxfp contact. There is surrounding soft tissue swelling. [...] LEFT 3VW OR MORE (07/11/2020 12:39 PM WASH OIL PUMP OPERATOR HELPER) Only the most recent of2 resultswithin the time period is included. Anatomical Region Laterality Modality Wrist / Hand Radiographic Letty ging 07/11/2020 1:27 PM WASH OIL PUMP OPERATOR HELPER Impressions 07/11/2020 1:47 PM WASH OIL PUMP OPERATOR HELPER IMPRESSION: 1. Right hand: Moderate to severe [...] 1:47 PM . Narrative 07/11/2020 1:47 PM WASH OIL PUMP OPERATOR HELPER Exam: XR HAND RIGHT 3VW XR FOOT [...] proximal interphalangeal joints where there is essentially ylrt-ex-lkyz contact. There is surrounding soft tissue swelling. [...] digitproximal interphalangeal joints where there is essentially kpwh-ne-ltbu contact. There is surrounding soft tissue swelling. [...] URINALYSIS W/MICROSCOPIC NO CULTURE (07/11/2020 12:08 PM WASH OIL PUMP OPERATOR HELPER) Color UA Straw Straw, Yellow, Colorless 07/11/2020 12:44 PM [facility] Clarity UA Clear Clear, Slt Cloudy 07/11/2020 12:44 PM [facility] Specific Concord UA 1.006 1.005 - 1.030 07/11/2020 12:44 PM [facility] pH UA 6.0 5.0 - 8.0 pH 07/11/2020 12:44 PM [facility] Protein UA Negative Negative mg/dL 07/11/2020 12:44 PM [facility] Glucose UA Negative Negative mg/dL 07/11/2020 12:44 PM [facility] Ketone UA Negative Negative mg/dL 07/11/2020 12:44 PM [facility] Bilirubin UA Negative Negative mg/dL 07/11/2020 12:44 PM [facility] Blood UA Negative Negative 07/11/2020 12:44 PM [facility] Nitrite UA Negative Negative 07/11/2020 12:44 PM [facility] Leukocyte Esterase Trace(A) Negative 07/11/2020 12:44 PM [facility] Urobilinogen UA Negative Negative mg/dL 07/11/2020 12:44 PM [facility] RBC UA 6-10(A) None Seen, 0-2, 3-5 /HPF 07/11/2020 12:44 PM [facility] WBC UA 0-5 None Seen, 0-5 /HPF 07/11/2020 12:44 PM WASH OIL PUMP OPERATOR HELPER [facility] Squamous Epithelial Cells UA 0-2 None Seen, 0-2 /HPF 07/11/2020 12:44 PM WASH OIL PUMP OPERATOR HELPER [facility] Mucus UA 1+ None, 1+ /LPF 07/11/2020 12:44 PM WASH OIL PUMP OPERATOR HELPER [facility] Urine URINE SPECIMEN OBTAINED BY CLEAN CATCH PROCEDURE / Unknown Collection / Unknown 07/11/2020 12:08 PM WASH OIL PUMP OPERATOR HELPER 07/11/2020 12:32 PM WASH OIL PUMP OPERATOR HELPER Narrative [facility] - 07/11/2020 12:44 PM WASH OIL PUMP OPERATOR HELPER Magi Girard MD LAB - URINALYSIS ORD ERABLES [address] [address], [facility] [phone] * QUANTIFERON-TB GOLD PLUS 4-TUBE (07/11/2020 12:02 PM WASH OIL PUMP OPERATOR HELPER) QuantiFERON NIL 0.05 IU/mL 0 7:47 PM WASH OIL PUMP OPERATOR HELPER [employer] ([facility]) Comment: Performed By: [facility] [address] [place] [id number] Cadd Instructor: Anastacia Mkcay MD QuantiFERON TB Gold Plus Negative Negative 07/14/2020 7:47 PM WASH OIL PUMP OPERATOR HELPER [employer] ([facility]) Comment: Interpretive Data: Quantiferon TB Gold Plus [...] Mycobacterium tuberculosis Infection --- [place], 2010 (http://www.cdc.gov/mmwr/preview/mmwrhtml/fm0229f1.htm), for more information concerning test performance in low-prevalence populations and use in occupational screening. QuantiFERON Plus TB1 Minus NIL 0.00 0.00 - 0.34 IU/mL 07/14/2020 7:47 PM WASH OIL PUMP OPERATOR HELPER [facility] ([facility]) QuantiFERON Plus TB2 Minus NIL 0.00 0.00 - 0.34 IU/mL 07/14/2020 7:47 PM WASH OIL PUMP OPERATOR HELPER [facility] ([facility]) QuantiFERON Mitogen Minus NIL >10.00 IU/mL 07/14/2020 7:47 PM WASH OIL PUMP OPERATOR HELPER [facility]) Blood BLOOD SPECIMEN / Unknown Lab Venipuncture / Unknown 07/11/2020 12:02 PM WASH OIL PUMP OPERATOR HELPER 07/11/2020 1:02 PM WASH OIL PUMP OPERATOR HELPER Magi Girard MD LAB - CHEMISTRY DEISI TALLEY [facility]) [address] * C-REACTIVE PROTEIN (07/11/2020 12:02 PM WASH OIL PUMP OPERATOR HELPER) Only the most recent of7 resultswithin the time period is included. Pathologist [facility] C-Reactive Protein <0.5 <=0.5 mg/dL 07/11/2020 1:01 PM WASH OIL PUMP OPERATOR HELPER [facility] Blood BLOOD SPECIMEN / Unknown Lab Venipuncture / Unknown 07/11/2020 12:02 PM WASH OIL PUMP OPERATOR HELPER 07/11/2020 12:49 PM WASH OIL PUMP OPERATOR HELPER Magi Girard MD LAB - CHEMISTRY DEISI TALLEY [facility] [address] [place] [address], [facility] [phone] * ERYTHROCYTE SEDIMENTATION RATE (07/11/2020 12:02 PM WASH OIL PUMP OPERATOR HELPER) Only the most recent of6 resultswithin the time period is included. Pathologist [facility] Erythrocyte Sedimentation Rate Westergren 5 0 - 30 MM/HR 07/11/2020 12:49 PM [facility] Blood BLOOD SPECIMEN / Unknown Lab Venipuncture / Unknown 07/11/2020 12:02 PM WASH OIL PUMP OPERATOR HELPER 07/11/2020 12:32 PM WASH OIL PUMP OPERATOR HELPER Magi Girard MD LAB - HEMATOLOGY ORD ERABLES [facility] [address] [place] [phone], [facility] [phone] * (ABNORMAL) CBC WITH DIFFERENTIAL (07/11/2020 12:02 PM WASH OIL PUMP OPERATOR HELPER) Only the most recent of13 resultswithin the time period is included. WBC 7.5 3.5 - 10.5 10 3/uL 07/11/2020 12:39 PM [facility] RBC 4.06 3.90 - 5.00 10 6/uL 07/11/2020 12:39 PM [facility] Hemoglobin 12.5 12.0 - 15.5 g/dL 07/11/2020 12:39 PM [facility] Hematocrit 39.9 35.0 - 45.0 % 07/11/2020 12:39 PM [facility] MCV 98.3(H) 81.0 - 97.0 fL 07/11/2020 12:39 PM [facility] MCH 30.8 28.0 - 34.0 pg 07/11/2020 12:39 PM [facility] MCHC 31.3(L) 32.0 - 36.0 g/dL 07/11/2020 12:39 PM [facility] Platelet Count 298 150 - 400 10 3/uL 07/11/2020 12:39 PM [facility] RDW-SD 51.1(H) 36.0 - 50.0 fL 07/11/2020 12:39 PM [facility] RDW-CV 14.3 11.2 - 14.8 % 07/11/2020 12:39 PM [facility] MPV 9.1(L) 9.3 - 12.8 fL 07/11/2020 12:39 PM [facility] nRBC Absolute 0.00 0 10 3/uL 07/11/2020 12:39 PM [facility] nRBC Auto 0.0 0 /100 WBC 07/11/2020 12:39 PM [facility] Neutrophils % 73.6(H) 35.0 - 70.0 % 07/11/2020 12:39 PM [facility] Lymphocytes % 18.3(L) 19.7 - 55.1 % 07/11/2020 12:39 PM [facility] Monocytes % 5.8 3.0 - 15.0 % 07/11/2020 12:39 PM [facility] Eosinophils % 0.5 0.0 - 6.0 % 07/11/2020 12:39 PM [facility] Basophil % 0.5 0.0 - 1.5 % 07/11/2020 12:39 PM [facility] Neutrophils Absolute 5.5 1.6 - 7.0 10 3/uL 07/11/2020 12:39 PM [facility] Lymphocyte Absolute 1.4 0.8 - 2.9 10 3/uL 07/11/2020 12:39 PM [facility] Monocytes Absolute 0.43 0.14 - 0.66 10 3/uL 07/11/2020 12:39 PM [facility] Eosinophils Absolute 0.04 0.00 - 0.45 10 3/uL 07/11/2020 12:39 PM [facility] Basophils Absolute 0.04 0.00 - 0.06 10 3/uL 07/11/2020 12:39 PM [facility] Immature Granulocytes % 1.3(H) 0.0 - 1.0 % 07/11/2020 12:39 PM [facility] Blood BLOOD SPECIMEN / Unknown Lab Venipuncture / Unknown 07/11/2020 12:02 PM WASH OIL PUMP OPERATOR HELPER 07/11/2020 12:32 PM WASH OIL PUMP OPERATOR HELPER Magi Girard MD LAB - HEMATOLOGY ORD ERABLES [address] [address], [facility] [phone] * (ABNORMAL) COMPREHENSIVE METABOLIC PANEL (07/11/2020 12:02 PM WASH OIL PUMP OPERATOR HELPER) Only the most recent of6 resultswithin the time period is included. BUN 19 7 - 26 mg/dL 07/11/2020 1:05 PM [facility] Creatinine 0.7 0.6 - 1.2 mg/dL 07/11/2020 1:05 PM [facility] Sodium 135(L) 136 - 145 mmol/L 07/11/2020 1:05 PM [facility] Potassium 3.6 3.5 - 4.5 mmol/L 07/11/2020 1:05 PM [facility] Chloride 101 98 - 107 mmol/L 07/11/2020 1:05 PM [facility] CO2 25 22 - 29 mmol/L 07/11/2020 1:05 PM [facility] Glucose 106 70 - 115 mg/dL 07/11/2020 1:05 PM [facility] Calcium 8.8 8.4 - 10.2 mg/dL 07/11/2020 1:05 PM [facility] Protein Total 6.6 6.0 - 8.3 g/dL 07/11/2020 1:05 PM [facility] Albumin 4.1 3.4 - 5.0 g/dL 07/11/2020 1:05 PM [facility] Bilirubin Total 0.4 0.2 - 1.2 mg/dL 07/11/2020 1:05 PM [facility] Alkaline Phosphatase 68 40 - 150 Units/L 07/11/2020 1:05 PM [facility] ALT 26 0 - 55 Units/L 07/11/2020 1:05 PM [facility] AST 25 5 - 34 Units/L 07/11/2020 1:05 PM [facility] Anion Gap 13 8 - 18 07/11/2020 1:05 PM [facility] BUN/Creatinine Ratio 27(H) 7 - 23 07/11/2020 1:05 PM [facility] Osmolality Calculated 283 270 - 300 mOsm/kg 07/11/2020 1:05 PM [facility] Albumin/Globulin Ratio 1.6 1.1 - 2.3 07/11/2020 1:05 PM [facility] eGFR >60 >60 mL/min/1.7 3 m2 07/11/2020 1:05 PM [facility] Blood BLOOD SPECIMEN / Unknown Lab Venipuncture / Unknown 07/11/2020 12:02 PM WASH OIL PUMP OPERATOR HELPER 07/11/2020 12:32 PM WASH OIL PUMP OPERATOR HELPER Magi Girard MD LAB - CHEMISTRY DEISI [place] Performing Organization Address [facility]/ZIP Co de Phone Number [address] [address], [facility] [phone] * GLUCOSE - POINT OF CARE (02/26/2020 9:20 PM CDT) Only the most recent of4 resultswithin the time period is included. Glucose WB/POC 88 70 - 115 mg/dL 02/26/2020 9:24 PM CDT [facility] Specimen Type Arterial/C apillary 02/26/2020 9:24 PM CDT [facility] Blood BLOOD SPECIMEN / Unknown 02/26/2020 9:20 PM CDT 02/26/2020 9:24 PM CDT Taras Kelley MD LAB - POINT OF CARE ORDERABLES Performing Organization Address [facility] Co de Phone Number [address] [address], [facility] [phone] * XR CHEST 1VW PORTABLE (02/26/2020 7:37 [...] is noted. Dictated by Shaggy Davies MD (consultant luxury and auto. vice president [employer] (ex )). I, Dr. REINA LAWTON M.D. have personally reviewed and interpreted this examination/study. This report was electronically signed by REINA LAWTON M.D. on 02/26/2020 2:47 PM . Narrative [...] is noted. Dictated by Shaggy Davies MD (consultant luxury and auto. vice president [employer] (ex )). I, Dr. REINA LAWTON M.D. have personally reviewed and interpreted this examination/study. This report was electronically signed by REINA LAWTON M.D. on 02/26/2020 2:47 PM . Stan Alberto MD DIAGNOSTIC IMAGING O RDERABLES * (ABNORMAL) SARS-COV-2 (COVID-19) IN HOUSE (02/25/2020 10:54 PM CDT) COVID-19 PCR Detected( AA) Not detected, Invalid 02/26/2020 2:08 PM CDT [facility] Microbiology SPECIMEN FROM NASOPHARYNGEAL STRUCTURE / Unknown Collection / Unknown 02/25/2020 10:54 PM CDT 02/26/2020 2:30 AM CDT Narrative [facility] - 02/26/2020 2:08 PM CDT This nucleic acid amplification assay performance was validated by [facility]. This test has been [...] Miller DO LAB - MICROBIOLOGY O RDERABLES [facility] [address] [place] [address], [facility] [phone] * RESPIRATORY PATHOGEN PANEL BY PCR (02/25/2020 10:54 PM CDT) Adenovirus PCR Not detected Not detected, Invalid, Indeterminate 02/26/2020 7:53 AM CDT [facility] Coronavirus PCR Not detected Not detected, Invalid, Indeterminate 02/26/2020 7:53 AM CDT [facility] Human Metapneumovirus PCR Not detected Not detected, Invalid, Indeterminate 02/26/2020 7:53 AM CDT [facility] Human Rhinovirus/Entero virus PCR Not detected Not detected, Invalid, Indeterminate 02/26/2020 7:53 AM CDT [facility] Influenza A PCR Not detected Not detected, Equivocal, Invalid, Indeterminate 02/26/2020 7:53 AM CDT [facility] Influenza B PCR Not detected Not detected, Invalid, Indeterminate 02/26/2020 7:53 AM CDT [facility] Parainfluenza Virus 1 PCR Not detected Not detected, Invalid, Indeterminate 02/26/2020 7:53 AM CDT [facility] Parainfluenza Virus 2 PCR Not detected Not detected, Invalid, Indeterminate 02/26/2020 7:53 AM CDT [facility] Parainfluenza Virus 3 PCR Not detected Not detected, Invalid, Indeterminate 02/26/2020 7:53 AM CDT [facility] Parainfluenza Virus 4 PCR Not detected Not detected, Invalid, Indeterminate 02/26/2020 7:53 AM CDT [facility] Respiratory Syncytial Virus PCR Not detected Not detected, Invalid, Indeterminate 02/26/2020 7:53 AM CDT [facility] Bordetella pertussis PCR Not detected Not detected, Invalid 02/26/2020 7:53 AM CDT [facility] Chlamydia pneumoniae PCR Not detected Not detected, Invalid, Indeterminate 02/26/2020 7:53 AM CDT [facility] Mycoplasma pneumoniae PCR Not detected Not detected, Invalid, Indeterminate 02/26/2020 7:53 AM CDT [facility] Microbiology SPECIMEN FROM NASOPHARYNGEAL STRUCTURE / Unknown Collection / Unknown 02/25/2020 10:54 PM CDT 02/26/2020 2:30 AM CDT Narrative [facility] - 02/26/2020 7:53 AM CDT This test is able to detect the following human coronaviruses: HKU1, NL63, 229E, and OC43. It will NOT detect 2019 Novel Coronavirus (2019-nCoV). If 2019-nCoV is suspected contact Infection Prevention for isolation and testing guidance. Caron Miller DO LAB - MICROBIOLOGY O RDERABLES Performing Organization Address City/[facility]/ZIP Co de Phone Number [facility] [address] [place] [address], [facility] [phone] * PTT [facility] (02/25/2020 9:40 PM CDT) APTT 23.7 23.0 - 38.4 Seconds 02/25/2020 9:51 PM CDT [facility] Comment:Suggested therapeuti c range for full dose I.V. unfractionated heparin therapy for venous thromboembolism is 71 to 109 seconds. Blood BLOOD SPECIMEN / Unknown Lab Venipuncture / Unknown 02/25/2020 9:40 PM CDT 02/25/2020 9:40 PM CDT Stan Alberto MD LAB - COAGULATION OR DERABLES Performing Organization Address City/[facility]/ZIP Co de Phone Number [facility] [address] [place] [address], [facility] [phone] * PT-INR [facility] (02/25/2020 9:40 PM CDT) PT 13.9 12.1 - 14.8 Seconds 02/25/2020 9:51 PM CDT [facility] INR 1.1 See Comment 02/25/2020 9:51 PM CDT [facility] Comment:The suggested therap eutic range for standard coumadin (warfarin) therapy is an INR of 2.0-3.0. For high-risk patients (Mechanical Mitral Valve Prosthesis, etc.), the suggested prophylactic therapeutic range is an INR of 2.5-3.5. Blood BLOOD SPECIMEN / Unknown Lab Venipuncture / Unknown 02/25/2020 9:40 PM CDT 02/25/2020 9:40 PM CDT Stan Alberto MD LAB - COAGULATION OR DERABLES [address] [address], [facility] [phone] * PROCALCITONIN LEVEL (02/25/2020 9:40 PM CDT) PROCALCITONIN <0.02 <=0.10 ng/mL 02/25/2020 10:23 PM CDT [facility] Blood BLOOD SPECIMEN / Unknown Lab Venipuncture / Unknown 02/25/2020 9:40 PM CDT 02/25/2020 9:40 PM CDT Narrative [facility] - 02/25/2020 10:23 PM CDT The change [...] Change in Procalcitonin Calculator is available at [email or web address] If clinical picture has not improved and PCT remains high, reevaluate and consider treatment failure or other causes. Stan Alberto MD LAB - CHEMISTRY ORDE RABLES [address] [address], [facility] [phone] * TROPONIN I (02/25/2020 9:40 PM CDT) [facility] Troponin I <0.010 <0.032 ng/mL 02/25/2020 10:04 PM CDT [facility] Blood BLOOD SPECIMEN / Unknown Lab Venipuncture / Unknown 02/25/2020 9:40 PM CDT 02/25/2020 9:40 PM CDT Stan Alberto MD LAB - CHEMISTRY DEISI [place] Performing Organization Address [facility]/ZIP Co de Phone Number [address] [address], [facility] [phone] * D-DIMER (02/25/2020 9:40 PM CDT) [facility] D-Dimer Quantitative 0.38 <=0.50 mcg/mL FEU 02/25/2020 9:53 PM CDT [facility] Comment: In the absence of clinical symptoms, [...] Alberto MD LAB - COAGULATION OR DERABLES [address] [address], [facility] [phone] * (ABNORMAL) PHOSPHORUS BLOOD (02/25/2020 9:40 PM CDT) Only the most recent of4 resultswithin the time period is included. Phosphorus 5.0(H) 2.3 - 4.7 mg/dL 02/25/2020 10:03 PM CDT [facility] Blood BLOOD SPECIMEN / Unknown Lab Venipuncture / Unknown 02/25/2020 9:40 PM CDT 02/25/2020 9:40 PM CDT Stan Alberto MD LAB - CHEMISTRY DEISI TALLEY [address] [address], [facility] [phone] * MAGNESIUM BLOOD (02/25/2020 9:40 PM CDT) Only the most recent of4 resultswithin the time period is included. [facility] Magnesium 2.1 1.6 - 2.6 mg/dL 02/25/2020 10:03 PM CDT [facility] Blood BLOOD SPECIMEN / Unknown Lab Venipuncture / Unknown 02/25/2020 9:40 PM CDT 02/25/2020 9:40 PM CDT Stan Alberto MD LAB - CHEMISTRY [facility] Performing Organization Address [facility]/ZIP Co de Phone Number [address] [id number], [facility] [phone] * LDH BLOOD (02/25/2020 9:40 PM CDT) Only the most recent of2 resultswithin the time period is included. [facility] LDH Total 170 125 - 243 Units/L 02/25/2020 10:03 PM CDT [facility] Blood BLOOD SPECIMEN / Unknown Lab Venipuncture / Unknown 02/25/2020 9:40 PM CDT 02/25/2020 9:40 PM CDT Stan Alberto MD LAB - CHEMISTRY DEISI TALLEY [address] [address], [facility] [phone] * LACTIC ACID BLOOD (02/25/2020 9:40 PM CDT) Only the most recent of2 resultswithin the time period is included. [facility] Lactic Acid-Stat 1.3 0.5 - 2.2 mmol/L 02/25/2020 9:57 PM CDT [facility] Blood BLOOD SPECIMEN / Unknown Lab Venipuncture / Unknown 02/25/2020 9:40 PM CDT 02/25/2020 9:40 PM CDT Stan Alberto MD LAB - CHEMISTRY DEISI TALLEY [address] [address], [facility] [phone] * (ABNORMAL) CK BLOOD (02/25/2020 9:40 PM CDT) Only the most recent of3 resultswithin the time period is included. [facility] CK Total 25(L) 30 - 200 Units/L 02/25/2020 10:03 PM CDT [facility] Blood BLOOD SPECIMEN / Unknown Lab Venipuncture / Unknown 02/25/2020 9:40 PM CDT 02/25/2020 9:40 PM CDT Stan Alberto MD LAB - CHEMISTRY DEISI TALLEY Performing Organization Address [facility]/ZIP Co de Phone Number [address] [address], [facility] [phone] * FERRITIN (02/25/2020 9:40 PM CDT) [facility] Ferritin 112 13 - 204 ng/mL 02/25/2020 10:19 PM CDT [facility] Blood BLOOD SPECIMEN / Unknown Lab Venipuncture / Unknown 02/25/2020 9:40 PM CDT 02/25/2020 9:40 PM CDT Stan Alberto MD LAB - CHEMISTRY DEISI TALLEY [address] [address], [facility] [phone] * XR KNEE LEFT 3VW (08/07/2016 8:40 AM WASH OIL PUMP OPERATOR HELPER) Anatomical Region Laterality Modality Lower Extremity Other Impressions 08/07/2016 10:47 AM WASH OIL PUMP OPERATOR HELPER Impression: 1. No evidence of right knee [...] 10:47 AM . Narrative 08/07/2016 10:47 AM WASH OIL PUMP OPERATOR HELPER Exam: 1. Right knee, 4 views 2. [...] XR KNEE RIGHT 3VW (08/07/2016 8:39 AM WASH OIL PUMP OPERATOR HELPER) Anatomical Region Laterality Modality Lower Extremity Other Impressions 08/07/2016 10:47 AM WASH OIL PUMP OPERATOR HELPER Impression: 1. No evidence of right knee [...] 10:47 AM . Narrative 08/07/2016 10:47 AM WASH OIL PUMP OPERATOR HELPER Exam: 1. Right knee, 4 views 2. [...] URINALYSIS MICROSCOPIC ONLY REFLEXED (09/23/2015 3:30 PM WASH OIL PUMP OPERATOR HELPER) Only the most recent of2 resultswithin the time period is included. WBC, UA 0-5 0 - 5 /hpf [facility] (BEAKER) RBC UA None seen 0 - 2 /hpf [facility] (BEAKER) Epithelial Cells (non renal) 0-10 0 - 10 /hpf [facility] (BEAKER) Mucus UA Present Not Estab. [facility] (BEAKER) Bacteria UA None seen None seen/Few [facility] (BEAKER) 09/23/2015 3:30 PM WASH OIL PUMP OPERATOR HELPER 09/23/2015 5:52 PM WASH OIL PUMP OPERATOR HELPER Narrative [facility] (BEAKER) - 09/24/2015 7:13 AM WASH OIL PUMP OPERATOR HELPER Performed at: [address] [place] [address] [id number] Laboratory Worker: Gonzalez Jones PhD, Phone: [phone] Specimen Comment: A courtesy copy of this report has been sent to Specimen Comment: Rheumatology Pediatrics, [facility]. Jonathan Flores MD LAB - URINALYSIS ORD ERABLES Performing Organization Address [facility]/ZIP Co de Phone Number [facility] (BEAKER) * URINALYSIS W/MICROSCOPIC REFLEX TO CULTURE (09/23/2015 3:30 PM WASH OIL PUMP OPERATOR HELPER) Only the most recent of2 resultswithin the time period is included. Specific [place] 1.014 1.005 - 1.030 [facility] (BEAKER) [...] Negative [facility] (BEAKER) Microscopic Examination [facility] (BEAKER) Comment:Microscopic follows if indicated. Microscopic Examination See below: [facility] (BEAKER) Comment:Microscopic was yamilet cated and was performed. Urinalysis Reflex [facility] (BEAKER) Comment:This specimen will n ot reflex to a Urine Culture. Urine specimen (specimen) 09/23/2015 3:30 PM WASH OIL PUMP OPERATOR HELPER 09/23/2015 5:52 PM WASH OIL PUMP OPERATOR HELPER Narrative [facility] (BEAKER) - 09/24/2015 7:13 AM WASH OIL PUMP OPERATOR HELPER Specimen Type->Urine Performed at: - [facility] [address] [id number] Laboratory Worker: Gonzalez Jones PhD, Phone: [phone] Specimen Comment: A courtesy copy of this report has been sent to Specimen Comment: Rheumatology Pediatrics, [facility]. 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 WBC (corrected for NRBC) 9.3 10 3/uL [facility] Total Cell Count 100 [facility] Neutrophils Absolute Manual 4.84 1.60 - 7.00 10 3/uL [facility] Comment:(BANDS+SEGS) x WBC = NEUT # (ANC) Lymphocyte Absolute Manual 3.16(H) 0.80 - 2.90 10 3/uL [facility] Monocytes Absolute Manual 0.56 0.14 - 0.66 10 3/uL [facility] Eosinophils Absolute Manual 0.19 0.00 - 0.22 10 3/uL [facility] Basophil Absolute Manual 0.09(H) 0.00 - 0.06 10 3/uL [facility] Band % Manual 12(H) 0 - 10 % [facility] Neutrophil % Manual 40 30 - 60 % [facility] Lymphocyte % Manual 34 20 - 45 % [facility] Monocytes % Manual 6 2 - 10 % [facility] Eosinophils % Manual 2 1 - 6 % [facility] Basophils % Manual 1 0 - 3 % [facility] Atypical Lymphocyte % Manual 2(H) 0 % [facility] Metamyelocyte % Manual 1(H) 0 % [facility] Myelocytes % Manual 2(H) 0 % [facility] Platelet Estimate Adequate Adequate [facility] RBC Morphology Normal [facility] Blood specimen (specimen) BLOOD SPECIMEN / Unknown 08/30/2015 5:45 AM WASH OIL PUMP OPERATOR HELPER 08/30/2015 6:39 AM WASH OIL PUMP OPERATOR HELPER Rosibel Fall MD LAB - HEMATOLOGY ORD ERABLES Performing Organization Address City/[facility]/ZIP Co de Phone Number [facility] [address] [place] [address] * BASIC METABOLIC PANEL (CALCIUM TOTAL) (08/30/2015 5:45 AM WASH OIL PUMP OPERATOR HELPER) Only the most recent of3 resultswithin the time period is included. BUN 7 7 - 26 mg/dL [facility] Creatinine 0.6 0.6 - 1.2 mg/dL [facility] Sodium 141 136 - 145 mmol/L [facility] Potassium 3.5 3.5 - 4.5 mmol/L [facility] Chloride 105 98 - 107 mmol/L [facility] CO2 27 22 - 29 mmol/L [facility] Glucose 86 70 - 115 mg/dL [facility] Calcium 9.4 8.4 - 10.2 mg/dL [facility] Anion Gap 13 8 - 18 [facility] BUN/Creatinine Ratio 12 7 - 23 [facility] Osmolality Calculated 275 270 - 300 mOsm/kg [facility] eGFR >60 >60 mL/min/1.7 3 m2 [facility] Blood specimen (specimen) BLOOD SPECIMEN / Unknown 08/30/2015 5:45 AM WASH OIL PUMP OPERATOR HELPER 08/30/2015 6:17 AM WASH OIL PUMP OPERATOR HELPER Rosibel Fall MD LAB - CHEMISTRY DEISI TALLEY Performing Organization Address [facility]/ZIP Co de Phone Number [address] [phone] * XR ELBOW LEFT 3VW OR MORE (08/28/2015 3:01 PM WASH OIL PUMP OPERATOR HELPER) Anatomical Region Laterality Modality Upper Extremity Other Impressions 08/29/2015 5:09 PM WASH OIL PUMP OPERATOR HELPER IMPRESSION: No bony destruction or acute fracture. Dictated by Faraz Harris MD (consultant luxury and auto. vice president [employer] (ex )). This report was approved by Faraz Harris on 08/29/2015 3:49 PM . I, Dr. KRISH NIÑO M.D. have personally reviewed and interpreted this examination/study. This report was electronically signed by KRISH NIÑO M.D. on 08/29/2015 5:09 PM . Narrative 08/29/2015 5:09 PM WASH OIL PUMP OPERATOR HELPER EXAMINATION: XR ELBOW LEFT 3+ VW, XR [...] acute fracture. Dictated by Faraz Harris MD (consultant luxury and auto. vice president [employer] (ex )). This report was approved by Faraz Harris on 08/29/2015 3:49 PM . I, Dr. KIRSH NIÑO M.D. have personally reviewed and interpreted thisexamination/study. This report was electronically signed by KRISH NIÑO M.D. on08/29/2015 5:09 PM . Rosibel Fall MD DIAGNOSTIC IMAGING O [place] * (ABNORMAL) VANCOMYCIN LEVEL TROUGH (08/28/2015 12:16 PM WASH OIL PUMP OPERATOR HELPER) Pathologist [facility] Vancomycin Trough 5.5(L) 10.0 - 20.0 mcg/mL [facility] Blood specimen (specimen) BLOOD SPECIMEN / Unknown 08/28/2015 12:16 PM WASH OIL PUMP OPERATOR HELPER 08/28/2015 2:00 PM WASH OIL PUMP OPERATOR HELPER Narrative [facility] - 08/28/2015 2:24 PM WASH OIL PUMP OPERATOR HELPER Please draw 30 min-1hour before fourth vancomycin dose Rosibel Fall MD LAB - CHEMISTRY DEISI TALLEY Performing Organization Address City/[facility]/ZIP Co de Phone Number [address] [phone] * CULTURE BLOOD (08/27/2015 9:34 AM WASH OIL PUMP OPERATOR HELPER) Only the most recent of2 resultswithin the time period is included. Pathologist [facility] Culture Blood No Growth at 5 days [facility] Blood specimen (specimen) 08/27/2015 9:34 AM WASH OIL PUMP OPERATOR HELPER 08/27/2015 10:04 AM WASH OIL PUMP OPERATOR HELPER Narrative [facility] - 09/01/2015 10:15 AM WASH OIL PUMP OPERATOR HELPER Draw 15 minutes after Culture 1 from a different site Fran Solano MD LAB - [place] [address], [facility] [phone] * (ABNORMAL) BLOOD GASES TIFFANI (08/26/2015 11:41 PM WASH OIL PUMP OPERATOR HELPER) pH Mixed Venous 7.44(H) 7.30 - 7.40 [facility] pCO2 Mixed Venous 39(L) 40 - 46 mmHg [facility] pO2 Mixed Venous 60(H) 35 - 42 mmHg [facility] HCO3 Mixed Venous 26.3(H) 22.0 - 26.0 mmol/L [facility] TCO2 Mixed Venous 27.5 25.0 - 29.0 mmol/L [facility] Base Excess Venous 2.1(H) -2.0 - 2.0 mmol/L [facility] Hemoglobin Mixed Venous 15.5 12.0 - 15.5 g/dL [facility] Oxyhemoglobin Mixed Venous 91.0(H) 66.0 - 77.0 % [facility] Carboxyhemoglobin Venous 0.9 0.0 - 3.0 % [facility] Methemoglobin 0.1 0.0 - 2.0 % [facility] FI O2 Mixed Venous 21.0 % [facility] Blood specimen (specimen) BLOOD SPECIMEN / Unknown 08/26/2015 11:41 PM WASH OIL PUMP OPERATOR HELPER 08/26/2015 11:45 PM WASH OIL PUMP OPERATOR HELPER Narrative [facility] - 08/26/2015 11:49 PM WASH OIL PUMP OPERATOR HELPER FI02->21 Fran Solano MD LAB - BLOOD GASES OR DERABLES Performing Organization Address City/State/[facility] Co de Phone Number [address] [phone] * ANCA SCREEN W/ REFLX MPO+PR3+TITER (05/30/2015 8:33 AM CDT) Myeloperoxidase Antibody <9.0 0.0 - 9.0 U/mL [facility] (BEAKER) Proteinase 3 <3.5 0.0 - 3.5 U/mL [facility] (BEAKER) C-ANCA Titer <1:20 Neg:<1:20 titer [facility] (BEAKER) p-ANCA <1:20 Neg:<1:20 titer [facility] (BEAKER) Comment: The presence of positive fluorescence exhibiting P-ANCA or C-ANCA patterns alone is not specific for the diagnosis of Mahamed's Granulomatosis (WG) or microscopic polyangiitis. Decisions about treatment should not be based solely on ANCA IFA results. The International ANCA Group Consensus recommends follow up testing of positive sera with both IA-3 and MPO-ANCA enzyme immunoassays. As many as 5% serum samples are positive only by EIA. Ref. AM J Clin Pathol 1999;111:507-513. Atypical p-ANCA <1:20 Neg:<1:20 titer [facility] ([facility]) Comment: The atypical pANCA pattern has been observed in a significant percentage of patients with ulcerative colitis, primary sclerosing cholangitis and autoimmune hepatitis. 05/30/2015 8:33 AM CDT 05/30/2015 12:02 PM CDT Narrative [facility] ([facility]) - 06/03/2015 3:18 PM CDT Performed at: [address] [id number] Laboratory Worker: Zackery Johnson MD, Phone: [phone] Performed at: [address] [id number] Laboratory Worker: Gonzalez Jones PhD, Phone: [phone] Specimen Comment: A courtesy copy of this report has been sent to Specimen Comment: [phone]. Jonathan Flores MD LAB - CHEMISTRY DEISI TALLEY [facility]) * JOSEPH COMPREHENSIVE PLUS PROFILE (05/30/2015 8:33 AM CDT) dsDNA Antibody 1 0 - 9 IU/mL [facility] ([facility]) Comment: Negative <5 Equivocal 5 - 9 Positive >9 CONTROL CLERK SUBASSEMBLY Antibody <0.2 0.0 - 0.9 AI [facility] ([facility]) Prajapati Antibody <0.2 0.0 - 0.9 AI [facility] ([facility]) Prajapati/CONTROL CLERK SUBASSEMBLY Antibodies <0.2 0.0 - 0.9 AI [facility] ([facility]) Antiscleroderma-70 Antibody <0.2 0.0 - 0.9 AI [facility] ([facility]) Sjogren's Antibodies (SSA) <0.2 0.0 - 0.9 AI H [facility] (BEAKER) Sjogren's Antibodies (SSB) <0.2 0.0 - 0.9 AI [facility] (BEAKER) Antichromatin Antibody IgG <0.2 0.0 - 0.9 AI [facility] (BEAKER) Anti-Ribosomal P Antibody <0.2 0.0 - 0.9 AI [facility] (BEAKER) Anti-Nadege-1 <0.2 0.0 - 0.9 AI [facility] (BEAKER) Anti-Centromere B Antibody <0.2 0.0 - 0.9 AI [facility] (BEAKER) See below [facility] (BEAKER) Comment: Autoantibody Disease Association Condition Frequency Antinuclear Antibody, SLE, mixed connective Direct (JOSEPH-D) tissue diseases dsDNA SLE 40 - 60% Chromatin Drug induced SLE 90% SLE 48 - 97% SSA (Ro) SLE 25 - 35% Sjogren's Syndrome 40 - 70% Lupus 100% SSB (La) SLE 10% Sjogren's Syndrome 30% Sm (anti-Prajapati) SLE 15 - 30% CONTROL CLERK SUBASSEMBLY Mixed Connective Tissue Disease 95% (U1 nRNP, SLE 30 - 50% anti-ribonucleoprotein) Polymyositis and/or Dermatomyositis 20% Scl-70 (antiDNA Scleroderma (diffuse) 20 - 35% topoisomerase) Crest 13% Nadege-1 Polymyositis and/or Dermatomyositis 20 - 40% Centromere B Scleroderma - Crest variant 80% Ribosomal P SLE 10 - 20% 05/30/2015 8:33 AM CDT 05/30/2015 12:02 PM CDT Narrative [facility] ([facility]) - 06/03/2015 3:18 PM CDT Performed at: [address] [place] [id number] Laboratory Worker: Gonzalez Jones PhD, Phone: [phone] Specimen Comment: A courtesy copy of this report has been sent to Specimen Comment: [phone]. Jonathan Flores MD LAB - CHEMISTRY DEISI TALLEY Performing Organization Address [facility] de Phone Number [facility]) * ALDOLASE (05/30/2015 8:33 AM CDT) Only the most recent of2 resultswithin the time period is included. Pathologist [facility] Aldolase 4.7 3.3 - 10.3 U/L [facility]) Blood specimen (specimen) BLOOD SPECIMEN / Unknown 05/30/2015 8:33 AM CDT 05/30/2015 12:02 PM CDT Narrative [facility] ([facility]) - 06/03/2015 3:18 PM CDT Performed at: [address] [place] [id number] Laboratory Worker: Gonzalez Jones PhD, Phone: [phone] Specimen Comment: A courtesy copy of this report has been sent to Specimen Comment: [phone]. Jonathan Flores MD LAB - CHEMISTRY DEISI TALLEY Performing Organization Address [facility] de Phone Number [facility] ([facility]) * QUANTIFERON TB-GOLD (05/30/2015 8:33 AM CDT) Only the most recent of2 resultswithin the time period is included. Pathologist [facility] QuantiFERON TB Gold Negative Negative [facility] ([facility]) QuantiFERON Positive Criteria [facility] ([facility]) Comment: To be considered positive a specimen [...] test values. QuantiFERON TB Antigen 0.05 IU/mL [facility] (BEAKER) QuantiFERON Nil Value 0.01 IU/mL [facility] (BEAKER) QuantiFERON Mitogen Value >10.00 IU/mL [facility] (BEAKER) QuantiFERON TB Antigen minus Nil value 0.04 IU/mL [facility] (BEAKER) Interpretations [facility] (BEAKER) Comment: The QuantiFERON TB Gold [...] AM CDT 05/30/2015 12:02 PM CDT Narrative [facility] ([place]) - 06/03/2015 3:18 PM CDT Performed at: [address] [place] [id number] Laboratory Worker: Gonzalez Jones PhD, Phone: [phone] Specimen Comment: A courtesy copy of this report has been sent to Specimen Comment: [phone]. Jonathan Flores MD LAB - CHEMISTRY DEISI TALLEY [facility]) * XR FOOT RIGHT 2VW (08/21/2013 4:51 PM WASH OIL PUMP OPERATOR HELPER) Anatomical Region Laterality Modality Ankle / Foot Other Impressions 08/22/2013 12:28 PM WASH OIL PUMP OPERATOR HELPER IMPRESSION: 1. Joint space narrowing with focal [...] 12:28 PM . Narrative 08/22/2013 12:28 PM WASH OIL PUMP OPERATOR HELPER EXAM: 1. LEFT HAND 3 VIEWS 2. [...] XR FOOT LEFT 2VW (08/21/2013 4:51 PM WASH OIL PUMP OPERATOR HELPER) Anatomical Region Laterality Modality Ankle / Foot Other Impressions 08/22/2013 12:28 PM WASH OIL PUMP OPERATOR HELPER IMPRESSION: 1. Joint space narrowing with focal [...] 12:28 PM . Narrative 08/22/2013 12:28 PM WASH OIL PUMP OPERATOR HELPER EXAM: 1. LEFT HAND 3 VIEWS 2. [...] XR HAND RIGHT 2VW (08/21/2013 4:51 PM WASH OIL PUMP OPERATOR HELPER) Anatomical Region Laterality Modality Wrist / Hand Other Impressions 08/22/2013 12:28 PM WASH OIL PUMP OPERATOR HELPER IMPRESSION: 1. Joint space narrowing with focal [...] 12:28 PM . Narrative 08/22/2013 12:28 PM WASH OIL PUMP OPERATOR HELPER EXAM: 1. LEFT HAND 3 VIEWS 2. [...] XR HAND LEFT 2VW (08/21/2013 4:51 PM WASH OIL PUMP OPERATOR HELPER) Anatomical Region Laterality Modality Wrist / Hand Other Impressions 08/22/2013 12:28 PM WASH OIL PUMP OPERATOR HELPER IMPRESSION: 1. Joint space narrowing with focal [...] 12:28 PM . Narrative 08/22/2013 12:28 PM WASH OIL PUMP OPERATOR HELPER EXAM: 1. LEFT HAND 3 VIEWS 2. [...] JOINTS 2VW OR LESS (08/21/2013 4:51 PM WASH OIL PUMP OPERATOR HELPER) Anatomical Region Laterality Modality Pelvis, Lower Extremity Other Impressions 08/22/2013 12:28 PM WASH OIL PUMP OPERATOR HELPER IMPRESSION: 1. Joint space narrowing with focal [...] 12:28 PM . Narrative 08/22/2013 12:28 PM WASH OIL PUMP OPERATOR HELPER EXAM: 1. LEFT HAND 3 VIEWS 2. [...] latex Turbidimetry 10.7 0.0 - 13.9 IU/mL [facility]) Cyclic Citrullinated Peptide Antibody 1 0 - 19 units [facility] Comment: Negative <20 Weak positive 20 - 39 Moderate positive 40 - 59 Strong positive >59 05/04/2013 1:15 PM CDT 05/04/2013 6:07 PM CDT Narrative [facility] - 05/06/2013 7:29 AM CDT Performed at: 01 - [address] [id number] Laboratory Worker: Chase James PhD, Phone: [phone] Performed at: 02 - [address] [id number] Laboratory Worker: Zackery Johnson MD, Phone: [phone] Jonathan Flores MD LAB - SEROLOGY ORDER [facility] ([facility]) * GROSS + MICRO EXAM (07/14/2007 2:17 PM WASH OIL PUMP OPERATOR HELPER) Result CASE NUMBER [id number] Comment: ORDERING PHYSICIAN ALEJANDRA TALAMANTES SPECIMEN TYPE [...] -- No evidence of Samaniego's esophagus MM/bk Oil Program Compliance Specialist bk Pathologist Lucie Hansen M.D. [place]. 07/15/2007 1411 <1> CPT code 08335 MISCELLANEOUS SAMPLES / Unknown 07/14/2007 2:17 PM WASH OIL PUMP OPERATOR HELPER 07/14/2007 2:17 PM WASH OIL PUMP OPERATOR HELPER Historical Provider LAB - PATHOLOGY/C YTOLOGY ORDERABLES Care Teams Traffic Ii Manager Relationship Specialty Start Date End Date Alok Newell MD PCP - General Family Medicine 10/29/15
--- OUTSIDE RECORDS SUMMARY | 2024-09-21 22:02 | XMS_ITS | Encounter Summary ---
Author Organization [facility] Address [address] [place] [address] Care Team Providers Care Ski Edge Painter Name Role Phone Unavailable Primary Care Provider Unavailabl e Encounter Details Date Type Department Care Team (Late st Contact Info) Description 10/30/[address] [facility] INTERNAL MEDICINE Katey Magana MD [address] [place] [address] [address] [place], [place] [id number] Social History Tobacco Use Types Packs/Day Years Used Date Smoking Tobacco: Never Assessed Comments Unknown Sex and Gender Information Value Date Recorded Sex Assigned at Not on file Legal Sex Female 3:08 AM SUPERVISOR MAPPING Gender Identity Not on file Sexual Orientation Not on file documented as of this encounter Plan of Treatment Not on file documented as of this encounter Visit Diagnoses Not on filedocumented in this encounter
--- OUTSIDE RECORDS SUMMARY | 2024-09-21 22:02 | XMS_ITS | Clinical Summary ---
Author Organization [facility] Address [address] [place] [address] Care Team Providers Care Engineering Faculty Member Name Role Phone Alok Newell MD Primary Care Provider [phone] Allergies Active Allergy Reactions Criticality Noted Date [...] +MRSA Right leg 05/20/2024 05/20/2024 Insurance MEDICARE LOCATED WITHIN [facility] Care Teams Engineering Faculty Member Relationship Specialty Start Date End Date Alok Newell MD [address] [address] PCP - General FAMILY PRACTICE 05/20/24
--- OUTSIDE RECORDS SUMMARY | 2024-09-21 22:02 | XMS_ITS | Clinical Summary ---
Author Organization [facility] Address [address] [place] [address] Care Team Providers Care Director Of Group Sales Name Role Phone Alok Newell MD Primary Care Provider [phone] Allergies Active Allergy Reactions Criticality Noted Date [...] 2 sprays into each nostril daily Active [place] Thyroid 240 mg tabletIndication s:hypothyroidism Take 0.5 [...] diastolic function, normal LA chamber size - [id number] at least 2, true risk likely higher [...] Care Team Description 09/15/2024 Anticoagulation Telephone Call [place] [address] [facility] [address] [place] [phone] Kathy Chowdary MD Atrial fibrillation with RVR (CMS/HCC) (HCC) (Primary Dx) 09/14/2024 Orders Only [facility] Cardiology [address] [facility] [address] [place] [phone] Kathy Chowdary MD Atrial fibrillation with RVR (CMS/HCC) (HCC) (Primary Dx) 09/01/2024 Telephone [place] [address] [facility] [address] [place] [phone] Kathy Chowdary MD Anticoagulation 08/26/2024 Orders Only [facility] CARDIOLOGY Scanning, Provider 08/14/2024 Anticoagulation Telephone Call [place] [address] [facility] [address] [place] [phone] Kathy Chowdary MD Atrial fibrillation with RVR (CMS/HCC) (HCC) (Primary Dx) 08/12/2024 Telephone Cardiology Osbaldo Miller MD 08/12/2024 Documentation [facility] Cardiology [facility] 8th [place] [address] [place] [phone] Casi Graf MD 08/04/2024 Anticoagulation Telephone Call [address] [place] [phone] Kathy Chowdary MD Atrial fibrillation with RVR (CMS/HCC) (HCC) (Primary Dx) 08/04/2024 Orders Only [facility] Scanning, Provider 08/03/2024 Anticoagulation Telephone Call [address] [place] [phone] Kathy Chowdary MD Atrial fibrillation with RVR (CMS/HCC) (HCC) (Primary Dx) 08/01/2024 Orders Only [facility] Scanning, Provider 07/26/2024 Anticoagulation Telephone Call [address] [place] [phone] Kathy Chowdary MD Atrial fibrillation with RVR (CMS/HCC) (HCC) (Primary Dx) 07/14/2024 Anticoagulation Telephone Call [address] [place] [phone] Kathy Chowdary MD Atrial fibrillation with RVR (CMS/HCC) (HCC) (Primary Dx) 06/30/2024 Anticoagulation Telephone Call [address] [place] [phone] Kathy Chowdary MD Atrial fibrillation with RVR (CMS/HCC) (HCC) (Primary Dx) 06/29/2024 Orders Only [facility] Scanning, Provider 06/26/2024 Anticoagulation Telephone Call [address] [place] [phone] Kathy Chowdary MD Atrial fibrillation with RVR [...] on file Legal Sex Female 7:53 PM QUALITY ASSURANCE CLERK Gender Identity Not on file Sexual Orientation Not on file Obstetrics History Last Filed Vital Signs Vital Sign Reading Time Taken Comments Blood Pressure 145/82 06/16/2024 3:03 PM QUALITY ASSURANCE CLERK Pulse 100 06/16/2024 3:03 PM QUALITY ASSURANCE CLERK Temperature 36.6 C (97.9 F) 04/15/2023 8:21 AM CDT Respiratory Rate 16 04/15/2023 8:21 AM CDT Oxygen Saturation 95% 06/16/2024 3:03 PM QUALITY ASSURANCE CLERK Inhaled Oxygen Concentration - - Weight 73.1 kg (161 lb 3.2 oz) 06/16/2024 3:03 P M QUALITY ASSURANCE CLERK Height 172.7 cm (5' 8 ) 06/16/2024 3:03 PM QUALITY ASSURANCE CLERK Body Mass Index 24.51 06/16/2024 3:03 PM QUALITY ASSURANCE CLERK Plan of Treatment Health Maintenance Due Date [...] Diagnosis Comments PROTIME-INR Routine 09/14/2024 3:00 PM QUALITY ASSURANCE CLERK Atrial fibrillation with RVR (CMS/HCC) (HCC) SCAN - LABS 08/26/2024 PROTIME-INR Routine 08/11/2024 3:55 PM QUALITY ASSURANCE CLERK Atrial fibrillation with RVR (CMS/HCC) (HCC) PROTIME-INR Routine 08/04/2024 SCAN - LABS 08/04/2024 SCAN - LABS 08/01/2024 PROTIME-INR Routine 07/31/2024 4:25 PM QUALITY ASSURANCE CLERK Atrial fibrillation with RVR (CMS/HCC) (HCC) PROTIME-INR Routine 07/25/2024 4:24 PM QUALITY ASSURANCE CLERK Atrial fibrillation with RVR (CMS/HCC) (HCC) PROTIME-INR Routine 07/13/2024 3:30 PM QUALITY ASSURANCE CLERK Atrial fibrillation with RVR (CMS/HCC) (HCC) PROTIME-INR Routine 06/29/2024 4:18 PM QUALITY ASSURANCE CLERK Atrial fibrillation with RVR (CMS/HCC) (HCC) SCAN - LABS 06/29/2024 PROTIME-INR Routine 06/23/2024 3:48 PM QUALITY ASSURANCE CLERK Atrial fibrillation with RVR (CMS/HCC) (HCC) from Last 3 Months Results * (ABNORMAL) Protime-INR (09/14/2024 3:00 PM QUALITY ASSURANCE CLERK) INR 3.1(H) 0.9 - 1.2 [facility] - 01 Comment: Reference interval is for non-anticoagulated patients. Suggested INR therapeutic range for Vitamin K antagonist therapy: Standard Dose (moderate intensity therapeutic range): 2.0 - 3.0 Higher intensity therapeutic range 2.5 - 3.5 PT 30.8(H) 9.1 - 12.0 sec [facility] - 01 Blood 09/14/2024 3:00 PM QUALITY ASSURANCE CLERK 09/14/2024 Narrative [facility] - 09/15/2024 6:10 AM QUALITY ASSURANCE CLERK Performed at: - [facility] [id number] Cab Driver: Gonzalez Jones PhD, Phone: [phone] us Kathy Chowdary MD LAB BLOOD ORDERABLES Final Res ult [facility] - 01 * SCAN - LABS (08/26/2024) us Provider Scanning Final Result * (ABNORMAL) Protime-INR (08/11/2024 3:55 PM QUALITY ASSURANCE CLERK) INR 5.1(>) 0.9 - 1.2 [facility] - [...] sec [facility] - Blood 08/11/2024 3:55 PM QUALITY ASSURANCE CLERK 08/11/2024 Narrative [facility] - 08/12/2024 11:08 AM QUALITY ASSURANCE CLERK Performed at: [facility] [id number] Cab Driver: Gonzalez Jones PhD, Phone: [phone] Specimen Comment: Called/faxed to Dr. Miller on 08/12/2024 at 10:21 ET for Specimen Comment: test INR us Kathy Chowdary MD LAB BLOOD ORDERABLES Edited Re sult - Final Performing Organization Address City/[facility]/ZIP Co de Phone Number [facility] - * SCAN - LABS (08/04/2024) us Provider Scanning Final Result * (ABNORMAL) Protime-INR (08/04/2024) INR 2.40(A) 0.90 - 1.10 EXTERNAL LAB Blood 08/04/2024 us Caitlyn Vann MD LAB BLOOD ORDERABLES Paige l Result Performing Organization Address [facility]/ZIP Co de Phone Number EXTERNAL LAB * SCAN - LABS (08/01/2024) us Provider Scanning Final Result * (ABNORMAL) Protime-INR (07/31/2024 4:25 PM QUALITY ASSURANCE CLERK) INR 2.6(H) 0.9 - 1.2 [facility] - 01 Comment: Reference interval is for non-anticoagulated patients. Suggested INR therapeutic range for Vitamin K antagonist therapy: Standard Dose (moderate intensity therapeutic range): 2.0 - 3.0 Higher intensity therapeutic range 2.5 - 3.5 PT 26.1(H) 9.1 - 12.0 sec [facility] - 01 Blood 07/31/2024 4:25 PM QUALITY ASSURANCE CLERK 07/31/2024 Narrative [facility] - 08/01/2024 7:08 AM QUALITY ASSURANCE CLERK Performed at: [address] [place] [id number] Cab Driver: Gonzalez Jones PhD, Phone: [phone] Kathy Chowdary MD LAB BLOOD ORDERABLES Final Res ult Performing Organization Address [facility] Co de Phone Number [facility] - * (ABNORMAL) Protime-INR (07/25/2024 4:24 PM QUALITY ASSURANCE CLERK) INR 2.9(H) 0.9 - 1.2 [facility] - 01 Comment: Reference interval is for non-anticoagulated patients. Suggested INR therapeutic range for Vitamin K antagonist therapy: Standard Dose (moderate intensity therapeutic range): 2.0 - 3.0 Higher intensity therapeutic range 2.5 - 3.5 PT 29.3(H) 9.1 - 12.0 sec [facility] - 01 Blood 07/25/2024 4:24 PM QUALITY ASSURANCE CLERK 07/25/2024 Narrative [facility] - 07/26/2024 8:12 AM QUALITY ASSURANCE CLERK Performed at: [address] [id number] Cab Driver: Gonzalez Jones PhD, Phone: [phone] Kathy Chowdary MD LAB BLOOD ORDERABLES Final Res ult Performing Organization Address [facility]/ZIP Co de Phone Number [facility] - * (ABNORMAL) Protime-INR (07/13/2024 3:30 PM QUALITY ASSURANCE CLERK) INR 1.4(H) 0.9 - 1.2 [facility] - 01 Comment: Reference interval is for non-anticoagulated patients. Suggested INR therapeutic range for Vitamin K antagonist therapy: Standard Dose (moderate intensity therapeutic range): 2.0 - 3.0 Higher intensity therapeutic range 2.5 - 3.5 PT 14.8(H) 9.1 - 12.0 sec [facility] - 01 Blood 07/13/2024 3:30 PM QUALITY ASSURANCE CLERK 07/13/2024 Narrative [facility] - 07/14/2024 7:13 AM QUALITY ASSURANCE CLERK Performed at: [address] [id number] Cab Driver: Gonzalez Jones PhD, Phone: [phone] Kathy Chowdary MD LAB BLOOD ORDERABLES Final Res ult [facility] * (ABNORMAL) Protime-INR (06/29/2024 4:18 PM QUALITY ASSURANCE CLERK) INR 3.2(H) 0.9 - 1.2 [facility] - Comment: Reference interval is for non-anticoagulated patients. Suggested INR therapeutic range for Vitamin K antagonist therapy: Standard Dose (moderate intensity therapeutic range): 2.0 - 3.0 Higher intensity therapeutic range 2.5 - 3.5 PT 31.9(H) 9.1 - 12.0 sec [facility] - 01 Blood 06/29/2024 4:18 PM QUALITY ASSURANCE CLERK 06/29/2024 Narrative [facility] - 06/30/2024 7:13 AM QUALITY ASSURANCE CLERK Performed at: [address] [id number] Cab Driver: Gonzalez Jones PhD, Phone: [phone] us Kathy Chowdary MD LAB BLOOD ORDERABLES Final Res ult [facility] - * SCAN - LABS (06/29/2024) us Provider Scanning Final Result * (ABNORMAL) Protime-INR (06/23/2024 3:48 PM QUALITY ASSURANCE CLERK) INR 2.3(H) 0.9 - 1.2 [facility] - 01 Comment: Reference interval is for non-anticoagulated patients. Suggested INR therapeutic range for Vitamin K antagonist therapy: Standard Dose (moderate intensity therapeutic range): 2.0 - 3.0 Higher intensity therapeutic range 2.5 - 3.5 PT 23.4(H) 9.1 - 12.0 sec [facility] - 01 Blood 06/23/2024 3:48 PM QUALITY ASSURANCE CLERK 06/23/2024 Narrative [facility] - 06/24/2024 8:17 AM QUALITY ASSURANCE CLERK Performed at: - [facility] [address] [id number] Cab Driver: Gonzalez Jones PhD, Phone: [phone] us Kathy Chowdary MD LAB BLOOD ORDERABLES Final Res ult [facility] - 01 from Last 3 Months Insurance MEDICARE COMMERCIAL [place] [address] [address] [facility] CHOICE PLUS [facility] HMO/PPO Address: [address] [address] [place] [address] MEDICARE COMMERCIAL GENERIC MEDICARE [facility] Advance Directives For more information, please contact: [phone] * Full Code (Latest Code Status on File) Date Activated Date Inactivated Comments 04/14/2023 3:43 PM 04/15/2023 5:41 PM Care Teams Director Of Group Sales Relationship Specialty Start Date End Date Alok Newell MD PCP - General 06/01/18
--- OUTSIDE RECORDS SUMMARY | 2024-09-21 22:02 | XMS_ITS ---
Author Organization [facility] [employer] [facility] Address [address] [facility] [address] [place] [address] Care Team Providers Care Aquatics Assistant Department Head Name Role Phone Osiris APARICIO, Alok Primary Care Provider Paras Diaz Unavailable [phone] Allergies Allergen (clinical drug ingredient) Drug/Non Drug Allergy documented on EMR Reaction Allergy Type Onset Date Status Substance with sulfonamide structure and antibacterial mechanism of action (substance) SULFA (SULFONAMIDE ANTIBIOTICS) (uncoded) Unknown Allergy 10/21/2023 Active aspirin Aspirin Unknown Drug Allergy 10/21/2023 Active caffeine Caffeine Unknown Drug Allergy 10/21/2023 Active clarithromycin Clarithromycin Unknown Drug Allergy 024 Active ibuprofen Ibuprofen Unknown Drug Allergy 10/21/2023 Active leflunomide Leflunomide Unknown Drug Allergy 10/21/2023 Ac tive meloxicam Meloxicam Unknown Drug Allergy 10/21/2023 Active meprobamate Meprobamate Unknown Drug Allergy 10/21/2023 Ac tive spironolactone Spironolactone Unknown Drug Allergy 024 Active Sulfanilamide Unknown Drug Allergy 10/21/2023 Ac tive topiramate Topiramate Unknown Drug Allergy 10/21/2023 Acti ve torsemide Torsemide Unknown Drug Allergy 10/21/2023 Active tizanidine Zanaflex Unknown Drug Allergy 10/21/2023 Activ e codeine Codeine Unknown Drug Allergy 10/21/2023 Active ergotamine Ergotamine Unknown Drug Allergy 10/21/2023 Acti ve Latex Latex Unknown Allergy 10/21/2023 Active Substance with penicillin structure and antibacterial mechanism of action (substance) Penicillins Unknown Drug Allergy 10/21/2023 Active vortioxetine Vortioxetine Unknown Drug Allergy 10/21/2023 Active REASON FOR VISIT Follow up visit, medication evaluation. Medications Medication SIG (Take, Route, Frequency, Duration) Notes Start Date End Date Status HYDROmorphone HCl 8 MG Oral 10/21/2023 Active Mometasone Furoate 0.1 % External 10/21/2023 Active Hydroxychloroquine Sulfate 200 MG Oral 10/21/2023 Active Pseudoephedrine HCl ER 120 MG Oral 10/21/2023 Active Warfarin Sodium 10 MG Oral 10/21/2023 Active fentaNYL 75 MCG/HR Transdermal 10/21/2023 Active Lathrop Thyroid 240 mg Oral 10/21/2023 Active QUEtiapine Fumarate 50 MG 2 tablet at bedtime Oral Once a day for 90 days 10/21/2023 Active predniSONE 10 MG Oral 10/21/2023 Ac tive Baclofen 20 MG Oral 10/21/2023 Acti ve EQ SINUS 12-HOUR 120MG TAB *Reorder from [facility] for eRx and Interaction Alerts* 10/21/2023 Active Omeprazole 20 MG Oral 10/21/2023 Ac tive Dicyclomine HCl 20 MG Oral 10/21/2023 Active buPROPion HCl ER (SR) 150 MG Oral 10/21/2023 Active Montelukast Sodium 10 MG Oral 10/21/2023 Active Clindamycin Phosphate 1 % External 10/21/2023 Active Metoprolol Tartrate 25 MG Oral 10/21/2023 Active predniSONE 5 MG Oral 10/21/2023 Act candy Remicade 100 MG Intravenous 10/21/2023 A ctive ProAir HFA 108 (90 Base) MCG/ACT Inhalation 10/21/2023 Active Social History Sex Assigned At : Social History Observation Description Sex Assigned At Female Problems Problem Type SNOMED Code ICD Code Onset Dates Problem Status W/U Status Risk Notes Problem Severe recurrent major depression without psychotic features (06898079) Major depressive disorder, recurrent severe without psychotic features (F33.2) 11/02/2023 Active confirmed Vital Signs Blood pressure systolic 101 mm Hg 02/16/20 24 Blood pressure diastolic 67 mm Hg 024 Heart Rate 94 /min 02/16/2024 Height 68.00 in 02/16/2024 Weight 152.2 lbs 02/16/2024 BMI 23.14 kg/m2 02/16/2024 Height-cm 172.72 cm 02/16/2024 Weight-kg 69.04 kg 02/16/2024 Encounters Encounter Location Date Provider Diagnosis [facility] [employer] [facility] [address] [place] [address] 02/16/2024 Paras Snowden Major depressive disorder, recurrent severe without psychotic features F33.2 ; Hypothyroidism, unspecified E03.9 and Hypertension, essential I10 Assessments Encounter Date Diagnosis (ICD Code) Assessment Notes Treatment Notes Treatment Clinical Notes Section Notes 02/16/2024 Major depressive disorder, recurrent severe without psychotic features (ICD-10 - F33.2) Mental Status Examination: Patient appears hyperactive, likely secondary to prednisone use. Expressed concerns about medication side effects and disease management. Medications: Current prescriptions include: - Prednisone, dosage not specified. - Mefenamic acid, dosage not specified. Physical Examination: Dermatological: Patient reports worsening psoriasis with large plaque formations, exacerbated by mefenamic acid. Musculoskeletal: Complaints of arthritic pain, managed with prednisone. Ophthalmological: Reports psoriasis affecting eyes, causing swelling and visual disturbances, indicating a need for ophthalmological evaluation. 02/16/2024 Hypothyroidism, unspecified (ICD-10 - E03.9) Mental Status Examination: Patient appears hyperactive, likely secondary to prednisone use. Expressed concerns about medication side effects and disease management. Medications: Current prescriptions include: - Prednisone, dosage not specified. - Mefenamic acid, dosage not specified. Physical Examination: Dermatological: Patient reports worsening psoriasis with large plaque formations, exacerbated by mefenamic acid. Musculoskeletal: Complaints of arthritic pain, managed with prednisone. Ophthalmological: Reports psoriasis affecting eyes, causing swelling and visual disturbances, indicating a need for ophthalmological evaluation. 02/16/2024 Hypertension, essential (ICD-10 - I10) Mental Status Examination: Patient appears hyperactive, likely secondary to prednisone use. Expressed concerns about medication side effects and disease management. Medications: Current prescriptions include: - Prednisone, dosage not specified. - Mefenamic acid, dosage not specified. Physical Examination: Dermatological: Patient reports worsening psoriasis with large plaque formations, exacerbated by mefenamic acid. Musculoskeletal: Complaints of arthritic pain, managed with prednisone. Ophthalmological: Reports psoriasis affecting eyes, causing swelling and visual disturbances, indicating a need for ophthalmological evaluation. Plan Of Treatment Medication Medication Name Sig Start Date Stop Date Notes QUEtiapine Fumarate 50 MG 2 tablet at be dtime Oral Once a day for 90 days 10/21/2023 Next Appt Details Follow Up: 5 months, Reason: follow up anxiety Provider Name:Paras Snowden , 01/15/2025 03:30:00 PM, [address], [facility] [address], [place], [address], Progress Notes * MAYAALEXYS CLEMENTEDO B:1970 (53 yo F)Acc No.[id number]:02/16/2024 Patient: Melida MORALES ALEXYS SMITH Provider: Kaela SNOWDEN MD :[id number] A ge:53 Y S ex:Female Date:02/16/2024 Address:[address] [place], [place] [id number] Subjective: * Chief Complaints: * F ollow up visit, medication evaluation. * HPI: G eneral Follow Up: rom October to February 2024, the patient had frequent interactions with healthcare providers, primarily at [facility]. The patient's primary condition was Atrial fibrillation with RVR (CMS/HCC) ([facility]), which was consistently managed by Dr. Kathy Chowdary through regular anticoagulation telephone calls and other telemedicine visits. The patient also had a hospital encounter on January 20, 2024, at [facility], overseen by BERNADINE Collier, for Senile osteoporosis. Other healthcare providers involved in the patient's care included Prem Padron MD, Irma Chairez NP, and Juanita Pryor. The patient's medical records also indicate several Orders Only entries by a scanning provider at [facility].View MoreExternal ResultsTest Name: DEXA BONE DENSITY AXIAL SKELETON Date Performed: 2024-01-20 16:37:42 Findings: Bone density study (DEXA) was performed due to a history of ovarian failure. The bone mineral density for the lumbar spine (L1-L4) was 1.137 g/cm2 with a T-score of -0.5. The bone mineral density for the hips was 0.652 g/cm2 with a T- score of -2.8. The FRAX 10-year probability of fracture was 13.7% for major osteoporotic and 4.3% for the hip. The FRAX adjusted for TBS was 20.3% for major osteoporotic and 2.5% for the hip. The assessment indicated osteoporosis. Test Name: [facility]-INR Date Performed: 2023-11-05 00:00:00 Results: INR 1.80 (Normal Range: 0.9 - 1.1), Abnormal. H istory of Presenting Problem: Chief Complaints The patient reports increased anxiety due to the side effects of prednisone, which is currently prescribed at 20 milligrams. Seroquel provides some relief, but not enough to alleviate the anxiety completely. The patient has tried increasing the dose of Seroquel, but finds that taking two at night works best. Physical Health Concerns The patient is also dealing with a persistent rash and arthritic pain. Their anxiety worsens when they are in pain. The patient has been taking pain medication and states that without it, they would be in unbearable pain. Prednisone is the only medication that seems to help with their arthritic pain, but it also exacerbates their psoriasis. The patient has tried mefenamic acid for arthritis pain, but it appears to worsen their psoriasis as well. Autoimmune Condition The patient has a history of autoimmune inflammation, which has affected various parts of their body, including their eyes. They express a need to visit an eye doctor due to the swelling and vision issues caused by the inflammation. Medication and Treatment The patient is also taking bupropion for headaches and depression, which is prescribed by Dr. Banuelos. They mention that they have been taken off diazepam and are currently receiving infusions for their autoimmune condition, but the treatment is not providing sufficient relief. Potential Atrial Fibrillation The patient suspects that they may be experiencing atrial fibrillation (AFib) again and considers stopping by a medical facility for evaluation. Current Medication and Follow-up The patient is currently taking Kutabine and is comfortable with maintaining the same dosage. They are open to scheduling their next appointment in four to six months and will call if any issues arise in the meantime. * Medical History: * Surgical History: * [...] TAB , Notes to Pharmacist: *Reorder from [facility] for eRx and Interaction Alerts*Baclofen 20 MG Tablet Oral predniSONE 10 MG Tablet Oral Warfarin Sodium 10 MG Tablet Oral Pseudoephedrine HCl ER 120 MG Tablet Extended Release 12 Hour Oral Hydroxychloroquine Sulfate 200 MG Tablet Oral Lathrop Thyroid 240 mg Tablet Oral QUEtiapine Fumarate 50 MG Tablet Oral fentaNYL 75 MCG/HR Patch 72 Hour Transdermal HYDROmorphone HCl 8 MG Tablet Oral Mometasone Furoate 0.1 % Cream External Taking ProAir HFA 108 (90 Base) MCG/ACT Aerosol [...] TAB , Notes to Pharmacist: *Reorder from [facility] for eRx and Interaction Alerts*Taking Baclofen 20 MG Tablet Oral Taking predniSONE 10 MG Tablet Oral Taking Warfarin Sodium 10 MG Tablet Oral Taking Pseudoephedrine HCl ER 120 MG Tablet Extended Release 12 Hour Oral Taking Hydroxychloroquine Sulfate 200 MG Tablet Oral Taking Lathrop Thyroid 240 mg Tablet Oral Taking QUEtiapine Fumarate 50 MG Tablet Oral Taking fentaNYL 75 MCG/HR Patch 72 Hour Transdermal Taking HYDROmorphone HCl 8 MG Tablet Oral Taking Mometasone Furoate 0.1 % Cream External DiscontinuedAtenolol 25 MG Tablet Oral levoFLOXacin 750 MG Tablet Oral azaTHIOprine 50 MG Tablet Oral Medication List reviewed and reconciled with the patientDiscontinued Atenolol 25 MG Tablet Oral Discontinued levoFLOXacin 750 MG Tablet Oral Discontinued azaTHIOprine 50 MG Tablet Oral Medication List reviewed and reconciled with the patient * Allergies: S ULFA (SULFONAMIDE ANTIBIOTICS): Allergy - Onset Date 10/21/2023spirin: Allergy - Onset Date 10/21/2023affeine: Allergy - Onset Date 10/21/2023larithromycin: Allergy - Onset Date 10/21/2023Ibuprofen: Allergy - Onset Date 10/21/2023Leflunomide: Allergy - Onset Date 10/21/2023Meloxicam: Allergy - Onset Date 10/21/2023Meprobamate: Allergy - Onset Date 10/21/2023Spironolactone: Allergy - Onset Date 10/21/2023Sulfanilamide: Allergy - Onset Date 10/21/2023Topiramate: Allergy - Onset Date 10/21/2023Torsemide: Allergy - Onset Date 10/21/2023Zanaflex: Allergy - Onset Date 10/21/2023odeine: Allergy - Onset Date 10/21/2023Ergotamine: Allergy - Onset Date 10/21/2023Latex: Allergy - Onset Date 10/21/2023enicillins: Allergy - Onset Date 10/21/2023Vortioxetine: Allergy - Onset Date 10/21/2023no[Allergies Verified] Objective: * Vitals: B P:101/67mm Hg, HR:94/min, Wt:152.2lbs, Wt-k.04 kg, Ht: 68.00 in, Ht-cm: 172.72 cm, BMI:23.14Index, Body Surface Area: 1.82. * Examination: P sychiatry: M ental Status Examination: Patient appears hyperactive, likely secondary to prednisone use. Expressed concerns about medication side effects and disease management. Medications: Current prescriptions include: - Prednisone, dosage not specified. - Mefenamic acid, dosage not specified. Physical Examination: Dermatological: Patient reports worsening psoriasis with large plaque formations, exacerbated by mefenamic acid. Musculoskeletal: Complaints of arthritic pain, managed with prednisone. Ophthalmological: Reports psoriasis affecting eyes, causing swelling and visual disturbances, indicating a need for ophthalmological evaluation. Assessment: * Assessment: 1. M ajor depressive disorder, recurrent severe without psychotic features - F33.2 (Primary)?2. H ypothyroidism, unspecified - E03.9 3 . H ypertension, essential - I10 Mental Status Examination: P atient appears hyperactive, likely secondary to prednisone use. Expressed concerns about medication side effects and disease management. Medications: Current prescriptions include: - Prednisone, dosage not specified. - Mefenamic acid, dosage not specified. Physical Examination: Dermatological: Patient reports worsening psoriasis with large plaque formations, exacerbated by mefenamic acid. Musculoskeletal: Complaints of arthritic pain, managed with prednisone. Ophthalmological: Reports psoriasis affecting eyes, causing swelling and visual disturbances, indicating a need for ophthalmological evaluation. Plan: * Treatment: * Procedure Codes: G 2211 VISIT COMPLEXITY INHERENT TO ONGOING CARE RELATED TO A PATIENT'S SINGLE, SERIOUS CONDITION OR A COMPLEX CONDITION * Follow Up: 5 months (Reason: follow up anxiety) * Billing Information: * Visit Code: [id number] OFFICE OUTPATIENT VISIT 25 MINUTES DETAILED HISTORY AND EXAM/MODERATE MEDICAL DECISION MAKING. * Procedure Codes: G2211 VISIT COMPLEXITY INHERENT TO ONGOING CARE RELATED TO A PATIENT'S SINGLE, SERIOUS CONDITION OR A COMPLEX CONDITION. * Sign off status: Completed true * Provider: Kaela SNOWDEN MD Date: 02/16/2024 Generated for Kavitha pantoja/Denny/Praveenitting on: 0 09/21/2024 07:01 PM CAMPAIGN ADVISOR History and Physical Notes * HPI (History of Present Illness) Category Sub-Category Detail Notes Category Not es History of Presenting Problem Chief Complaints The patient reports increased anxiety due to the side effects of prednisone, which is currently prescribed at 20 milligrams. Seroquel provides some relief, but not enough to alleviate the anxiety completely. The patient has tried increasing the dose of Seroquel, but finds that taking two at night works best. Physical Health Concerns The patient is also dealing with a persistent rash and arthritic pain. Their anxiety worsens when they are in pain. The patient has been taking pain medication and states that without it, they would be in unbearable pain. Prednisone is the only medication that seems to help with their arthritic pain, but it also exacerbates their psoriasis. The patient has tried mefenamic acid for arthritis pain, but it appears to worsen their psoriasis as well. Autoimmune Condition The patient has a history of autoimmune inflammation, which has affected various parts of their body, including their eyes. They express a need to visit an eye doctor due to the swelling and vision issues caused by the inflammation. Medication and Treatment The patient is also taking bupropion for headaches and depression, which is prescribed by Dr. Banuelos. They mention that they have been taken off diazepam and are currently receiving infusions for their autoimmune condition, but the treatment is not providing sufficient relief. Potential Atrial Fibrillation The patient suspects that they may be experiencing atrial fibrillation (AFib) again and considers stopping by a medical facility for evaluation. Current Medication and Follow-up The patient is currently taking Kutabine and is comfortable with maintaining the same dosage. They are open to scheduling their next appointment in four to six months and will call if any issues arise in the meantime. General Follow Up rom October to February 2024, the patient had frequent interactions with healthcare providers, primarily at [facility]. The patient's primary condition was Atrial fibrillation with RVR (CMS/HCC) ([facility]), which was consistently managed by Dr. Kathy Chowdary through regular anticoagulation telephone calls and other telemedicine visits. The patient also had a hospital encounter on January 20, 2024, at [facility], overseen by BERNADINE Collier, for Senile osteoporosis. Other healthcare providers involved in the patient's care included Prem Padron MD, Irma Chairez NP, and Juanita Pryor. The patient's medical records also indicate several Orders Only entries by a scanning provider at [facility].View MoreExternal ResultsTest Name: DEXA BONE DENSITY AXIAL SKELETON Date Performed: 2024-01-20 16:37:42 Findings: Bone density study (DEXA) was performed due to a history of ovarian failure. The bone mineral density for the lumbar spine (L1-L4) was 1.137 g/cm2 with a T-score of -0.5. The bone mineral density for the hips was 0.652 g/cm2 with a T-score of -2.8. The FRAX 10-year probability of fracture was 13.7% for major osteoporotic and 4.3% for the hip. The FRAX adjusted for TBS was 20.3% for major osteoporotic and 2.5% for the hip. The assessment indicated osteoporosis. Test Name: [facility]-INR Date Performed: 2023-11-05 00:00:00 Results: INR 1.80 (Normal Range: 0.9 - 1.1), Abnormal Examination Category Sub-Category Detail Notes Category Not es Psychiatry Mental Status Examination: Patient appears hyperactive, likely secondary to prednisone use. Expressed concerns about medication side effects and disease management. Medications: Current prescriptions include: - Prednisone, dosage not specified. - Mefenamic acid, dosage not specified. Physical Examination: Dermatological: Patient reports worsening psoriasis with large plaque formations, exacerbated by mefenamic acid. Musculoskeletal: Complaints of arthritic pain, managed with prednisone. Ophthalmological: Reports psoriasis affecting eyes, causing swelling and visual disturbances, indicating a need for ophthalmological evaluation.
--- OUTSIDE RECORDS SUMMARY | 2024-09-21 22:02 | XMS_ITS | Referral Summary ---
Author Organization [facility] Address [address] [place] [address] Care Team Providers Care Behavioral Analyst Name Role Phone Alok Newell MD Primary Care Provider [phone] Encounters Date Type Department Care Team Description 09/15/2024 Anticoagulation Telephone Call [address] [place] [address] Kathy Chowdary MD Atrial fibrillation with RVR (CMS/HCC) (HCC) (Primary Dx) 09/14/2024 Orders Only [address] [place] [address] Kathy Chowdary MD Atrial fibrillation with RVR (CMS/HCC) (HCC) (Primary Dx) 09/01/2024 Telephone [place] [address] [place] [address] Kathy Chowdary MD Anticoagulation 08/26/2024 Orders Only [facility] Scanning, Provider 08/14/2024 Anticoagulation Telephone Call [place] [address] [place] [address] Kathy Chowdary MD Atrial fibrillation with RVR (CMS/HCC) (HCC) (Primary Dx) 08/12/2024 Telephone Cardiology Osbaldo Miller MD 08/12/2024 Documentation [facility] [address] [place] [address] 8th [place] [address] [place] [address] Casi Graf MD 08/04/2024 Anticoagulation Telephone Call [address] [place] [address] Kathy Chowdary MD Atrial fibrillation with RVR (CMS/HCC) (HCC) (Primary Dx) 08/04/2024 Orders Only [facility] Scanning, Provider 08/03/2024 Anticoagulation Telephone Call [address] [place] [address] Kathy Chowdary MD Atrial fibrillation with RVR (CMS/HCC) (HCC) (Primary Dx) 08/01/2024 Orders Only [facility] Scanning, Provider 07/26/2024 Anticoagulation Telephone Call [address] [place] [address] Kathy Chowdary MD Atrial fibrillation with RVR (CMS/HCC) (HCC) (Primary Dx) 07/14/2024 Anticoagulation Telephone Call [address] [place] [address] Kathy Chowdary MD Atrial fibrillation with RVR (CMS/HCC) (HCC) (Primary Dx) 06/30/2024 Anticoagulation Telephone Call [address] [place] [address] Kathy Chowdary MD Atrial fibrillation with RVR (CMS/HCC) (HCC) (Primary Dx) 06/29/2024 Orders Only [facility] Scanning, Provider 06/26/2024 Anticoagulation Telephone Call [address] [place] [address] Kathy Chowdary MD Atrial fibrillation [...] 2 sprays into each nostril daily Active [place] Thyroid 240 mg tabletIndication s:hypothyroidism Take 0.5 [...] diastolic function, normal LA chamber size - [id number] at least 2, true risk likely higher [...] on file Legal Sex Female 7:53 PM RN PLASTICS Gender Identity Not on file Sexual Orientation Not on file Last Filed Vital Signs Vital Sign Reading Time Taken Comments Blood Pressure 145/82 06/16/2024 3:03 PM RN PLASTICS Pulse 100 06/16/2024 3:03 PM RN PLASTICS Temperature 36.6 C (97.9 F) 04/15/2023 8:21 AM CDT Respiratory Rate 16 04/15/2023 8:21 AM CDT Oxygen Saturation 95% 06/16/2024 3:03 PM RN PLASTICS Inhaled Oxygen Concentration - - Weight 73.1 kg (161 lb 3.2 oz) 06/16/2024 3:03 P M RN PLASTICS Height 172.7 cm (5' 8 ) 06/16/2024 3:03 PM RN PLASTICS Body Mass Index 24.51 06/16/2024 3:03 PM RN PLASTICS Plan of Treatment Not on file Procedures Procedure Name Priority Date/Time Associated Diagnosis Comments PROTIME-INR Routine 09/14/2024 3:00 PM RN PLASTICS Atrial fibrillation with RVR (CMS/HCC) (HCC) SCAN - LABS 08/26/2024 PROTIME-INR Routine 08/11/2024 3:55 PM RN PLASTICS Atrial fibrillation with RVR (CMS/HCC) (HCC) PROTIME-INR Routine 08/04/2024 SCAN - LABS 08/04/2024 SCAN - LABS 08/01/2024 PROTIME-INR Routine 07/31/2024 4:25 PM RN PLASTICS Atrial fibrillation with RVR (CMS/HCC) (HCC) PROTIME-INR Routine 07/25/2024 4:24 PM RN PLASTICS Atrial fibrillation with RVR (CMS/HCC) (HCC) PROTIME-INR Routine 07/13/2024 3:30 PM RN PLASTICS Atrial fibrillation with RVR (CMS/HCC) (HCC) PROTIME-INR Routine 06/29/2024 4:18 PM RN PLASTICS Atrial fibrillation with RVR (CMS/HCC) (HCC) SCAN - LABS 06/29/2024 PROTIME-INR Routine 06/23/2024 3:48 PM RN PLASTICS Atrial fibrillation with RVR (CMS/HCC) (HCC) from Last 3 Months Results * (ABNORMAL) Protime-INR (09/14/2024 3:00 PM RN PLASTICS) INR 3.1(H) 0.9 - 1.2 [facility] - 01 Comment: Reference interval is for non-anticoagulated patients. Suggested INR therapeutic range for Vitamin K antagonist therapy: Standard Dose (moderate intensity therapeutic range): 2.0 - 3.0 Higher intensity therapeutic range 2.5 - 3.5 PT 30.8(H) 9.1 - 12.0 sec [facility] - 01 Blood 09/14/2024 3:00 PM RN PLASTICS 09/14/2024 Narrative [facility] - 09/15/2024 6:10 AM RN PLASTICS Performed at: - [address] [id number] Counter Intelligence Agent: Gonzalez Jones PhD, Phone: [phone] us Kathy Chowdary MD LAB BLOOD ORDERABLES Final Res ult [facility] - 01 * SCAN - LABS (08/26/2024) us Provider Scanning Final Result * (ABNORMAL) Protime-INR (08/11/2024 3:55 PM RN PLASTICS) INR 5.1(>) 0.9 - 1.2 [facility] - [...] [facility] - 01 Blood 08/11/2024 3:55 PM RN PLASTICS 08/11/2024 Narrative [facility] - 08/12/2024 11:08 AM RN PLASTICS Performed at: [address] [id number] Counter Intelligence Agent: Gonzalez Jones PhD, Phone: [phone] Specimen Comment: Called/faxed to Dr. Miller on 08/12/2024 at 10:21 ET for Specimen Comment: test INR us Kathy Chowdary MD LAB BLOOD ORDERABLES Edited Re sult - [facility] * SCAN - LABS (08/04/2024) us Provider Scanning Final Result * (ABNORMAL) Protime-INR (08/04/2024) INR 2.40(A) 0.90 - 1.10 EXTERNAL LAB Blood 08/04/2024 Caitlyn Vann MD LAB BLOOD ORDERABLES Paige l Result EXTERNAL LAB * SCAN - LABS (08/01/2024) us Provider Scanning Final Result * (ABNORMAL) Protime-INR (07/31/2024 4:25 PM RN PLASTICS) INR 2.6(H) 0.9 - 1.2 [facility] - 01 Comment: Reference interval is for non-anticoagulated patients. Suggested INR therapeutic range for Vitamin K antagonist therapy: Standard Dose (moderate intensity therapeutic range): 2.0 - 3.0 Higher intensity therapeutic range 2.5 - 3.5 PT 26.1(H) 9.1 - 12.0 sec [facility] - 01 Blood 07/31/2024 4:25 PM RN PLASTICS 07/31/2024 Narrative [facility] - 08/01/2024 7:08 AM RN PLASTICS Performed at: [address] [id number] Counter Intelligence Agent: Gonzalez Jones PhD, Phone: [phone] Kathy Chowdary MD LAB BLOOD ORDERABLES Final Res ult Performing Organization Address [facility] Co de Phone Number [facility] * (ABNORMAL) Protime-INR (07/25/2024 4:24 PM RN PLASTICS) INR 2.9(H) 0.9 - 1.2 [facility] - 01 Comment: Reference interval is for non-anticoagulated patients. Suggested INR therapeutic range for Vitamin K antagonist therapy: Standard Dose (moderate intensity therapeutic range): 2.0 - 3.0 Higher intensity therapeutic range 2.5 - 3.5 PT 29.3(H) 9.1 - 12.0 sec [facility] - 01 Blood 07/25/2024 4:24 PM RN PLASTICS 07/25/2024 Narrative [facility] - 07/26/2024 8:12 AM RN PLASTICS Performed at: [address] [id number] Counter Intelligence Agent: Gonzalez Jones PhD, Phone: [phone] Kathy Chowdary MD LAB BLOOD ORDERABLES Final Res ult Performing Organization Address [facility] Co de Phone Number [facility] * (ABNORMAL) Protime-INR (07/13/2024 3:30 PM RN PLASTICS) INR 1.4(H) 0.9 - 1.2 [facility] - 01 Comment: Reference interval is for non-anticoagulated patients. Suggested INR therapeutic range for Vitamin K antagonist therapy: Standard Dose (moderate intensity therapeutic range): 2.0 - 3.0 Higher intensity therapeutic range 2.5 - 3.5 PT 14.8(H) 9.1 - 12.0 sec [facility] - 01 Blood 07/13/2024 3:30 PM RN PLASTICS 07/13/2024 Narrative [facility] - 07/14/2024 7:13 AM RN PLASTICS Performed at: [address] [id number] Counter Intelligence Agent: Gonzalez Jones PhD, Phone: [phone] us Kathy Chowdary MD LAB BLOOD ORDERABLES Final Res ult Performing Organization Address [facility] Co de Phone Number [facility] * (ABNORMAL) Protime-INR (06/29/2024 4:18 PM RN PLASTICS) Pathologist [facility] INR 3.2(H) 0.9 - 1.2 [facility] - 01 Comment: Reference interval is for non-anticoagulated patients. Suggested INR therapeutic range for Vitamin K antagonist therapy: Standard Dose (moderate intensity therapeutic range): 2.0 - 3.0 Higher intensity therapeutic range 2.5 - 3.5 PT 31.9(H) 9.1 - 12.0 sec [facility] - 01 Blood 06/29/2024 4:18 PM RN PLASTICS 06/29/2024 Narrative [facility] - 06/30/2024 7:13 AM RN PLASTICS Performed at: [address] [id number] Counter Intelligence Agent: Gonzalez Jones PhD, Phone: [phone] us Kathy Chowdary MD LAB BLOOD ORDERABLES Final Res ult Performing Organization Address [facility] Co de Phone Number [facility] * SCAN - LABS (06/29/2024) us Provider Scanning Final Result * (ABNORMAL) Protime-INR (06/23/2024 3:48 PM RN PLASTICS) INR 2.3(H) 0.9 - 1.2 [facility] - 01 Comment: Reference interval is for non-anticoagulated patients. Suggested INR therapeutic range for Vitamin K antagonist therapy: Standard Dose (moderate intensity therapeutic range): 2.0 - 3.0 Higher intensity therapeutic range 2.5 - 3.5 PT 23.4(H) 9.1 - 12.0 sec [facility] - 01 Blood 06/23/2024 3:48 PM RN PLASTICS 06/23/2024 Narrative [facility] - 06/24/2024 8:17 AM RN PLASTICS Performed at: [address] [id number] Counter Intelligence Agent: Gonzalez Jones PhD, Phone: [phone] Kathy Chowdary MD LAB BLOOD ORDERABLES Final Res ult Performing Organization Address City/State/[facility] Co de Phone Number [facility] - 01 from Last 3 Months Insurance MEDICARE COMMERCIAL GENERIC Member Subscriber Plan / Payer (Ef fective 2018-Present) Name:Mariah Dolan Relation to Subscriber:Self Name:Mariah Dolan Payer ID:[id number] Group ID:[id number] Type:COMMERCIAL Address: [address] [facility] CHOICE PLUS MEDICARE COMMERCIAL GENERIC MEDICARE [facility] Advance Directives For more information, please contact: [phone] * Full Code (Latest Code Status on File) Date Activated Date Inactivated Comments 04/14/2023 3:43 PM 04/15/2023 5:41 PM Care Teams Behavioral Analyst Relationship Specialty Start Date End Date Alok Newell MD PCP - General 06/01/18
--- OUTSIDE RECORDS SUMMARY | 2024-09-21 22:02 | XMS_ITS | Encounter Summary ---
Author Organization [facility] Address [address] [place] [address] Phone Care Team Providers Care Rv Parts And Service Director Name Role Phone Taylor Scott Primary Care Provider [phone] Alok Newell MD Primary Care Provider [phone] Encounter Details Date Type Department Care Team (Late st Contact Info) Description 05/31/2018 Ophth Exam [facility] [address] [place] [address] 1st [place] [address] Lakisha Apple MD PhD [address] [facility] [address] [place] [address] Social History Tobacco Use Types Packs/Day Years Used Date Smoking Tobacco: Former Comments Unknown Sex and Gender Information Value Date Recorded Sex Assigned at Not on file Legal Sex Female 7:53 PM GAS ROLLER OPERATOR Gender Identity Not on file Sexual [...] Normal Normal Periphery Normal Normal Care Teams Rv Parts And Service Director Relationship Specialty Start Date End Date Taylor Scott [address] [place] [address] PCP - General 03/24/17 05/31/18 Alok Newell MD [address] [place] [address] PCP - General 06/01/18 documented as of this encounter
--- OUTSIDE RECORDS SUMMARY | 2024-09-21 22:02 | XMS_ITS | Clinical Summary ---
Author Organization [facility] Address [address] [place] [address] Dr. Arndt: Epic Prelude ADT HALEY SAAB [address] Care Team Providers Care Master Cosmetologist Name Role Phone Unavailable Primary Care Provider Unavailabl e Social History Tobacco Use Types Packs/Day Years Used Date Smoking Tobacco: Never Assessed Comments Unknown Sex and Gender Information Value Date Recorded Sex Assigned at Not on file Legal Sex Female 3:08 AM KITCHEN LEAD Gender Identity Not on file Sexual Orientation [...]
--- OUTSIDE RECORDS SUMMARY | 2024-09-21 22:02 | XMS_ITS | Encounter Summary ---
Author Organization [facility] Address [address] [place] [address] Care Team Providers Care Supervisor Frame Assembly Name Role Phone Unavailable Primary Care Provider [...] on file Legal Sex Female 3:08 AM SPECIAL PROJECTS COORDINATOR Gender Identity Not on file Sexual Orientation Not on file documented as of this encounter Plan of Treatment Not on file documented as of this encounter Visit Diagnoses Not on filedocumented in this encounter
--- OUTSIDE RECORDS SUMMARY | 2024-09-21 22:02 | XMS_ITS | Continuity of Care Document ---
Author Organization [facility] Address [address] [place] [address] [address] [place] [address] Phone Care Team Providers Care Bait Tier Name Role Phone Pearl OD, Shaggy Unavailable Unavailable Advance Directives Directive Yes / No Effective Date File Name No Information Encounters Encounter Description Practice Location Reason(s) For Visit Diagnoses Date Provider Providers Copied on Encounter [facility], [address] [place] [address] [address], [place], [place], [id number], [place] tel:[phone] [facility] No Information 2-200 3 Pearl OD Shaggy. [address], [place], [address], [place]. tel:[phone] Family History Family Member Type Diagnosis Age At Onset No Information Payers Payer name Insurance type Covered alliance party ID Authorelizabetha tipatricia(s) [employer] SOI CI [id number] Social History Type Description Quantity Date Captured [...]
--- OUTSIDE RECORDS SUMMARY | 2024-09-21 22:02 | XMS_ITS | Patient Health Record ---
Author Organization [facility] [employer] [facility] Address [address] [facility] [address] [place] [address] Care Team Providers Care Packing Machine Tender Name Role Phone Osiris APARICIO, Alok Primary Care Provider Paras Diaz Unavailable [phone] Migration, Provider Unavailable Unavailable Allergies Allergen (clinical drug ingredient) Drug/Non Drug [...] vortioxetine Vortioxetine Unknown Drug Allergy 10/21/2023 Active Reason For Referral No Information Medications Medication SIG (Take, Route, Frequency, Duration) Notes Start Date End Date Status EQ SINUS 12-HOUR 120MG TAB *Reorder from [facility] for eRx and Interaction Alerts* 10/21/2023 Active Baclofen 20 MG Oral 10/21/2023 Acti ve ProAir HFA 108 (90 Base) MCG/ACT Inhalation 10/21/2023 Active predniSONE 10 MG Oral 10/21/2023 Ac tive Remicade 100 MG Intravenous 10/21/2023 A ctive Warfarin Sodium 10 MG Oral 10/21/2023 Active predniSONE 5 MG Oral 10/21/2023 Act candy Pseudoephedrine HCl ER 120 MG Oral 10/21/2023 Active Dicyclomine HCl 20 MG Oral 10/21/2023 Active Hydroxychloroquine Sulfate 200 MG Oral 10/21/2023 Active Atomoxetine HCl 40 MG 1 capsule in the morning Orally Once a day for 90 days 07/17/2024 5 Active Metoprolol Tartrate 25 MG Oral 10/21/2023 Active [place] Thyroid 240 mg Oral 10/21/2023 Active Clindamycin Phosphate 1 % External 10/21/2023 Active fentaNYL 75 MCG/HR Transdermal 10/21/2023 Active Montelukast Sodium 10 MG Oral 10/21/2023 Active HYDROmorphone HCl 8 MG Oral 10/21/2023 Active buPROPion HCl ER (SR) 150 MG Oral 10/21/2023 Active Mometasone Furoate 0.1 % External 10/21/2023 Active Omeprazole 20 MG Oral 10/21/2023 Ac tive Atomoxetine HCl 80 MG 1 capsule in the morning Orally Once a day for 90 days stop Atomoxetine 40 mg daily 09/18/2024 5 Active QUEtiapine Fumarate 50 MG 2 tablet at bedtime Oral Once a day for 90 days Active Social History Sex Assigned At : Social History Observation Description Sex Assigned At Female Problems Problem Type SNOMED Code ICD Code Onset Dates Problem Status W/U Status Risk Notes Problem Hypothyroidism (75821003) Hypothyroidism, unspecified (E03.9) 04/14/20 23 Active confirmed Problem Severe recurrent major depression without psychotic features (82813595) Major depressive disorder, recurrent severe without psychotic features (F33.2) 11/02/19 24 Active confirmed Problem Chronic pain syndrome (348322106) Chronic pain syndrome (G89.4) 04/14/20 23 Active confirmed Problem Gastroesophageal reflux disease (404522993) GERD (gastroesophage al reflux disease) (K21.9) 04/14/20 23 Active confirmed Problem 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) 06/06/20 18 Active confirmed Problem Varicose veins of lower extremity (07103276) Varicose veins of lower extremity (I83.90) 06/06/20 18 Active confirmed Problem Cornea abrasion, right, subsequent encounter (S05.01XD) 01/24/20 19 Active confirmed Problem Myalgia (47318676) Myalgia (M79.10) 05/15/20 22 Active confirmed Problem Breast implant rupture (T85.43XA) 03/08/20 23 Active confirmed Problem Atrial fibrillation (33506982) Atrial fibrillation with RVR (CMS/HCC) (I48.91) 04/14/20 23 Active confirmed Problem Essential hypertension (07086783) Hypertension, essential (I10) 04/14/20 23 Active confirmed Vital Signs Heart Rate 94 /min 02/16/2024 Blood pressure diastolic 67 mm Hg 02/16/2024 Height-cm 172.72 cm 02/16/2024 Weight-kg 69.04 kg 02/16/2024 Height 68.00 in 02/16/2024 Blood pressure systolic 101 mm Hg 02/16/2024 Weight 152.2 lbs 02/16/2024 BMI 23.14 kg/m2 02/16/2024 Encounters Encounter Location Date Provider Diagnosis [facility] [employer] [facility] [address] [facility] [address] [place] [address] 10/21/2023 Paras Guevara Major depressive disorder, recurrent severe without psychotic features F33.2 [facility] [employer] [facility] [address] [address] 10/28/2023 Provider Migration Major depressive disorder, recurrent severe without psychotic features F33.2 [facility] [address] [facility] [address] [place] [address] 11/02/2023 Provider Migration Major depressive disorder, recurrent severe without psychotic features F33.2 [facility] [employer], [facility] [address] [address] 02/16/2024 Paras Rojoam Major depressive disorder, recurrent severe without psychotic features F33.2 ; Hypothyroidism, unspecified E03.9 and Hypertension, essential I10 [facility] [employer], [facility] [address] [facility] [address] [place] [address] 07/17/2024 Paras Rojoam Major depressive disorder, recurrent severe without psychotic features F33.2 ; Hypothyroidism, unspecified E03.9 and Hypertension, essential I10 [facility] [employer] [facility] [address] [address] 09/21/[address] [facility], [facility] [address] [address] 10/07/2023 Provider Migration [facility] [employer], [facility] [address] [address] 10/12/2023 Provider Migration [facility] [employer], [facility] [address] [address] 10/20/2023 Provider Migration [facility] [employer], [facility] [address] [address] 10/27/2023 Provider Migration [facility] [employer], [facility] [address] [address] 12/25/2023 Provider Migration [facility] [employer], [facility] [address] [address] 12/26/2023 Provider Migration [facility] [employer], [facility] [address] [address] 09/14/2024 Paras Paola Assessments Encounter Date Diagnosis (ICD Code) Assessment Notes Treatment Notes Treatment Clinical Notes Section Notes 10/21/2023 Major depressive disorder, recurrent severe without psychotic features (ICD-10 - F33.2) 11/02/2023 Major depressive disorder, recurrent severe without psychotic features (ICD-10 - F33.2) 10/28/2023 Major depressive disorder, recurrent severe without psychotic features (ICD-10 - F33.2) 07/17/2024 Major depressive disorder, recurrent severe without psychotic features (ICD-10 - F33.2) Rheumatoid Arthritis and Psoriatic Arthritis - Plan: - Continue monitoring arthritis symptoms. - Consider adjusting prednisone dosage if possible. - Consult with a charge manager for further evaluation and management. - Explore [...] dosage as needed. - Consult with a lozenge maker for further evaluation and management of anticoagulation therapy. - Continue weekly blood draws for INR monitoring. 02/16/2024 Hypothyroidism, unspecified (ICD-10 - E03.9) Mental [...] indicating a need for ophthalmological evaluation. 02/16/2024 Major depressive disorder, recurrent severe without [...] disturbances, indicating a need for ophthalmological evaluation. 07/17/2024 Hypothyroidism, unspecified (ICD-10 - E03.9) Rheumatoid Arthritis and Psoriatic Arthritis - Plan: - Continue monitoring arthritis symptoms. - Consider adjusting prednisone dosage if possible. - Consult with a charge manager for further evaluation and management. - Explore [...] dosage as needed. - Consult with a lozenge maker for further evaluation and management of anticoagulation therapy. - Continue weekly blood draws for INR monitoring. 07/17/2024 Hypertension, essential (ICD-10 - I10) Rheumatoid Arthritis and Psoriatic Arthritis - Plan: - Continue monitoring arthritis symptoms. - Consider adjusting prednisone dosage if possible. - Consult with a charge manager for further evaluation and management. - Explore [...] dosage as needed. - Consult with a lozenge maker for further evaluation and management of anticoagulation therapy. - Continue weekly blood draws for INR monitoring. Plan Of Treatment Next Appt Details Provider Name:Paras Guevara , 01/15/2025 03:30:00 PM, [address], [address], [place], [address], Insurance Providers Payer Name Payer Address Payer Phone Subscriber Number Group Number Insured Name Patient Relationship to Insured Coverage Start Date Coverage End Date [place] [address] [place] [id number] ALEXYS RODRIGUEZ Self - patient is the insured [employer] Medicare Supplement [address] [place] [address] [id number] ALEXYS RODRIGUEZ Self - patient is the insured Medical (General) History Medical History History ICD Code Problems: Melissa-Danlos syndrome Generalized anxiety disorder Long-term drug therapy Severe recurrent major depression withou t psychotic features , Surgical History Surgery Date(Month/Year) Hysterectomy/revise vagina (26702) Removal of ovary(s) (88578) Ligation of bilateral fallopian tubes (2 38567005) Myringotomy tube placement 08/09/1969 Endometrial ablation (18181) 08/09/1992 Any surgical history 08/09/1994 Sinus surgery 08/09/1994 Hysterectomy (76275) 08/09/1997 Oophorectomy (61259) 08/09/1997 Sinus surgery 08/09/1997 Hysterectomy (94850) 08/09/2010 Oophorectomy (27008) 08/09/2010 Breast surgery (10553) 11/07/1997 Breast surgery (81212) 12/02/1997 Other 07/01/2011
--- OUTSIDE RECORDS SUMMARY | 2024-09-21 22:02 | XMS_ITS | Referral Summary ---
Author Organization [facility] Address [address] [facility] [place] [address] Care Team Providers Care Tapping Machine Operator Automatic Name Role Phone Alok Newell MD Primary Care Provider [phone] Source Comments [facility],non-owned Affiliates and Associated Physician Practices is amultiple site organization consisting of ambulatory clinics and hospital sitesin [place], [place], [place] and [place]. This disclosure is being madepursuant to the Care Everywhere program and may not contain all information available regarding this patient. Last updated 18.[facility] [employer] Allergies Active Allergy Reactions Criticality Noted Date [...] Active vitamin D, ergocalciferol, (DRISDOL) 1.25 MG (04402 UT) capsule Take 50,000 Units by mouth [...] 9:10 PM 02/27/2020 6:12 AM Care Teams Tapping Machine Operator Automatic Relationship Specialty Start Date End Date Alok Newell MD PCP - General Family Medicine 10/29/15
--- OUTSIDE RECORDS SUMMARY | 2024-09-21 22:02 | XMS_ITS | Continuity of Care Document ---
Author Organization [facility] Address [address] [place] [address] Phone Care Team Providers Care Boilermaker Mechanic Name Role Phone Unavailable Unavailable Unavailable Medications Medication Instructions Dosage Effective Dates (start - stop) Status Comments prednisone 10 mg Tab PREDNISONE 10 MG TABLET # 18<><> 6 TAB by mouth (PO) every day.<><><>DISPENSE: 3 day supply.<>REFILLS: 0<><>This script generated by provider WILL at 06/11/2008 2:58:07 PM<>Provider: MANASA GIL MD<>[facility]><> - Active Procedures Procedure Date OFFICE OUTPT NEW 10 MIN Advance Directives Directive Yes / No Effective Date File Name No Information Encounters Encounter Description Practice Location Reason(s) For Visit Diagnoses Date Provider Providers Copied on Encounter [facility] , [address], [place], [place], [id number], tel:[phone] [facility] No Information No Information OFFICE OUTPT NEW 10 MIN [facility] , [address], [place], [place], [id number], tel:[phone] [facility] TOXIC EFFECT OF LATEX No Information Family History Family Member Type Diagnosis Age At Onset No Information Payers Payer name Insurance type Covered alliance party ID Authoriza tion(s) No Information Social History [...]
[2024-09-21] MEDS: TETANUS,DIPHTHERIA,AC PERTUSSIS ADULT (0.5 ML) BOOSTRIX IM (22:29)
[2024-09-21] MEDS: CEPHALEXIN 500 MG CAPSULE PO (22:29)
--- NOTE | 2024-09-21 22:40 | ED_ITS ---
HPI - Wound/Laceration General Chief Complaint: Wound/Laceration Stated Complaint: R LOWER LEG SKIN AVULSION Time Seen by Provider: 09/21/24 21:46 Source: patient Mode of arrival: ambulatory Limitations: no limitations History of Present Illness HPI narrative: Patient is a 54-year-old female who presents the ED with report of a laceration to her right lower leg. Patient reports history of rheumatoid arthritis, p soriatic arthritis, Melissa-Danlos syndrome. She states she is very prone to skin tears and skin lacerations. She states 3 days ago she was sleepwalking, which is not uncommon for her, and she fell. She states her right lower leg scraped against the carpet and she sustained a large laceration to her right cota. She states she was managing at home, but did not feel it was healing correctly so she prompted here for further evaluation. Patient also has history of previous blood clots. Is on Coumadin. Last had her INR checked last week and it was within normal range. History of chronic pain, on fentanyl patches and daily dilaudid therapy. Also on chronic steroids related to rheumatologic issues. Related Data Home Medications ?Medication ?Instructions ?Recorded ?Confirmed ?Last Taken ?Type quetiapine 50 mg tablet (Seroquel) 100 mg PO QHS 08/18/22 09/14/24 Unknown History hydroxychloroquine 200 mg tablet 400 mg PO QHS 04/26/23 09/14/24 Unknown History (Plaquenil) warfarin 5 mg tablet 5 mg PO DAILY 06/21/23 09/14/24 Unknown History prednisone 10 mg tablet 20 mg PO Q12H 10/19/23 09/14/24 Unknown History warfarin 10 mg tablet mg PO DAILY PRN 03/02/24 09/14/24 Unknown History tapinarof 1 % topical cream (Vtama) 1 applic topical DAILY 07/13/24 09/14/24 Unknown History triamcinolone acetonide 0.025 % applic topical BID 07/13/24 09/14/24 Unknown History topical cream acetaminophen 650 mg 1,300 mg PO .q8hr PRN 09/14/24 09/14/24 Unknown History tablet,extended release (Tylenol 8 Hour) atomoxetine 40 mg capsule 40 mg PO DAILY 09/14/24 09/14/24 Unknown History (Strattera) chlorpheniramine maleate 4 mg 8 mg PO QHS 09/14/24 09/14/24 Unknown History tablet fexofenadine 180 mg tablet 180 mg PO DAILY 09/14/24 09/14/24 Unknown History (Pao Allergy) fluticasone propionate 50 2 spray intranasal DAILY 09/14/24 09/14/24 Unknown History mcg/actuation nasal spray,suspension (Flonase Allergy Relief) metoprolol tartrate 25 mg tablet 75 mg PO BID 09/14/24 09/14/24 Unknown History Allergies Allergy/AdvReac Type Severity Reaction Status Date / Time doxycycline Allergy Severe Anaphylaxis Verified 09/21/24 18:59 yellow dye Allergy Severe Unknown Verified 09/21/24 18:59 apixaban (From Eliquis) Allergy Mild Hives Verified 09/21/24 18:59 mycophenolate mofetil (From Allergy Mild Blister Verified 09/21/24 18:59 CellCept) rivaroxaban (From Xarelto) Allergy Mild Rash Verified 09/21/24 18:59 aspirin Allergy Unknown Unknown Verified 09/21/24 18:59 azithromycin Allergy Unknown Unknown Verified 09/21/24 18:59 clarithromycin Allergy Unknown Unknown Verified 09/21/24 18:59 codeine Allergy Unknown Unknown Verified 09/21/24 18:59 hydrocodone Allergy Unknown Unknown Verified 09/21/24 18:59 ibuprofen Allergy Unknown Unknown Verified 09/21/24 18:59 latex Allergy Unknown Unknown Verified 09/21/24 18:59 leflunomide Allergy Unknown Unknown Verified 09/21/24 18:59 meloxicam Allergy Unknown Unknown Verified 09/21/24 18:59 meperidine Allergy Unknown Unknown Verified 09/21/24 18:59 methylprednisolone Allergy Unknown Unknown Verified 09/21/24 18:59 morphine Allergy Unknown Unknown Verified 09/21/24 18:59 nitrofurantoin Allergy Unknown Unknown Verified 09/21/24 18:59 NSAIDS (Non-Steroidal Allergy Unknown gives me Verified 09/21/24 18:59 Anti-Inflamma blisters and my skin falls off oxycodone Allergy Unknown Unknown Verified 09/21/24 18:59 Penicillins Allergy Unknown Unknown Verified 09/21/24 18:59 spironolactone Allergy Unknown Unknown Verified 09/21/24 18:59 Sulfa (Sulfonamide Allergy Unknown Unknown Verified 09/21/24 18:59 Antibiotics) sulfanilamide Allergy Unknown Unknown Verified 09/21/24 18:59 sulfite Allergy Unknown Unknown Verified 09/21/24 18:59 topiramate Allergy Unknown Unknown Verified 09/21/24 18:59 vortioxetine Allergy Unknown Unknown Verified 09/21/24 18:59 Review of Systems Review of Systems: All systems reviewed & are unremarkable except as noted in HPI. All systems reviewed & are unremarkable except as noted in HPI and below PMFSH Past Medical History Medical History Cellulitis of right lower extremity Cellulitis of hand, right Melanosis coli LUQ abdominal pain Gastritis Hx of adenomatous colonic polyps Chronic, continuous use of opioids Chronic steroid use Bilateral leg numbness Ataxia Osteoporosis Bronchitis Bipolar 1 disorder Rupture of implant of left breast Severe scoliosis Abnormal lung sounds Right bicipital tenosynovitis Urticaria DVT (deep venous thrombosis) CVA (cerebral vascular accident) Migraine MDD (major depressive disorder) Diarrhea Dermatitis Osteoarthritis of left knee Chronic pain disorder Spondylosis of lumbar spine Spondylosis of cervical spine Scoliosis Cataract Degenerative joint disease of cervical and lumbar spine Visual loss Essential (primary) hypertension Pituitary adenoma Enchondroma Bilateral knee pain Bilateral shoulder pain Lumbar spine scoliosis Neck pain group home systemic steroid user Hypothyroid Chronic pain Bone lesion Leg pain, bilateral Depression, psychotic Rheumatoid arthritis Melissa-Danlos disease Wheezy bronchitis Surgical History Surgical History Hx of colonoscopy H/O tubal ligation Family History Family History Grandparent Family history of premature coronary heart disease Hypertension Cerebrovascular accident Family history of malignant neoplasm of breast Family history of coronary artery disease Diabetes mellitus Mother Family history of malignant neoplasm of uterus AAA (abdominal aortic aneurysm) COPD (chronic obstructive pulmonary disease) A-fib Diabetes mellitus Hypertension Father Cerebrovascular accident A-fib Sibling , basal cell sarcoma Cancer Sibling Psoriatic arthritis Other Acute myocardial infarction Depression Family history of arthritis Family history of heart disease in male family member before age 55 Unknown family medical history Social History Social History Smoking packs per day: 0 Smoking cigarettes per day: 0.0 Years smoked: 30 Smoking pack-years: 0.00 Smoking status: Current some day smoker Tobacco type: cigarettes Second hand tobacco smoke exposure: No Alcohol intake: never Substance use: never Substance use type: does not use Other substance usage details: chronic pain presently on Dilaudid daily Do You Feel Safe in your Home?: Yes Lack of Transportation: No Lack of Food: Never True Current Housing: I Have Housing Concerned About Future Housing: No Difficulty Paying Gas/Electric Bills: No Difficulty Paying for Meds: No Currently Unemployed: No Education: Master's Degree or Higher Difficulty w/ Childcare or Family Care: No Living arrangements: with family Additional living arrangements comments: and kids Occupation/Education: unemployed 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 HEAD: Normocephalic, atraumatic. RESPIRATORY: Airway patent, respirations nonlabored. CARDIOVASCULAR: Regular rate and rhythm. Pedal pulses intact. MUSCULOSKELETAL: Moves all extremities. Large 15 cm vertical laceration/skin tear to R anterior cota, approx 1cm wide. Wound edges are fixed and dried, some surrounding erythema/bruising, focal tenderness to palpation. Dried blood present within laceration. No active bleeding. No purulenct drainage. SKIN: Warm, dry, normal color. NEURO: A&O X3. Speech clear. Cranial nerves II-XII grossly intact. Steady gait. No ataxic movements. PSYCHIATRIC: Appropriate mood and affect. Normal interaction. Course Vital Signs Vital signs: Vital Signs Temperature 98.1 F 09/21/24 19:16 Pulse Rate 97 09/21/24 19:16 Respiratory Rate 19 09/21/24 19:16 Blood Pressure 104/81 09/21/24 19:16 Pulse Oximetry 97 09/21/24 19:16 Oxygen Delivery Room Air 09/21/24 19:16 Temperature 98.1 F 09/21/24 19:16 Pulse Rate 87 09/21/24 23:14 Respiratory Rate 15 09/21/24 23:14 Blood Pressure 109/56 L 09/21/24 23:14 Pulse Oximetry 97 09/21/24 23:14 Oxygen Delivery Room Air 09/21/24 19:16 MDM - Wound/Laceration MDM Narrative Medical decision making narrative: Patient presented to ED with large laceration to right lower leg. Sustained greater than 48 hours ago. Neurovascularly intact. X-ray of tib-fib negative. Discussed that due to delayed nature of patient's presentation, wound will have to heal by secondary intention. Advised it will take some time to heal, will need daily wound care and bandage changes. Wound was thoroughly cleansed and irrigated here. Bandaged with nonadhesive dressing. Will refer patient to wound care clinic. Recommended close follow-up with PCP as well. Will be st arted on Keflex for antibiotic prophylaxis. Wound does not appear frankly infected at this time to suggest need for further labs/iv abx. Given 1st dose of keflex in the ED. Tetanus was also updated in the ED. Patient is on warfarin, INR was therapeutic last week. Low suspicion for DVT. Patient given return precautions. She is in agreement with plan. Discharged in stable condition. Medical Records Attestation: I reviewed the patient's medical records. Imaging Data Attestation: I personally reviewed and interpreted this imaging study as follows: Radiologist's impression: ITS Impressions Tibia/Fibula X-Ray 09/21/24 22:31 IMPRESSION: No acute fracture or dislocation. Discharge Plan Discharge Clinical Impression: Laceration of right lower leg Qualifiers: Encounter type: sequela Qualified Code(s): S81.811S - Laceration without foreign body, right lower leg, sequela Patient Disposition: Home, Self-Care Condition: Stable Instructions: Antibiotic Form, Laceration (ED), Skin Adhesive Care (ED), Chronic Wounds (ED) Additional Instructions: Your wound will have to heal on its own. Recommend washing wound daily with soap and water, changing bandage daily. Keep bandaged to avoid further irritation or bleeding. Utilize antibiotic ointment over wound. Take oral antibiotics as prescribed. Follow-up with your primary care doctor and wound care for further evaluation. [facility]: [phone] Return to the ED if you experience worsening or severe pain, recurrent bleeding, recurrent injury, or any other symptoms of concern. Patient Language: Kazakh Prescriptions: New cephalexin 500 mg capsule 500 mg PO Q6H 7 Days Qty: 28 0RF No Action quetiapine [Seroquel] 50 mg tablet 100 mg PO QHS naloxone [Narcan] 4 mg/actuation spray,non-aerosol 4 mg intranasal Q2M PRN (Reason: opioid overdose) Qty: 2 0RF Rx Instructions: spray 1 dose into ONE nostril; alternate nostrils w each dose until help arrives warfarin 5 mg tablet 5 mg PO DAILY hydroxychloroquine [Plaquenil] 200 mg tablet 400 mg PO QHS Vtama 1 % cream 1 applic topical DAILY triamcinolone acetonide 0.025 % cream topical BID warfarin 10 mg tablet PO DAILY PRN Eucrisa 2 % ointment 1 applic topical DAILY Qty: 100 0RF Rx Instructions: 3 month supply acetaminophen [Tylenol 8 Hour] 650 mg tablet extended release 1,300 mg PO .q8hr PRN metoprolol tartrate 25 mg tablet 75 mg PO BID fluticasone propionate [Flonase Allergy Relief] 50 mcg/actuation spray,pollock spension 2 spray intranasal DAILY Rx Instructions: administer into each nostril fexofenadine [Pao Allergy] 180 mg tablet 180 mg PO DAILY chlorpheniramine maleate 4 mg tablet 8 mg PO QHS atomoxetine [Strattera] 40 mg capsule 40 mg PO DAILY prednisone 10 mg tablet 20 mg PO Q12H baclofen 20 mg tablet 20 mg PO Q6H PRN (Reason: muscle spasm) Qty: 360 3RF montelukast 10 mg tablet See Rx Instructions .ROUTE .COMPLEX Qty: 90 3RF Dose Instruction: TAKE 1 TABLET BY MOUTH AT BEDTIME Rx Instructions: TAKE 1 TABLET BY MOUTH AT BEDTIME bupropion HCl 150 mg tablet sustained-release 12 hr See Rx Instructions .ROUTE .COMPLEX Qty: 270 3RF Dose Instruction: TAKE 2 TABLETS BY MOUTH IN THE MORNING AND 1 TABLET IN THE EVENING (TOTAL OF 3 TABLETS DAILY) Rx Instructions: TAKE 2 TABLETS BY MOUTH IN THE MORNING AND 1 TABLET IN THE EVENING (TOTAL OF 3 TABLETS DAILY) [place] Thyroid 240 mg tablet 240 mg PO DAILY Qty: 90 1RF albuterol sulfate 90 mcg/actuation HFA aerosol inhaler 2 puff INHALATION Q4H PRN (Reason: wheezing) Qty: 18 5RF mupirocin calcium 2 % cream 1 applic topical BID Qty: 60 0RF pseudoephedrine HCl [Nasal Decongestant (pseudoeph)] 120 mg tablet extended release 120 mg PO Q12H Qty: 60 0RF omeprazole 20 mg capsule,delayed release(DR/EC) 20 mg PO BID Qty: 60 0RF dicyclomine 20 mg tablet 20 mg PO TID PRN (Reason: abdominal discomfort) Qty: 270 1RF ketoconazole 2 % shampoo 1 applic topical 2XW Qty: 120 0RF Rx Instructions: 3 month supply hydrocortisone 2.5 % cream 1 applic topical BID PRN (Reason: skin irritation) Qty: 453.6 0RF fentanyl 75 mcg/hr patch 72 hour 1 patch transdermal Q72H Qty: 10 0RF hydromorphone 8 mg tablet 8 mg PO TID PRN (Reason: pain) Qty: 90 0RF Follow-up/Referrals: Alok Newell MD [Primary Care Provider] - Time of Disposition: 23:04
[2024-09-21 23:14] VITALS: BP 109/56; PULSE 87; RESP 15; O2SAT 97
== END 2024-09-21 23:14 | disposition home or self-care (01) ==
PROVIDERS: Emergency Provider Physician Assistant; PCP Family Medicine
DX: S81.811A Laceration without foreign body, right lower leg, initial encounter (principal); Z23 Encounter for immunization; I10 Essential (primary) hypertension; E03.9 Hypothyroidism, unspecified; Q79.60 Ehlers-Danlos syndrome, unspecified; L40.50 Arthropathic psoriasis, unspecified; M81.0 Age-related osteoporosis without current pathological fracture; M06.9 Rheumatoid arthritis, unspecified; M17.12 Unilateral primary osteoarthritis, left knee; F31.9 Bipolar disorder, unspecified; F17.210 Nicotine dependence, cigarettes, uncomplicated; Z86.0101 Personal history of adenomatous and serrated colon polyps; Z86.73 Personal history of transient ischemic attack (TIA), and cerebral infarction without residual deficits; Z86.718 Personal history of other venous thrombosis and embolism; Z79.01 Long term (current) use of anticoagulants; Z79.52 Long term (current) use of systemic steroids; Z79.899 Other long term (current) drug therapy; W18.39XA Other fall on same level, initial encounter
CPT/HCPCS: 73590; 90471; 90715; 99283; A9270

== ENCOUNTER 2025-07-30 23:49 | Emergency (ER) | payer MEDICARE, SELFPAY ==
--- OUTSIDE RECORDS SUMMARY | 2015-03-25 02:27 | XMS_ITS | Continuity of Care Document ---
Author Organization [facility] Address [address] [place] [address] Phone Care Team Providers Care Tie Cutter Name Role Phone Unavailable Unavailable Unavailable Medications Medication Instructions Dosage Effective Dates (start - stop) Status Comments prednisone 10 mg Tab PREDNISONE 10 MG TABLET # 18<><> 6 TAB by mouth (PO) every day.<><><>DISPENSE: 3 day supply.<>REFILLS: 0<><>This script generated by provider WILL at 06/11/2008 2:58:07 PM<>Provider: MANASA GIL MD<>[facility]><> - Active Procedures Procedure Date OFFICE OUTPT NEW 10 MIN Advance Directives Directive Yes / No Effective Date File Name No Information Encounters Encounter Description Practice Location Reason(s) For Visit Diagnoses Date Provider Providers Copied on Encounter [facility] , [address], [place], [place], [id number], tel:[phone] [facility] [place] No Information No Information OFFICE OUTPT NEW 10 MIN [facility] , [address], [place], [place], [id number], tel:[phone] [facility] [place] TOXIC EFFECT OF LATEX No Information Family History Family Member Type Diagnosis Age At Onset No Information Payers Payer name Insurance type Covered democrat ID Authoriza tion(s) No Information Social History Type Description Quantity Date Captured Comments Sex Female Smoking Status No Information Chief Complaint And Reason For Visit No Information Reason For Referral Reason For Referral No Information History Of Present Illness Encounter Date Complaint History Of Prese nt Illness No Information Functional Status Date Functional Assessmen t No Information Instructions Date Instruction Additional Infor mation No Information Assessments Type Assessment Date No Information Patient Care Teams Name Effective Dates (start - stop) Status Members No Information
--- OUTSIDE RECORDS SUMMARY | 2025-07-25 09:30 | XMS_ITS ---
Author Organization [facility] Address [facility] [address] [address] Care Team Providers Care Rock Room Worker Name Role Phone Osiris APARICIO, Alok Primary Care Provider Paras Diaz [phone] REASON FOR VISIT 6 month f/u Social History Sex Assigned At : Social History Observation Description Sex Assigned At Female Encounters Encounter Location Date Provider Diagnosis [facility] [employer] [place] [id number] [facility] [address] [address] 07/25/2025 Paras Snowden Plan Of Treatment Next Appt Details Provider Name:Paras Snowden , 08/30/2025 04:30:00 PM, [address], [facility] [address], [place], [address], Progress Notes * ALEXYS RODRIGUEZDO B:1970 (55 yo F)Acc No.[id number]:07/25/2025 Patient: Melida CARMEN ALEXYS SMITH Provider: Kaela SNOWDEN MD :1970 A ge:55 Y S ex:Female Date:07/25/2025 Address:[address] [place], [place] [id number] Pcp:Alok Newell MD Subjective: * Chief Complaints: * 6 month f/u * Active Problem List K21.9 GERD (gastroesophage al reflux disease) Onset Date:5412-45-91Tdlobmqo On:02/16/2024 Status:confirmed 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 Onset Date:2061-73-09Hdsmkbuv On:02/16/2024 Status:confirmed I83.90 Varicose veins of lo wer extremity Onset Date:2474-21-24Ydkohjvs On:02/16/2024 Status:confirmed S05.01XD Cornea abrasion, rig ht, subsequent encounter Onset Date:8862-14-08Gqiynrnd On:02/16/2024U Status:confirmed M79.10 Myalgia Onset Date:4920-98-60Oqbyrbvf On:02/16/2024 Status:confirmed T85.43XA Breast implant ruptu re Onset Date:4366-50-02Oldrhzkx On:02/16/2024 Status:confirmed I48.91 Atrial fibrillation with RVR (CMS/HCC) Onset Date:9506-74-03Jnstlqlz On:02/16/2024 Status:confirmed I10 Hypertension, essent ial Onset Date:6692-81-44Rkftafyq On:02/16/2024 Status:confirmed E03.9 Hypothyroidism, unsp ecified Onset Date:8234-59-53Sxdjrqyl On:02/16/2024 Status:confirmed G89.4 Chronic pain syndrom e Onset Date:9864-01-94Fiwvlgpk On:02/16/2024 Status:confirmed F33.2 Major depressive dis order, recurrent severe without psychotic features Onset Date:11/02/2023Modified On:02/16/2024 Status:confirmed F90.2 ADHD (attention defi cit hyperactivity disorder), combined type Modified On:01/15/2025 Status:confirmed Billing Information: * Procedure Codes: * Electronic signature of Lisa Snowden MD on 07/31/2025 at 01:01 AM BULK STATION OPERATOR Sign off status: Pending * Provider: Kaela SNOWDEN MD Date: 09/25/2024 Generated for Sunnyi kit/Montyg/eTransmitting on: 10/01/2024 01:01 AM BULK STATION OPERATOR
[2025-07-30 23:55] VITALS: BP 114/81; PULSE 83; RESP 18; TEMP 36.6; O2SAT 96
--- OUTSIDE RECORDS SUMMARY | 2025-07-31 01:00 | XMS_ITS | Encounter Summary ---
Author Organization [facility] Address [address] [place] [address] Phone Care Team Providers Care Content Producer Name Role Phone Taylor Scott Primary Care Provider [phone] Alok Newell MD Primary Care Provider [phone] Encounter Details Date Type Department Care Team (Late st Contact Info) Description 05/31/2018 Ophth Exam [facility] Medicine Ophthalmology [address] [place] [address] [address] [place] [address] Lakisha Apple MD PhD [address] 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
--- OUTSIDE RECORDS SUMMARY | 2025-07-31 01:01 | XMS_ITS | Clinical Summary ---
Author Organization [facility] Address [address] [place] [address] Care Team Providers Care Relief Map Modeler Name Role Phone Alok Newell MD Primary Care Provider [phone] Allergies Active Allergy Reactions Criticality Noted Date [...] 03/21/2013 Vortioxetine Hives,Unknown 01/19/2017 unknown Yellow Dye #6 ([place] Yellow) Padilla Neo Syndrome,Unknown High 05/31/2018 #5, #6 [...] 10:50 PM CDT Height 172.7 cm (5' 8) 05/20/2024 10:50 PM CDT Body Mass Index [...] Screening with HPV 1998 Mammogram Screening 2008 Pneumococcal Vaccine: 50+ Ye ars (1 of 1 - PCV) 2018 Zoster Vaccines (1 of 2) 2018 COVID-19 Vaccine ( - 2024-2 6 season) 2025 Influenza Adult (#1) 2025 08/26/2018 Hepatitis A Vaccines Aged Out No long er eligible based on patient's age to complete this topic Meningococcal B Vaccine Aged Out No l [...] +MRSA Right leg 05/20/2024 05/20/[address] [facility] Care Teams Relief Map Modeler Relationship Specialty Start Date End Date Alok Newell MD [address] [place], [place] [id number] PCP - General FAMILY PRACTICE 05/20/24
--- OUTSIDE RECORDS SUMMARY | 2025-07-31 01:01 | XMS_ITS | Patient Health Record ---
Author Organization [employer] Address [address] [facility] [address] [place], [place] [address] Phone [phone] Care Team Providers Care Director Market Intelligence Name Role Phone Jluis TeeStewart [phone] Allergies Allergen (clinical drug ingredient) Drug/Non Drug Allergy documented on EMR Reaction Allergy Type Onset Date Status morphine morphine Unknown Drug Allergy Active codeine codeine Unknown Drug Allergy Active tramadol tramadol Unknown Drug Allergy Active NSAIDS (uncoded) Unknown Allergy Act candy hydrocodone (uncoded) Unknown Allergy Active Reason For Referral No Information Medications Medication SIG (Take, Route, Frequency, Duration) Notes Start Date End Date Diagnosis (ICD Code) Status atenolol 25 mg tablet 1 tab(s) orally once a day; Duration: 30 day(s) Active torsemide 20 mg tablet 1 tab(s) orally once a day; Duration: 30 day(s) Active cloNIDine 0.2 mg tablet 1 tab(s) orally 2 times a day; Duration: 30 day(s) Active fentaNYL 75 mcg/hr film, extended release 1 PATCH applied topically every 72 hours; Duration: 30 day(s) Active predniSONE 20 mg tablet 1 tab(s) orally once a day; Duration: 7 day(s) Active Social History Sex Observation Social History Observation Description Sex Observation Female Social History Additional Details Category Social Info Options Details Social History 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 spouse,st ep daughter Marital Status How many times have you been ? 4 Living accomodations: house Problems Problem Type SNOMED Code ICD Code Dates Problem Status W/U Status Risk Notes Problem Polyarthralgia (94441245) Polyarthralgia (719.49) Active confirmed Problem Myalgia (27283802) Myalgia (729.1) Active confi rmed Plan Of Treatment Pending Test Test Name Order Date CBC (IH) 04/11/2014 Insurance Providers Payer Name Payer Address Payer Phone Subscriber Number Group Number Insured Name Patient Relationship to Insured Coverage Start Date Coverage End Date [facility] - CHOICE PLUS [address] [address] [place] [address] [id number] Mariah Bryant Self - patient is the insured 3 Medical (General) History Medical History History ICD Code bruises easily change in moles migraine headache tension headaches loss of hearing sinus problems swollen glands in neck lumps thyroid disease high blood pressure swelling of ankles/feet varicose veins asthma bronchitis bloating constipation gas irritable bowel syndrome indigestion stomach pain/cramps weight gain Hot Flashes anxiety depression chicken pox pneumonia
--- OUTSIDE RECORDS SUMMARY | 2025-07-31 01:01 | XMS_ITS | Encounter Summary ---
Author Organization [facility] Address 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
--- OUTSIDE RECORDS SUMMARY | 2025-07-31 01:01 | XMS_ITS | Encounter Summary ---
Author Organization [facility] Address [address] [place] [address] Care Team Providers Care Automobile Mechanic Name Role Phone Unavailable Primary Care Provider [...] on file Legal Sex Female 3:08 AM ANALYTICAL STATISTICIAN Gender Identity Not on file Sexual Orientation Not on file documented as of this encounter Plan of Treatment Not on file documented as of this encounter Visit Diagnoses Not on filedocumented in this encounter
--- OUTSIDE RECORDS SUMMARY | 2025-07-31 01:01 | XMS_ITS | Clinical Summary ---
Author Organization [facility] Address [address] [place] [address] Dr. Cottonn: Epic Prelude ADT [facility] [address] Care Team Providers Care Mva Still Operator Name Role Phone Unavailable Primary Care Provider Unavailabl e Social History Tobacco Use Types Packs/Day Years Used Date Smoking Tobacco: Never Assessed Comments Unknown Sex and Gender Information Value Date Recorded Sex Assigned at Not on file Legal Sex Female 3:08 AM FORM DRAFTER Gender Identity Not on file Sexual Orientation Not on file Plan of Treatment Health Maintenance Due Date Last Done Comments DTAP/TDAP/TD VACCINES (1 - Tdap) 1987 HEPATITIS B VACCINES (1 of 3 - 19+ 3-dose series) 03/10 HPV/Cotest (21-29) 1989 CERVICAL CANCER SCREENING 1998 HPV/Cotest (30-65) 1998 PAP SMEAR 1998 BREAST CANCER SCREENING 2008 COLORECTAL SCREENING 2013 Colorectal Cancer Screening 2013 FIT-DNA Q 3 years 2013 FIT/FOBT Q 1 year 2013 Flex Sig/CT Colonography Q 5 years 2013 ZOSTER VACCINE (1 of 2) 2018 INFLUENZA VACCINE (#1) 2025
--- OUTSIDE RECORDS SUMMARY | 2025-07-31 01:02 | XMS_ITS | Clinical Summary ---
Author Organization [facility] Address [address] [place] [address] Care Team Providers Care Safety Belt Installer Name Role Phone Alok Newell MD Primary Care Provider Allergies Active Allergy Reactions Criticality Noted Date [...] Blisters also Medications fexofenadine (GUILLE) 180 mg tabletIndicati ons:Seasonal Allergic Rhinitis Take 1 tablet (180 mg total) by mouth every morning Active mometasone (ELOCON) 0.1 % creamIndicatio ns:Skin Inflammation,s kin rash Apply 1 Application topically daily as needed Active folic acid (FOLVITE) 1 mg tabletIndicati ons:supplement Take 1 tablet (1 mg total) by mouth every morning Active dicyclomine (BENTYL) 20 mg tabletIndicati ons:Abdominal Pain with Cramps Take 1 tablet (20 mg total) by mouth every 6 (six) hours as needed Active baclofen (LIORESAL) 20 mg tablet Take 1 tablet (20 mg total) by mouth 4 (four) times a day Active montelukast (SINGULAIR) 10 mg tabletIndicati ons:Maintenanc e Therapy for Asthma,Seasona l Allergic Rhinitis Take 1 tablet (10 mg total) by mouth nightly Active chlorphenirami ne (CHLOR-TRIMETO N) 4 mg tabletIndicati ons:Rhinitis Take 1 tablet (4 mg total) by mouth every 6 (six) hours as needed for allergies or rhinitis Takes 2 at pm Active albuterol HFA (PROVENTIL HFA,VENTOLIN HFA,PROAIR HFA) 90 mcg/actuation inhalerIndicat ions:Bronchosp asm Prevention Inhale 2 puffs every 6 (six) hours as needed for wheezing or shortness of breath Active HYDROmorphone (DILAUDID) 8 mg tabletIndicati ons:Pain Take 1 tablet (8 mg total) by mouth every 4 (four) hours as needed for moderate pain (pain scale 5-7) Active omeprazole (PriLOSEC) 20 mg capsuleIndicat ions:gerd Take 3 capsules (60 mg total) by mouth daily 2 in AM, 1 in PM Active albuterol (PROVENTIL,TIFFANI TOLIN) 5 mg/mL nebulizer solution Take 0.5 mL (2.5 mg total) by nebulization every 6 (six) hours as needed for wheezing or shortness of breath Active predniSONE (DELTASONE) 10 mg tabletIndicati ons:Anti-infla mmatory Take 3 tablets (30 mg) by mouth daily 20 AM 10 PM Active biotin 1 mg tabletIndicati ons:supplement Take 1 tablet (1,000 mcg total) by mouth every morning Active cholecalcifero l (VITAMIN D-3) 50,000 unit capsuleIndicat ions:Vitamin D Deficiency Take 1 capsule (50,000 Units total) by mouth once a week Take on Wednesday Active fentaNYL (DURAGESIC) 75 mcg/hrIndicati ons:severe chronic pain with opioid tolerance Place 1 patch on the skin every third day Active calcium carbonate-mag hydroxid 1,000-200 mg tablet,chewabl eIndications:s upplement Take 1 tablet by mouth every morning Active herbal drugs (Colon Herbal Cleanser) capsuleIndicat ions:constipat ion Take 2 tablets by mouth daily as needed (constipation) Active lysine 1,000 mg tabletIndicati ons:supplement Take 1 tablet by mouth every morning Active QUEtiapine (SEROquel) 50 mg tabletIndicati ons:ADD Take 2 tablets (100 mg total) by mouth nightly 07/22/20 22 Active buPROPion SR (WELLBUTRIN SR) 150 mg 12 hr tabletIndicati ons:Anxiety with Depression Take 1 tablet (150 mg total) by mouth 2 (two) times a day And 300mg at bedtime 05/21/20 22 Active inFLIXimab (REMICADE) 100 mg injectionIndic ations:RA Infuse into a venous catheter every 6 (six) weeks Active fluticasone propionate (FLONASE) 50 mcg/actuation nasal spray Administer 2 sprays into each nostril daily Active [place] Thyroid 240 mg tabletIndicati ons:hypothyroi dism Take 0.5 tablets (120 mg total) by mouth 2 (two) times a day Pt states she takes half tab in am and half in pm 01/20/20 23 Active hydrOXYchloroQ UINE (PLAQUENIL) 200 mg tabletIndicati ons:Rheumatoid Arthritis Take 2 tablets (400 mg total) by mouth nightly 03/19/20 23 Active hydrocortisone 2.5 % cream as needed 03/30/20 24 Active ketoconazole (NIZORAL) 2 % shampoo as needed 03/03/20 24 Active pseudoephedrin e ER (SUDAFED) 120 mg 12 hr tablet as needed 0 04/18/20 24 Active triamcinolone (KENALOG) 0.025 % cream as needed 01/27/20 24 Active mupirocin (BACTROBAN) 2 % ointment Apply 3 Applications topically daily 01/12/20 25 Active atomoxetine (STRATTERA) 80 mg capsule Take 1 capsule (80 mg total) by mouth daily 02/02/20 25 Active amLODIPine (NORVASC) 10 mg tablet TAKE 1 TABLET BY MOUTH DAILY 90 tablet 3 03/29/20 25 Active metoprolol tartrate (LOPRESSOR) 50 mg immediate release tablet TAKE 1 TABLET BY MOUTH TWICE DAILY 180 tablet 3 07/16/20 25 Active metoprolol tartrate (LOPRESSOR) 50 mg immediate release tablet Take 1 tablet (50 mg total) by mouth 2 (two) times a day 180 tablet 3 06/30/20 24 025 Discontinued Active Problems Problem Noted Date Diagnosed Date Atrial fibrillation with RVR 04/14/2023 Assessment & Plan (04/27/2024 3:47 PM CDT): [...] diastolic function, normal LA chamber size - [id number] at least 2, true risk likely higher [...] Varicose veins of lower extremity 01/18/2015 Immunizations Immunization Administration Dates Next Due Influenza, Quadrivalent, Rec [...] ischemic attack) Cluster headache RA (rheumatoid arthritis) Psoriatic arthritis (HCC) Sinusitis Family History Medical [...] Packs/Day Years Used Date Smoking Tobacco: Former Cigarettes 0.2 39 S tarted: 1986 Smokeless Tobacco: Never Tobacco Cessation:Counseling Given: Not [...] on file 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 Gender Identity Not on file Sexual Orientation Not on file Last Filed Vital Signs Vital Sign Reading Time Taken Comments Blood Pressure 130/80 02/23/2025 11:29 AM CDT Pulse 81 02/23/2025 11:29 AM CDT Temperature 36.6 C (97.9 F) 04/15/2023 8:21 AM CDT Respiratory Rate 16 04/15/2023 8:21 AM CDT Oxygen Saturation 85% 02/23/2025 11:29 AM CDT Inhaled Oxygen Concentration - - Weight 68.5 kg (151 lb) 02/23/2025 11:29 AM CDT Height 172.7 cm (5' 8) 02/23/2025 11:29 AM CDT Body Mass Index 22.96 02/23/2025 11:29 AM CDT Plan of Treatment Health Maintenance Due Date Last Done Comments Breast Cancer Screening-Mammogram 1968 Colon Cancer Screening-Colonoscopy 1968 Depression Screening 1968 Hepatitis C Screening 1968 DTaP/Tdap/Td Vaccine (1 - Tdap) 1979 Hepatitis B Screening 1986 Regular Well Visit/Exam 18-64 1986 Pneumococcal vaccine <65 (1 of 2 - PCV) 1987 Zoster Vaccine (1 of 2) 1987 Influenza Vaccine (#1) 2025 08/26/2018 Insurance MEDICARE [facility] CHOICE PLUS [facility] HMO/PPO Address: [address] [address] [place] [address] MEDICARE COMMERCIAL GENERIC MEDICARE [facility] Advance Directives For more information, please contact: [phone] * Full Code (Latest Code Status on File) Date Activated Date Inactivated Comments 04/14/2023 3:43 PM 04/15/2023 5:41 PM Care Teams Safety Belt Installer Relationship Specialty Start Date End Date Alok Newell MD PCP - General 06/01/18
--- OUTSIDE RECORDS SUMMARY | 2025-07-31 01:02 | XMS_ITS | Patient Health Record ---
Author Organization [facility] [employer] [facility] Address [address] [facility] [address] [place] [address] Care Team Providers Care Bottle Tester Name Role Phone Osiris APARICIO, Alok Primary Care Provider Paras Diaz Unavailable [phone] Allergies Allergen (clinical drug ingredient) Drug/Non Drug [...] End Date Status Atomoxetine HCl 80 MG Capsule TAKE 1 CAPSULE BY MOUTH EVERY MORNING ONCE DAILY; Duration: 30 Active [place] Thyroid 240 MG Tablet TAKE 1 TABL ET BY MOUTH ONCE DAILY Oral; Duration: 30 Days Active QUEtiapine Fumarate 50 MG Tablet TAKE 2 TABLETS BY MOUTH AT BEDTIME ONCE DAILY; Duration: 90 Active buPROPion HCl ER (SR) 150 MG Tablet Extended Release 12 Hour 1 tablet Oral 3 times a day; Duration: 90 days Active fentaNYL 75 MCG/HR Patch 72 Hour APPLY 1 PATCH TOPICALLY EVERY 72 HOURS Transdermal; Duration: 30 Days Active HYDROmorphone HCl 8 MG Tablet Oral; Duration: 30 Days Acti ve Metoprolol Tartrate 50 MG Tablet Oral; Duration: 90 Days Acti ve amLODIPine Besylate 10 MG Tablet Oral; Duration: 90 Days Acti ve Social History Tobacco Use: Social History Observation Description Date Details (start date - stop date) Never Smoker NA - NA Sex Assigned At : Social History Observation Description Sex Assigned At Female Social History Tobacco Use: Social Info Question Answer Notes Tobacco Control (Standard) Tobacco use: Nonsmoker Additional Details Category Social Info Options Details Migrated Social History Migrated Social History Alcohol Intake: Occasional 09/14/2022,Tobacco Years: Current some days smoker 09/14/2022 Problems Problem Type SNOMED Code ICD Code Onset Dates Problem Status W/U Status Risk Notes Problem Hypothyroidism (48082148) Hypothyroidism, unspecified (E03.9) 04/14/20 23 Active confirmed Problem Severe recurrent major depression without psychotic features (35973327) Major depressive disorder, recurrent severe without psychotic features (F33.2) 11/02/19 24 Active confirmed Problem Chronic pain syndrome (542411481) Chronic pain syndrome (G89.4) 04/14/20 23 Active confirmed Problem Attention deficit hyperactivity disorder (487723692) ADHD (attention deficit hyperactivity disorder), combined type (F90.2) Active confirmed Problem Gastroesophageal reflux disease (326979099) GERD (gastroesophagea l reflux disease) (K21.9) 04/14/20 23 Active confirmed Problem 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) 06/06/20 18 Active confirmed Problem Varicose veins of lower extremity (39667149) Varicose veins of lower extremity (I83.90) 06/06/20 18 Active confirmed Problem Cornea abrasion, right, subsequent encounter (S05.01XD) 01/24/20 19 Active confirmed Problem Myalgia (21881620) Myalgia (M79.10) 05/15 22 Active confirmed Problem Breast implant rupture (T85.43XA) 03/08/20 23 Active confirmed Problem Atrial fibrillation (01694955) Atrial fibrillation with RVR (CMS/HCC) (I48.91) 04/14/20 23 Active confirmed Problem Essential hypertension (74613502) Hypertension, essential (I10) 04/14/20 23 Active confirmed Encounters [facility]counter [facility] [address] [address] [facility] Major depressive disorder, recurrent severe without psychotic features F33.2 ; Hypothyroidism, unspecified E03.9 ; Hypertension, essential I10 ; ADHD (attention deficit hyperactivity disorder), combined type F90.2 and Negative depression screening Z13.[address] [address] 09/14/[address] [address] 10/04/[address] [address] 10/04/[address] [address] 10/05/2024 [facility] Assessments Encounter Date Diagnosis (ICD Code) Assessment Notes Treatment Notes Treatment Clinical Notes Section Notes 01/15/2025 Hypothyroidism, unspecified (ICD-10 - E03.9) 01/15/2025 Major depressive disorder, recurrent severe without psychotic features (ICD-10 - F33.2) 01/15/2025 Hypertension, essential (ICD-10 - I10) 01/15/2025 ADHD (attention deficit hyperactivity disorder), combined type (ICD-10 - F90.2) Patient is experiencing challenges with attention and focus. Current medications are reported to be helpful. - Continue taking Bupropion SR 150 mg. - Continue taking Quetiapine 50 mg, 2 tablets at night. - Continue taking Strattera. 01/15/2025 Negative depression screening (ICD-10 - Z13.31) 10/05/2024 Other Electronic Prio r Authorization was requested for Atomoxetine HCl 80 MG Capsule. Provider can order medication once approval received. Plan Of Treatment Next Appt Details Provider Name:Paras Guevara , 08/30/2025 04:30:00 PM, [address], [address], [place], [address], Insurance Providers Payer Name Payer Address Payer Phone Subscriber Number Group Number Insured Name Patient Relationship to Insured Coverage Start Date Coverage End Date [place] [address] [place] [address] [id number] ALEXYS RODRIGUEZ Self - patient is the insured [facility] Medicare Supplement [address] [place] [address] [id number] ALEXYS RODRIGUEZ Self - patient is the insured Medical (General) History Medical History History ICD Code Problems: Melissa-Danlos syndrome Generalized anxiety disorder Long-term drug therapy Severe recurrent major depression withou t psychotic features , Surgical History Surgery Date(Month/Year) Hysterectomy/revise vagina (78501) Removal of ovary(s) (29387) Ligation of bilateral fallopian tubes (2 00132436) Myringotomy tube placement 08/09/1969 Endometrial ablation (39320) 08/09/1992 Any surgical history 08/09/1994 Sinus surgery 08/09/1994 Hysterectomy (70596) 08/09/1997 Oophorectomy (68925) 08/09/1997 Sinus surgery 08/09/1997 Hysterectomy (51015) 08/09/2010 Oophorectomy (44584) 08/09/2010 Breast surgery (54196) 11/07/1997 Breast surgery (21360) 12/02/1997 Other 07/01/2011
[2025-07-31 01:59] VITALS: BP 124/84; PULSE 84; RESP 20; TEMP 36.9; O2SAT 100
--- NOTE | 2025-07-31 17:11 | ED.GENADULT ---
HPI - General Adult General Chief complaint: Extremity Injury, Lower Stated complaint: LOWER EXTREMITY LAC Time Seen by Provider: 07/31/25 00:21 History of Present Illness HPI narrative: 55-year-old female with a past medical history of vascular Melissa-Danlos presenting with a left mid cota laceration after dropping a frozen chicken on her leg. She reports no other injuries. Extremity is neurovascular intact. Denies numbness/tingling or weakness. Related Data Home Medications ?Medication ?Instructions ?Recorded ?Confirmed ?Last Taken ?Type quetiapine 50 mg tablet (Seroquel) 100 mg PO QHS 08/18/22 07/31/25 Unknown History hydroxychloroquine 200 mg tablet 400 mg PO QHS 04/26/23 07/31/25 Unknown History (Plaquenil) triamcinolone acetonide 0.025 % applic topical BID 07/13/24 07/31/25 Unknown History topical cream acetaminophen 650 mg 1,300 mg PO .q8hr PRN 09/14/24 07/31/25 Unknown History tablet,extended release (Tylenol 8 Hour) atomoxetine 40 mg capsule 40 mg PO DAILY 09/14/24 07/31/25 Unknown History (Strattera) chlorpheniramine maleate 4 mg 8 mg PO QHS 09/14/24 07/31/25 Unknown History tablet fexofenadine 180 mg tablet 180 mg PO DAILY 09/14/24 07/31/25 Unknown History (Pao Allergy) fluticasone propionate 50 2 spray intranasal DAILY 09/14/24 07/31/25 Unknown History mcg/actuation nasal spray,suspension (Flonase Allergy Relief) metoprolol tartrate 25 mg tablet 75 mg PO BID 09/14/24 07/31/25 Unknown History prednisone 5 mg tablet mg PO 10/27/24 07/31/25 Unknown History Allergies Allergy/AdvReac Type Severity Reaction Status Date / Time doxycycline Allergy Severe Anaphylaxis Verified 07/31/25 09:55 yellow dye Allergy Severe Unknown Verified 07/31/25 09:55 apixaban (From Eliquis) Allergy Mild Hives Verified 07/31/25 09:55 mycophenolate mofetil (From Allergy Mild Blister Verified 07/31/25 09:55 CellCept) rivaroxaban (From Xarelto) Allergy Mild Rash Verified 07/31/25 09:55 aspirin Allergy Unknown Unknown Verified 07/31/25 09:55 azithromycin Allergy Unknown Unknown Verified 07/31/25 09:55 clarithromycin Allergy Unknown Unknown Verified 07/31/25 09:55 codeine Allergy Unknown Unknown Verified 07/31/25 09:55 hydrocodone Allergy Unknown Unknown Verified 07/31/25 09:55 ibuprofen Allergy Unknown Unknown Verified 07/31/25 09:55 latex Allergy Unknown Unknown Verified 07/31/25 09:55 leflunomide Allergy Unknown Unknown Verified 07/31/25 09:55 meloxicam Allergy Unknown Unknown Verified 07/31/25 09:55 meperidine Allergy Unknown Unknown Verified 07/31/25 09:55 methylprednisolone Allergy Unknown Unknown Verified 07/31/25 09:55 morphine Allergy Unknown Unknown Verified 07/31/25 09:55 nitrofurantoin Allergy Unknown Unknown Verified 07/31/25 09:55 NSAIDS (Non-Steroidal Allergy Unknown gives me Verified 07/31/25 09:55 Anti-Inflamma blisters and my skin falls off oxycodone Allergy Unknown Unknown Verified 07/31/25 09:55 Penicillins Allergy Unknown Unknown Verified 07/31/25 09:55 spironolactone Allergy Unknown Unknown Verified 07/31/25 09:55 Sulfa (Sulfonamide Allergy Unknown Unknown Verified 07/31/25 09:55 Antibiotics) sulfanilamide Allergy Unknown Unknown Verified 07/31/25 09:55 sulfite Allergy Unknown Unknown Verified 07/31/25 09:55 topiramate Allergy Unknown Unknown Verified 07/31/25 09:55 vortioxetine Allergy Unknown Unknown Verified 07/31/25 09:55 Review of Systems Review of Systems: All systems reviewed & are unremarkable except as noted in HPI and below PMFSH Past Medical History Medical History Cellulitis of right lower extremity Cellulitis of hand, right Melanosis coli LUQ abdominal pain Gastritis Hx of adenomatous colonic polyps Chronic, continuous use of opioids Chronic steroid use Bilateral leg numbness Ataxia Osteoporosis Bronchitis Bipolar 1 disorder Rupture of implant of left breast Severe scoliosis Abnormal lung sounds Right bicipital tenosynovitis Urticaria DVT (deep venous thrombosis) CVA (cerebral vascular accident) Migraine MDD (major depressive disorder) Diarrhea Dermatitis Osteoarthritis of left knee Chronic pain disorder Spondylosis of lumbar spine Spondylosis of cervical spine Scoliosis Cataract Degenerative joint disease of cervical and lumbar spine Visual loss Essential (primary) hypertension Pituitary adenoma Enchondroma Bilateral knee pain Bilateral shoulder pain Lumbar spine scoliosis Neck pain senior care systemic steroid user Hypothyroid Chronic pain Bone lesion Leg pain, bilateral Depression, psychotic Rheumatoid arthritis Melissa-Danlos disease Wheezy bronchitis Surgical History Surgical History Hx of colonoscopy H/O tubal ligation Family History Family History Grandparent Family history of premature coronary heart disease Hypertension Cerebrovascular accident Family history of malignant neoplasm of breast Family history of coronary artery disease Diabetes mellitus Mother Family history of malignant neoplasm of uterus AAA (abdominal aortic aneurysm) COPD (chronic obstructive pulmonary disease) A-fib Diabetes mellitus Hypertension Father Cerebrovascular accident A-fib Sibling , basal cell sarcoma Cancer Sibling Psoriatic arthritis Other Acute myocardial infarction Depression Family history of arthritis Family history of heart disease in male family member before age 55 Unknown family medical history Social History Social History Smoking packs per day: 0 Smoking cigarettes per day: 0.0 Years smoked: 30 Smoking pack-years: 0.00 Smoking status: Current some day smoker Tobacco type: cigarettes Second hand tobacco smoke exposure: No Alcohol intake: never Substance use: never Substance use type: does not use Other substance usage details: chronic pain presently on Dilaudid daily Lack of Transportation: No Lack of Food: Never True Current Housing: I Have Housing Concerned About Future Housing: No Difficulty Paying Gas/Electric Bills: No Difficulty Paying for Meds: No Currently Unemployed: No Education: Master's Degree or Higher Difficulty w/ Childcare or Family Care: No Living arrangements: with family Additional living arrangements comments: and kids Occupation/Education: unemployed 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 HEAD: Normocephalic, atraumatic. EYES: PERRLA and EOMI. ENT: Nares clear, no rhinorrhea or epistaxis. Mucous membranes moist. Oropharynx without tonsillar hypertrophy exudate or other lesions. Bilateral TMs pearly knight non-bulging NECK: Supple. No adenopathy or masses. No carotid bruits or JVD CHEST: Clear to auscultation. No respiratory distress. No wheezes rales or rhonchi HEART: Regular rate and rhythm. No murmur heard. Normal peripheral pulses. ABDOMEN: Soft, nontender, nondistended, normal active bowel sounds. EXTREMITIES: Normal range of motion. No edema. L mid cota 4 cm linear skin tear. No signs of infection. Neurovascular intact. SKIN: Warm, dry, no rash. NEURO: No focal deficits. Alert and oriented x3. PSYCH: Normal mood and affect Course Vital Signs Vital signs: Vital Signs Temperature 97.8 F 07/30/25 23:55 Pulse Rate 83 07/30/25 23:55 Respiratory Rate 18 07/30/25 23:55 Blood Pressure 114/81 07/30/25 23:55 Pulse Oximetry 96 07/30/25 23:55 Oxygen Delivery Room Air 07/30/25 23:55 Temperature 98.5 F 07/31/25 01:59 Pulse Rate 84 07/31/25 01:59 Respiratory Rate 20 07/31/25 01:59 Blood Pressure 124/84 07/31/25 01:59 Pulse Oximetry 100 07/31/25 01:59 Oxygen Delivery Room Air 07/30/25 23:55 MDM MDM Narrative Medical decision making narrative: 55-year-old female with a past medical history of vascular Melissa-Danlos presenting with a left mid cota laceration after dropping a frozen chicken on her leg. She reports no other injuries. Extremity is neurovascular intact. Denies numbness/tingling or weakness. Patient presents with a superficial skin tear after minor trauma. Bleeding is controlled and there is no evidence of foreign body or signs of infection. Neurovascular status intact with no evidence of deeper structure injury. Wound was cleaned and dressed; sutures not indicated. Patient given wound care instructions and return precautions and is stable for discharge. Given reasons to return. Differential Diagnosis Differential Diagnosis: Differential diagnostic considerations for skin/abscess/foreign body issues include abscess of skin or subcutaneous tissue, viral exanthem, dermatophytosis, urticaria, herpes zoster, allergic reaction to drug, cellulitis, eczema, insect bites, impetigo, contact dermatitis, vasculitis. Medical Records I have reviewed the following patient records and this information was taken into consideration when formulating the assessment and plan.: previous labs, previous ER visits, previous hospitalizations and previous clinic visits Discharge Plan Discharge Clinical Impression: Skin tear Patient Disposition: Home Condition: Stable Instructions: Acute Wounds (ED) Additional Instructions: Keep wound clean and dry for the first 24 hours. Gently wash with mild soap and water daily after 24 hours. Apply a thin layer of antibiotic ointment and cover with a sterile dressing. Change dressing daily or if it becomes wet or dirty. Avoid strenuous activity or stretching that may open the wound. Do not pick at scabs. Return to ED if you notice redness, swelling, or warmth around the wound, pus or foul smelling drainage, fever/chills, or worsening pain or bleeding that cannot be controlled with significant pressure. Use acetaminophen or ibuprofen for pain. Follow-up with primary care provider. Patient Language: Arabic Prescriptions: No Action quetiapine [Seroquel] 50 mg tablet 100 mg PO QHS hydroxychloroquine [Plaquenil] 200 mg tablet 400 mg PO QHS triamcinolone acetonide 0.025 % cream topical BID naloxone [Narcan] 4 mg/actuation spray,non-aerosol 4 mg intranasal Q2M PRN (Reason: opioid overdose) Qty: 2 0RF Rx Instructions: spray 1 dose into ONE nostril; alternate nostrils w each dose until help arrives Eucrisa 2 % ointment 1 applic topical DAILY Qty: 100 0RF Rx Instructions: 3 month supply acetaminophen [Tylenol 8 Hour] 650 mg tablet extended release 1,300 mg PO .q8hr PRN metoprolol tartrate 25 mg tablet 75 mg PO BID fluticasone propionate [Flonase Allergy Relief] 50 mcg/actuation spray,suspension 2 spray intranasal DAILY Rx Instructions: administer into each nostril fexofenadine [Pao Allergy] 180 mg tablet 180 mg PO DAILY chlorpheniramine maleate 4 mg tablet 8 mg PO QHS atomoxetine [Strattera] 40 mg capsule 40 mg PO DAILY prednisone 5 mg tablet PO mupirocin [Centany] 2 % ointment 1 applic topical TID Qty: 30 3RF amoxicillin-pot clavulanate 875-125 mg tablet 1 tablet PO Q12H 7 Days Qty: 14 0RF mupirocin calcium 2 % cream 1 applic topical BID Qty: 60 0RF dicyclomine 20 mg tablet 20 mg PO TID PRN (Reason: abdominal discomfort) Qty: 270 1RF hydrocortisone 2.5 % cream 1 applic topical BID PRN (Reason: skin irritation) Qty: 453.6 0RF montelukast 10 mg tablet See Rx Instructions .ROUTE .COMPLEX Qty: 90 3RF Dose Instruction: TAKE 1 TABLET BY MOUTH AT BEDTIME Rx Instructions: TAKE 1 TABLET BY MOUTH AT BEDTIME [place] Thyroid 240 mg tablet 240 mg PO DAILY Qty: 90 1RF baclofen 20 mg tablet 20 mg PO Q6H PRN (Reason: muscle spasm) Qty: 360 3RF albuterol sulfate 90 mcg/actuation HFA aerosol inhaler See Rx Instructions .ROUTE .COMPLEX Qty: 51 3RF Dose Instruction: USE 2 INHALATIONS BY MOUTH EVERY 4 HOURS NEEDED FOR WHEEZING Rx Instructions: USE 2 INHALATIONS BY MOUTH EVERY 4 HOURS NEEDED FOR WHEEZING bupropion HCl 150 mg tablet sustained-release 12 hr See Rx Instructions .ROUTE .COMPLEX Qty: 270 3RF Dose Instruction: TAKE 2 TABLETS BY MOUTH IN THE MORNING AND 1 TABLET IN THE EVENING (TOTAL OF 3 TABLETS DAILY) Rx Instructions: TAKE 2 TABLETS BY MOUTH IN THE MORNING AND 1 TABLET IN THE EVENING (TOTAL OF 3 TABLETS DAILY) ketoconazole 2 % shampoo 1 applic topical 2XW Qty: 120 0RF Rx Instructions: 3 month supply omeprazole 20 mg capsule,delayed release(DR/EC) 20 mg PO BID Qty: 180 2RF hydromorphone 8 mg tablet 8 mg PO TID PRN (Reason: pain) Qty: 90 0RF fentanyl 75 mcg/hr patch 72 hour 1 patch transdermal Q72H Qty: 10 0RF pseudoephedrine HCl [Nasal Decongestant (pseudoeph)] 120 mg tablet extended release 120 mg PO Q12H Qty: 60 2RF Follow-up/Referrals: Alok Newell MD [Primary Care Provider, Family Practice]
== END 2025-07-31 02:06 | disposition home or self-care (01) ==
PROVIDERS: PCP Family Medicine
DX: S81.812A Laceration without foreign body, left lower leg, initial encounter (principal); I10 Essential (primary) hypertension; E03.9 Hypothyroidism, unspecified; M06.9 Rheumatoid arthritis, unspecified; M81.0 Age-related osteoporosis without current pathological fracture; M17.12 Unilateral primary osteoarthritis, left knee; G89.29 Other chronic pain; Q79.60 Ehlers-Danlos syndrome, unspecified; F31.9 Bipolar disorder, unspecified; F17.210 Nicotine dependence, cigarettes, uncomplicated; Z86.73 Personal history of transient ischemic attack (TIA), and cerebral infarction without residual deficits; Z86.718 Personal history of other venous thrombosis and embolism; Z86.0101 Personal history of adenomatous and serrated colon polyps; Z79.899 Other long term (current) drug therapy; W20.8XXA Other cause of strike by thrown, projected or falling object, initial encounter
CPT/HCPCS: 99282